=== PATIENT | male | born 1940 | race Caucasian/White ===

== ENCOUNTER 2017-06-27 07:11 | Emergency (ER) | payer OTHER ==
[2017-06-27] MEDS ORDERED: HYDROCODONE/APAP 5/325 MG TAB ONE (07:32)
--- NOTE | 2017-06-27 08:24 | RAD REPORT ---
EXAM DESCRIPTION: CT - Thorax Wo Con CLINICAL HISTORY: Fall, trauma, chest pain COMPARISON: None FINDINGS: Mild linear opacities in both posterior lung bases compatible with subsegmental atelectasi s. Small bilateral pleural effusions, slightly greater on the left. No pneumothorax. Small hiatal her sue. No axillary, mediastinal or hilar adenopathy. Fracture of the posterior left eighth, ninth and tenth ribs noted, minimally displaced. All CT scans are performed using dose optimization technique as appropriate and may include automated exposure control or mA/KV adjustment according to patient size. IMPRESSION: Left posterior rib fractures (8th - 10th) as detailed. No pneumothorax.
--- NOTE | 2017-06-27 08:29 | RAD REPORT ---
EXAM DESCRIPTION: CT - Abdomen Wo Contrast CLINICAL HISTORY: Trauma, flank pain. COMPARISON: CT chest same date. TECHNIQUE All CT scans are performed using dose optimization technique as appropriate and may includ e automated exposure control or mA/KV adjustment according to patient size. FINDINGS: Bilateral pleural effusions are noted, slightly greater on the left. Posterior left eighth , ninth and tenth rib fractures noted. Full intrathoracic findings are detailed on separately reporte d CT chest examination. Non-contrast imaging of the liver shows no focal lesion or biliary dilatation. Cholecystectomy clips are seen. Spleen is grossly intact. The adrenal glands and pancreas are within normal limits. No luna l stone or hydronephrosis. Small renal cysts are present. Perinephric fat stranding is seen bilateral ly. No free fluid, bowel obstruction or free air. No significant adenopathy in the abdomen. Spinal column appears intact. IMPRESSION: Left inferior posterior rib fractures as described without acute intra-abdominal finding suspected.
--- NOTE | 2017-06-27 08:37 | EDPHYS ---
Physician Documentation [facility] Name: Pavel Roberts Age: 77 yrs Sex: Male : 1940 Arrival Date: 06/27/2017 Time: 07:13 Bed 16 Private MD: Xavier Britton C ED Physician Woody Tellez HPI: 06/27 08:27 This 77 yrs old Male presents to ER via Ambulatory with complaints of Fall gs Injury. 08:27 Details of fall: The patient fell from an upright position, while walking. Onset: The gs symptoms/episode began/occurred suddenly, yesterday. Associated injuries: The patient sustained injury to the chest, contusion. Severity of symptoms: At their worst the symptoms were moderate, in the emergency department the symptoms are unchanged. Historical: - Allergies: 07:29 No Known Allergies; ss 07:20 No Known Allergies; rb1 - Home Meds: 07:20 Plavix 75 mg Oral tab 1 tab once daily [Active]; losartan-hydrochlorothiazide 100-25 mg rb1 oral tab 1 tab once daily [Active]; atorvastatin 10 mg oral tab 1 tab once daily [Active]; amlodipine 5 mg tab 1 tab twice a day [Active]; fenofibrate oral 48 mg oral [Active]; glimepiride 2 mg Oral tab 1 tab once daily [Active]; doxazosin 2 mg oral tab 1 tab once daily [Active]; alprazolam 0.5 mg Oral tab 1 tab [Active]; aspirin 81 mg Oral chew 1 tab once daily [Active]; Vitamin D Oral [Active]; - PMHx: 07:29 Myocardial infarction; Diabetes - NIDDM; Hypertension; High Cholesterol; ss 07:20 cardiac stent; Hypertension; rb1 - PSHx: 07:29 cardiac stents x 3; Cholecystectomy; ss 07:20 Cholecystectomy; rb1 - Immunization history:: Adult Immunizations up to date. - Social history:: Smoking status: Patient/guardian denies using tobacco. ROS: 08:29 All other systems are negative. gs Exam: 08:29 Head/Face: Normocephalic, atraumatic. Eyes: Pupils equal round and reactive to light, gs extra-ocular motions intact. Lids and lashes normal. Conjunctiva and sclera are non-icteric and not injected. Cornea within normal limits. Periorbital areas with no swelling, redness, or edema. ENT: Nares patent. No nasal discharge, no septal abnormalities noted. Tympanic membranes are normal and external auditory canals are clear. Oropharynx with no redness, swelling, or masses, exudates, or evidence of obstruction, uvula midline. Mucous membranes moist. Neck: Trachea midline, no thyromegaly or masses palpated, and no cervical lymphadenopathy. Supple, full range of motion without nuchal rigidity, or vertebral point tenderness. No Meningismus. Cardiovascular: Regular rate and rhythm with a normal S1 and S2. No gallops, murmurs, or rubs. Normal PMI, no JVD. No pulse deficits. Respiratory: Lungs have equal breath sounds bilaterally, clear to auscultation and percussion. No rales, rhonchi or wheezes noted. No increased work of breathing, no retractions or nasal flaring. Abdomen/GI: Soft, non-tender, with normal bowel sounds. No distension or tympany. No guarding or rebound. No evidence of tenderness throughout. Back: No spinal tenderness. No costovertebral tenderness. Full range of motion. Skin: Warm, dry with normal turgor. Normal color with no rashes, no lesions, and no evidence of cellulitis. MS/ Extremity: Pulses equal, no cyanosis. Neurovascular intact. Full, normal range of motion. Neuro: Awake and alert, GCS 15, oriented to person, place, time, and situation. Cranial nerves II-XII grossly intact. Motor strength 5/5 in all extremities. Sensory grossly intact. Cerebellar exam normal. Normal gait. 08:29 Constitutional: The patient appears alert, awake. 08:29 Chest/axilla: Palpation: tenderness, that is moderate, of the left lateral anterior chest, that totally reproduces the patient's complaints. Vital Signs: 07:21 BP 181 / 74; Pulse 70; Resp 18; Pulse Ox 99% on R/A; Weight 85.28 kg; Height 5 ft. 8 ss in. (172.72 cm); Pain 10/10; 08:20 BP 151 / 67; Pulse 18; Resp 73; Pulse Ox 96% on R/A; Pain 10/10; rb1 08:54 BP 151 / 67; Pulse 66; Resp 17; Pulse Ox 96% on R/A; rb1 07:21 Body Mass Index 28.59 (85.28 kg, 172.72 cm) ss MDM: 07:21 Patient medically screened. 08:29 Differential diagnosis: abrasion, contusion, fracture. Data reviewed: vital signs, nurses notes. Response to treatment: the patient's symptoms have markedly improved after treatment, and as a result, I will discharge patient. 06/27 07:22 Order name: CT Chest Wo Con; Complete Time: 08:38 06/27 07:48 Order name: Abdomen Wo Contrast; Complete Time: 08:38 EDMS Administered Medications: 07:34 Drug: Grace 5 mg-325 mg 1 tabs Route: PO; rb1 08:25 Follow up: Response: No adverse reaction; Pain is unchanged, physician notified rb1 Disposition: 06/27/17 08:36 Discharged to Home. Impression: Multiple fractures of ribs, left side. - Condition is Stable. - Discharge Instructions: Rib Fracture. - Prescriptions for Tylenol- Codeine #4 300-60 mg Oral Tablet - take 1 tablet by ORAL route every 8 hours As needed; 12 tablet. - Medication Reconciliation Form, Thank You Letter, Antibiotic Education, Prescription Opioid Use form. - Follow up: Private Physician; When: 2 - 3 days; Reason: Re-evaluation by your physician. Signatures: Dispatcher [employer] EDMS Tayler De La Torre RN RN Anh Cabello, RN RN rb1 Woody Tellez MD MD
--- NOTE | 2017-06-27 08:37 | ER ---
Nurse's Notes [facility] Name: Pavel Roberts Age: 77 yrs Sex: Male : 1940 Arrival Date: 06/27/2017 Time: 07:13 Bed 16 Private MD: Xavier Britton C Diagnosis: Multiple fractures of ribs, left side Presentation: 06/27 07:22 Presenting complaint: Patient states: tripped backwards while mowing yesterday and now ss c/o pain to L mid back and flank area. states, "I think he broke some ribs.". Transition of care: patient was not received from another setting of care. Onset of symptoms was June 26, 2017. Initial Sepsis Screen: Does the patient meet any 2 criteria? No. Patient's initial sepsis screen is negative. Does the patient have a suspected source of infection? No. Patient's initial sepsis screen is negative. Care prior to arrival: None. 07:22 Method Of Arrival: Ambulatory ss 07:22 Acuity: CHRIS 4 ss Historical: - Allergies: 07:29 No Known Allergies; ss 07:20 No Known Allergies; rb1 - Home Meds: 07:20 Plavix 75 mg Oral tab 1 tab once daily [Active]; losartan-hydrochlorothiazide 100-25 mg rb1 oral tab 1 tab once daily [Active]; atorvastatin 10 mg oral tab 1 tab once daily [Active]; amlodipine 5 mg tab 1 tab twice a day [Active]; fenofibrate oral 48 mg oral [Active]; glimepiride 2 mg Oral tab 1 tab once daily [Active]; doxazosin 2 mg oral tab 1 tab once daily [Active]; alprazolam 0.5 mg Oral tab 1 tab [Active]; aspirin 81 mg Oral chew 1 tab once daily [Active]; Vitamin D Oral [Active]; - PMHx: 07:29 Myocardial infarction; Diabetes - NIDDM; Hypertension; High Cholesterol; ss 07:20 cardiac stent; Hypertension; rb1 - PSHx: 07:29 cardiac stents x 3; Cholecystectomy; ss 07:20 Cholecystectomy; rb1 - Immunization history:: Adult Immunizations up to date. - Social history:: Smoking status: Patient/guardian denies using tobacco. Screenin:16 Abuse screen: Denies threats or abuse. Nutritional screening: No deficits noted. rb1 Tuberculosis screening: No symptoms or risk factors identified. Fall Risk Fall in past 12 months (25 points). No secondary diagnosis (0 pts). No IV (0 pts). Ambulatory Aid- None/Bed Rest/Nurse Assist (0 pts). Gait- Normal/Bed Rest/Wheelchair (0 pts) Mental Status- Oriented to own ability (0 pts). Total Cordero Fall Scale indicates Low Risk Score (25-44 pts). Fall prevention measures have been instituted. Side Rails Up X 2 Placed close to Nursing Station 1:1 attendant Assigned to Pt. Frequent Obs/Assesments occuring Family Present and informed to notify staff if they need to leave bedside As available Patient and Family Educated on Fall Prevention Program and strategies. Assessment: 07:16 General: Appears uncomfortable, Behavior is calm, cooperative, Denies fever. General: rb1 Pt. was mowing the grass and was backing up when he tripped over a power line and fell to the ground. Pt. fell in the grass, denies landing on anything or hitting his head.. Pain: Complains of pain in left side of ribs and left mid back Pain currently is 10 out of 10 on a pain scale. Pain began 1 day ago. Neuro: Level of Consciousness is awake, alert, obeys commands, Oriented to person, place, time, situation. Cardiovascular: Capillary refill < 3 seconds is brisk in bilateral fingers. Respiratory: Reports pain with cough Airway is patent Respiratory effort is even, unlabored, Respiratory pattern is regular, symmetrical. GI: No signs and/or symptoms were reported involving the gastrointestinal system. : No signs and/or symptoms were reported regarding the genitourinary system. Derm: Bruising that is on left side of ribs light purple. Musculoskeletal: Range of motion: intact in all extremities. 07:43 Reassessment: pt. went to CT. rb1 08:15 Reassessment: Patient appears in no apparent distress at this time. No changes from rb1 previously documented assessment. 08:28 Reassessment: Patient appears in no apparent distress at this time. Patient and/or rb1 family updated on plan of care and expected duration. Pain level reassessed. Patient is alert, oriented x 3, equal unlabored respirations, skin warm/dry/pink. Pain is unchanged after receiving pain medication, provider notified. No order received at this time. Vital Signs: 07:21 BP 181 / 74; Pulse 70; Resp 18; Pulse Ox 99% on R/A; Weight 85.28 kg; Height 5 ft. 8 ss in. (172.72 cm); Pain 10/10; 08:20 BP 151 / 67; Pulse 18; Resp 73; Pulse Ox 96% on R/A; Pain 10/10; rb1 08:54 BP 151 / 67; Pulse 66; Resp 17; Pulse Ox 96% on R/A; rb1 07:21 Body Mass Index 28.59 (85.28 kg, 172.72 cm) ED Course: 07:13 Patient arrived in ED. as 07:13 Xavier Britton MD is Private Physician. as 07:15 Woody Tellez MD is Attending Physician. gs 07:16 Patient has correct armband on for positive identification. Bed in low position. Call rb1 light in reach. Side rails up X 1. Pulse ox on. NIBP on. 07:17 Anh Cabello RN is Primary Nurse. rb1 07:21 Arm band placed on right wrist. ss 07:28 Triage completed. ss 07:[address] via stretcher. sj 07:55 CT Chest Wo Con In Process Unspecified. EDMS 07:55 Abdomen Wo Contrast In Process Unspecified. EDMS 08:55 No provider procedures requiring assistance completed. Patient did not have IV access rb1 during this emergency room visit. Administered Medications: 07:34 Drug: Bath 5 mg-325 mg 1 tabs Route: PO; rb1 08:25 Follow up: Response: No adverse reaction; Pain is unchanged, physician notified rb1 Outcome: 08:36 Discharge ordered by . gs 08:55 Discharged to home ambulatory, with significant other. rb1 08:55 Condition: stable 08:55 Discharge instructions given to patient, Instructed on discharge instructions, follow up and referral plans. medication usage, Demonstrated understanding of instructions, follow-up care, medications, Prescriptions given X 1. 08:56 Patient left the ED. rb1 Signatures: Dispatcher [employer] EDND Nicci Rosen Amelia as Smirch, Shelby RN RN Anh Cabello, RN RN rb1 Woody Tellez MD MD
[2017-06-27 09:01] VITALS: BP 151/67; O2SAT 96
== END 2017-06-27 08:56 | disposition home or self-care (01) ==
LOC: ER 07:11
DX: S22.42XA Multiple fractures of ribs, left side, initial encounter for closed fracture (principal); W18.39XA Other fall on same level, initial encounter; Y93.01 Activity, walking, marching and hiking; Y92.9 Unspecified place or not applicable; Z95.818 Presence of other cardiac implants and grafts; I10 Essential (primary) hypertension; E11.9 Type 2 diabetes mellitus without complications; I25.2 Old myocardial infarction; E78.00 Pure hypercholesterolemia, unspecified; Z79.01 Long term (current) use of anticoagulants
CPT/HCPCS: 71250; 74150; 99284

== ENCOUNTER 2019-02-13 10:18 | Emergency (ER) | payer OTHER ==
--- NOTE | 2019-02-13 12:26 | ER ---
Nurse's Notes [facility] Name: Pavel Roberts Age: 79 yrs Sex: Male : 1940 Arrival Date: 02/13/2019 Time: 10:22 Bed 5 Private MD: Xavier Britton C Diagnosis: Bursitis right elbow Presentation: 02/13 10:27 Presenting complaint: Patient states: Woke up about 2 weeks ago with right elbow jl7 swelling, denies trauma, denies pain. Transition of care: patient was not received from another setting of care. Onset of symptoms was February 01, 2019. Risk Assessment: Do you want to hurt yourself or someone else? Patient reports no desire to harm self or others. Initial Sepsis Screen: Does the patient meet any 2 criteria? No. Patient's initial sepsis screen is negative. Does the patient have a suspected source of infection? No. Patient's initial sepsis screen is negative. Care prior to arrival: None. 10:27 Method Of Arrival: Ambulatory jl7 10:27 Acuity: CHRIS 3 jl7 Triage Assessment: 10:31 General: Appears in no apparent distress. comfortable, Behavior is calm, cooperative, jl7 appropriate for age. Pain: Denies pain. Musculoskeletal: Swelling present in right elbow. Historical: - Allergies: 10:31 No Known Allergies; jl7 - Home Meds: 10:31 Plavix 75 mg Oral tab 1 tab once daily [Active]; losartan-hydrochlorothiazide 100-25 mg jl7 Oral tab 1 tab once daily [Active]; atorvastatin 10 mg Oral tab 1 tab once daily [Active]; amlodipine 5 mg tab 1 tab twice a day [Active]; fenofibrate 48 mg Oral [Active]; glimepiride 2 mg Oral tab 1 tab once daily [Active]; doxazosin 2 mg Oral tab 1 tab once daily [Active]; alprazolam 0.5 mg Oral tab 1 tab [Active]; aspirin 81 mg Oral chew 1 tab once daily [Active]; Vitamin D Oral [Active]; - PMHx: 10:31 cardiac stent; Diabetes - NIDDM; High Cholesterol; Myocardial infarction; Hypertension; jl7 - PSHx: 10:31 cardiac stents x 3; Cholecystectomy; jl7 - Immunization history:: Adult Immunizations up to date. - Social history:: Smoking status: Patient/guardian denies using tobacco. - Ebola Screening: : No symptoms or risks identified at this time. Vital Signs: 10:31 BP 151 / 62; Pulse 64; Resp 16 S; Temp 97.9(O); Pulse Ox 98% on R/A; Pain 0/10; jl7 ED Course: 10:22 Patient arrived in ED. as 10:22 Xavier Britton MD is Private Physician. as 10:28 Triage completed. jl7 10:31 Arm band placed on right wrist. jl7 10:41 Sathish Kaba MD is Attending Physician. pkl 12:02 Donovan Oseguera, RN is Primary Nurse. sg 12:02 Patient moved back from ultrasound. sg 12:19 Extremity Nonvascular Limited In Process Unspecified. EDMS 12:23 Xavier Britton MD is Referral Physician. pkl Administered Medications: No medications were administered Outcome: 12:25 Discharge ordered by . pkl 12:47 Patient left the ED. sg Signatures: Dispatcher [employer] EDMS Donovan Oseguera, RN RN Sathish Kaba MD MD pkl Afshan Bojorquez Jahala, RN RN jl7 Corrections: (The following items were deleted from the chart) 10:32 10:31 General: Appears in no apparent distress. uncomfortable, Behavior is calm, jl7 cooperative, appropriate for age, jl7 10:32 10:31 Pain: Denies pain. jl7 jl7
--- NOTE | 2019-02-13 12:26 | EDPHYS ---
Physician Documentation [facility] Name: Pavel Roberts Age: 79 yrs Sex: Male : 1940 Arrival Date: 02/13/2019 Time: 10:22 Bed 5 Private MD: Xavier Britton C ED Physician Sathish Kaba HPI: 02/13 10:50 This 79 yrs old Male presents to ER via Ambulatory with complaints of Elbow pkl Swelling. 10:50 The patient or guardian complains of swelling. The complaints affect the right elbow. pkl Context: Denies any injury. Onset: The symptoms/episode began/occurred 2 week(s) ago. The patient has not experienced similar symptoms in the past. Historical: - Allergies: 10:31 No Known Allergies; jl7 - Home Meds: 10:31 Plavix 75 mg Oral tab 1 tab once daily [Active]; losartan-hydrochlorothiazide 100-25 mg jl7 Oral tab 1 tab once daily [Active]; atorvastatin 10 mg Oral tab 1 tab once daily [Active]; amlodipine 5 mg tab 1 tab twice a day [Active]; fenofibrate 48 mg Oral [Active]; glimepiride 2 mg Oral tab 1 tab once daily [Active]; doxazosin 2 mg Oral tab 1 tab once daily [Active]; alprazolam 0.5 mg Oral tab 1 tab [Active]; aspirin 81 mg Oral chew 1 tab once daily [Active]; Vitamin D Oral [Active]; - PMHx: 10:31 cardiac stent; Diabetes - NIDDM; High Cholesterol; Myocardial infarction; Hypertension; jl7 - PSHx: 10:31 cardiac stents x 3; Cholecystectomy; jl7 - Immunization history:: Adult Immunizations up to date. - Social history:: Smoking status: Patient/guardian denies using tobacco. - Ebola Screening: : No symptoms or risks identified at this time. ROS: 10:50 Eyes: Negative for injury, pain, redness, and discharge, ENT: Negative for injury, pkl pain, and discharge, Neck: Negative for injury, pain, and swelling, Cardiovascular: Negative for chest pain, palpitations, and edema, Respiratory: Negative for shortness of breath, cough, wheezing, and pleuritic chest pain, Abdomen/GI: Negative for abdominal pain, nausea, vomiting, diarrhea, and constipation, Back: Negative for injury and pain, : Negative for injury, bleeding, discharge, and swelling. 10:50 MS/extremity: Positive for swelling, of the right elbow. 10:50 Skin: Negative for rash. 10:50 Neuro: Negative for altered mental status. Exam: 10:50 Head/Face: Normocephalic, atraumatic. Eyes: Pupils equal round and reactive to light, pkl extra-ocular motions intact. Lids and lashes normal. Conjunctiva and sclera are non-icteric and not injected. Cornea within normal limits. Periorbital areas with no swelling, redness, or edema. ENT: Nares patent. No nasal discharge, no septal abnormalities noted. Tympanic membranes are normal and external auditory canals are clear. Oropharynx with no redness, swelling, or masses, exudates, or evidence of obstruction, uvula midline. Mucous membranes moist. Neck: Trachea midline, no thyromegaly or masses palpated, and no cervical lymphadenopathy. Supple, full range of motion without nuchal rigidity, or vertebral point tenderness. No Meningismus. Chest/axilla: Normal chest wall appearance and motion. Nontender with no deformity. No lesions are appreciated. Cardiovascular: Regular rate and rhythm with a normal S1 and S2. No gallops, murmurs, or rubs. Normal PMI, no JVD. No pulse deficits. Respiratory: Lungs have equal breath sounds bilaterally, clear to auscultation and percussion. No rales, rhonchi or wheezes noted. No increased work of breathing, no retractions or nasal flaring. Abdomen/GI: Soft, non-tender, with normal bowel sounds. No distension or tympany. No guarding or rebound. No evidence of tenderness throughout. Back: No spinal tenderness. No costovertebral tenderness. Full range of motion. Skin: Warm, dry with normal turgor. Normal color with no rashes, no lesions, and no evidence of cellulitis. Neuro: Awake and alert, GCS 15, oriented to person, place, time, and situation. Cranial nerves II-XII grossly intact. Motor strength 5/5 in all extremities. Sensory grossly intact. Cerebellar exam normal. Normal gait. 10:50 Musculoskeletal/extremity: Extremities: grossly normal except: noted in the right elbow: swelling. Vital Signs: 10:31 BP 151 / 62; Pulse 64; Resp 16 S; Temp 97.9(O); Pulse Ox 98% on R/A; Pain 0/10; jl7 Procedures: 12:19 Aspiration of swelling left elbow done under sterile condition. 20 cc of lightly blood pkl stain fluid obtained. MDM: 10:41 Patient medically screened. pkl 12:19 Data reviewed: vital signs, nurses notes, radiologic studies, ultrasound. pkl 02/13 11:06 Order name: Extremity Nonvascular Limited; Complete Time: 16:39 EDMS 02/13 12:22 Order name: Quang Wrap; Complete Time: 12:23 pkl 02/13 12:22 Order name: Sling; Complete Time: 12:23 pkl Administered Medications: No medications were administered Disposition: 02/13/19 12:25 Discharged to Home. Impression: Bursitis right elbow. - Condition is Stable. - Medication Reconciliation Form, Thank You Letter, Antibiotic Education, Prescription Opioid Use form. - Follow up: Xavier Britton MD; When: 2 - 3 days; Reason: Re-evaluation by your physician. - Problem is new. - Symptoms have improved. Signatures: Dispatcher [employer] EDDonovan Cameron RN RN sg Sathish Kaba MD MD pkl Bobby Early RN RN jl7 Corrections: (The following items were deleted from the chart) 12:47 12:25 02/13/2019 12:25 Discharged to Home. Impression: Bursitis right elbow. Condition sg is Stable. Forms are Medication Reconciliation Form, Thank You Letter, Antibiotic Education, Prescription Opioid Use. Follow up: Xavier Britton; When: 2 - 3 days; Reason: Re-evaluation by your physician. Problem is new. Symptoms have improved. pkl
--- NOTE | 2019-02-13 12:34 | RAD REPORT ---
EXAM DESCRIPTION: US - Extremity Nonvascular Limited - 02/13/2019 12:17 pm CLINICAL HISTORY: Left elbow pain and swelling COMPARISON: None. FINDINGS: In the soft tissues abutting the posterior olecranon there is a 4 x 4 x 1 centimeter irreg ular fluid collection. Echogenic debris is present. This is most likely an olecranon bursitis. IMPRESSION: Approximately 4 x 4 x 1 centimeter posterior oval fluid collection most likely olecranon bursitis.
[2019-02-13 12:56] VITALS: BP 151/62; TEMP 97.9; O2SAT 98
== END 2019-02-13 12:47 | disposition home or self-care (01) ==
LOC: ER 10:18
DX: M70.31 Other bursitis of elbow, right elbow (principal); I10 Essential (primary) hypertension; E11.9 Type 2 diabetes mellitus without complications; E78.00 Pure hypercholesterolemia, unspecified; Z95.5 Presence of coronary angioplasty implant and graft; I25.2 Old myocardial infarction
CPT/HCPCS: 76882; 99284

== ENCOUNTER 2020-03-08 12:09 | Inpatient (IN) | payer OTHER ==
--- OUTSIDE RECORDS SUMMARY | 2020-03-08 12:18 | XMS REPORT | Continuity of Care Document ---
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, systemic N euro arterial (disorder) Hyperlipidemia Active Problem 06/20/2019 Misc her (disorder) Neuro Hypothyroidism Active Problem 06/20/2019 Misc her (disorder) Neuro Lumbar Active Problem 06/20/2019 [facility] radiculopathy Neuro (disorder) 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) N euro 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) Simple obesity Active Problem 06/20/2019 Misc her (disorder) Neuro Medications Medication Details Route Status Patient Ordering Order Source Instructions Provider Date gabapentin 300 300 mg = 1 Active 02/29/20 Misch er MG Oral cap, PO, 18 Neuro Capsule Bedtime, # 90 cap, 3 Refill(s), Pharmacy: [id number] gabapentin 300 300 mg = 1 No Longer 01/31/20 Mis skylar MG Oral cap, PO, Active 18 Neuro Capsule Bedtime, X 30 day, # 30 cap, 6 Refill(s), Pharmacy: [id number] Furosemide 40 40 mg = 1 Active 01/31/20 [facility]ischer MG Oral Tablet tab, PO, 18 Neuro Daily, # 30 tab, 0 Refill(s) Allergies, Adverse Reactions, Alerts Substance Category Reaction Severity Reaction Status Date Comments S ource type Reported No Known Assertion Drug Misch er Medication allergy Neuro Allergies Immunizations No Data Provided for This Section Results Order Name Results Value Reference Date Interpretation Comments Lanie rce Range ANEMIA STUDY Vitamin 1633 200 - 1100 12/30 Result Comment: Breana B12
Lab Neuro test performed by:
[facility]
[address] [place] [address]
[place] [address]
Estela Funes CHEM PANEL VITAMIN 238 78 - 185 12/30 Result Comment: [facility] B1 Vitamin Neuro (THIAMINE supplementation ) WHOLE within 24 hours BLOOD prior to blood draw may
affect the accuracy of results.

This test was developed and its analytical performance
characteris tics have been determined by [facility]. It has not been cleared or approved by FDA.
This assay has been validated pursuant to the CLIA regulations
and is used for clinical purposes.
FA STING:YES
<b r/>FASTING: YES

Lab test performed by:
[facility]
[address] [facility]
[place] [address]
Estela Ceron M.D., Ph.D HEMATOLOGY Sed Rate 6 < OR = 20 12/30 Result Comment: Trang carl mm/hr /2017
Lab Neuro test performed by:
[facility]
[address] [place] [address]
[place] [address]
Estela Funes IMMUNOLOGY SUSAN Ser SEE 12/30 Result Comment: Misch er Interp COMMENT /2017
Normal Neuro pattern. No monoclonal proteins detected.

Lab test performed by:
[facility]
[address] [facility]
[place] [address]
Alix Alonzo Pathology Reports No Data Provided for This Section Diagnostic Reports No Data Provided for This Section Consultation Notes No Data Provided for This Section Discharge Summaries No Data Provided for This Section History and Physicals No Data Provided for This Section Vital Signs Vital Sign Value Date Comments Source BMI Calculated 30.73 09/18/2018 [facility] Neuro Height 167.64 cm 09/18/2018 [facility] Neuro Weight 86.364 09/18/2018 [facility] Respitory Rate 16 09/18/2018 [facility] Systolic (mm Hg) 147 09/18/2018 [facility] Tabitha ro Diastolic (mm Hg) 77 09/18/2018 [facility] Ne uro Heart Rate 65 09/18/2018 [facility] Neuro BMI Calculated 31.22 01/30/2018 [facility] Height 167.64 cm 01/30/2018 [facility] Weight 87.727 [facility]30/[facility] 16 01/30/2018 [facility] Neuro Heart Rate 61 01/30/2018 [facility] Systolic (mm Hg) 148 01/30/2018 [facility] Tabitha ro Diastolic (mm Hg) 67 01/30/2018 [facility] Ne uro Weight 85.909 12/19/2017 [facility] Neuro Height 167.64 cm 12/19/2017 [facility] Neuro BMI Calculated 30.57 12/19/2017 [facility] Neuro Respitory Rate 16 12/19/2017 [facility] Neuro Heart Rate 66 12/19/2017 [facility] Neuro Systolic (mm Hg) 162 12/19/2017 [facility] Tabitha ro Diastolic (mm Hg) 64 12/19/2017 [facility] En[facility]ters Location Location Encounter Encounter Reason Attending ADM DC Stat us Source Details Type Number For Provider Date Date Visit Outpatient [id number] SONG 11/12 Active [facility] Ricardo Outpatient [id number] SONG 12/19 Active [facility] Ricardo MNA Outpatient [id number] Song 12/19 12/20 [facility] Neurology Kre Neuro Richardson Outpatient [id number] SONG 01/30 Active [facility] Ricardo MNA Outpatient [id number] Song 01/30 01/31 [facility] Neurology Kre Neuro Richardson MNA Phone [id number] 02/28 03/02 [facility] Neurology Message Neuro Richardson Outpatient [id number] Song 09/18 Active [facility] Ricardo MNA Outpatient [id number] Song 09/18 09/19 [facility] Neurology Kre Neuro Richardson Outpatient [id number] Song 06/17 Active [facility] MNA Ambulatory [id number] Salo 06/17 06/17 [facility] Neurology Pre-Reg Britton /2019 Neuro Richardson Procedures No Data Provided for This Section Assessment and Plan No Data Provided for This Section Plan of Care No Data Provided for This Section Social History Social History Date Source Social History TypeResponse 09/18/2018 [facility] Ne[facility] o Smoking Status Former smoker; Type: Cigarettes; Exposur e to Tobacco Smoke None; Cigarette Smoking Last 365 Days No; Reg Smoking Cessation Counseling No; Other Tobacco Frequency Smoked 30yrs ago; entered on: 09/18/18 Family History No Data Provided for This Section Advance Directives No Data Provided for This Section Functional Status No Data Provided for This Section
[2020-03-08 13:01] LABS: Protime INR 1.25
[2020-03-08 13:03] LABS: Absolute Lymphocytes (CBC) 0.2 K/uL (0.7-4.9); Basophils % 0.1 % (0-1.3); Hematocrit 34.5 % (39.6-49.0); Lymphocytes % 1.6 % (15.3-44.8); MPV 7.5 fL (7.6-11.3); RBC Red Blood Cell Count 3.89 M/uL (4.33-5.43)
[2020-03-08] MEDS ORDERED: NA CHLORIDE 0.9% 1,000 ML ONE (13:07)
[2020-03-08] MEDS ORDERED: FAMOTIDINE 20 MG/2 ML VIAL IV ONE ×2 (13:07→20:10)
[2020-03-08] MEDS ORDERED: CEFTRIAXONE/SWI 1gm 1 GM/10 ML SYR ONE (13:07)
[2020-03-08] MEDS ORDERED: ASPIRIN 81 MG CHEWABLE TABLET ONE (13:07)
[2020-03-08] MEDS ORDERED: dexAMETHasone 10 MG/ML VIAL ONE (13:07)
[2020-03-08] MEDS ORDERED: ALBUTEROL INHALER 60 PUFF/8 GM IH ONE (13:08)
--- NOTE | 2020-03-08 13:11 | RAD REPORT ---
EXAM DESCRIPTION: RAD - Chest Single View - 03/08/2020 12:57 pm CLINICAL HISTORY: Cough;Congestion, COVID positive, shortness of breath COMPARISON: Portable January 2016 TECHNIQUE: AP portable chest image was obtained 03/08/2020 12:57 pm . FINDINGS: Interstitial and alveolar opacities are present in the right upper lobe, left perihilar re gion and left lung base. Prominent interstitial markings in the right lower lobe. This bilateral inte rstitial and alveolar opacity pattern would be consistent with COVID-19 pneumonia given the provided history and current clinical environment. Heart and vasculature are normal. No measurable pleural effusion and no pneumothorax. No acute bone findings seen. Multiple old left-sided rib fractures are present. No acute aortic findings suspected. IMPRESSION: Bilateral pneumonia pattern consistent with a COVID-19 pneumonia.
[2020-03-08] MEDS ORDERED: AZITHROMYCIN IV 500 MG in NA CHLORIDE 0.9% 250 ML IVPB ONE (13:15)
[2020-03-08] MEDS ORDERED: ONDANSETRON 4 MG/2 ML VIAL ONE (13:19)
[2020-03-08] MEDS ORDERED: MORPHINE 2 MG/ML SYR ONE ×2 (13:19→14:15)
[2020-03-08 13:20] LABS: Albumin 2.6 g/dL (3.4-5.0); Bilirubin Direct 0.6 mg/dL (0-0.2); Bilirubin Total 1.1 mg/dL (0.2-1.0); Magnesium 2.2 mg/dL (1.8-2.4); Protein, Total 7.2 g/dL (6.4-8.2)
[2020-03-08 13:22] LABS: Troponin (Emerg Dept Use Only) 1.5 ng/mL (0.0-0.045)
[2020-03-08 13:51] LABS: SARS-COV-2 RT PCR POSITIVE (NEGATIVE)
[2020-03-08 14:04] LABS: Blood Morphology Comment NOT SEEN (NOT SEEN); Platelet Estimate ADEQ; White Blood Cell Scan OK (OK)
--- NOTE | 2020-03-08 14:18 | EDPHYS ---
Physician Documentation [facility] Name: Pavel Roberts Age: 80 yrs Sex: Male : 1940 Arrival Date: 03/08/2020 Time: 12:12 Bed 5 Private MD: Cristian Hayward HPI: 03/08 14:09 This 80 yrs old Male presents to ER via Wheelchair with complaints of melanie Weakness, Shortness Of Breath. Historical: - Allergies: 12:23 No Known Drug Allergies; tw2 - PMHx: 12: cardiac stent; Diabetes - NIDDM; High Cholesterol; Hypertension; Myocardial infarction; tw2 - PSHx: 12: cardiac stents x 3; Cholecystectomy; tw2 - Immunization history:: Adult Immunizations. - Social history:: Smoking status: . ROS: 14:09 Eyes: Negative for injury, pain, redness, and discharge, ENT: Negative for injury, melanie pain, and discharge, Neck: Negative for injury, pain, and swelling, Abdomen/GI: Negative for abdominal pain, nausea, vomiting, diarrhea, and constipation, Back: Negative for injury and pain, : Negative for injury, bleeding, discharge, and swelling, MS/Extremity: Negative for injury and deformity, Skin: Negative for injury, rash, and discoloration, Psych: Negative for depression, anxiety, suicide ideation, homicidal ideation, and hallucinations, Allergy/Immunology: Negative for hives, rash, and allergies, Endocrine: Negative for neck swelling, polydipsia, polyuria, polyphagia, and marked weight changes, Hematologic/Lymphatic: Negative for swollen nodes, abnormal bleeding, and unusual bruising. 14:09 Constitutional: Positive for body aches, chills, fever, malaise. 14:09 Cardiovascular: Positive for palpitations. 14:09 Respiratory: Positive for cough, shortness of breath, at rest. Exam: 14:09 Head/Face: Normocephalic, atraumatic. Eyes: Pupils equal round and reactive to light, melanie extra-ocular motions intact. Lids and lashes normal. Conjunctiva and sclera are non-icteric and not injected. Cornea within normal limits. Periorbital areas with no swelling, redness, or edema. ENT: Nares patent. No nasal discharge, no septal abnormalities noted. Tympanic membranes are normal and external auditory canals are clear. Oropharynx with no redness, swelling, or masses, exudates, or evidence of obstruction, uvula midline. Mucous membranes moist. Neck: Trachea midline, no thyromegaly or masses palpated, and no cervical lymphadenopathy. Supple, full range of motion without nuchal rigidity, or vertebral point tenderness. No Meningismus. Chest/axilla: Normal chest wall appearance and motion. Nontender with no deformity. No lesions are appreciated. Abdomen/GI: Soft, non-tender, with normal bowel sounds. No distension or tympany. No guarding or rebound. No evidence of tenderness throughout. Back: No spinal tenderness. No costovertebral tenderness. Full range of motion. Male : Normal genitalia with no discharge or lesions. Skin: Warm, dry with normal turgor. Normal color with no rashes, no lesions, and no evidence of cellulitis. MS/ Extremity: Pulses equal, no cyanosis. Neurovascular intact. Full, normal range of motion. Neuro: Awake and alert, GCS 15, oriented to person, place, time, and situation. Cranial nerves II-XII grossly intact. Motor strength 5/5 in all extremities. Sensory grossly intact. Cerebellar exam normal. Normal gait. Psych: Awake, alert, with orientation to person, place and time. Behavior, mood, and affect are within normal limits. 14:09 Constitutional: The patient appears febrile, in obvious distress, mildly distressed. 14:09 Respiratory: the patient does not display signs of respiratory distress, Respirations: normal, no acute changes, Breath sounds: bronchial sounds, that are mild, are scattered, decreased breath sounds, that are mild, are heard in the right upper lobe, left lower lobe, right posterior upper lobe and left posterior lower lobe, Respiratory rate: 22 Vital Signs: 12:19 BP 133 / 57; Pulse 91; Resp 22; Temp 99.3(TE); Pulse Ox 83% on R/A; Weight 86.18 kg; tw2 Pain 10/10; 13:00 BP 122 / 56; Pulse 89; Resp 21 S; Pulse Ox 95% on 3 lpm NC; jl7 14:00 BP 124 / 53; Pulse 87; Resp 23 S; Temp 100.4; Pulse Ox 95% on 3 lpm NC; jl7 15:00 Temp 97.8; jl7 16:00 BP 108 / 63; Pulse 64; Resp 22 S; Pulse Ox 92% on 3 lpm NC; jl7 18:00 BP 113 / 64; Pulse 59; Resp 26 S; Pulse Ox 91% on 3 lpm NC; jl7 20:48 BP 145 / 60; Pulse 55; Resp 20; Temp 98; Pulse Ox 98% on 2 lpm NC; ea 12:19 pt placed on 2L NC and improved to 93% tw2 MDM: 12:31 Patient medically screened. [facility] 14:12 Differential diagnosis: asthma, Bronchitis CHF exacerbation, Chronic Obstructive melanie Pulmonary Disease bronchitis, flu, URI, pneumonia, pulmonary edema, Pulmonary Embolism reactive airway disease, Sepsis. Antibiotic administration: Rocephin and Zithromax given. The patient's Wells Deep Vein Thrombosis Score was calculated as follows: Total Score: 0-2 Pts- Low Risk. Differential Diagnosis: Bronchitis Influenza Upper Respiratory Infection Asthma Exacerbation Viral Syndrome Pneumonia. The patient's pulmonary embolism risk score was calculated as follows: Total Score: 0-2 points. This patient was found to be at low risk for a pulmonary embolism by using the Well's assessment criteria. Immunization status: Pneumococcal vaccine: Influenza vaccine: Data reviewed: vital signs, nurses notes, lab test result(s), EKG, radiologic studies, plain films. Data interpreted: track grinder: rate is 91 beats/min, rhythm is regular, Pulse oximetry: on room air is 83 %. Test interpretation: by ED physician or midlevel provider: ECG, plain radiologic studies. Counseling: I had a detailed discussion with the patient and/or guardian regarding: the historical points, exam findings, and any diagnostic results supporting the discharge/admit diagnosis, the presence of at least one elevated blood pressure reading (>120/80) during this emergency department visit, lab results, the need for further work-up and treatment in the hospital. 03/08 12:36 Order name: Basic Metabolic Panel; Complete Time: 14:04 [facility] 03/08 12:36 Order name: CBC with Diff; Complete Time: 14:14 [facility] 03/08 12:36 Order name: LFT's; Complete Time: 14:04 [facility] 03/08 12:36 Order name: Magnesium; Complete Time: 14:04 [facility] 03/08 12:36 Order name: NT PRO-BNP; Complete Time: 14:04 [facility] 03/08 12:36 Order name: PT-INR; Complete Time: 14:04 [facility] 03/08 12:36 Order name: Troponin (emerg Dept Use Only); Complete Time: 14:04 [facility] 03/08 12:36 Order name: Lipase; Complete Time: 14:04 [facility] 03/08 12:36 Order name: Blood Culture Adult (2) [facility] 03/08 12:36 Order name: Urine Culture [facility] 03/08 13:52 Order name: COVID-19/FLU A+B; Complete Time: 14:04 [facility] 03/08 14:04 Order name: CBC Smear Scan; Complete Time: 14:14 [facility] 03/08 12:36 Order name: XRAY Chest (1 view); Complete Time: 14:04 [facility] 03/08 12:36 Order name: EKG; Complete Time: 12:37 [facility] 03/08 12:36 Order name: Cardiac monitoring; Complete Time: 12:38 [facility] 03/08 12:36 Order name: EKG - Nurse/Tech; Complete Time: 12:38 [facility] 03/08 12:36 Order name: IV Saline Lock; Complete Time: 12:38 [facility] 03/08 12:36 Order name: Labs collected and sent; Complete Time: 12:38 [facility] 03/08 12:36 Order name: O2 Per Protocol; Complete Time: 12:38 [facility] 03/08 12:36 Order name: O2 Sat Monitoring; Complete Time: 12:38 [facility] 03/08 14:24 Order name: CONS Physician Consult EDME 03/08 14:24 Order name: CONS Physician Consult EDME Administered Medications: 12:50 Drug: NS 0.9% 500 ml Route: IV; Rate: bolus; Site: left hand; jl7 13:15 Follow up: Response: No adverse reaction; IV Status: Completed infusion; IV Intake: jl7 500ml 12:55 Drug: Rocephin 1 grams Route: IV; Rate: per protocol; Site: left hand; jl7 12:58 Follow up: Response: No adverse reaction; IV Status: Completed infusion jl7 12:59 Drug: Decadron - Dexamethasone 10 mg Route: IVP; Site: left hand; jl7 13:30 Follow up: Response: No adverse reaction jl7 12:59 Drug: Pepcid 20 mg Route: IVP; Site: left hand; jl7 13:30 Follow up: Response: No adverse reaction jl7 13:00 Drug: Aspirin 81 mg Route: PO; jl7 13:30 Follow up: Response: No adverse reaction jl7 13:05 Drug: Albuterol HFA Inhaler 4 puffs Route: Inhalation; jl7 13:30 Follow up: Response: No adverse reaction jl7 13:10 Drug: Zofran (Ondansetron) 4 mg Route: IVP; Site: left hand; jl7 14:58 Follow up: Response: No adverse reaction jl7 13:12 Drug: morphine 2 mg Route: IVP; Site: left hand; jl7 13:15 Drug: NS 0.9% 1000 ml Route: IV; Rate: 125 ml/hr; Site: left hand; jl7 16:16 Follow up: IV Status: Infusion continued upon admission jl7 13:45 Drug: Zithromax 500 mg Route: IVPB; Infused Over: 1 hrs; Site: left hand; jl7 14:45 Follow up: Response: No adverse reaction; IV Status: Completed infusion jl7 14:05 Drug: morphine 2 mg Route: IVP; Site: left hand; jl7 14:58 Follow up: Response: No adverse reaction; Pain is decreased jl7 14:05 Drug: Tylenol 1000 mg Route: PO; jl7 15:00 Follow up: Response: No adverse reaction; Temperature is decreased jl7 17:59 Drug: Lovenox 60 mg Route: Sub-Q; Site: abdomen; jl7 18:30 Follow up: Response: No adverse reaction jl7 17:59 Drug: PlaVIX 75 mg Route: PO; jl7 18:30 Follow up: Response: No adverse reaction jl7 20:41 Drug: Pepcid 20 mg Route: IVP; Site: right antecubital; ea 20:47 Follow up: Response: No adverse reaction ea Disposition: 03/08/20 14:18 Hospitalization ordered by Salo Britton for Inpatient Admission. Preliminary diagnosis are SARS-associated coronavirus as the cause of diseases classified elsewhere - covid 19 positive, Pneumonia, unspecified organism - bilateral multifocal, Non-ST elevation (NSTEMI) myocardial infarction, Fever, unspecified, Acute kidney failure - on chronic, Hypoxemia, Weakness. - Bed requested for Telemetry/MedSurg (Inpatient). - Status is Inpatient Admission. ea - Condition is Fair. - Problem is new. - Symptoms have improved. Signatures: Dispatcher [employer] ED[facility]aven [facility] Mandy Ardon RN RN mw Anderson, Corey, MD MD cha Wise, Tara RN RN tw2 Bobby Early RN RN jl7 Maru Toscano RN RN ea Corrections: (The following items were deleted from the chart) 13:03 12:37 CORONAVIRUS+MR.LAB.BRZ ordered. EDMS EDMS 13:06 12:37 Influenza Screen (A \T\ B)+BA.LAB.BRZ ordered. EDME EDMS 17:36 14:18 Hospitalization Ordered by Salo Britton MD for Inpatient Admission. Preliminary bd diagnosis is SARS-associated coronavirus as the cause of diseases classified elsewhere - covid 19 positive; Pneumonia, unspecified organism - bilateral multifocal; Non-ST elevation (NSTEMI) myocardial infarction; Fever, unspecified; Acute kidney failure - on chronic; Hypoxemia; Weakness. Bed requested for Telemetry/MedSurg (Inpatient). Status is Inpatient Admission. Condition is Fair. Problem is new. Symptoms have improved. [facility] 18:49 17:36 03/08/2020 14:18 Hospitalization Ordered by Salo Britton MD for Inpatient mw Admission. Preliminary diagnosis is SARS-associated coronavirus as the cause of diseases classified elsewhere - covid 19 positive; Pneumonia, unspecified organism - bilateral multifocal; Non-ST elevation (NSTEMI) myocardial infarction; Fever, unspecified; Acute kidney failure - on chronic; Hypoxemia; Weakness. Bed requested for Telemetry/MedSurg (Inpatient). Status is Inpatient Admission. Condition is Fair. Problem is new. Symptoms have improved. bd 20:46 18:49 03/08/2020 14:18 Hospitalization Ordered by Salo Britton MD for Inpatient ea Admission. Preliminary diagnosis is SARS-associated coronavirus as the cause of diseases classified elsewhere - covid 19 positive; Pneumonia, unspecified organism - bilateral multifocal; Non-ST elevation (NSTEMI) myocardial infarction; Fever, unspecified; Acute kidney failure - on chronic; Hypoxemia; Weakness. Bed requested for Telemetry/MedSurg (Inpatient). Status is Inpatient Admission. Condition is Fair. Problem is new. Symptoms have improved. mw
--- NOTE | 2020-03-08 14:18 | ER ---
Nurse's Notes [facility] Name: Pavel Roberts Age: 80 yrs Sex: Male : 1940 Arrival Date: 03/08/2020 Time: 12:12 Bed 5 Private MD: Diagnosis: SARS-associated coronavirus as the cause of diseases classified elsewhere-covid 19 positive;Pneumonia, unspecified organism-bilateral multifocal;Non-ST elevation (NSTEMI) myocardial infarction;Fever, unspecified;Acute kidney failure-on chronic;Hypoxemia;Weakness Presentation: 03/08 12:19 Chief complaint: Patient states: i feel SOB, fatigued, cough congestion Patient's son tw2 or daughter states: been feeling back for a couple of days, he got worse yesterday, weakness , i tested POSITIVE 02/27/20. Coronavirus screen: fatigue, shortness of breath, Client presents with at least one sign or symptom that may indicate coronavirus-19. Standard/surgical mask placed on the client. Provider contacted for isolation considerations. Ebola Screen: Patient denies travel to an Ebola-affected area in the 21 days before illness onset. Initial Sepsis Screen: Does the patient meet any 2 criteria? RR > 20 per min. HR > 90 bpm. Does the patient have a suspected source of infection? Yes: Productive cough/pneumonia. Risk Assessment: Do you want to hurt yourself or someone else? Patient reports no desire to harm self or others. Onset of symptoms was March 08, 2020. 12:19 Method Of Arrival: Wheelchair tw2 12:19 Acuity: CHRIS 2 tw2 12:23 Initial Sepsis Screen:. tw2 Triage Assessment: 12:22 General: Appears uncomfortable, ill, Behavior is calm, cooperative, appropriate for tw2 age. Pain: Complains of pain in HIPS. Neuro: Reports fatigue. Respiratory: Reports shortness of breath at rest on exertion cough that is. Historical: - Allergies: 12:23 No Known Drug Allergies; tw2 - PMHx: 12:23 cardiac stent; Diabetes - NIDDM; High Cholesterol; Hypertension; Myocardial infarction; tw2 - PSHx: 12:23 cardiac stents x 3; Cholecystectomy; tw2 - Immunization history:: Adult Immunizations. - Social history:: Smoking status: . Screenin:00 Abuse screen: Denies threats or abuse. Denies injuries from another. Nutritional jl7 screening: No deficits noted. Tuberculosis screening: No symptoms or risk factors identified. Fall Risk IV access (20 points). Total Cordero Fall Scale indicates No Risk (0-24 pts). Assessment: 12:45 General: Appears in no apparent distress. uncomfortable, ill, Behavior is calm, jl7 cooperative, appropriate for age. Pain: Complains of pain in bilateral hips. Neuro: Level of Consciousness is awake, alert, obeys commands, Oriented to person, place, time, situation. Cardiovascular: Patient's skin is warm and dry. Respiratory: Airway is patent Respiratory effort is even, labored, with retractions, Respiratory pattern is symmetrical, tachypnea. Derm: Skin is pink, warm \T\ dry. 14:00 Reassessment: Patient appears in no apparent distress at this time. No changes from jl7 previously documented assessment. Patient and/or family updated on plan of care and expected duration. Pain level reassessed. Patient is alert, oriented x 3, equal unlabored respirations, skin warm/dry/pink. 15:00 Reassessment: Patient appears in no apparent distress at this time. Patient and/or jl7 family updated on plan of care and expected duration. Pain level reassessed. Patient is alert, oriented x 3, equal unlabored respirations, skin warm/dry/pink. Patient states feeling better. 16:00 Reassessment: Patient appears in no apparent distress at this time. No changes from jl7 previously documented assessment. Patient and/or family updated on plan of care and expected duration. Pain level reassessed. Patient is alert, oriented x 3, equal unlabored respirations, skin warm/dry/pink. 19:00 Reassessment: Pt unable to provide urine sample, ERD notified, VO for Gonzáles catheter jl7 placement. 20:39 Reassessment: Pt admitted to fourth floor, report given to receiving nurse on fourth ea floor. 20:47 Reassessment: Patient and/or family updated on plan of care and expected duration. Pain ea level reassessed. Patient is alert, oriented x 3, equal unlabored respirations, skin warm/dry/pink. Pt left ED via stretcher per tech, pt tolerating well. Vital Signs: 12:19 BP 133 / 57; Pulse 91; Resp 22; Temp 99.3(TE); Pulse Ox 83% on R/A; Weight 86.18 kg; tw2 Pain 10/10; 13:00 BP 122 / 56; Pulse 89; Resp 21 S; Pulse Ox 95% on 3 lpm NC; jl7 14:00 BP 124 / 53; Pulse 87; Resp 23 S; Temp 100.4; Pulse Ox 95% on 3 lpm NC; jl7 15:00 Temp 97.8; jl7 16:00 BP 108 / 63; Pulse 64; Resp 22 S; Pulse Ox 92% on 3 lpm NC; jl7 18:00 BP 113 / 64; Pulse 59; Resp 26 S; Pulse Ox 91% on 3 lpm NC; jl7 20:48 BP 145 / 60; Pulse 55; Resp 20; Temp 98; Pulse Ox 98% on 2 lpm NC; ea 12:19 pt placed on 2L NC and improved to 93% tw2 ED Course: 12:12 Patient arrived in ED. ag3 12:21 Triage completed. tw2 12:22 Arm band placed on. tw2 12:24 Bobby Early RN is Primary Nurse. [facility] 12:31 Cristian Uribe MD is Attending Physician. melanie 12:38 Inserted saline lock: 20 gauge in right antecubital area, using aseptic technique. dh4 Blood collected. 12:38 First set of blood cultures drawn by ED staff. jl7 12:57 XRAY Chest (1 view) In Process Unspecified. EDMS 13:00 Patient has correct armband on for positive identification. Placed in gown. Bed in low jl7 position. Call light in reach. Side rails up X 1. manager monitoring on. Pulse ox on. NIBP on. 13:00 Initial lab(s) drawn, by ED staff, sent to lab. EKG done, by ED staff, reviewed by ignacio Uribe MD COVID swab sent to lab. Second set of blood cultures drawn by me. 13:25 Notified ED physician of a critical lab result(s). troponin of 1.50. jd3 14:16 Salo Britton MD is Hospitalizing Provider. melanie 19:30 Gonzáles cath inserted, using sterile technique, 16 Fr., by ak, balloon inflated, to jl7 gravity drainage, returned no output noted at this time. Patient tolerated well. 19:33 Primary Nurse role handed off by Bobby Early RN sg 20:39 No provider procedures requiring assistance completed. Patient admitted, IV remains in ea place. 20:46 Maru Toscano, DEISY is Primary Nurse. ea Administered Medications: 12:50 Drug: NS 0.9% 500 ml Route: IV; Rate: bolus; Site: left hand; jl7 13:15 Follow up: Response: No adverse reaction; IV Status: Completed infusion; IV Intake: jl7 500ml 12:55 Drug: Rocephin 1 grams Route: IV; Rate: per protocol; Site: left hand; jl7 12:58 Follow up: Response: No adverse reaction; IV Status: Completed infusion jl7 12:59 Drug: Decadron - Dexamethasone 10 mg Route: IVP; Site: left hand; jl7 13:30 Follow up: Response: No adverse reaction jl7 12:59 Drug: Pepcid 20 mg Route: IVP; Site: left hand; jl7 13:30 Follow up: Response: No adverse reaction jl7 13:00 Drug: Aspirin 81 mg Route: PO; jl7 13:30 Follow up: Response: No adverse reaction jl7 13:05 Drug: Albuterol HFA Inhaler 4 puffs Route: Inhalation; jl7 13:30 Follow up: Response: No adverse reaction jl7 13:10 Drug: Zofran (Ondansetron) 4 mg Route: IVP; Site: left hand; jl7 14:58 Follow up: Response: No adverse reaction jl7 13:12 Drug: morphine 2 mg Route: IVP; Site: left hand; jl7 13:15 Drug: NS 0.9% 1000 ml Route: IV; Rate: 125 ml/hr; Site: left hand; jl7 16:16 Follow up: IV Status: Infusion continued upon admission jl7 13:45 Drug: Zithromax 500 mg Route: IVPB; Infused Over: 1 hrs; Site: left hand; jl7 14:45 Follow up: Response: No adverse reaction; IV Status: Completed infusion jl7 14:05 Drug: morphine 2 mg Route: IVP; Site: left hand; jl7 14:58 Follow up: Response: No adverse reaction; Pain is decreased jl7 14:05 Drug: Tylenol 1000 mg Route: PO; jl7 15:00 Follow up: Response: No adverse reaction; Temperature is decreased jl7 17:59 Drug: Lovenox 60 mg Route: Sub-Q; Site: abdomen; jl7 18:30 Follow up: Response: No adverse reaction jl7 17:59 Drug: PlaVIX 75 mg Route: PO; jl7 18:30 Follow up: Response: No adverse reaction jl7 20:41 Drug: Pepcid 20 mg Route: IVP; Site: right antecubital; ea 20:47 Follow up: Response: No adverse reaction ea Intake: 13:15 IV: 500ml; Total: 500ml. jl7 Outcome: 14:18 Decision to Hospitalize by Provider. melanie 20:39 Condition: stable ea 20:39 Instructed on the need for admit, Demonstrated understanding of instructions. 20:46 Patient left the ED. ea 20:47 Admitted to Med/surg accompanied by tech, via stretcher, with oxygen, Report called to ea Receiving nurse on fourth floor Signatures: Dispatcher [employer] EDMS Donovan Oseguera, RN Cristian Powers MD MD cha Wise, Tara RN RN tw2 Bobby Early RN RN jl7 Maru Toscano RN RN ea Davies, Jonathon RN RN jd3 Kimberli Pardo Donald 4 Corrections: (The following items were deleted from the chart) 14:58 14:30 morphine 2 mg IVP in left hand jl7 jl7 19:44 18:00 BP 113 / 64; Pulse 59bpm; Resp 59bpm; Spontaneous; Pulse Ox 91% 3 lpm Nasal jl7 Cannula; jl7 19:45 18:00 BP 113 / 64; Pulse 26bpm; Resp 59bpm; Spontaneous; Pulse Ox 91% 3 lpm Nasal jl7 Cannula; jl7
[2020-03-08] MEDS ORDERED: ACETAMINOPHEN 500 MG TAB ONE (14:20)
[2020-03-08] MEDS ORDERED: ENOXAPARIN 60 MG/0.6 ML SQ ONE (17:59)
[2020-03-08] MEDS ORDERED: CLOPIDOGREL 75 MG TABLET ONE (18:08)
[2020-03-08] MEDS ORDERED: GLUCAGON 1 MG/VIAL IM PRN (18:11)
[2020-03-08] MEDS ORDERED: D50W 25 GM/50 ML VIAL IV PRN (18:18)
[2020-03-08] MEDS ORDERED: CEFTRIAXONE 1 GM/NS 50 ML 1 GM/50 ML BAG IV SCH (21:20)
[2020-03-08] MEDS ORDERED: ONDANSETRON 4 MG/2 ML VIAL IV PRN (21:20)
[2020-03-08] MEDS ORDERED: ALBUTEROL INHALER 60 PUFF/8 GM IH PRN (21:20)
[2020-03-08] MEDS ORDERED: ACETAMINOPHEN 325 MG TABLET PO PRN (21:20)
[2020-03-08] MEDS: NA CHLORIDE 0.9% 1,000 ML IV SCH (21:29)
[2020-03-08] MEDS: INSULIN -REGULAR HUMAN 50 UNIT/0.5 ML ML SQ SCH (21:30)
[2020-03-09] MEDS: NA CHLORIDE 0.9% 1,000 ML IV SCH ×3 (01:00→12:39)
[2020-03-09] MEDS: CEFTRIAXONE/SWI 1gm 1 GM/10 ML SYR IV SCH ×2 (01:01→14:03)
[2020-03-09] MEDS: METHYLPREDNISOLONE 125 MG INJ IV SCH ×3 (01:01→17:54)
[2020-03-09 04:11] LABS: Absolute Lymphocytes (CBC) 0.2 K/uL (0.7-4.9); Basophils % 0.1 % (0-1.3); Hematocrit 31.7 % (39.6-49.0); Lymphocytes % 1.9 % (15.3-44.8); MPV 7.6 fL (7.6-11.3); RBC Red Blood Cell Count 3.51 M/uL (4.33-5.43)
[2020-03-09 04:40] LABS: Potassium 4.1 mmol/L (3.5-5.1)
[2020-03-09] MEDS: AZITHROMYCIN IV 500 MG in NA CHLORIDE 0.9% 250 ML IVPB SCH (06:00)
[2020-03-09] MEDS ORDERED: AZITHROMYCIN 500 MG INJ IVPB ONE (06:18)
[2020-03-09] MEDS ORDERED: NA CHLORIDE 0.9% 250 ML ONE (06:33)
[2020-03-09] MEDS: INSULIN -REGULAR HUMAN 50 UNIT/0.5 ML ML SQ SCH ×4 (07:30→21:00)
[2020-03-09] MEDS ORDERED: NA CHLORIDE 0.9% 250 ML IV ONE (07:33)
--- NOTE | 2020-03-09 07:38 | RAD REPORT ---
EXAM DESCRIPTION: RAD - Chest Single View - 03/09/2020 6:35 am CLINICAL HISTORY: Chest Pain COMPARISON: Portable March 08 TECHNIQUE: AP portable chest image was obtained 03/09/2020 6:35 am . FINDINGS: The right upper lobe, left perihilar and left base opacities are still present with the pe rihilar and right upper lobe findings slightly worse. No significant change to the left apex or right lung base. Heart size is prominent but stable. No abnormal vascular engorgement. No measurable pleural effusion and no pneumothorax. No acute bony abnormality seen. No acute aortic findings suspected. IMPRESSION: Slight worsening of the right upper lobe and left perihilar infiltrates.
[2020-03-09] MEDS: CLOPIDOGREL 75 MG TABLET PO SCH (09:55)
[2020-03-09] MEDS: ASPIRIN 81 MG CHEWABLE TABLET PO SCH (09:55)
[2020-03-09] MEDS: FAMOTIDINE 20 MG/2 ML VIAL IV SCH (09:55)
[2020-03-09] MEDS: ENOXAPARIN 60 MG/0.6 ML SQ SCH (09:55)
--- NOTE | 2020-03-09 13:02 | P.CNS ---
Date of Consult: 03/09/20 Reason for Consult: Pneumonia due to vogel virus Chief Complaint: Pneumonia due to vogel virus History of Present Illness: Patient is 80 years of age the diagnosed with vogel virus on February 26 became progressively more short of breath admitted here from the emergency room the still hypoxic at bilateral infiltrates his very hard of hearing no prior history of obstructive airways disease multiple comorbid problems he seems to be doing well very comfortable although on 6 L of oxygen he is around 88-90% denies any fever cough chest pain Allergies No Known Drug Allergies Allergy (Verified 02/01/16 22:57) Unknown No Known Allergies Allergy (Uncoded 06/27/17 08:59) Unknown Home Medications: Glimepiride [Amaryl] 2 mg PO DAILY 10/17/14 Amlodipine Besylate 1 tab PO DAILY 02/02/16 Atorvastatin Calcium [Lipitor*] 1 tab PO BEDTIME 02/02/16 Clopidogrel Bisulfate [Plavix] 1 tab PO DAILY 02/02/16 Doxazosin Mesylate 1 tab PO BID 02/02/16 Fenofibrate [Tricor*] 1 tab PO DAILY 02/02/16 Furosemide [Lasix*] 1 tab PO DAILY PRN 02/02/16 Amlodipine [Norvasc] 2.5 mg PO BEDTIME 03/08/20 Aspirin 1 tab PO DAILY 03/08/20 Cyanocobalamin (Vitamin B-12) [Vitamin B12] 2,500 mcg PO DAILY 03/08/20 Gabapentin [Neurontin*] 300 mg PO BEDTIME 03/08/20 Iron 18 mg PO DAILY 03/08/20 Multivitamin 1 each PO DAILY 03/08/20 - Past Medical/Surgical History Diabetic: Yes -: hypertension, hyperlipidemia, diabetes -NIDDM, [place] 1994 -: cardiac stent x3, cholecytectomy - Family History Father Medical History: Heart disease, Kidney disease Mother Medical History: Heart disease - Social History Smoking Status: Former smoker Alcohol use: No CD- Drugs: No Caffeine use: Yes Place of Residence: Home Review of Systems General: Weakness Respiratory: Shortness of Breath Physical Examination Temp Pulse Resp BP Pulse Ox 98.0 F 76 24 H 136/61 92 03/09/20 12:00 03/09/20 12:00 03/09/20 12:00 03/09/20 12:00 03/09/20 12:00 General: Alert, Oriented x3, Mild distress Neck: Supple Respiratory: Clear to auscultation bilaterally Cardiovascular: No edema, Normal S1 S2 Laboratory Data (last 24 hrs) 03/08/20 12:37: PT 14.7 H, INR 1.25 03/08/20 12:37: WBC 9.6, Hgb 11.5 L, Hct 34.5 L, Plt Count 220 03/08/20 12:37: Sodium 136, Potassium 4.0, BUN 57 H, Creatinine 2.90 H, Glucose 136 H, Magnesium 2.2, Total Bilirubin 1.1 H, AST 49 H, ALT 39, Alkaline Phosphatase 58, Lipase 96 - Problems (1) Acute respiratory failure due to severe acute respiratory syndrome coronavirus 2 (SARS-CoV-2) infection Current Visit: Yes Status: Acute Plan: Patient is 80 years of age admitted with respiratory failure from vogel virus patient has chronic renal failure creatinine has improved white count is mildly elevated blood pressure is also elevated patient's glucose is elevated/remdesmir ordered continue with steroid pressure was elevated at some Lantus patient has some fever
[2020-03-09] MEDS ORDERED: AZITHROMYCIN IV 500 MG in NA CHLORIDE 0.9% 250 ML IVPB SCH (14:00)
[2020-03-09] MEDS: ALBUTEROL 2.5 MG/3 ML NEB SOL NEB PRN (17:26)
[2020-03-09] MEDS: IPRATROPIUM BROM 0.5MG/2.5ML NEB PRN (17:26)
--- NOTE | 2020-03-09 17:34 | EKG ---
Test Date: 2020-03-08 Test Time: 12:32:08 Summer Babysitter: JOÃO MEASUREMENT RESULTS: Intervals: Rate: 91 MD: 268 QRSD: 90 QT: 342 QTc: 420 [place]: P: 39 MD: 268 QRS: -28 T: 74 INTERPRETIVE STATEMENTS: Sinus rhythm with 1st degree AV block Possible Left atrial enlargement Anterolateral infarct, age undetermined Abnormal ECG Compared to ECG 02/02/2016 06:53:11 No significant changes Electronically Signed On 03-09-20 17:31:48 QA AUTOMATION DEVELOPER by Quique Joyce
[2020-03-09] MEDS: HALOPERIDOL LACT 5 MG/ML INJ IV PRN (17:54)
[2020-03-10] MEDS: NA CHLORIDE 0.9% 1,000 ML IV SCH ×4 (00:08→13:46)
[2020-03-10] MEDS: CEFTRIAXONE/SWI 1gm 1 GM/10 ML SYR IV SCH ×2 (01:10→12:23)
[2020-03-10] MEDS: METHYLPREDNISOLONE 125 MG INJ IV SCH ×3 (01:10→16:46)
[2020-03-10 03:48] LABS: Absolute Lymphocytes (CBC) 0.2 K/uL (0.7-4.9); Basophils % 0.1 % (0-1.3); Hematocrit 32.7 % (39.6-49.0); Lymphocytes % 1.4 % (15.3-44.8); MPV 7.9 fL (7.6-11.3); RBC Red Blood Cell Count 3.68 M/uL (4.33-5.43)
[2020-03-10 04:42] LABS: Magnesium 2.9 mg/dL (1.8-2.4); Potassium 3.8 mmol/L (3.5-5.1)
--- NOTE | 2020-03-10 07:07 | PN ---
Date of Progress Note: 03/09/2020 Subjective: The patient was seen this morning via tele visit that included audio and video component . No new complaints, problems reported by the patient. He was lying in bed, not in any distress. Objective: Vital Signs: Reviewed. He was on nasal cannula oxygen. Laboratory Data: White count 9.8, hemoglobin 10.4, platelets 191. Sodium 139, potassium 4.1, chlori de 106, bicarb 27, BUN 70, creatinine 2.84, glucose 209. Impression: 1.COVID-19 infection. 2.COVID-19 pneumonia. 3.Acute respiratory failure with hypoxia. 4.Volume depletion. 5.Abnormal cardiac enzymes. Plan: We will continue to follow up with claim processing specialist and residential electrician. Continue oxygen. Continue IV steroid, Lovenox. I did talk to Dr. Galicia regarding remdesivir and he will look into it in vi ew of patient's abnormal renal function. During the course of day today, the patient had some confus ion and hallucinations and Haldol was ordered. DEISI/MODL Voice ID: [id number] Report ID: [id number]
[2020-03-10] MEDS: INSULIN -REGULAR HUMAN 50 UNIT/0.5 ML ML SQ SCH ×6 (07:30→21:55)
[2020-03-10] MEDS: FAMOTIDINE 20 MG/2 ML VIAL IV SCH (08:57)
[2020-03-10] MEDS: ASPIRIN 81 MG CHEWABLE TABLET PO SCH (08:57)
[2020-03-10] MEDS: ENOXAPARIN 60 MG/0.6 ML SQ SCH ×2 (08:57→09:00)
[2020-03-10] MEDS: CLOPIDOGREL 75 MG TABLET PO SCH (08:57)
[2020-03-10] MEDS: AZITHROMYCIN IV 500 MG in NA CHLORIDE 0.9% 250 ML IVPB SCH (08:59)
[2020-03-10] MEDS ORDERED: Remdesivir 200 MG in NA CHLORIDE 0.9% 250 ML IV ONE (09:00)
[2020-03-10] MEDS ORDERED: D50W 25 GM/50 ML SYRINGE IV PRN (13:47)
[2020-03-10] MEDS ORDERED: GLUCAGON 1 MG/VIAL IM PRN (13:47)
[2020-03-10] MEDS: ALBUTEROL 2.5 MG/3 ML NEB SOL NEB PRN (15:50)
[2020-03-10] MEDS: IPRATROPIUM BROM 0.5MG/2.5ML NEB PRN (15:50)
[2020-03-10] MEDS: INSULIN GLARGINE 100 UNITS/ML SQ SCH (21:55)
[2020-03-10] MEDS: FAMOTIDINE 20 MG TAB PO SCH (21:56)
[2020-03-11] MEDS: CEFTRIAXONE/SWI 1gm 1 GM/10 ML SYR IV SCH ×2 (01:24→14:28)
[2020-03-11] MEDS: METHYLPREDNISOLONE 125 MG INJ IV SCH ×3 (01:24→16:17)
[2020-03-11] MEDS: NA CHLORIDE 0.9% 1,000 ML IV SCH (01:34)
[2020-03-11 07:09] LABS: Albumin 2.1 g/dL (3.4-5.0); Bilirubin Direct 0.2 mg/dL (0-0.2); Bilirubin Total 0.4 mg/dL (0.2-1.0); Protein, Total 6.3 g/dL (6.4-8.2)
[2020-03-11] MEDS: INSULIN -REGULAR HUMAN 50 UNIT/0.5 ML ML SQ SCH ×3 (07:30→21:00)
[2020-03-11] MEDS: FAMOTIDINE 20 MG TAB PO SCH ×2 (08:54→21:13)
[2020-03-11] MEDS: CLOPIDOGREL 75 MG TABLET PO SCH (08:54)
[2020-03-11] MEDS: AZITHROMYCIN 250 MG TAB PO SCH (08:56)
--- NOTE | 2020-03-11 09:03 | RAD REPORT ---
EXAM DESCRIPTION: RAD - Chest Single View - 03/11/2020 6:37 am CLINICAL HISTORY: COVID pneumonia Chest pain. COMPARISON: Chest Single View dated 03/09/2020; Chest Single View dated 03/08/2020; Chest Single View da noah 02/01/2016; CHEST SINGLE VIEW dated 10/16/2014 FINDINGS: Portable technique limits examination quality. Mild worsening in bilateral pulmonary opacities noted since 03/09/2020. The heart is mildly enlarged in size. No displaced fractures.Aortic atherosclerosis. IMPRESSION: Mild worsening in bilateral lung aeration is seen since comparative study.
[2020-03-11] MEDS: Remdesivir 100 MG in NA CHLORIDE 0.9% 250 ML IV SCH (09:48)
[2020-03-11] MEDS: ENOXAPARIN 60 MG/0.6 ML SQ SCH (09:49)
[2020-03-11] MEDS: ASPIRIN 81 MG CHEWABLE TABLET PO SCH (09:49)
--- NOTE | 2020-03-11 12:19 | P.PN ---
Subjective Date of Service: 03/11/20 Chief Complaint: Pneumonia due to vogel virus No change still hypoxic Physical Examination - Vital Signs Temperature: 97.2 F Blood Pressure: 152/75 Pulse: 95 Respirations: 16 Pulse Ox (%): 95 Assessment & Plan - Problems (Diagnosis) (1) Acute respiratory failure due to severe acute respiratory syndrome coronavirus 2 (SARS-CoV-2) infection Current Visit: Yes Status: Acute Plan: Respiratory failure from vogel virus encourage prone position he labs ordered white count mildly elevated I have added some anti inflammatory therapy maintain in slight negative fluid balance patient's renal function was improved
--- NOTE | 2020-03-11 13:47 | CON ---
Date of Consultation: 03/09/2020 Reason For Consultation: History of CAD, multiple stents in the past, history of hypertension, dysli pidemia, and now shortness of breath. History Of Present Illness: The patient was admitted on 03/08/2020 with mostly shortness of breath a nd weakness. The patient has had cardiac stent 3 times in the past, has had cholecystectomy. He james lly denied any chest pain, per se, but he did have COVID pneumonia and slightly elevated troponin. T he patient is being consulted by Dr. Whalen, has been cared for Dr. Britton in that regard. Again no c hest pain was reported. Past Medical History: As stated earlier. Allergies: NONE. Review of Systems: Done by Dr. Britton. Social History: Done by Dr. Britton. Family History: Done by Dr. Britton. Physical Examination: Vital signs: Stable. He was afebrile. He was slightly tachypneic. Adequate O2 saturation on 5 L o f nasal cannula of 91%. Examination were reported as showing some crackles in the lungs, otherwise fairly unremarkable. Diagnostic Data: His creatinine was 2.72 [place] [address]. His C-reactive protein was 21 6. His glucose was 227. Impression And Plan: COVID pneumonia, hypoxia, elevated troponin secondary to demand ischemia. The patient is on azithromycin and steroid as well as Rocephin and remdesivir. Dr. Whalen is following. I think once he is improved, we will perform a 2D echocardiogram on him either as an inpatient or a s an outpatient, but he has had some in my office recently that were unremarkable. His issues with h istory of coronary artery disease, gastroesophageal reflux disease and diabetes seems to be stable at this point. I do not recommend any further cardiac workup. I will be available for questions if th e need arises. BEAN/DAKOTA Voice ID: [id number] Report ID: [id number]
[2020-03-11] MEDS: ASCORBIC ACID 500 MG TABLET PO SCH ×2 (14:29→21:12)
[2020-03-11] MEDS: THIAMINE HCL 100 MG TABLET PO SCH (14:35)
[2020-03-11] MEDS ORDERED: MELATONIN 5 MG TABLET PO SCH (21:00)
[2020-03-11] MEDS: ATORVASTATIN 20 MG TAB PO SCH (21:12)
[2020-03-11] MEDS: INSULIN GLARGINE 100 UNITS/ML SQ SCH (21:13)
--- NOTE | 2020-03-11 22:56 | PN ---
Date of Progress Note: 03/10/2020 Subjective: The patient was seen this morning for followup. He was evaluated via TeleVisit that inc luded audio and video component. No new complaints or problems reported by him or nursing staff. Objective: Vital Signs: Reviewed. Laboratory Data: Sodium 138, potassium 3.8, chloride 105, bicarb 24, BUN 80, creatinine 2.72, glucos e 228. CRP 216. White count 16.6, hemoglobin 11, platelets 251. Impression: 1.COVID-19 infection. 2.COVID-19 pneumonia. 3.Acute respiratory failure with hypoxia. 4.Altered mental status, stable. 5.Diabetes mellitus. Plan: We will go ahead and continue current medication. Continue steroid oxygen. We will also cont inue his remdesivir and continue current diabetes management. We will continue current empiric antib iotics and follow up with Dr. Galicia. DEISI/MODL Voice ID: [id number] Report ID: [id number]
--- NOTE | 2020-03-11 23:02 | PN ---
Date of Progress Note: 03/11/2020 Subjective: The patient was seen this morning for followup. No new complaints or problems reported by the patient. Lying in bed. Not in distress. He was seen in person today and he was not in any d istress. He recognized me, communicated well, and answered appropriate questions. This morning when I saw him in his room, he was not in respiratory distress. Objective: Vital Signs: Reviewed. HEENT: Unremarkable. Lungs: Clear to auscultation except some rales noted in lower lung horn. Not in respiratory distr ess. Heart: Sounds normal. Abdomen: Soft. Bowel sounds normal. No guarding, rigidity, tenderness, or distention. Extremities: No leg edema. Laboratory Data: Chest x-ray shows mild worsening of his pneumonia pattern. Fingerstick blood sugar readings reviewed. Impression: 1.COVID-19 infection. 2.COVID-19 pneumonia. 3.Acute respiratory failure with hypoxia. 4.Type 2 diabetes mellitus. Plan: We will go ahead and continue current medications. Continue steroid, oxygen per high-flow oxy gen delivery system, and continue remdesivir, and we will follow up with Dr. Galicia. We will see h im tomorrow for followup. I did talk to the patient's son and explained all the details. We will repea t chest x-ray tomorrow. DEISI/MODL Voice ID: [id number] Report ID: [id number]
[2020-03-12] MEDS: CEFTRIAXONE/SWI 1gm 1 GM/10 ML SYR IV SCH ×2 (01:44→13:21)
[2020-03-12] MEDS: METHYLPREDNISOLONE 125 MG INJ IV SCH ×3 (01:44→17:04)
[2020-03-12] MEDS: NA CHLORIDE 0.9% 1,000 ML IV SCH ×2 (05:46→05:55)
[2020-03-12] MEDS: INSULIN -REGULAR HUMAN 50 UNIT/0.5 ML ML SQ SCH ×5 (07:30→21:00)
[2020-03-12 07:31] LABS: Absolute Lymphocytes (CBC) 0.2 K/uL (0.7-4.9); Basophils % 0.3 % (0-1.3); Lymphocytes % 0.8 % (15.3-44.8); MPV 8.2 fL (7.6-11.3); RBC Red Blood Cell Count 4.27 M/uL (4.33-5.43)
[2020-03-12 07:43] LABS: Albumin 2.1 g/dL (3.4-5.0); Bilirubin Direct 0.2 mg/dL (0-0.2); Bilirubin Total 0.5 mg/dL (0.2-1.0); Potassium 3.9 mmol/L (3.5-5.1); Protein, Total 6.4 g/dL (6.4-8.2)
--- NOTE | 2020-03-12 08:42 | RAD REPORT ---
EXAM DESCRIPTION: RAD - Chest Single View - 03/12/2020 6:25 am CLINICAL HISTORY: COVID pneumonia COMPARISON: March 11 portable exam TECHNIQUE: AP portable chest image was obtained 03/12/2020 6:25 am . FINDINGS: Lungs are clear. Left greater than right lung parenchymal opacification remains. Findings are not seen as progressive. There may be slight improvement in the right upper lobe. Any change is v severino minimal. Heart size is normal. No pneumothorax or enlarging pleural effusion. No acute bony abnormality seen. No acute aortic findings suspected. IMPRESSION: Chest examination is essentially stable. There may be very minimal improvement in the ri ght upper lobe.
[2020-03-12] MEDS: THIAMINE HCL 100 MG TABLET PO SCH (09:00)
[2020-03-12] MEDS: ENOXAPARIN 60 MG/0.6 ML SQ SCH (09:00)
[2020-03-12] MEDS: FAMOTIDINE 20 MG TAB PO SCH ×2 (09:20→21:00)
[2020-03-12] MEDS: AZITHROMYCIN 250 MG TAB PO SCH (09:21)
[2020-03-12] MEDS: ASPIRIN 81 MG CHEWABLE TABLET PO SCH (09:21)
[2020-03-12] MEDS: ASCORBIC ACID 500 MG TABLET PO SCH ×3 (09:21→21:00)
[2020-03-12] MEDS: CLOPIDOGREL 75 MG TABLET PO SCH (09:21)
[2020-03-12] MEDS: APIXABAN 2.5 MG TABLET PO SCH ×2 (09:26→21:00)
[2020-03-12] MEDS: Remdesivir 100 MG in NA CHLORIDE 0.9% 250 ML IV SCH (09:27)
[2020-03-12 10:50] LABS: Blood Morphology Comment NOT SEEN (NOT SEEN); Platelet Estimate ADEQ
--- NOTE | 2020-03-12 12:27 | PN ---
Date of Progress Note: 03/12/2020 Subjective: Patient was seen this morning for followup. No new complaints or problems reported by jordin segura. He was sitting at the bedside. Denied any complaints. Not in any respiratory distress. Re ceiving oxygen per high-flow. He recognized me and asked me when can he go home from the hospital, a nd I explained it to him about what his current condition is and it may take a few to several more da ys before he is able to return back home. I encouraged him to eat as much as he can and to use nutri tional supplement. Objective: Vital Signs: Reviewed. HEENT: Unremarkable. Lungs: Bilateral good equal air entry. Presence of some rales noted in lung basal region. Heart: Not using accessory muscles of respiration. Heart: Sounds normal. Abdomen: Soft. Bowel sounds normal. No guarding, rigidity, tenderness, or distention. Extremities: No leg edema. Laboratory Data: White count 18.6, hemoglobin 12.3, platelets 399. Sodium 143, potassium 3.9, chlor blas 111, bicarb 22, BUN 78, creatinine 1.72, glucose 179. Liver function tests unremarkable. CRP 15 2. Chest x-ray from today shows lung appearance is stable or minimally improved in the right upper l obe. No worsening noted. Impression: 1.COVID-19 infection. 2.COVID-19 pneumonia. 3.Acute respiratory failure with hypoxia. 4.Volume depletion, improved. 5.Diabetes mellitus. Plan: Nurse reported that the patient had scrotal edema this morning, so we did discontinue his IV f luid. He was also noted to have some swelling of his dorsum hand. He was encouraged to eat his meal , take nutritional supplement, and drink water as advised. We will continue current antibiotics. Continue remdesivir, IV steroids, oxygen and current diabetes management, and I will see him tomorrow for followup. DEISI/MODL Voice ID: [id number] Report ID: [id number]
[2020-03-12] MEDS: HALOPERIDOL LACT 5 MG/ML INJ IV PRN (15:11)
[2020-03-12] MEDS ORDERED: HALOPERIDOL LACT 5 MG/ML INJ IV ONE (16:55)
[2020-03-12] MEDS ORDERED: LORazepam 2 MG/ML VIAL IV ONE (17:18)
[2020-03-12] MEDS ORDERED: WATER FOR INJ,STERILE 10 ML IM PRN (17:28)
[2020-03-12] MEDS: ZIPRASIDONE MESYLA 20 MG/VIAL IM PRN (17:41)
--- NOTE | 2020-03-12 19:09 | RAD REPORT ---
EXAM DESCRIPTION: RAD - Chest Single View - 03/12/2020 6:53 pm CLINICAL HISTORY: covid pneumonia COMPARISON: Portable March 12, portable March 11 TECHNIQUE: AP portable chest image was obtained 03/12/2020 6:53 pm . FINDINGS: Extensive bilateral pneumonia changes are still present, left greater than right. There is some improvement in the right upper lobe and left midlung field since the examination earlier in the day. No progressive process. Heart and vasculature are normal. No measurable pleural effusion and no pneumothorax. No acute bony abnormality seen. No acute aortic findings suspected. IMPRESSION: Bilateral COVID-19 pneumonia findings showing a slight improvement from earlier in the d ay.
[2020-03-12] MEDS: GLUCERNA SHAKE 237 ML CAN PO SCH (21:00)
[2020-03-12] MEDS: INSULIN GLARGINE 100 UNITS/ML SQ SCH (21:00)
[2020-03-12] MEDS: ATORVASTATIN 20 MG TAB PO SCH (21:00)
[2020-03-13] MEDS: HALOPERIDOL LACT 5 MG/ML INJ IV PRN ×2 (00:40→21:24)
[2020-03-13] MEDS: CEFTRIAXONE/SWI 1gm 1 GM/10 ML SYR IV SCH ×2 (01:00→15:12)
[2020-03-13] MEDS: LORazepam 2 MG/ML VIAL IV PRN ×4 (02:22→21:25)
[2020-03-13] MEDS: METHYLPREDNISOLONE 40 MG INJ IV SCH ×3 (02:22→17:26)
[2020-03-13 05:43] LABS: Absolute Lymphocytes (CBC) 0.1 K/uL (0.7-4.9); Basophils % 0.2 % (0-1.3); Hematocrit 35.5 % (39.6-49.0); Lymphocytes % 0.8 % (15.3-44.8); MPV 8.3 fL (7.6-11.3); RBC Red Blood Cell Count 3.98 M/uL (4.33-5.43)
[2020-03-13 06:03] LABS: Albumin 2.1 g/dL (3.4-5.0); Bilirubin Direct 0.2 mg/dL (0-0.2); Bilirubin Total 0.4 mg/dL (0.2-1.0); Ferritin 874.6 ng/mL (26-388); Potassium 4.2 mmol/L (3.5-5.1); Protein, Total 5.7 g/dL (6.4-8.2)
--- NOTE | 2020-03-13 07:27 | EKG ---
Test Date: 2020-03-12 Test Time: 03:51:29 Hop Grower: TAMEKA MEASUREMENT RESULTS: Intervals: Rate: 0 [place]: QRSD: 0 QT: 0 QTc: 0 [place]: P: [place]: QRS: 0 T: 0 INTERPRETIVE STATEMENTS: No QRS complexes found, no ECG analysis possible Compared to ECG 03/08/2020 12:32:08 Sinus rhythm no longer present First degree AV block no longer present Myocardial infarct finding no longer present Electronically Signed On 03-13-20 07:24:17 TOY ASSEMBLY SUPERVISOR by Quique Joyce
[2020-03-13] MEDS: INSULIN -REGULAR HUMAN 50 UNIT/0.5 ML ML SQ SCH ×3 (07:30→17:25)
[2020-03-13] MEDS: FAMOTIDINE 20 MG TAB PO SCH (08:34)
[2020-03-13] MEDS: ASPIRIN 81 MG CHEWABLE TABLET PO SCH (08:34)
[2020-03-13] MEDS: THIAMINE HCL 100 MG TABLET PO SCH (08:34)
[2020-03-13] MEDS: CLOPIDOGREL 75 MG TABLET PO SCH (08:34)
[2020-03-13] MEDS: GLUCERNA SHAKE 237 ML CAN PO SCH ×2 (08:34→20:04)
[2020-03-13] MEDS: ASCORBIC ACID 500 MG TABLET PO SCH ×3 (08:34→20:04)
[2020-03-13] MEDS: AZITHROMYCIN 250 MG TAB PO SCH (08:34)
[2020-03-13] MEDS: APIXABAN 2.5 MG TABLET PO SCH (09:00)
[2020-03-13] MEDS: Remdesivir 100 MG in NA CHLORIDE 0.9% 250 ML IV SCH (11:48)
--- NOTE | 2020-03-13 11:50 | P.PN ---
Subjective Date of Service: 03/13/20 Chief Complaint: Pneumonia due to vogel virus Respiratory failure patient was transferred to the ICU patient became increasingly agitated confused Physical Examination - Vital Signs Temperature: 97.4 F Blood Pressure: 150/96 Pulse: 86 Respirations: 25 Pulse Ox (%): 86 Assessment & Plan - Problems (Diagnosis) (1) Acute respiratory failure due to severe acute respiratory syndrome coronavirus 2 (SARS-CoV-2) infection Current Visit: Yes Status: Acute Plan: resp failure/ Pt transferred to the ICU due to confusion and agitation. Trial of BIPAP. Renal function i s worse CRP is declining/WBC declining BP elevated/ Trial of IV fluids
--- NOTE | 2020-03-13 12:00 | PN ---
Date of Progress Note: 03/13/2020 Subjective: The patient was seen this morning for followup. Yesterday evening, his condition deteri orated where he was requiring more and more oxygen, but at the same time he was having more altered m ental status. He was pulling out oxygen, and at that time, his oxygen saturation was dropping too lo w. He did require some Haldol which did not work and then Dr. Galicia ordered some Geodon and Ativa n and that did have some benefit and we also ordered some restraints for him as he was pulling out hi s oxygen. I did have a long discussion with the patient's son and the patient's yesterday on e phone and we discussed all these details including possibility of worsening and in that case what bill nath would want in terms of heroic measures like CPR, defibrillation, or ventilator support in the e vent of worsening respiratory failure problem. The patient's clearly stated and informed me osman t she wants everything done including intubation and ventilator management if that becomes necessary. Time spent with the patient's son as well as regarding discussion of this advanced care planning was 20 minutes, and considering the patient is full code, we have decided to move him to ICU. Overn ight, his condition remains stable in ICU. This morning when I saw him in ICU, he was lying in bed, not in any distress. Had oxygen per nasal cannula high-flow oxygen and also had a facemask that was placed temporarily for oxygen use because he was breathing from mouth. His oxygenation was adequate around 92%. The patient was sedated as he had received Ativan and Haldol prior to my arrival because of his restlessness and he was pulling out his oxygen. Objective: HEENT: Unremarkable. Lungs: Clear to auscultation. Heart: Sounds normal. Abdomen: Soft. Bowel sounds normal. No guarding, rigidity, tenderness, or distention. Extremities: Trace leg edema. 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 Laboratory Data: White count 15.2, hemoglobin 11.4, platelets 362. Sodium 147, potassium 4.2, chlor blas 115, bicarb 26, BUN 86, creatinine is 1.71, glucose 193, ferritin 874, CRP 96. Liver function te sts unremarkable. Impression: 1.COVID-19 infection. 2.COVID-19 pneumonia. 3.Acute respiratory failure with hypoxia. 4.Type 2 diabetes mellitus. 5.Chronic kidney disease, stage III. Plan: We will go ahead and continue current medication which is remdesivir, steroid, oxygen, and the patient is on Eliquis, but right now he is n.p.o. Last dose of Eliquis was yesterday morning as he was not able to take any Eliquis yesterday evening. So as of today, we will stop Eliquis and change it to Lovenox 80 mg subcutaneous injection daily starting today. We will continue to follow with Dr. Galicia and I will call and discuss details with family again today. DEISI/MODL Voice ID: [id number] Report ID: [id number]
[2020-03-13] MEDS: ENOXAPARIN 80 MG/0.8 ML SQ SCH (13:25)
[2020-03-13] MEDS: D5W 1,000 ML IV SCH (13:26)
[2020-03-13] MEDS ORDERED: IPRATROPIUM BROM 0.5MG/2.5ML NEB PRN (15:00)
[2020-03-13] MEDS ORDERED: ALBUTEROL 2.5 MG/3 ML NEB SOL NEB PRN (15:00)
[2020-03-13] MEDS: ZIPRASIDONE MESYLA 20 MG/VIAL IM PRN (18:18)
[2020-03-13] MEDS: ATORVASTATIN 20 MG TAB PO SCH (20:04)
[2020-03-13] MEDS: INSULIN GLARGINE 100 UNITS/ML SQ SCH (21:00)
[2020-03-13] MEDS: FAMOTIDINE 20 MG/2 ML VIAL IV SCH (21:24)
[2020-03-14] MEDS: METHYLPREDNISOLONE 40 MG INJ IV SCH ×3 (00:26→16:58)
[2020-03-14] MEDS: CEFTRIAXONE/SWI 1gm 1 GM/10 ML SYR IV SCH ×2 (00:26→12:10)
[2020-03-14] MEDS: D5W 1,000 ML IV SCH ×3 (02:04→18:54)
[2020-03-14] MEDS: LORazepam 2 MG/ML VIAL IV PRN ×2 (03:49→08:12)
[2020-03-14] MEDS: HALOPERIDOL LACT 5 MG/ML INJ IV PRN ×2 (04:09→10:45)
[2020-03-14 06:11] LABS: Absolute Lymphocytes (CBC) 0.1 K/uL (0.7-4.9); Basophils % 0.2 % (0-1.3); Hematocrit 37.8 % (39.6-49.0); Lymphocytes % 0.7 % (15.3-44.8); MPV 8.3 fL (7.6-11.3); RBC Red Blood Cell Count 4.22 M/uL (4.33-5.43)
[2020-03-14 06:26] LABS: Albumin 2.3 g/dL (3.4-5.0); Bilirubin Direct 0.2 mg/dL (0-0.2); Bilirubin Total 0.5 mg/dL (0.2-1.0); C-Reactive Protein 68.7 mg/L (<3.00); Ferritin 778.8 ng/mL (26-388); Potassium 4.4 mmol/L (3.5-5.1); Protein, Total 6.2 g/dL (6.4-8.2)
[2020-03-14] MEDS: INSULIN -REGULAR HUMAN 50 UNIT/0.5 ML ML SQ SCH ×4 (06:32→17:34)
[2020-03-14] MEDS: ASPIRIN 81 MG CHEWABLE TABLET PO SCH (08:09)
[2020-03-14] MEDS: GLUCERNA SHAKE 237 ML CAN PO SCH ×2 (08:10→20:55)
[2020-03-14] MEDS: CLOPIDOGREL 75 MG TABLET PO SCH (08:10)
[2020-03-14] MEDS: ENOXAPARIN 80 MG/0.8 ML SQ SCH (08:12)
[2020-03-14] MEDS: FAMOTIDINE 20 MG/2 ML VIAL IV SCH ×2 (08:12→20:54)
[2020-03-14] MEDS: THIAMINE HCL 100 MG TABLET PO SCH (08:15)
[2020-03-14] MEDS: ASCORBIC ACID 500 MG TABLET PO SCH ×3 (08:16→20:54)
--- NOTE | 2020-03-14 08:22 | RAD REPORT ---
EXAM DESCRIPTION: Ludwig Single View03/14/2020 7:53 am CLINICAL HISTORY: Shortness of breath COMPARISON: March 12 FINDINGS: No significant change in the moderate to marked bilateral pulmonary opacities Heart is mildly enlarged IMPRESSION: No change in the bilateral pulmonary opacities
[2020-03-14] MEDS ORDERED: AZITHROMYCIN IV 500 MG in NA CHLORIDE 0.9% 250 ML IVPB SCH (09:00)
[2020-03-14 09:43] LABS: Arterial Blood Carboxyhemoglob 0.7 % (0-1.5); Blood Gas Oxyhemoglobin 86.4 % (94-97); Blood O2 Saturation 88.2 % (92-98.5)
[2020-03-14 11:08] LABS: Blood Morphology Comment NOT SEEN (NOT SEEN); Platelet Estimate INCR
--- NOTE | 2020-03-14 11:30 | EKG ---
Test Date: 2020-03-12 Test Time: 03:53:48 Shank Sorter: TAMEKA MEASUREMENT RESULTS: Intervals: Rate: 89 NC: QRSD: 80 QT: 382 QTc: 464 Alliance: P: NC: QRS: 39 T: 64 INTERPRETIVE STATEMENTS: Atrial fibrillation with premature ventricular or aberrantly conducted complexes Possible Lateral infarct, age undetermined Abnormal ECG Compared to ECG 03/12/2020 03:51:29 Ventricular premature complex(es) now present Myocardial infarct finding now present Electronically Signed On 03-14-20 11:27:24 CERTIFIED EXECUTIVE CHEF by Quique Joyce
--- NOTE | 2020-03-14 12:39 | P.PN ---
Subjective Date of Service: 03/14/20 Chief Complaint: Pneumonia due to vogel virus Patient is confused as deteriorated hypoxic will probably need to be intubated Review of Systems is unable to be obtained Physical Examination - Vital Signs Temperature: 96.8 F Blood Pressure: 178/78 Pulse: 104 Respirations: 36 Pulse Ox (%): 89 - Physical Exam General: Delirious, Unresponsive Respiratory: Diminished Cardiovascular: No edema, Normal S1 S2 - Studies Microbiology Data (last 24 hrs): 03/08/20 12:48 Blood - Blood Aerobic Blood Culture - Final No growth in 5 days. 03/08/20 12:48 Blood - Blood Anaerobic Blood Culture - Final No growth in 5 days. 03/08/20 12:37 Blood - Blood Aerobic Blood Culture - Final No growth in 5 days. 03/08/20 12:37 Blood - Blood Anaerobic Blood Culture - Final No growth in 5 days. Assessment & Plan - Problems (Diagnosis) (1) Acute respiratory failure due to severe acute respiratory syndrome coronavirus 2 (SARS-CoV-2) infection Current Visit: Yes Status: Acute Plan: Respiratory failure patient needs to be intubated the also becoming hypernatremic recommend white count is mildly elevated no significant change in his bilateral infiltrates, patient is on IV fluids to D5 water 75 cc an hr Jon increase
[2020-03-14] MEDS ORDERED: RSI MEDICATION KIT IV ONE (12:49)
[2020-03-14] MEDS ORDERED: propofoL 1,000 MG/100 ML VIAL IV ONE (12:50)
--- NOTE | 2020-03-14 13:33 | RAD REPORT ---
EXAM DESCRIPTION: RAD - Chest Single View - 03/14/2020 1:26 pm CLINICAL HISTORY: ET TUBE PLACEMENT, OG TUBE PLACEMENT Chest pain. COMPARISON: Chest Single View dated 03/14/2020; Chest Single View dated 03/12/2020; Chest Single View d ated 03/12/2020; Chest Single View dated 03/11/2020 FINDINGS: Portable technique limits examination quality. Endotracheal tube tip is above the rickie. Tip of the enteric tube is in the proximal stomach. Bilate ral poorly defined lung opacities are again noted, unchanged since comparative study. Heart size is n ormal.
[2020-03-14] MEDS: Remdesivir 100 MG in NA CHLORIDE 0.9% 250 ML IV SCH (14:05)
[2020-03-14] MEDS: Levofloxacin500mg IV 500 MG/100 ML BAG IV SCH (14:54)
[2020-03-14] MEDS: INSULIN GLARGINE 100 UNITS/ML SQ SCH (20:54)
[2020-03-14] MEDS: ATORVASTATIN 20 MG TAB PO SCH (20:54)
[2020-03-14] MEDS: propofoL 1,000 MG/100 ML VIAL IV PRN (21:00)
[2020-03-14] MEDS: FENTANYL CITR 100 MCG/2 ML IV PRN (21:22)
[2020-03-15] MEDS: METHYLPREDNISOLONE 40 MG INJ IV SCH ×3 (00:02→18:00)
[2020-03-15] MEDS: LORazepam 2 MG/ML VIAL IV PRN ×2 (00:02→23:45)
[2020-03-15] MEDS: INSULIN -REGULAR HUMAN 50 UNIT/0.5 ML ML SQ SCH ×4 (00:03→18:12)
[2020-03-15] MEDS: propofoL 1,000 MG/100 ML VIAL IV PRN ×4 (05:07→22:42)
[2020-03-15] MEDS: D5W 1,000 ML IV SCH ×3 (05:08→22:43)
[2020-03-15 05:11] LABS: Arterial Blood Carboxyhemoglob 0.9 % (0-1.5); Blood Gas Oxyhemoglobin 87.1 % (94-97); Blood O2 Saturation 89.3 % (92-98.5)
[2020-03-15 05:29] LABS: Absolute Lymphocytes (CBC) 0.1 K/uL (0.7-4.9); Basophils % 0.6 % (0-1.3); Hematocrit 32.2 % (39.6-49.0); Lymphocytes % 0.9 % (15.3-44.8); MPV 8.5 fL (7.6-11.3); RBC Red Blood Cell Count 3.61 M/uL (4.33-5.43)
[2020-03-15 05:40] LABS: C-Reactive Protein 47.4 mg/L (<3.00); Ferritin 727.5 ng/mL (26-388); Potassium 4.5 mmol/L (3.5-5.1)
--- NOTE | 2020-03-15 06:18 | PN ---
Date of Progress Note: 03/14/2020 Subjective: The patient was seen this morning for followup. No new complaints or problems reported by patient except nurse in the morning when I evaluated him via televisit that included audio and vid eo component. The patient was on BiPAP. During the course of day, the patient's condition deteriora noah. He had more labored breathing, worsening tachypnea with breathing anywhere between 30 to 40 amy es per minute, associated with labored breathing and problem with oxygenation. So, nurse contacted sara hanson, I advised her that the patient will need intubation and ventilator support and for her to contact Dr. Galicia, who was contacted and he agreed with intubation and ventilator support for the patient which was accomplished during day. After the patient was placed on ventilator, his condition stabili zed. He was on 100% FiO2 prior to vent intubation. Since intubation, he has required less oxygen. By the evening time, he was on about 65% FiO2 on ventilator. Laboratory Data: White count 15.5, hemoglobin 12.2, platelets 425. Sodium 149, potassium 4.4, chlor blas 113, bicarb 29, BUN 74, creatinine is 1.47, glucose 277, SGOT and SGPT normal. CRP 68.70. Impression: 1.COVID-19 infection. 2.COVID-19 pneumonia. 3.Acute respiratory failure with hypoxia. 4.Volume depletion. Plan: We will go ahead and continue ventilator management per Dr. Galicia. The patient is on Loven ox 80 mg subcutaneous injection daily. We will continue IV steroid, IV antibiotics, continue to foll ow with Dr. Galicia. His CRP and ferritin and other labs will be followed. I did call patient's so n and discussed all the details with him in the evening time. Nurses were not able to place a Dobhof f tube, but the patient has an oral gastric tube and we will utilize that for feeding purposes. We will also give free water through the tube. DEISI/MODL Voice ID: [id number] Report ID: [id number]
--- NOTE | 2020-03-15 07:41 | RAD REPORT ---
EXAM DESCRIPTION: RAD - Chest Single View - 03/15/2020 6:16 am CLINICAL HISTORY: ETT/PNA/Feeding tube COMPARISON: Portable March 14 TECHNIQUE: AP portable chest image was obtained 03/15/2020 6:16 am . FINDINGS: Bilateral airspace opacification is present slightly worse than the prior day study. This is in part due to a lower lung volume. ET tube is unchanged in position. Enteric tube extends below the diaphragm. Tubing is curled in the u pper thoracic esophagus. Heart size and vasculature are stable. No measurable pleural effusion and no pneumothorax. No acute bony abnormality seen. No acute aortic findings suspected. IMPRESSION: Extensive bilateral airspace opacification slightly worse than prior imaging. Endotracheal tube is in good position. Enteric tube, curled in the upper thoracic esophagus, does ext end below the diaphragm.
[2020-03-15 07:43] LABS: Blood Morphology Comment NOT SEEN (NOT SEEN); Platelet Estimate ADEQ
[2020-03-15] MEDS: GLUCERNA SHAKE 237 ML CAN PO SCH ×2 (09:00→20:25)
[2020-03-15] MEDS: ASPIRIN 81 MG CHEWABLE TABLET PO SCH (09:04)
[2020-03-15] MEDS: ENOXAPARIN 80 MG/0.8 ML SQ SCH (09:04)
[2020-03-15] MEDS: THIAMINE HCL 100 MG TABLET PO SCH (09:04)
[2020-03-15] MEDS: CLOPIDOGREL 75 MG TABLET PO SCH (09:05)
[2020-03-15] MEDS: FAMOTIDINE 20 MG/2 ML VIAL IV SCH ×2 (09:05→20:24)
[2020-03-15] MEDS: ASCORBIC ACID 500 MG TABLET PO SCH ×3 (09:05→20:24)
[2020-03-15] MEDS: MORPHINE 2 MG/ML SYR IV PRN (10:46)
--- NOTE | 2020-03-15 11:35 | P.PN ---
Subjective Date of Service: 03/15/20 Chief Complaint: Respiratory failure Patient was intubated yesterday hypoxemia 50% FiO2 chest x-ray shows bilateral changes Review of Systems is unable to be obtained Physical Examination - Vital Signs Temperature: 97.8 F Blood Pressure: 127/55 Pulse: 62 Respirations: 23 Pulse Ox (%): 90 Assessment & Plan - Problems (Diagnosis) (1) Acute respiratory failure due to severe acute respiratory syndrome coronavirus 2 (SARS-CoV-2) infection Current Visit: Yes Status: Acute Plan: Respiratory failure chest x-ray shows still shows significant bilateral opacitie s sees oxygen requirement is only 50% renal function and hypernatremia improving patient is also hyperglycemic no change in present treatment continue to titrate O2 down patient's ferritin levels are also declining increase peep to 12
[2020-03-15] MEDS ORDERED: SUCCINYLCHOLINE 20 MG/ML (10 ML) IV ONE (14:58)
[2020-03-15] MEDS: Levofloxacin500mg IV 500 MG/100 ML BAG IV SCH (15:04)
[2020-03-15] MEDS: ATORVASTATIN 20 MG TAB PO SCH (20:24)
[2020-03-15] MEDS: INSULIN GLARGINE 100 UNITS/ML SQ SCH (20:24)
[2020-03-15] MEDS: MIDAZOLAM HCL 2 MG/2 ML INJ IV PRN (20:29)
[2020-03-16] MEDS: FENTANYL CITR 100 MCG/2 ML IV PRN (00:04)
[2020-03-16] MEDS: METHYLPREDNISOLONE 40 MG INJ IV SCH ×3 (00:05→21:35)
[2020-03-16] MEDS: INSULIN -REGULAR HUMAN 50 UNIT/0.5 ML ML SQ SCH ×5 (00:06→23:32)
[2020-03-16 05:50] LABS: Blood O2 Saturation 93.3 % (92-98.5)
[2020-03-16 05:51] LABS: Blood Gas Oxyhemoglobin 92.8 % (94-97)
[2020-03-16 06:02] LABS: Absolute Lymphocytes (CBC) 0.1 K/uL (0.7-4.9); Basophils % 0.3 % (0-1.3); Hematocrit 30.2 % (39.6-49.0); Lymphocytes % 0.8 % (15.3-44.8); MPV 8.6 fL (7.6-11.3); RBC Red Blood Cell Count 3.34 M/uL (4.33-5.43)
[2020-03-16] MEDS: propofoL 1,000 MG/100 ML VIAL IV PRN ×4 (06:24→19:45)
[2020-03-16 06:37] LABS: Albumin 1.7 g/dL (3.4-5.0); Bilirubin Total 0.4 mg/dL (0.2-1.0); C-Reactive Protein 28.1 mg/L (<3.00); Ferritin 685.6 ng/mL (26-388); Potassium 5.3 mmol/L (3.5-5.1); Protein, Total 4.5 g/dL (6.4-8.2)
--- NOTE | 2020-03-16 07:21 | PN ---
Date of Progress Note: 03/15/2020 Subjective: The patient was seen this morning for followup. He was evaluated. He was in ICU. Johnathan ed any complaints. Nursing staff rather denied any new complaints. The patient was on ventilator an d hemodynamically stable. Objective: Vital Signs: Reviewed. HEENT: Unremarkable. Lungs: Clear to auscultation. Heart: Sounds normal. Abdomen: Soft. Bowel sounds normal. No guarding, rigidity, tenderness, or distention. Extremities: No leg edema. Laboratory Data: White count 17.3, hemoglobin 10.6, platelets 331. Blood gas; pH 7.45, pCO2 39.6, p O2 54.8, saturation 89% on 50% FiO2. Sodium 147, potassium 4.5, chloride 112, bicarb 30, BUN 71, cre atinine 1.50, glucose 297. Impression: 1.COVID-19 infection. 2.COVID-19 pneumonia. 3.Acute respiratory failure with hypoxia. 4.Volume depletion. 5.Diabetes mellitus. Plan: We will continue current medication. Continue steroid, ventilator support per Dr. Galicia. Continue current antibiotics and Lovenox. The patient is tolerating his tube feeding very well and w e will continue that. Continue IV fluid, but reduce rate now to 50 cc/hour and we will continue to provide free water through the orogastric tube. We will repeat blood work tomorrow. DEISI/MODL Voice ID: [id number] Report ID: [id number]
[2020-03-16] MEDS ORDERED: SOD POLYSTYREN SUL 15 GM/60 ML UCUP FT ONE (07:46)
[2020-03-16] MEDS: GLUCERNA SHAKE 237 ML CAN PO SCH (09:00)
[2020-03-16] MEDS: ASPIRIN 81 MG CHEWABLE TABLET PO SCH (09:42)
[2020-03-16] MEDS: THIAMINE HCL 100 MG TABLET PO SCH (09:42)
[2020-03-16] MEDS: ASCORBIC ACID 500 MG TABLET PO SCH ×3 (09:42→21:35)
[2020-03-16] MEDS: ENOXAPARIN 80 MG/0.8 ML SQ SCH (09:42)
[2020-03-16] MEDS: CLOPIDOGREL 75 MG TABLET PO SCH (09:43)
[2020-03-16] MEDS: FAMOTIDINE 20 MG/2 ML VIAL IV SCH ×2 (09:43→21:36)
[2020-03-16] MEDS ORDERED: GLUCAGON 1 MG/VIAL IM PRN (10:24)
[2020-03-16] MEDS ORDERED: D50W 25 GM/50 ML SYRINGE IV PRN (10:24)
--- NOTE | 2020-03-16 11:30 | RAD REPORT ---
EXAM DESCRIPTION: XR Chest, 1 View CLINICAL HISTORY: The patient is 80 years old and is Male; ETT/PNA/Feeding tube. PICC placement TECHNIQUE: Single view of the chest. COMPARISON: No relevant prior studies available. FINDINGS: Lungs: Patchy bilateral pulmonary opacities, left greater than right. Pleural space: Unremarkable. No pneumothorax. Heart: The cardiac silhouette is enlarged versus artifact of AP technique. Mediastinum: Mediastinal contours are altered due to leftward patient rotation. Bones/joints: No acute fracture visualized. Tubes, lines and devices: ET tube is 4 cm above the rickie. NG tube is at least in the stomach b ut the tip is beyond the edge of the film. Right PICC line is in the SVC. IMPRESSION: 1. Lines and tubes as above. 2. Patchy bilateral pulmonary opacities, left greater than right. Correlate clinically for pneumoni a. Electronically signed by: Fartun Knight MD 03/16/2020 5:52 AM CUSTOMER RESOLUTION SPECIALIST Due to temporary technical issues with the PACS/Fluency reporting system, reports are being signed by the in house radiologist without review as a courtesy to ensure prompt reporting. The interpreting r adiologist is fully responsible for the content of the report.
--- NOTE | 2020-03-16 11:48 | P.PN ---
Subjective Date of Service: 03/16/20 Chief Complaint: Respiratory failure Patient's oxygenation is improving Review of Systems is unable to be obtained Physical Examination - Vital Signs Temperature: 97.2 F Blood Pressure: 113/54 Pulse: 61 Respirations: 27 Pulse Ox (%): 94 - Physical Exam General: Unresponsive Respiratory: Clear to auscultation bilaterally, Diminished, Crackles/rales Cardiovascular: No edema, Regular rate/rhythm Assessment & Plan - Problems (Diagnosis) (1) Acute respiratory failure due to severe acute respiratory syndrome coronavirus 2 (SARS-CoV-2) infection Current Visit: Yes Status: Acute Plan: Respiratory failure oxygenation satisfactory patient is only on 40% FiO2 plan to start weaning him from the ventilator chest x-ray very rotated white count is still mildly elevated start water flushes probably prerenal BUN is elevated patient has now become edematous and use dose of Solu-Medrol IV fluids discontinued
[2020-03-16] MEDS: Levofloxacin500mg IV 500 MG/100 ML BAG IV SCH (11:51)
--- NOTE | 2020-03-16 18:18 | RAD REPORT ---
EXAM DESCRIPTION: US - Extrem Venous W Compress Manjit - 03/16/2020 6:13 pm CLINICAL HISTORY: R/O DVT, leg pain and swelling COMPARISON: None. TECHNIQUE: Real-time sonographic evaluation of the bilateral lower extremity common femoral, superfi cial femoral, popliteal and posterior tibial veins was performed. FINDINGS: Normal compressibility, flow augmentation, phasic flow and spontaneous flow are identified in the left and right lower extremity common femoral, superficial femoral, popliteal and posterior t ibial veins. No intraluminal filling defects seen. IMPRESSION: No DVT in either lower extremity.
[2020-03-16] MEDS: ATORVASTATIN 20 MG TAB PO SCH (21:35)
[2020-03-16] MEDS: INSULIN GLARGINE 100 UNITS/ML SQ SCH (21:36)
[2020-03-17] MEDS: propofoL 1,000 MG/100 ML VIAL IV PRN ×4 (01:16→20:57)
[2020-03-17] MEDS ORDERED: GLUCERNA 1.2 CAL 1,000 ML BOT RTH SCH (02:00)
[2020-03-17] MEDS: INSULIN -REGULAR HUMAN 50 UNIT/0.5 ML ML SQ SCH ×3 (06:18→17:55)
[2020-03-17 06:33] LABS: Absolute Lymphocytes (CBC) 0.2 K/uL (0.7-4.9); Basophils % 0.3 % (0-1.3); Hematocrit 33.9 % (39.6-49.0); Lymphocytes % 0.7 % (15.3-44.8); MPV 8.7 fL (7.6-11.3); RBC Red Blood Cell Count 3.81 M/uL (4.33-5.43)
[2020-03-17 06:36] LABS: Arterial Blood Carboxyhemoglob 0.1 % (0-1.5); Blood Gas Oxyhemoglobin 88.5 % (94-97); Blood O2 Saturation 89.3 % (92-98.5)
[2020-03-17 07:07] LABS: Albumin 1.8 g/dL (3.4-5.0); Bilirubin Total 0.4 mg/dL (0.2-1.0); C-Reactive Protein 56.4 mg/L (<3.00); Protein, Total 5.1 g/dL (6.4-8.2)
[2020-03-17 07:13] LABS: Potassium 5.8 mmol/L (3.5-5.1)
[2020-03-17] MEDS ORDERED: SOD POLYSTYREN SUL 15 GM/60 ML UCUP FT ONE (07:21)
[2020-03-17] MEDS ORDERED: INSULIN -REGULAR HUMAN 50 UNIT/0.5 ML ML IV ONE (07:39)
[2020-03-17] MEDS ORDERED: VANCOMYCIN/NS 1 gm 1 GM/250 ML BAG IVPB SCH (07:45)
--- NOTE | 2020-03-17 07:56 | PN ---
Date of Progress Note: 03/16/2020 Subjective: Patient was seen this morning for followup in ICU. He remains on ventilator, on propofo l. Objective: Vital Signs: Reviewed. Intake and output records reviewed. HEENT: Unremarkable. Lungs: Clear to auscultation. Heart: Sounds normal. Abdomen: Soft. Bowel sounds normal. No guarding, rigidity, tenderness, or distention. Extremities: Presence of edema present of all the 4 extremities. Laboratory Data: White count 17.3, hemoglobin 9.6, platelets 334. Blood gas; pH 7.39, pCO2 of 43.4, pO2 of 77.4, saturation 93.3% on 50% of FiO2. Sodium 140, potassium 5.3, chloride 107, bicarb 30, B UN 80, creatinine 1.51, glucose 326, ferritin 685, CRP 28. Impression: 1.COVID-19 infection. 2.COVID-19 pneumonia. 3.Acute respiratory failure with hypoxia. 4.Volume depletion with acute kidney injury, improved. 5.Hyperkalemia. 6.Diabetes mellitus. Plan: We will continue current insulin for diabetes management. Patient is on IV steroid and IV Lev aquin. We will continue that. Continue to follow with Dr. Galicia. Kayexalate was ordered for hyperkalemia and we will go ahead and discontinue IV fluid. Continue PEG rather tube feedings. He i s tolerating well. DEISI/MODL Voice ID: [id number] Report ID: [id number]
[2020-03-17] MEDS ORDERED: Meropenem 500 MG VIAL IV SCH (08:00)
[2020-03-17] MEDS: Meropenem 500 MG/100 ML BAG IV SCH ×2 (08:00→20:00)
[2020-03-17] MEDS ORDERED: VANCOMYCIN 2 GM in NA CHLORIDE 0.9% 500 ML IVPB ONE (08:00)
[2020-03-17 08:36] LABS: Blood Morphology Comment NOT SEEN (NOT SEEN); Platelet Estimate INCR
[2020-03-17] MEDS: ASCORBIC ACID 500 MG TABLET PO SCH ×3 (08:40→20:57)
[2020-03-17] MEDS: CLOPIDOGREL 75 MG TABLET PO SCH (08:40)
[2020-03-17] MEDS: METHYLPREDNISOLONE 40 MG INJ IV SCH ×2 (08:40→20:57)
[2020-03-17] MEDS: ENOXAPARIN 80 MG/0.8 ML SQ SCH (08:40)
[2020-03-17] MEDS: FAMOTIDINE 20 MG/2 ML VIAL IV SCH ×2 (08:40→20:57)
[2020-03-17] MEDS: ASPIRIN 81 MG CHEWABLE TABLET PO SCH (08:40)
[2020-03-17] MEDS: THIAMINE HCL 100 MG TABLET PO SCH (08:40)
--- NOTE | 2020-03-17 08:47 | RAD REPORT ---
EXAM DESCRIPTION: RAD - Chest Single View - 03/17/2020 6:11 am CLINICAL HISTORY: ETT/PNA/Feeding tube Chest pain. COMPARISON: Chest Single View dated 03/16/2020; Chest Single View dated 03/15/2020; Chest Single View dated 03/14/2020; Chest Single View dated 03/14/2020 FINDINGS: Portable technique limits examination quality. Tip of the endotracheal tube is above the rickie. Enteric tube has its tip probably in the stomach. T here appears to be a prominent loop in upper aspect of the enteric tube which may be within a diverti culum of the esophagus. Right-sided PICC line is stable.Bilateral pulmonary opacities are again noted , unchanged. Heart size is upper limit normal. IMPRESSION: Stable chest since 03/16/2020.
[2020-03-17 09:12] LABS: Urine Appearance CLOUDY; Urine Bilirubin NEGATIVE (NEG); Urine Blood 3+ (NEG); Urine Color YELLOW; Urine Glucose TRACE (NEG); Urine Protein TRACE (NEG); Urine Specific Gravity 1.025 (1.005-1.030)
[2020-03-17 09:36] LABS: Urine RBC >50 /HPF (NONE SEEN)
[2020-03-17 09:37] LABS: Urine Bacteria >50 /HPF (NONE SEEN)
--- NOTE | 2020-03-17 12:32 | P.PN ---
Subjective Date of Service: 03/17/20 Chief Complaint: Respiratory failure patient is on minimal oxygen Review of Systems is unable to be obtained Physical Examination - Vital Signs Temperature: 97.3 F Blood Pressure: 123/57 Pulse: 81 Respirations: 35 Pulse Ox (%): 95 Assessment & Plan - Problems (Diagnosis) (1) Acute respiratory failure due to severe acute respiratory syndrome coronavirus 2 (SARS-CoV-2) infection Current Visit: Yes Status: Acute Plan: respiratory failure from coronal virus renal function is worse trial of IV fluids see if his renal function improve white count is elevated patient is non vancomycin meropenem blood cultures pending patient is also hypokalemic start on an insulin drip nephrology consult cultures ordered
[2020-03-17] MEDS: NACHLORIDE 0.45% 1,000 ML IV SCH (13:47)
[2020-03-17] MEDS: IVERMECTIN 3 MG TABLETS PO ONE ×2 (14:30→15:46)
[2020-03-17 18:41] LABS: Protime INR 1.21
[2020-03-17 18:48] LABS: Potassium 4.3 mmol/L (3.5-5.1)
[2020-03-17 18:56] LABS: Absolute Lymphocytes (CBC) 0.1 K/uL (0.7-4.9); Basophils % 0.3 % (0-1.3); Hematocrit 29.4 % (39.6-49.0); Lymphocytes % 0.6 % (15.3-44.8); MPV 8.7 fL (7.6-11.3)
[2020-03-17] MEDS: MELATONIN 5 MG TABLET PO SCH (20:57)
[2020-03-17] MEDS: INSULIN GLARGINE 100 UNITS/ML SQ SCH (20:58)
[2020-03-17] MEDS: THIAMINE 200 MG/2 ML INJ IVP SCH (20:58)
[2020-03-17] MEDS: ATORVASTATIN 20 MG TAB PO SCH (20:59)
[2020-03-18] MEDS: INSULIN -REGULAR HUMAN 50 UNIT/0.5 ML ML SQ SCH ×4 (01:07→19:11)
[2020-03-18] MEDS: NACHLORIDE 0.45% 1,000 ML IV SCH (02:57)
[2020-03-18] MEDS: propofoL 1,000 MG/100 ML VIAL IV PRN ×2 (06:01→19:38)
[2020-03-18 06:12] LABS: Arterial Blood Carboxyhemoglob 1.2 % (0-1.5); Blood Gas Oxyhemoglobin 87.2 % (94-97); Blood O2 Saturation 89.5 % (92-98.5)
[2020-03-18 06:41] LABS: Absolute Lymphocytes (CBC) 0.3 K/uL (0.7-4.9); Basophils % 0.2 % (0-1.3); Hematocrit 31.5 % (39.6-49.0); Lymphocytes % 1.3 % (15.3-44.8); MPV 8.9 fL (7.6-11.3); RBC Red Blood Cell Count 3.53 M/uL (4.33-5.43)
[2020-03-18 06:59] LABS: Albumin 1.6 g/dL (3.4-5.0); Bilirubin Total 0.4 mg/dL (0.2-1.0); C-Reactive Protein 81.4 mg/L (<3.00); Ferritin 711.6 ng/mL (26-388); Potassium 4.5 mmol/L (3.5-5.1); Protein, Total 4.8 g/dL (6.4-8.2)
--- NOTE | 2020-03-18 07:45 | RAD REPORT ---
EXAM DESCRIPTION: Ludwig Single View03/18/2020 5:51 am CLINICAL HISTORY: Respiratory distress COMPARISON: March 17 FINDINGS: Moderate bilateral pulmonary opacities unchanged. Heart is normal size. Endotracheal tube has tip well above the rickie. Portion of the feeding tube is coiled within the pro ximal esophagus. The tip is not included in the field of view presumably within the stomach. PICC ekaterina e in place IMPRESSION: No change in the moderate bilateral pulmonary opacities
[2020-03-18] MEDS: Meropenem 500 MG/100 ML BAG IV SCH ×2 (08:00→20:00)
[2020-03-18] MEDS: INSULIN GLARGINE 100 UNITS/ML SQ SCH ×2 (08:00→21:00)
[2020-03-18] MEDS ORDERED: VITAMIN D 1000 UNIT TAB PO SCH (09:00)
[2020-03-18] MEDS: ENOXAPARIN 80 MG/0.8 ML SQ SCH (10:06)
[2020-03-18] MEDS: CLOPIDOGREL 75 MG TABLET PO SCH (10:07)
[2020-03-18] MEDS: ZINC SULFATE 220 MG CAP PO SCH (10:07)
[2020-03-18] MEDS: ASCORBIC ACID 500 MG TABLET PO SCH ×3 (10:07→21:12)
[2020-03-18] MEDS: FAMOTIDINE 20 MG/2 ML VIAL IV SCH ×2 (10:08→21:12)
[2020-03-18] MEDS: ASPIRIN 81 MG CHEWABLE TABLET PO SCH (10:08)
[2020-03-18] MEDS: THIAMINE 200 MG/2 ML INJ IVP SCH ×2 (10:08→21:12)
[2020-03-18] MEDS: METHYLPREDNISOLONE 40 MG INJ IV SCH (10:08)
--- NOTE | 2020-03-18 10:36 | RAD REPORT ---
EXAM DESCRIPTION: RAD - Abdomen 1 View (KUB) - 03/18/2020 10:31 am CLINICAL HISTORY: Device placement Dobhoff tube placement FINDINGS: A Dobhoff tube is coiled within the gastric fundus.
[2020-03-18] MEDS ORDERED: FUROSEMIDE 40 MG/4 ML VIAL IV ONE (11:29)
[2020-03-18] MEDS ORDERED: GLUCERNA 1.5 CAL 1,000 ML BOT RTH SCH (12:00)
--- NOTE | 2020-03-18 12:44 | RAD REPORT ---
EXAM DESCRIPTION: RAD - Abdomen 1 View (KUB) - 03/18/2020 12:39 pm CLINICAL HISTORY: Reposition Dobbhoff, verify placement Pain COMPARISON: Abdomen 1 View (KUB) dated 03/18/2020 FINDINGS: The tip of the Dobhoff tube is coiled in the stomach.
[2020-03-18] MEDS: LORazepam 2 MG/ML VIAL IV PRN (13:20)
--- NOTE | 2020-03-18 13:44 | P.PN ---
Subjective Date of Service: 03/18/20 Chief Complaint: Respiratory failure and acute renal failure Patient is stable he is on animal oxygen however his renal function did not improve with IV fluids Review of Systems is unable to be obtained Physical Examination - Vital Signs Temperature: 96.9 F Blood Pressure: 147/62 Pulse: 87 Respirations: 20 Pulse Ox (%): 95 Assessment & Plan - Problems (Diagnosis) (1) Acute respiratory failure due to severe acute respiratory syndrome c oronavirus 2 (SARS-CoV-2) infection Current Visit: Yes Status: Acute Plan: Patient x-ray shows no changes still has respiratory failure the is only requiring 30% oxygen will plan to start weaning him off the ventilator has acute renal failure agree with Lasix no response to IV fluids no change level is declining CRP still elevated she did receive ivermectin 1 dose increase dose of Solu-Medrol pro calcitonin level of ordered use of antibiotics pro calcitonin level is normal
[2020-03-18] MEDS: VANCOMYCIN 1.5 GM in NA CHLORIDE 0.9% 500 ML IVPB SCH (14:49)
--- NOTE | 2020-03-18 18:07 | PN ---
Date of Progress Note: 03/17/2020 Subjective: The patient was seen for followup in the morning. No new complaints or problems reporte d by nursing staff. The patient remains on ventilator. Objective: Vital Signs: Reviewed. HEENT: Unremarkable. Lungs: Clear to auscultation. No rhonchi or rales. Heart: Sounds normal. Abdomen: Soft. Bowel sounds normal. No guarding, rigidity, tenderness, distention. Extremities: Edema of all the 4 extremities present. Laboratory Data: White count 23, hemoglobin 9.8, platelets 360. Sodium 137, potassium 4.3, chloride 103, bicarb 27, BUN 101, creatinine 1.63, glucose 225. Impression: 1.COVID-19 infection. 2.COVID-19 pneumonia. 3.Acute respiratory failure with hypoxia. 4.Acute kidney injury. 5.Anasarca. 6.Anemia, unspecified. Plan: We will go ahead and continue ventilator support and management per Dr. Galicia. The patient is on IV steroid and IV antibiotics. Levaquin was discontinued this morning when his white count wa s 25.7 and then repeat white count later on this evening was 23. His potassium was elevated at 5.8 t his morning and it was corrected with Kayexalate. In the evening time, potassium came down to normal . This morning when I saw him because of elevated white count, Levaquin was discontinued and he was started on meropenem and vancomycin. We will continue Lovenox and I will see him tomorrow for follow up. This morning, the patient's son was contacted and details were discussed with him. DEISI/MODL Voice ID: [id number] Report ID: [id number]
--- NOTE | 2020-03-18 18:13 | PN ---
Date of Progress Note: 03/18/2020 Subjective: The patient was seen this morning for followup. No new complaints or problems reported by nursing staff. The patient remains on ventilator, needing less oxygen now than before. Today, he is down to 30% FiO2. Yesterday, it was 35% FiO2. Weaning trial yesterday was not successful as the patient did not tolerate after 1 or 2 hours and he was placed back on assist-control. Dr. Galicia is managing his ventilator. He remains on propofol, but Dr. Galicia is slowly reducing the dose. Elisa hanson has significant anasarca. Intake and output records reviewed. Objective: Vital Signs: Reviewed. HEENT: Unremarkable. Lungs: Clear to auscultation. Heart: Sounds normal. Abdomen: Soft. Bowel sounds normal. No guarding, rigidity, tenderness, distention. Extremities: Anasarca with insignificant edema of all the 4 extremities present. Laboratory Data: White count 23.3, hemoglobin 10.3, platelets 387. Sodium 142, potassium 4.5, chlor blas 106, bicarb 30, BUN 107, creatinine 1.63, glucose 270. Ferritin 711. CRP 81.4. Chest x-ray lucian ws no change in moderate bilateral pulmonary opacities. Impression: 1.COVID-19 infection. 2.COVID-19 pneumonia. 3.Acute respiratory failure with hypoxia. 4.Anemia. 5.Anasarca. 6.Acute kidney injury. 7.Hyperkalemia. 8.Diabetes mellitus. Plan: We will continue insulin per order. The patient is getting Lantus and sliding scale insulin, we will continue that. The patient's edema of all the 4 extremities is worse today and yesterday com pared to before, so we will go ahead and give him 40 mg Lasix IV x1 dose. In last few days, he is in positive fluid balance. IV fluid was discontinued as it did not help to improve any renal function. We will consult machinist tool and die. Continue to follow with Dr. Galicia. Continue steroids and current IV antibiotics. Cultures were done yesterday, so far results negative and I will see him tomorrow f or followup. Continue Lovenox. DEISI/MODL Voice ID: [id number] Report ID: [id number]
[2020-03-18] MEDS: ATORVASTATIN 20 MG TAB PO SCH (21:10)
[2020-03-18] MEDS: MELATONIN 5 MG TABLET PO SCH (21:11)
[2020-03-18] MEDS: METHYLPREDNISOLONE 125 MG INJ IV SCH (21:12)
[2020-03-19] MEDS: INSULIN -REGULAR HUMAN 50 UNIT/0.5 ML ML SQ SCH ×4 (00:30→18:47)
[2020-03-19 05:28] LABS: Arterial Blood Carboxyhemoglob 1.1 % (0-1.5); Blood Gas Oxyhemoglobin 91.1 % (94-97); Blood O2 Saturation 93.4 % (92-98.5)
[2020-03-19 05:40] LABS: Absolute Lymphocytes (CBC) 0.2 K/uL (0.7-4.9); Basophils % 0.1 % (0-1.3); Hematocrit 28.5 % (39.6-49.0); Lymphocytes % 0.9 % (15.3-44.8); MPV 9.3 fL (7.6-11.3); RBC Red Blood Cell Count 3.19 M/uL (4.33-5.43)
[2020-03-19 06:03] LABS: Albumin 1.5 g/dL (3.4-5.0); Bilirubin Total 0.4 mg/dL (0.2-1.0); C-Reactive Protein 52.7 mg/L (<3.00); Protein, Total 4.7 g/dL (6.4-8.2)
[2020-03-19] MEDS: LORazepam 2 MG/ML VIAL IV PRN ×4 (07:25→22:53)
[2020-03-19] MEDS: Meropenem 500 MG/100 ML BAG IV SCH ×2 (08:00→19:53)
[2020-03-19] MEDS: ENOXAPARIN 80 MG/0.8 ML SQ SCH (08:29)
[2020-03-19] MEDS: INSULIN GLARGINE 100 UNITS/ML SQ SCH ×2 (08:30→21:29)
[2020-03-19] MEDS: METHYLPREDNISOLONE 125 MG INJ IV SCH ×2 (08:30→21:31)
[2020-03-19] MEDS: CLOPIDOGREL 75 MG TABLET PO SCH (08:31)
[2020-03-19] MEDS: FAMOTIDINE 20 MG/2 ML VIAL IV SCH ×2 (08:31→21:31)
[2020-03-19] MEDS: THIAMINE 200 MG/2 ML INJ IVP SCH ×2 (08:31→21:31)
[2020-03-19] MEDS: ASPIRIN 81 MG CHEWABLE TABLET PO SCH (08:31)
[2020-03-19] MEDS: ASCORBIC ACID 500 MG TABLET PO SCH ×3 (08:31→21:30)
[2020-03-19] MEDS: ZINC SULFATE 220 MG CAP PO SCH (08:32)
[2020-03-19] MEDS: VITAMIN D 1000 UNIT TAB PO SCH (08:32)
[2020-03-19] MEDS ORDERED: FUROSEMIDE 40 MG/4 ML VIAL IV ONE ×2 (10:40→21:37)
--- NOTE | 2020-03-19 11:44 | RAD REPORT ---
EXAM DESCRIPTION: RAD - Chest Single View - 03/19/2020 6:20 am CLINICAL HISTORY: ETT/PNA/Feeding tube Chest pain. COMPARISON: Abdomen 1 View (KUB) dated 03/18/2020; Abdomen 1 View (KUB) dated 03/18/2020; Chest Single View dated 03/18/2020; Chest Single View dated 03/17/2020 FINDINGS: Portable technique limits examination quality. Tip of the endotracheal tube is above the rickie. Enteric tube coils in the stomach. Right-sided PICC line has tip in the SVC. Bilateral interstitial lung opacities are present, stable since prior study . Heart size is normal. IMPRESSION: No change in the degree of bilateral interstitial lung opacities since comparative study .
--- NOTE | 2020-03-19 11:53 | CON ---
Date of Consultation: 03/19/2020 Consulting Physician: Salo Britton M.D. Reason For Consultation: Anasarca, elevation of BUN and creatinine. History Of Present Illness: This is an 80-year-old gentleman. All the information has been obtained from the record and from the nursing as patient being intubated and sedated. The patient had significant past medical history of coronary artery disease status post PTCA, chronic kidney disease, baseline creatinine 2 with GFR of 31 as of April 2018, hyperlipidemia. The patient came to the hospital early this month with respiratory failure secondary to COVID pneumonia. The patient had decline in his respiratory status, for that reason, the patient was intubated. The patient gradually start developing anasarca and kidney function continue to decline, for that reason, we have been consulted. Reviewing the record for the patient as I mentioned, the patient back in April 2018, is too with GFR of 31. The patient up on this admission, when he was admitted creatinine was 2.9 which elevated, trend down all the way to 1.5 on the , now is climbing up. The patient received Lasix yesterday, had good urine output. The patient has insulting medication, as I mentioned the Lasix. No IV contrast. No low blood pressure. The patient was on Solu-Medrol, received vancomycin on the . All incident of low blood pressure was on the . Past Medical History: 1. Coronary artery disease, status post PTCA. 2. Hypertension. 3. Hyperlipidemia. 4. 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 Family History: None obtainable. Past Surgical History: The patient intubated, PTCA. Social History: Ex-smoker. Denied alcohol. Denied drug abuse. Review of Systems: None obtainable. Medications: Home medications include glimepiride, amlodipine, atorvastatin, Plavix, doxazosin, fenofibrate, Lasix, aspirin, gabapentin, multivitamin. Current medications, the patient on currently meropenem, vancomycin, albuterol, Lovenox, Ambien, midazolam, Tylenol, zinc sulfate, Pepcid, insulin, fentanyl, thiamine, vitamin D. Physical Examination: Vital Signs: When I saw the patient; patient on vent 30%, blood pressure 119/72, pulse of 82, afebrile. The patient had good urine output of 1400, positive of 2400. Chest: Crackles bilateral. Heart: S1 and S2 regular. Abdomen: Soft, nontender. Extremities: +3 edema. Neuro: The patient is sedated. Laboratory Data: Sodium 142, potassium 5, bicarb 29, BUN 119, creatinine 1.7, calcium 8.3, albumin 1.5, corrected calcium is 10.6. Vitamin D 27. Assessment/plan: 1. Acute kidney injury on chronic kidney disease. Falsely, his creatinine was dilutional because of anasarca that the patient had. Nevertheless the patient had hematuria after the Gonzáles been inserted few days. a. I going to go ahead and send for protein creatinine to rule out nephritis. We will go and get renal ultrasound. The patient has disproportion in the BUN and creatinine secondary to catabolic state. We will give the patient albumin to mobilize third space fluid and we will give Lasix after and we will follow up. b. I am going to send for full serology to rule out any pulmonary renal for the patient. Even I doubt it could be the hematuria in all and the presence of COVID nephropathy. 2. Hypertension, currently controlled, optimal. Keep holding all MARIA TERESA inhibitor or ARB. 3. Anasarca. As above secondary to malnourished. We going to try to mobilize third space fluid with albumin and diuresis. 4. Marginal hyperkalemia. I am going to be controlled with the diuresis. 5. Marginal hypercalcemia secondary to vitamin D. Unfortunately, the patient has COVID. We will accept the marginal elevation in the calcium as it is not getting worse. 6. Hyperglycemia, not controlled. I am going to adjust his insulin. 7. Respiratory failure secondary to COVID pneumonia. Follow up with Pulmonary and Primary. Continue current antibiotic dose appropriate. time spend discussing with the patient face to face , placing order , discusse with the patient and other contact center team lead inculding hospitalist 75 min. EVERTON/DAKOTA Voice ID: [id number] Report ID: [id number] JOY
[2020-03-19] MEDS: ALBUMIN HUMAN 25% 100 ML IV SCH ×2 (12:27→21:31)
[2020-03-19 12:44] LABS: Urine Appearance CLOUDY; Urine Bilirubin NEGATIVE (NEG); Urine Blood 3+ (NEG); Urine Color YELLOW; Urine Glucose NEGATIVE (NEG); Urine Protein NEGATIVE (NEG); Urine Urobilinogen 0.2 mg/dL (0.2-1.0)
[2020-03-19 12:46] LABS: Urine Microscopic Reflex ORDER UMIC
[2020-03-19 12:56] LABS: Urine Bacteria 20-50 /HPF (NONE SEEN); Urine RBC >50 /HPF (NONE SEEN); Urine Yeast PRESENT (NONE SEEN)
--- NOTE | 2020-03-19 13:59 | PN ---
Date of Progress Note: 03/19/2020 Subjective: The patient was seen this morning for followup. He was lying in bed in ICU on ventilato r with FiO2 30%, maintaining adequate oxygenation. He is getting minimal amount of propofol drip whi ch is being weaned off by Dr. Galicia. Yesterday, nursing staff reported that patient did respond t o verbal command and was quizzing his hand with normal commands. This morning, patient had received some Ativan before I arrived, so he was sedated when I saw him. Objective: Vital Signs: Reviewed. HEENT: Unremarkable. Lungs: Clear to auscultation. Heart: Sounds normal. Abdomen: Soft. Bowel sounds normal. No guarding, rigidity, tenderness, or distention. Extremities: Edema of all the 4 extremities present. No significant change from yesterday. Laboratory Data: White count 25, hemoglobin 9.2, platelets 320. Blood gas; pH 7.47, pCO2 36.1, PO2 67, saturation 93.4% on 30% FiO2. Impression: 1.COVID-19 infection. 2.COVID-19 pneumonia. 3.Acute respiratory failure with hypoxia. 4.Diabetes mellitus. 5.Acute kidney injury. 6.Anasarca. Plan: We will continue current antibiotic. Continue to follow with glassie and modeling agent. I did discuss details with Dr. Galicia. His propofol will be hopefully weaned off today and then h e will decide about weaning off the ventilator depending on patient's response. We will continue to follow with glassie for acute kidney injury problem. He did diurese well with Lasix, but still has significant anasarca. He is tolerating tube feeding very well with Dobbhoff. He will continue steroid and other current antibiotics and anticoagulant medications. DEISI/MODL Voice ID: [id number] Report ID: [id number]
[2020-03-19] MEDS ORDERED: LORazepam 2 MG/ML VIAL IV PRN (17:50)
[2020-03-19] MEDS: MIDAZOLAM HCL 2 MG/2 ML INJ IV PRN (19:53)
--- NOTE | 2020-03-19 20:29 | RAD REPORT ---
EXAM DESCRIPTION: US - Renal Ultrasound-Complete - 03/19/2020 8:11 pm CLINICAL HISTORY: CKD Flank pain COMPARISON: RP EXAM COMPLETE dated 12/25/2011 FINDINGS: Both kidneys are mildly echogenic. The right kidney measures 10.0 x 5.2 x 4.8 cm. No hydronephrosis, focal mass or perinephric fluid. 14 mm benign renal cyst. The left kidney measures 10.5 x 4.6 x 4.5 cm. No hydronephrosis, focal mass or perinephric fluid. 18 mm benign renal cyst. The urinary bladder is incompletely distended without gross abnormality seen. IMPRESSION: Echogenic kidneys are present bilaterally compatible with underlying medical renal disea se. Small benign bilateral renal cysts.
[2020-03-19] MEDS: MELATONIN 5 MG TABLET PO SCH (21:30)
[2020-03-19] MEDS: ATORVASTATIN 20 MG TAB PO SCH (21:30)
[2020-03-19] MEDS: FENTANYL CITR 100 MCG/2 ML IV PRN (22:52)
[2020-03-20] MEDS: INSULIN -REGULAR HUMAN 50 UNIT/0.5 ML ML SQ SCH ×4 (00:38→18:27)
[2020-03-20] MEDS: VANCOMYCIN 1.5 GM in NA CHLORIDE 0.9% 500 ML IVPB SCH (03:51)
[2020-03-20 06:54] LABS: RBC Red Blood Cell Count 2.43 M/uL (4.33-5.43)
[2020-03-20 07:34] LABS: Bilirubin Total 0.4 mg/dL (0.2-1.0); C-Reactive Protein 21.3 mg/L (<3.00); Ferritin 1160.1 ng/mL (26-388); Folic Acid, (Folate) 17.1 ng/mL (3.1-17.5); Magnesium 3.2 mg/dL (1.8-2.4); Phosphorus 5.9 mg/dL (2.5-4.9); Protein, Total 4.6 g/dL (6.4-8.2); Thyroid Stimulating Hormone 2.02 uIU/mL (0.360-3.740)
[2020-03-20 07:38] LABS: Potassium 5.7 mmol/L (3.5-5.1)
--- NOTE | 2020-03-20 07:59 | RAD REPORT ---
EXAM DESCRIPTION: RAD - Chest Single View - 03/20/2020 6:22 am CLINICAL HISTORY: covid pneumonia COMPARISON: Portable March 19, portable March 18 TECHNIQUE: AP portable chest image was obtained 03/20/2020 6:22 am . FINDINGS: Lung parenchymal opacification is not substantially different. There may be very slight im provement when comparing back to March 18. No progression has occurred. Endotracheal tube has not changed. Feeding tube extends below the diaphragm. Right-sided PICC line in good position. Tip is visualized partially and positioned in the fundus of the stomach. Heart and vasculature are normal. No measurable pleural effusion and no pneumothorax. No acute bony a bnormality seen. No acute aortic findings suspected. IMPRESSION: No progressive lung parenchymal process seen. There does appear to be a very slight impr ovement when comparing current examination with March 18.
[2020-03-20] MEDS ORDERED: INSULIN GLARGINE 100 UNITS/ML SQ SCH (08:00)
[2020-03-20] MEDS: Meropenem 500 MG/100 ML BAG IV SCH ×2 (08:00→21:21)
[2020-03-20] MEDS ORDERED: SOD POLYSTYREN SUL 15 GM/60 ML UCUP FT ONE ×2 (08:06→17:53)
[2020-03-20] MEDS: VITAMIN D 1000 UNIT TAB PO SCH (08:13)
[2020-03-20] MEDS: METHYLPREDNISOLONE 125 MG INJ IV SCH (08:13)
[2020-03-20] MEDS: FAMOTIDINE 20 MG/2 ML VIAL IV SCH ×2 (08:13→21:19)
[2020-03-20] MEDS: ASCORBIC ACID 500 MG TABLET PO SCH ×3 (08:13→21:17)
[2020-03-20] MEDS: ZINC SULFATE 220 MG CAP PO SCH (08:14)
[2020-03-20] MEDS: ASPIRIN 81 MG CHEWABLE TABLET PO SCH (08:14)
[2020-03-20] MEDS: CLOPIDOGREL 75 MG TABLET PO SCH (08:14)
[2020-03-20 08:29] LABS: Absolute Lymphocytes (CBC) 0.4 K/uL (0.7-4.9); Basophils % 0.4 % (0-1.3); Hematocrit 22.8 % (39.6-49.0); Lymphocytes % 1.2 % (15.3-44.8); MPV 9.1 fL (7.6-11.3); RBC Red Blood Cell Count 2.55 M/uL (4.33-5.43)
[2020-03-20] MEDS: THIAMINE 200 MG/2 ML INJ IVP SCH ×2 (09:00→21:00)
[2020-03-20] MEDS: ENOXAPARIN 80 MG/0.8 ML SQ SCH (09:00)
[2020-03-20 09:47] LABS: Platelet Estimate ADEQ
[2020-03-20 09:48] LABS: Anisocytosis 1+; Blood Morphology Comment NOTED (NOT SEEN); Polychromasia SLIGHT
--- NOTE | 2020-03-20 10:24 | PN ---
Date of Progress Note: 03/20/2020 Subjective: Patient was seen this morning for followup. No new complaints or problems reported by [facility] staff. The patient remains on ventilator on 30% FiO2, maintaining adequate oxygenation. He s till has significant anasarca problem. Yesterday, chief of production did give him Lasix and albumin. In f act his anasarca is worse today compared to how it was yesterday on examination. He is not on propof ol drip anymore. He does not respond to any commands. Objective: Vital Signs: Reviewed. HEENT: Unremarkable. Lungs: Clear to auscultation. Abdomen: Soft. Bowel sounds normoactive. Heart: Sounds normal. Extremities: Significant edema of all the 4 extremities present. Increase today compared to yesterd ay. Laboratory Data: Sodium 141, potassium 5.7, chloride 107, bicarb 29, BUN 142, creatinine 2.38, gluco se 303, magnesium 3.2, ferritin 1160. C-reactive protein 21.30. AST 68, ALT 66, alkaline phosphatas e 58. Vancomycin trough level was 16.3. Chest x-ray, no progressive lung parenchymal process. Ther e does appear to be very slight improvement when comparing current exam with March 18 according to radiologist report. Impression: 1.Acute respiratory failure with hypoxia. 2.Acute renal failure. 3.Hyperkalemia. 4.Anemia. 5.COVID-19 infection. 6.COVID-19 pneumonia. 7.Acute renal failure. 8.Anasarca. Plan: We will go ahead and continue to follow up with chief of production. Kayexalate 45 g x1 dose was ord ered to be given through the Dobhoff tube. The patient is tolerating Dobhoff tube feeding very well. We will continue that. Continue current diabetes management with insulin. We will continue steroi d and his CBC was ordered and the results came back WBC count has gone up today and hemoglobin has dr opped. The patient is on meropenem and vancomycin and it is concerning that now we have worsening re nal function and increasing WBC count. I will communicate with Dr. Galicia and we will decide furth er treatment plan in terms of change of antibiotics. Continue to follow with chief of production for worsen ing renal function. Yesterday evening, I did call and talk to the patient's son, and I will communic ate with him again today. DEISI/MODL Voice ID: [id number] Report ID: [id number]
--- NOTE | 2020-03-20 10:45 | P.PN ---
Subjective Date of Service: 03/20/20 Chief Complaint: Respiratory failure and acute renal failure Patient's oxygenation is satisfactory chest x-ray minimal changes he is unresponsive renal function is worse hyperkalemia Review of Systems is unable to be obtained Physical Examination - Vital Signs Temperature: 97.5 F Blood Pressure: 106/57 Pulse: 92 Respirations: 34 Pulse Ox (%): 100 Assessment & Plan - Problems (Diagnosis) (1) Acute respiratory failure due to severe acute respiratory syndrome coronavirus 2 (SARS-CoV-2) infection Current Visit: Yes Status: Acute Plan: Respiratory failure with renal failure and Peter dose of ivermectin white count is worse cultures negative pro calcitonin in the morning reduce dose of Solu- Medrol to 40 mg IV Q 12 will see if will tolerate weaning in the morning provided his renal function improves consider stopping vancomycin cultures are so far negative forStaph patient had a decline in his hemoglobin is no evidence of GI bleed no abdominal distension abdomen is soft continue to monitor discuss with Nephrology
[2020-03-20] MEDS ORDERED: GLUCERNA 1.5 CAL 1,000 ML BOT RTH SCH (11:11)
[2020-03-20] MEDS ORDERED: ALBUTEROL 2.5 MG/3 ML NEB SOL NEB ONE (11:15)
[2020-03-20] MEDS ORDERED: D50W 25 GM/50 ML SYRINGE IV PRN (11:16)
[2020-03-20] MEDS ORDERED: GLUCAGON 1 MG/VIAL IM PRN (11:16)
[2020-03-20] MEDS ORDERED: INSULIN -REGULAR HUMAN 50 UNIT/0.5 ML ML IV ONE ×2 (11:16→18:17)
[2020-03-20] MEDS ORDERED: D50W 25 GM/50 ML SYRINGE IV ONE ×2 (11:16→18:18)
[2020-03-20] MEDS: ALBUMIN HUMAN 25% 100 ML IV SCH ×2 (11:32→21:55)
[2020-03-20] MEDS: LORazepam 2 MG/ML VIAL IV PRN ×4 (11:32→19:54)
--- NOTE | 2020-03-20 12:06 | PN ---
Date of Progress Note: 03/20/2020 Subjective: The patient was admitted with COVID pneumonia, acute kidney injury. The patient yesterday received 2 doses of Lasix with albumin. The patient had good urine output. Still positive balance. The patient still has anasarca. Physical Examination: Vital Signs: Blood pressure 106/57, pulse of 92, afebrile. The patient had a total urine output of 1600. Positive of 1200. Chest: Faint rales bilateral. Heart: S1, S2. Systolic murmur. Abdomen: Soft, nontender. Extremities: +2 edema. Upper extremities +3. Laboratory Data: WBC 30.7, H and H 7.2/22.8, platelets 331. . Sodium 141, potassium 5.7, bicarb 29, BUN 140, creatinine 2.3, calcium 8, phosphorus 5.9, magnesium 3.2. Iron saturation of 17. Protein electrophoresis is still pending. B12 of 1499, TSH of 2, PTH 63. Current Medications: The patient on include aspirin, meropenem, vancomycin, Plavix, Lovenox, atorvastatin. The patient received 2 doses of Lasix. The patient was placed on Kayexalate, Zofran, melatonin. The patient on a free water at 300 q.4. Assessment And Plan: 1. Acute kidney injury secondary to prerenal/toxic acute tubular necrosis/COVID nephropathy. Continues to have hematuria still. Protein creatinine still pending. Complicated with hyperkalemia. 2. Had peripheral edema but better oxygenation requirement on FiO2 on the vent, still 30-35. I am going to hold the Lasix for today. We will monitor the patient. 3. With severe disproportion in the BUN, creatinine, and the hyperkalemia, GI bleed needs to be ruled out. I am going to send for fecal occult and send for CT abdomen and we will follow up. 4. Hyperkalemia. Please avoid Kayexalate. We will give D50 with insulin and we will give albuterol. We will follow up. We will avoid Kayexalate till we have the CT abdomen. 5. Anemia with the presence of severe BUN elevation. GI loss needs to be ruled out. We will send for fecal occult. We will monitor closely. We will place the patient on H and H q.8. 6. Respiratory failure secondary to COVID pneumonia, currently normal volume. Keep holding Lasix. 7. Peripheral edema, anasarca. TSH of 2. Still pending protein creatinine. We will follow up. Hold Lasix today. We will use albumin to mobilize the fluid from third space. 8. Hypernatremia. Decrease the free water to every 6 hours. We will follow up. time spend discussing with the patient face to face , placing order , discusse with the patient and other service desk team lead including hospitalist 45 min. MAUDE Voice ID: [id number] Report ID: [id number] MTDD
[2020-03-20] MEDS ORDERED: SPECIAL ORDER MED 1 EA UNK PO ONE (16:00)
[2020-03-20 16:23] LABS: Absolute Lymphocytes (CBC) 0.3 K/uL (0.7-4.9); Basophils % 0.2 % (0-1.3); Hematocrit 19.2 % (39.6-49.0); Lymphocytes % 1.3 % (15.3-44.8); MPV 8.6 fL (7.6-11.3); RBC Red Blood Cell Count 2.17 M/uL (4.33-5.43)
[2020-03-20 16:58] LABS: Potassium 5.7 mmol/L (3.5-5.1)
[2020-03-20] MEDS ORDERED: NA CHLORIDE 0.9% 250 ML ONE (17:38)
[2020-03-20] MEDS: FENTANYL CITR 100 MCG/2 ML IV PRN (19:47)
[2020-03-20] MEDS: INSULIN GLARGINE 100 UNITS/ML SQ SCH (21:18)
[2020-03-20] MEDS: ATORVASTATIN 20 MG TAB PO SCH (21:18)
[2020-03-20] MEDS: MELATONIN 5 MG TABLET PO SCH (21:18)
[2020-03-20] MEDS: METHYLPREDNISOLONE 40 MG INJ IV SCH (21:19)
[2020-03-21] MEDS: INSULIN -REGULAR HUMAN 50 UNIT/0.5 ML ML SQ SCH ×4 (00:53→18:17)
[2020-03-21] MEDS: MIDAZOLAM HCL 2 MG/2 ML INJ IV PRN (00:55)
[2020-03-21] MEDS ORDERED: NA CHLORIDE 0.9% 100 ML ONE (02:15)
[2020-03-21 03:40] LABS: Rheumatoid Factor NEG (NEG)
[2020-03-21 06:42] LABS: Absolute Lymphocytes (CBC) 0.3 K/uL (0.7-4.9); Basophils % 0.1 % (0-1.3); Hematocrit 25.4 % (39.6-49.0); Lymphocytes % 1.1 % (15.3-44.8); MPV 9.2 fL (7.6-11.3); RBC Red Blood Cell Count 2.92 M/uL (4.33-5.43)
[2020-03-21 07:13] LABS: Albumin 2.1 g/dL (3.4-5.0); Bilirubin Total 0.4 mg/dL (0.2-1.0); Ferritin 546.6 ng/mL (26-388); Magnesium 3.4 mg/dL (1.8-2.4); Potassium 5.2 mmol/L (3.5-5.1); Protein, Total 4.5 g/dL (6.4-8.2)
[2020-03-21] MEDS ORDERED: SOD POLYSTYREN SUL 15 GM/60 ML UCUP FT ONE (07:36)
[2020-03-21] MEDS: Meropenem 500 MG/100 ML BAG IV SCH ×4 (08:00→20:33)
[2020-03-21] MEDS: ASPIRIN 81 MG CHEWABLE TABLET PO SCH (08:12)
[2020-03-21] MEDS: METHYLPREDNISOLONE 40 MG INJ IV SCH ×2 (08:12→20:06)
[2020-03-21] MEDS: CLOPIDOGREL 75 MG TABLET PO SCH (08:12)
[2020-03-21] MEDS: VITAMIN D 1000 UNIT TAB PO SCH (08:12)
[2020-03-21] MEDS: FAMOTIDINE 20 MG/2 ML VIAL IV SCH ×2 (08:12→20:05)
[2020-03-21] MEDS: HEPARIN 5000 UNIT/ML 1 ML VIAL SQ SCH ×2 (08:12→18:17)
[2020-03-21] MEDS: ZINC SULFATE 220 MG CAP PO SCH (08:12)
[2020-03-21] MEDS: INSULIN GLARGINE 100 UNITS/ML SQ SCH ×2 (08:18→20:55)
[2020-03-21] MEDS: THIAMINE 200 MG/2 ML INJ IVP SCH ×2 (08:24→20:05)
[2020-03-21] MEDS: ASCORBIC ACID 500 MG TABLET PO SCH ×3 (08:36→20:33)
[2020-03-21] MEDS ORDERED: ENOXAPARIN 40 MG/0.4 ML SQ SCH (09:00)
--- NOTE | 2020-03-21 12:12 | P.PN ---
Subjective Date of Service: 03/21/20 Chief Complaint: Respiratory failure and acute renal failure Possible GI bleed guaiac-positive stools patient was transfused 2 units of packed red blood cells animal oxygen requirement acute renal failure improving Review of Systems is unable to be obtained Physical Examination - Vital Signs Temperature: 98.3 F Blood Pressure: 118/43 Pulse: 85 Respirations: 27 Pulse Ox (%): 100 Assessment & Plan - Problems (Diagnosis) (1) Acute respiratory failure due to severe acute respiratory syndrome coronavirus 2 (SARS-CoV-2) infection Current Visit: Yes Status: Acute Plan: Respiratory failure recent possible GI bleed patient was transfused 2 units still unresponsive requiring minimal sedation renal function is improving white count still mildly elevated pro calcitonin level elevated elevated BUN may be from his GI bleeding Lovenox has been stopped patient is on Plavix and aspirin requiring minimal oxygen
[2020-03-21] MEDS: MELATONIN 5 MG TABLET PO SCH (20:04)
[2020-03-21] MEDS: ATORVASTATIN 20 MG TAB PO SCH (20:05)
--- NOTE | 2020-03-21 21:48 | PN ---
Date of Progress Note: 03/21/2020 Chief Complaint: Acute kidney injury, nonoliguric, associated with fluid overload. Subjective: The patient was treated with Lasix and albumin. Urine output has improved, although hyp erazotemia has not improved significantly. Creatinine level is ranging from 2.3 to 2.5, although BUN is over 100. The patient was found to have hyperkalemia, potassium 5.7. Today, potassium improved to 5.1. The patient has anasarca and was treated with Lasix and albumin. Objective: Vital Signs: Blood pressure 106, heart rate 92. Extremities: Edema present 2 to 3+. Abdomen: Soft, benign. Heart: S1, S2. Laboratory Work: Sodium 144, potassium 5.2, chloride 109, CO2 29, BUN 152, creatinine 2.34, glucose 351, phosphorus 5.0, magnesium 3.4, calcium 7.7. Impression And Plan: 1.Acute kidney injury secondary to nonoliguric acute tubular necrosis associated with fluid overload . Continue Lasix with albumin for adequate volume control. The patient although may need to start d ialysis. 2.Severe disproportion of BUN, creatinine, and hyperkalemia. This may be due to hypercatabolic stat e of GI bleeding. GI bleeding needs to be rule out. 3.Hyperkalemia, improving potassium level with Kayexalate treatment. Monitor and adjust treatment a ccordingly. 4.Peripheral edema. The patient is undergoing workup to rule out nephrotic syndrome. The patient h as acute kidney injury due to acute tubular necrosis, COVID nephropathy. He may need to start dialysis if renal function does not improve over the next 48 hours. EB/MODL Voice ID: [id number] Report ID: [id number]
[2020-03-22] MEDS: INSULIN -REGULAR HUMAN 50 UNIT/0.5 ML ML SQ SCH ×4 (00:23→17:12)
[2020-03-22] MEDS: HEPARIN 5000 UNIT/ML 1 ML VIAL SQ SCH ×3 (00:27→17:13)
[2020-03-22 05:03] LABS: Absolute Lymphocytes (CBC) 0.3 K/uL (0.7-4.9); Hematocrit 24.6 % (39.6-49.0); Lymphocytes % 1.1 % (15.3-44.8); MPV 9.3 fL (7.6-11.3); RBC Red Blood Cell Count 2.82 M/uL (4.33-5.43)
[2020-03-22 05:11] LABS: C-Reactive Protein 11.1 mg/L (<3.00); Magnesium 3.1 mg/dL (1.8-2.4); Phosphorus 5.2 mg/dL (2.5-4.9); Potassium 4.6 mmol/L (3.5-5.1)
[2020-03-22 05:19] LABS: Urine Protein/Creatinine Ratio 0.36 ratio (<0.15)
--- NOTE | 2020-03-22 06:38 | PN ---
Date of Progress Note: 03/21/2020 Subjective: Patient was seen this morning for followup. No new complaints or problems reported by [facility] staff. He remains on ventilator, not on propofol, but gets agitated and restless from time to time, requiring some IV medication for that. He remains on 30% FiO2 on ventilator. Intake and outp ut records reviewed. Objective: Vital Signs: Reviewed. HEENT: Unremarkable. Lungs: Clear to auscultation. Heart: Sounds normal. ABDOMEN: Soft. Bowel sounds normal. No guarding, rigidity, tenderness, or distention. Extremities: Significant edema of all the 4 extremities present. Laboratory Data: White count 23.3, hemoglobin 8.1, platelets 213. Yesterday, hemoglobin was 6.3, an d he was given 2 units of PRBC blood transfusion. His stool guaiac is positive. Sodium 144, potassi um 5.2, chloride 109, bicarb 29, BUN 152, creatinine 2.34, glucose 351, ferritin 546, CRP 40. Impression: 1.COVID-19 infection. 2.COVID-19 pneumonia. 3.Acute respiratory failure with hypoxia. 4.Acute kidney injury. 5.Anemia due to acute blood loss. 6.Gastrointestinal bleeding. 7.Diabetes mellitus. 8.Hyperkalemia. Plan: We will go ahead and give Kayexalate per order. Continue meropenem and Solu-Medrol. We will continue to follow up with manufacturing lead for renal failure and electronic semiconductor processor for respiratory failure a nd COVID-19 pneumonia problem. Patient was getting Lovenox 80 mg subcutaneous injection daily but wi th a drop in hemoglobin and now guaiac-positive stool and worsening renal failure, we will not be abl e to give him full dose anticoagulation therapy with Lovenox, that we were doing so far. The patient is at high risk from having DVT and pulmonary embolism. We will give him heparin 5000 units subcuta neous injection every 8 hours and continue to monitor his blood count. Details were discussed with Alix Galicia and he agrees with change in anticoagulation medication. We will monitor hemoglobin. If necessary, give blood transfusion. Overall, prognosis is poor. DEISI/MODL Voice ID: [id number] Report ID: [id number]
[2020-03-22] MEDS: Meropenem 500 MG/100 ML BAG IV SCH ×3 (08:00→21:00)
--- NOTE | 2020-03-22 08:03 | RAD REPORT ---
EXAM DESCRIPTION: Ludwig Single View03/22/2020 5:54 am CLINICAL HISTORY: Shortness of breath COMPARISON: March 20 FINDINGS: Endotracheal tube has tip well above the rickie. A feeding tube is coiled within the gastric fundus No significant change in the bilateral pulmonary opacities. Heart is normal size IMPRESSION: No significant change in the bilateral pneumonia
[2020-03-22] MEDS: VITAMIN D 1000 UNIT TAB PO SCH (08:45)
[2020-03-22] MEDS: ASPIRIN 81 MG CHEWABLE TABLET PO SCH (08:45)
[2020-03-22] MEDS: FAMOTIDINE 20 MG/2 ML VIAL IV SCH ×2 (08:46→20:02)
[2020-03-22] MEDS: CLOPIDOGREL 75 MG TABLET PO SCH (08:46)
[2020-03-22] MEDS: ZINC SULFATE 220 MG CAP PO SCH (08:46)
[2020-03-22] MEDS: METHYLPREDNISOLONE 40 MG INJ IV SCH ×2 (08:46→20:02)
[2020-03-22] MEDS: THIAMINE 200 MG/2 ML INJ IVP SCH ×2 (09:00→20:02)
[2020-03-22] MEDS: ASCORBIC ACID 500 MG TABLET PO SCH ×3 (09:00→20:03)
[2020-03-22] MEDS: INSULIN GLARGINE 100 UNITS/ML SQ SCH ×2 (09:19→19:58)
--- NOTE | 2020-03-22 11:27 | P.PN ---
Subjective Date of Service: 03/22/20 Chief Complaint: Respiratory failure and acute renal failure An 80 y/o man , admitted with SOB , tested Positive for COVID , required intubation pt had ALEXANDR , with disproportionate bun/Cr Today Bun and Cr slightly improved k wnl , will increase free water via NG ROS unable to provide Physical exam general: intubated, open eyes, not alert Neck; Supple, No elevated JVD hear: RRR, normal S1,2 no murmur or rub Chest: CTAB, no rlaes or wheezes Abdomen: Soft , Nt Extremities edema A/P ALEXANDR likely multifactroial , including OVID19 with disproportionate bun/Cr, could be due to ALEXANDR , Steroids and underlying GI bleeding will consider HD if Bun increase, today bun slightly improved renal dose meds hyperkalemia due to ALEXANDR +/- GI bleeding Kayexlate prn hypernatremia will increase free water via NG COVID 19 pneumonia intibated now Cont vent supprot acute on chronic Anemia not candidate for IV iron transfuse prn to keep hb >7.0 F/U SPEP/UPEP Acute respiratory failure intubated edema minimal proteinuria will hold on lasix for now prognosis guarded total time spent 40 min Physical Examination - Vital Signs Temperature: 98.2 F Blood Pressure: 144/96 Pulse: 94 Respirations: 32 Pulse Ox (%): 99
--- NOTE | 2020-03-22 11:47 | P.PN ---
Subjective Date of Service: 03/22/20 Chief Complaint: Respiratory failure and acute renal failure Patient is unresponsive renal function maybe slightly better although his BUN is elevated Review of Systems is unable to be obtained Physical Examination - Vital Signs Temperature: 98.2 F Blood Pressure: 144/96 Pulse: 94 Respirations: 32 Pulse Ox (%): 99 Assessment & Plan - Problems (Diagnosis) (1) Acute respiratory failure due to severe acute respiratory syndrome coronavirus 2 (SARS-CoV-2) infection Current Visit: Yes Status: Acute Plan: Respiratory failure is requiring minimal oxygen however he is completely unresponsive the hypernatremia sugar mildly elevated count is still elevated of progression on the chest x-ray was start weaning once is more alert as a consider CT scan of the head consider IV fluids
[2020-03-22] MEDS ORDERED: D50W 25 GM/50 ML VIAL IV PRN (14:39)
[2020-03-22] MEDS: ATORVASTATIN 20 MG TAB PO SCH (19:59)
[2020-03-22] MEDS: MELATONIN 5 MG TABLET PO SCH (20:00)
--- NOTE | 2020-03-22 21:04 | PN ---
Date of Progress Note: 03/22/2020 Subjective: The patient was seen this morning for followup. He was in ICU, remains on ventilator on 30% FiO2. The patient is not on any propofol. Did not receive any sedatives last night, but still not waking up. Details were discussed with Dr. Galicia today. Objective: Vital Signs: Reviewed. HEENT: Unremarkable. Lungs: Clear to auscultation. Heart: Sounds normal. Abdomen: Soft. Bowel sounds normal. No guarding, rigidity, tenderness, or distention. Extremities : All 4 extremity has edema, which has remained unchanged from yesterday. Intake and output records reviewed. Laboratory Data: White count 24.1, hemoglobin 8.1, platelets 212. Sodium 148, potassium 4.6, chlori de 110, bicarb 33, BUN 144, creatinine 2.03, glucose 266, ferritin 427, CRP 11.1. Chest x-ray, no si gnificant change in bilateral pneumonia. Impression: 1.COVID-19 infection. 2.COVID-19 pneumonia. 3.Anemia due to GI bleed. 4.Acute respiratory failure with hypoxia. 5.Acute kidney injury. 6.Volume depletion. 7.We will go ahead and continue current medication. 8.We will plan to do a CAT scan of the head tomorrow morning to rule out any underlying stroke since the patient is really not waking up at this point. Continue current medical management including hi s insulin for diabetes management, ventilator support per Dr. Galicia, meropenem and IV steroid whic h is Solu-Medrol 40 mg every 12 hours. The patient is on heparin 5000 unit subcutaneous injection ev severino 8 hours, which we will continue that. We will continue to follow with paint process engineer. I will see him tomorrow morning for followup. Overall, progno sis is guarded. DEISI/MODL Voice ID: [id number] Report ID: [id number]
[2020-03-23] MEDS: INSULIN -REGULAR HUMAN 50 UNIT/0.5 ML ML SQ SCH ×4 (01:29→17:40)
[2020-03-23] MEDS: HEPARIN 5000 UNIT/ML 1 ML VIAL SQ SCH ×3 (01:32→17:47)
[2020-03-23 05:12] LABS: Absolute Lymphocytes (CBC) 0.2 K/uL (0.7-4.9); Hematocrit 23.6 % (39.6-49.0); MPV 9.1 fL (7.6-11.3); RBC Red Blood Cell Count 2.67 M/uL (4.33-5.43)
[2020-03-23 05:29] LABS: Albumin 1.9 g/dL (3.4-5.0); Bilirubin Total 0.5 mg/dL (0.2-1.0); C-Reactive Protein 13.8 mg/L (<3.00); Ferritin 378.1 ng/mL (26-388); Magnesium 3.3 mg/dL (1.8-2.4); Phosphorus 5.6 mg/dL (2.5-4.9); Potassium 4.3 mmol/L (3.5-5.1); Protein, Total 4.7 g/dL (6.4-8.2)
[2020-03-23 06:45] LABS: Hepatitis C Virus RNA (PCR)log <1.18 log IU/mL
[2020-03-23] MEDS: METHYLPREDNISOLONE 40 MG INJ IV SCH ×2 (07:57→21:31)
[2020-03-23] MEDS: FAMOTIDINE 20 MG/2 ML VIAL IV SCH ×2 (07:57→21:31)
[2020-03-23] MEDS: INSULIN GLARGINE 100 UNITS/ML SQ SCH ×2 (07:57→21:33)
[2020-03-23] MEDS: CLOPIDOGREL 75 MG TABLET PO SCH (07:58)
[2020-03-23] MEDS: ASPIRIN 81 MG CHEWABLE TABLET PO SCH (07:58)
[2020-03-23] MEDS: ASCORBIC ACID 500 MG TABLET PO SCH ×3 (07:58→21:32)
[2020-03-23] MEDS: ZINC SULFATE 220 MG CAP PO SCH (07:58)
[2020-03-23] MEDS: VITAMIN D 1000 UNIT TAB PO SCH (07:58)
[2020-03-23] MEDS: THIAMINE 200 MG/2 ML INJ IVP SCH ×2 (07:58→21:00)
[2020-03-23] MEDS: Meropenem 500 MG/100 ML BAG IV SCH ×2 (08:00→21:27)
[2020-03-23] MEDS ORDERED: VITAL AF 1,000 ML BOT RTH SCH (10:00)
--- NOTE | 2020-03-23 10:08 | RAD REPORT ---
EXAM DESCRIPTION: CT - Head Brain Wo Cont - 03/22/2020 9:29 pm CLINICAL HISTORY: Headache COMPARISON: None. TECHNIQUE: Computed axial tomography of the head was obtained. IV contrast was not requested. All CT scans are performed using dose optimization technique as appropriate and may include automated exposure control or mA/KV adjustment according to patient size. FINDINGS: An intracranial bleed is not seen . The ventricles are normal in caliber. No extra-axial fluid collection is noted. Mild to moderate low-density areas within periventricular, deep and subcortical white matter likely i schemic changes secondary to small vessel disease IMPRESSION: No acute intracranial abnormality is seen. If patient's symptoms persist MRI of the bra in would be recommended.
[2020-03-23] MEDS ORDERED: NA CHLORIDE 0.9% 100 ML ONE (13:14)
[2020-03-23] MEDS: D5W 500 ML IV SCH ×2 (15:00→21:28)
--- NOTE | 2020-03-23 16:09 | PN ---
Date of Progress Note: 03/23/2020 Subjective: The patient was admitted with COVID pneumonia. Has respiratory failure. Has acute kidney injury. The patient's kidney function gradually started improving, but his BUN continued to rise in the last 48 hours. BUN is started trending down. Physical Examination: Vital Signs: Blood pressure 135/68, pulse of 87. The patient had good urine output of 2400, negative of 500. Chest: Faint crackles bilateral base. Heart: S1, S2. Regular. Abdomen: Soft, nontender. Extremities: Plus edema. Neuro: The patient is opening eyes continuously. The patient is on vent. Laboratory Data: WBC 24.2, H and H 7.5/23.6, platelet 203. Sodium 150, potassium 4.3, bicarb 33, BUN 137, creatinine 1.9, calcium 7.9, phosphorus 5.6, magnesium 3.3. Current Medications: The patient on include; 1. Aspirin. 2. Meropenem. 3. Plavix. 4. Atorvastatin. 5. Zinc sulfate. 6. Pepcid. 7. Solu-Medrol. 8. Melatonin. 9. Vitamin D. Assessment And Plan: 1. Acute kidney injury, multifactorial, secondary to poor perfusion, acute tubular necrosis, toxic acute tubular necrosis, COVID nephropathy, plateau currently looked to me slightly normal volume to the dry side. I am going to give the patient gentle hydration with D5. The patient's free water has been increased. We will follow up. 2. Hypertension, controlled, optimal. Continue current medication. 3. Hypernatremia. We will start the patient on free water. 4. Peripheral edema. We will accept current edema. We will keep holding on the Lasix till we correct the sodium. 5. Hyperkalemia, resolved. 6. Anemia secondary to gastrointestinal loss. P.r.n. transfusion. We will monitor. 7. Respiratory failure secondary to COVID pneumonia. Continue current vent setting and we will follow up. time spend discussing with the patient face to face , placing order , discusse with the patient and other steam shovel operating engineer including hospitalist 45 min. MAUDE Voice ID: [id number] Report ID: [id number] [facility]
[2020-03-23] MEDS ORDERED: NA CHLORIDE 0.9% 50 ML ONE (16:41)
--- NOTE | 2020-03-23 16:44 | P.PN ---
Subjective Date of Service: 03/23/20 Chief Complaint: Respiratory failure and acute renal failure Improving more alert today. tolerated weaning trial Review of Systems is unable to be obtained Physical Examination - Vital Signs Temperature: 98.2 F Blood Pressure: 116/68 Pulse: 85 Respirations: 15 Pulse Ox (%): 90 Assessment & Plan - Problems (Diagnosis) (1) Acute respiratory failure due to severe acute respiratory syndrome coronavirus 2 (SARS-CoV-2) infection Current Visit: Yes Status: Acute Plan: Much better More alert and responsive. Tolerated SBT. Pt is being transfused . Hypernatremia. Needs D5 water to correct. Plan to wean abd extubate in am WBC is still elevated. On D5 water. No overt bleeding
[2020-03-23] MEDS: MELATONIN 5 MG TABLET PO SCH (21:32)
[2020-03-23] MEDS: ATORVASTATIN 20 MG TAB PO SCH (21:32)
[2020-03-23 22:28] LABS: Hematocrit 30.5 % (39.6-49.0)
[2020-03-23 22:53] LABS: Albumin, (SPE) 2.2 g/dL (3.8-4.8); Alpha-1-Globulins 0.3 g/dL (0.2-0.3); Alpha-2-Globulins 0.7 g/dL (0.5-0.9); Gamma Globulins 0.5 g/dL (0.8-1.7); INTERPRETATION REPORT
[2020-03-24] MEDS: INSULIN -REGULAR HUMAN 50 UNIT/0.5 ML ML SQ SCH ×4 (00:20→18:00)
[2020-03-24] MEDS: HEPARIN 5000 UNIT/ML 1 ML VIAL SQ SCH ×3 (00:21→17:32)
[2020-03-24] MEDS: MIDAZOLAM HCL 2 MG/2 ML INJ IV PRN (00:44)
[2020-03-24 06:15] LABS: Hematocrit 30.1 % (39.6-49.0); MPV 9.5 fL (7.6-11.3); RBC Red Blood Cell Count 3.33 M/uL (4.33-5.43)
[2020-03-24 06:35] LABS: Albumin 1.7 g/dL (3.4-5.0); C-Reactive Protein 16.8 mg/L (<3.00); Ferritin 339.5 ng/mL (26-388); Magnesium 2.9 mg/dL (1.8-2.4); Phosphorus 4.9 mg/dL (2.5-4.9); Potassium 3.4 mmol/L (3.5-5.1)
--- NOTE | 2020-03-24 07:10 | PN ---
Date of Progress Note: 03/23/2020 Subjective: Patient was seen for followup. No new complaints or problems reported by nursing staff. He is not getting any sedation and started to wake up this morning. He was opening his eyes upon v erbal commands. He is on 30% FiO2. Objective: Vital Signs: Reviewed. HEENT: Unremarkable. Lungs: Clear to auscultation. Abdomen: Soft. Bowel sounds normal. No guarding, rigidity, tenderness, distention. Extremities: Edema present of all the extremities somewhat better than before. Laboratory Data: Reviewed. Impression: 1.COVID-19 infection. 2.COVID-19 pneumonia. 3.Acute respiratory failure with hypoxia. 4.Anasarca. 5.Acute renal failure. 6.Anemia. Plan: We will go ahead and continue current medications. Continue to follow with Dr. Galicia and n ephrologist. We will continue current management. The patient's condition has started to show some improvement now with mental status improvement, waking up and trying to follow simple commands. I wi ll see him tomorrow for followup. DEISI/MODL Voice ID: [id number] Report ID: [id number]
[2020-03-24] MEDS: ASCORBIC ACID 500 MG TABLET PO SCH ×3 (07:57→21:00)
[2020-03-24] MEDS: ASPIRIN 81 MG CHEWABLE TABLET PO SCH (07:57)
[2020-03-24] MEDS: CLOPIDOGREL 75 MG TABLET PO SCH (07:57)
[2020-03-24] MEDS: VITAMIN D 1000 UNIT TAB PO SCH (07:57)
[2020-03-24] MEDS: METHYLPREDNISOLONE 40 MG INJ IV SCH ×2 (07:58→22:02)
[2020-03-24] MEDS: INSULIN GLARGINE 100 UNITS/ML SQ SCH ×2 (07:58→09:41)
[2020-03-24] MEDS: FAMOTIDINE 20 MG/2 ML VIAL IV SCH ×2 (07:58→22:00)
[2020-03-24] MEDS: ZINC SULFATE 220 MG CAP PO SCH (07:58)
[2020-03-24] MEDS ORDERED: IVERMECTIN 3 MG TABLET PO ONE (08:00)
[2020-03-24] MEDS: THIAMINE 200 MG/2 ML INJ IVP SCH ×2 (09:00→22:01)
--- NOTE | 2020-03-24 09:33 | RAD REPORT ---
EXAM DESCRIPTION: RAD - Abdomen 1 View (KUB) - 03/24/2020 8:59 am CLINICAL HISTORY: ABD PAIN COMPARISON: Abdomen 1 View (KUB) dated 03/18/2020; Abdomen 1 View (KUB) dated 03/18/2020 FINDINGS: A few distended to minimally dilated small bowel loops are present in the left mid abdomen . Most of the small bowel loops are decompressed. Ileus is favored over obstruction. No dilation of t he colon. Stomach is decompressed. A feeding tube is curled and looped in a decompressed stomach. One or more bends or kinks in the tubing cannot be excluded. No free air or pneumatosis. Cholecystectomy clips are present. IMPRESSION: Distended and minimally dilated small bowel loops in the left mid abdomen. Ileus is favo red over obstruction. No free air, pneumatosis or emergent finding. Feeding tube is curled in the decompressed stomach. There may be bends or kinks in the tubing that co uld restrict flow.
[2020-03-24] MEDS: Meropenem 500 MG/100 ML BAG IV SCH ×2 (09:41→22:02)
[2020-03-24] MEDS ORDERED: PANTOPRAZOLE 40 MG INJ IVP ONE (10:23)
[2020-03-24] MEDS ORDERED: SODIUM CHLORIDE 0.9% 10ML INJ IV PRN (10:23)
[2020-03-24] MEDS: FENTANYL CITR 100 MCG/2 ML IV PRN ×3 (10:25→22:00)
[2020-03-24] MEDS ORDERED: FUROSEMIDE 20 MG/ 2ML VIAL IV ONE (11:47)
[2020-03-24] MEDS ORDERED: DEXTROSE 10%-WATER 500 ML IV SCH (12:00)
--- NOTE | 2020-03-24 12:22 | PN ---
Date of Progress Note: 03/24/2020 Subjective: The patient was admitted with COVID pneumonia, respiratory failure, intubated. The patient developed GI bleed with ileus. The patient was scheduled for extubation today, has been postponed because of the ileus. Physical Examination: Vital signs: Blood pressure 153/81, pulse of 89, afebrile. Chest: Crackles bilateral. Heart: S1, S2. Systolic murmur. Abdomen: Soft, nontender. Extremities: Plus edema. Neuro: The patient awake, follow command, on vent. The patient had urine output of 2000, positive of 300. Today had urine output of 2700. Lab: WBC 19.2, H and H 9.7/30.1, and platelet 167. Sodium 152, potassium 3.4, bicarb 34, BUN 111, creatinine 1.5, GFR of 33. Blood sugar is still elevated. Calcium 8.2, phos 4.9, magnesium 2.9. Current Medications: The patient on include: 1. Aspirin. 2. Ivermectin. 3. Meropenem. 4. Plavix. 5. Atorvastatin. 6. D5. 7. Insulin 25 Lantus b.i.d. 8. Fentanyl. Assessment And Plan: 1. Acute kidney injury secondary to COVID nephropathy on chronic kidney disease, start backing to his baseline. Still has significant peripheral edema, but the patient had severe hypernatremia. 2. I am going to continue on the D5, then we will switch the patient to TPN nonelectrolyte as the patient is going to be n.p.o. for the next couple of days for the ileus. 3. We will try to give Lasix tomorrow to mobilize more sodium diuresis upon switching to the TPN. We will place the patient on 70 mL per hour and we will follow up. Given the presence of hyperglycemia to contradict the poly diuresis/glucose diuresis, I am going to increase the Lantus to be 30 b.i.d. and we will monitor the patient closely. 4. Hypertension, controlled, optimal. Continue current medication. 5. COVID pneumonia: Continue follow up with Pulmonary. 6. Hypokalemia. We will supplement. 7. Gastrointestinal bleed. H and H have been stable. We will monitor. 8. Ileus. The patient is going to be n.p.o. We will start the patient on TPN nonelectrolyte. 9. Hypernatremia secondary to COVID nephropathy with severe disproportion of BUN and creatinine. The patient is going to be started on TPN nonelectrolyte. We will give single dose of Lasix to establish better sodium diuresis and we will follow up. time spend discussing with the patient face to face , placing order , discusse with the patient and other cdl team truck driver including hospitalist 45 min. MAUDE Voice ID: [id number] Report ID: [id number] [facility]TD[facility]
--- NOTE | 2020-03-24 14:48 | P.PN ---
Subjective Date of Service: 03/24/20 Chief Complaint: GI bleed respiratory failure Patient is not tachypneic on the ventilator complaining of abdominal pain he did have some black tarry stools KUB showed an ileus patient's renal function is improving he is still hypernatremic Review of Systems is unable to be obtained Physical Examination - Vital Signs Temperature: 97.2 F Blood Pressure: 153/81 Pulse: 89 Respirations: 25 Pulse Ox (%): 95 Assessment & Plan - Problems (Diagnosis) (1) Acute respiratory failure due to severe acute respiratory syndrome coronavirus 2 (SARS-CoV-2) infection Current Visit: Yes Status: Acute Plan: Patient is clinically improving although he failed weaning trial today became very tachypneic due to abdominal discomfort KUB showed an ileus his ferritin levels have declined significantly patient is on minimal oxygen will repeat another x-ray tomorrow patient's blood sugar is significantly elevated in addition is still hypernatremic change to D5 water acute GI bleed continue with IV Protonix been a slight decline in his home hemoglobin continue to monitor sitter is stopping Plavix
[2020-03-24] MEDS: D5W 1,000 ML IV SCH (15:00)
--- NOTE | 2020-03-24 15:35 | RAD REPORT ---
EXAM DESCRIPTION: RAD - Abdomen 1 View (KUB) - 03/24/2020 3:29 pm CLINICAL HISTORY: Abd Pain Pain COMPARISON: Abdomen 1 View (KUB) dated 03/24/2020; Abdomen 1 View (KUB) dated 03/18/2020; Abdomen 1 Vi ew (KUB) dated 03/18/2020 FINDINGS: Enteric tube is coiled in the stomach. Gaseous distention of several centrally located bow el loops noted, mildly improved since study. No pneumoperitoneum.
[2020-03-24] MEDS ORDERED: WATER IV SCH ×5 (17:00)
[2020-03-24] MEDS ORDERED: [UNRECOGNIZED DRUG - OTHER] IV SCH ×5 (17:00)
[2020-03-24] MEDS ORDERED: AMINO ACIDS 10% IV SCH ×5 (17:00)
[2020-03-24] MEDS ORDERED: DEXTROSE 50% IV SCH ×5 (17:00)
[2020-03-24] MEDS ORDERED: WATER FOR INJ STERILE IV SCH ×5 (17:00)
--- NOTE | 2020-03-24 18:22 | PN ---
Date of Progress Note: 03/24/2020 Subjective: The patient was seen this morning for followup. No new complaints or problems reported by nursing staff. He was awake and alert with his eyes open, following commands, and not in any distress. Remains on ventilator, but overall doing better than before. Objective: Vital Signs: Reviewed. HEENT: Unremarkable. Lungs: Clear to auscultation. Heart: Sounds normal. Abdomen: Soft. Bowel sounds normal. No guarding, rigidity, tenderness, or distention. Extremities: Edema of all the 4 extremities present, but overall better than before. Laboratory Data: Reviewed. Abdominal x-ray results reviewed. Impression: 1. Ileus versus small bowel obstruction. 2. Anemia. 3. COVID-19 infection. 4. COVID-19 pneumonia. 5. Acute respiratory failure with hypoxia. 6. Acute renal failure. Plan: We will go ahead and continue to follow with metal worker and crimp setter. The patient had dark colored stool and stool guaiac was ordered. We will discontinue Plavix, continue heparin 5000 units subcutaneous injection per order. We will go ahead and continue current antibiotics. Dr. Galicia is trying to wean off and extubate him possibly in the near future and started to complain of abdominal pain and couple of times NG tube was place to low intermittent suction. We will continue to have repeat abdominal x-ray that has shown some improvement. So, we will continue to keep NG tube to low intermittent suction. DEISI/MODL Voice ID: [id number] Report ID: [id number] JOY
[2020-03-24] MEDS: POTASSIUM CL 40 MEQ in NA CHLORIDE 0.9% 500 ML IV SCH ×2 (19:11→23:17)
[2020-03-24] MEDS: ATORVASTATIN 20 MG TAB PO SCH (21:00)
[2020-03-24] MEDS: MELATONIN 5 MG TABLET PO SCH (21:00)
[2020-03-24] MEDS ORDERED: INSULIN GLARGINE 100 UNITS/ML SQ SCH (21:00)
[2020-03-24] MEDS ORDERED: BISACODYL 10 MG RECTAL SUPP PR ONE (21:13)
[2020-03-25] MEDS: HEPARIN 5000 UNIT/ML 1 ML VIAL SQ SCH ×3 (00:18→17:34)
[2020-03-25] MEDS: INSULIN -REGULAR HUMAN 50 UNIT/0.5 ML ML SQ SCH ×5 (00:18→23:56)
[2020-03-25] MEDS: D5W 1,000 ML IV SCH (01:00)
[2020-03-25 05:07] LABS: Hematocrit 30.7 % (39.6-49.0); RBC Red Blood Cell Count 3.35 M/uL (4.33-5.43)
[2020-03-25 05:08] LABS: MPV 9.2 fL (7.6-11.3)
[2020-03-25 05:25] LABS: C-Reactive Protein 15.6 mg/L (<3.00); Ferritin 386.7 ng/mL (26-388)
[2020-03-25 06:25] LABS: Potassium 3.4 mmol/L (3.5-5.1)
[2020-03-25] MEDS ORDERED: D50W 25 GM/50 ML SYRINGE IV PRN ×3 (06:31→08:18)
[2020-03-25] MEDS ORDERED: INSULIN -REGULAR HUMAN 50 UNIT/0.5 ML ML IV ONE ×2 (06:32→07:38)
[2020-03-25] MEDS ORDERED: INSULIN -REGULAR HUMAN 50 UNIT/0.5 ML ML SQ SCH (06:33)
[2020-03-25] MEDS ORDERED: GLUCAGON 1 MG/VIAL IM PRN ×2 (07:38→08:18)
[2020-03-25] MEDS ORDERED: INSULIN GLARGINE 100 UNITS/ML SQ SCH ×2 (08:00→21:00)
[2020-03-25] MEDS: Meropenem 500 MG/100 ML BAG IV SCH (08:21)
[2020-03-25] MEDS: FAMOTIDINE 20 MG/2 ML VIAL IV SCH ×2 (08:21→20:57)
[2020-03-25] MEDS: THIAMINE 200 MG/2 ML INJ IVP SCH ×2 (08:21→20:56)
[2020-03-25] MEDS: ZINC SULFATE 220 MG CAP PO SCH (08:22)
[2020-03-25] MEDS: ASCORBIC ACID 500 MG TABLET PO SCH ×3 (08:22→20:57)
[2020-03-25] MEDS: VITAMIN D 1000 UNIT TAB PO SCH (08:22)
[2020-03-25] MEDS ORDERED: INSULIN -REGULAR HUMAN 100 UNIT in NA CHLORIDE 0.9% 100 ML IV SCH (08:30)
[2020-03-25] MEDS: METHYLPREDNISOLONE 40 MG INJ IV SCH ×2 (09:06→20:57)
--- NOTE | 2020-03-25 09:34 | RAD REPORT ---
EXAM DESCRIPTION: RAD - Abdomen 1 View (KUB) - 03/25/2020 7:07 am CLINICAL HISTORY: abd pain Pain COMPARISON: Abdomen 1 View (KUB) dated 03/24/2020; Abdomen 1 View (KUB) dated 03/24/2020; Abdomen 1 Vi ew (KUB) dated 03/18/2020; Abdomen 1 View (KUB) dated 03/18/2020 FINDINGS: The bowel gas pattern is non-obstructive. No evidence of free air or pneumatosis. Abdomina l aorta is atherosclerotic. Several phleboliths are present in the pelvis. Mild degenerate changes are present in both hips. IMPRESSION: No acute finding evident.
--- NOTE | 2020-03-25 09:36 | RAD REPORT ---
EXAM DESCRIPTION: RAD - Chest Single View - 03/25/2020 7:07 am CLINICAL HISTORY: Respiratory failure Chest pain. COMPARISON: Abdomen 1 View (KUB) dated 03/25/2020; Abdomen 1 View (KUB) dated 03/24/2020; Abdomen 1 Vi ew (KUB) dated 03/24/2020; Chest Single View dated 03/22/2020 FINDINGS: Portable technique limits examination quality. Since the prior study, the patient has been extubated. Enteric tube has also been removed. Bilateral pulmonary opacities are present, similar to comparative study. Heart size is upper limit normal.Right -sided PICC line appears unchanged.
[2020-03-25] MEDS ORDERED: FUROSEMIDE 40 MG/4 ML VIAL IV ONE (09:51)
[2020-03-25] MEDS ORDERED: KCL 20 MEQ/100 mL IVPB 20 MEQ/100 ML BAG IV SCH (10:00)
[2020-03-25] MEDS ORDERED: D5W 1,000 ML IV SCH (10:00)
[2020-03-25] MEDS: FENTANYL CITR 100 MCG/2 ML IV PRN ×2 (10:04→22:56)
--- NOTE | 2020-03-25 10:34 | P.PN ---
Subjective Date of Service: 03/25/20 Chief Complaint: GI bleed respiratory failure An 80 y/o man , admitted with SOB , tested Positive for COVID , required intubation pt had ALEXANDR , with disproportionate bun/Cr Today na still elevated , will increase TPN free water content and start D5W Strict BS control Will add KCL to TPN lasix X1 ROS unable to provide Physical exam general: intubated, open eyes, not alert Neck; Supple, No elevated JVD hear: RRR, normal S1,2 no murmur or rub Chest: CTAB, no rlaes or wheezes Abdomen: Soft , Nt Extremities +1 edema A/P ALEXANDR likely multifactroial , including OVID19 with disproportionate bun/Cr, could be due to ALEXANDR , Steroids and underlying GI bleeding improving renal dose meds hypokalemia earlier this admission has hyperkalmeia will add KCL to TPN hypernatremia will increase TPN free water will start D5W COVID 19 pneumonia Cont vent supprot Acute respiratory failure intubated edema minimal proteinuria lasix today Hyperglycemia strict BS control prognosis guarded total time spent 40 min Physical Examination - Vital Signs Temperature: 97.8 F Blood Pressure: 159/67 Pulse: 96 Respirations: 24 Pulse Ox (%): 96
[2020-03-25 10:52] LABS: Arterial Blood Carboxyhemoglob 1.7 % (0-1.5); Blood Gas Oxyhemoglobin 90.6 % (94-97); Blood O2 Saturation 93.4 % (92-98.5)
--- NOTE | 2020-03-25 11:54 | P.PN ---
Subjective Date of Service: 03/25/20 Chief Complaint: GI bleed respiratory failure Patient is tachypneic is back on the BiPAP GI a bleeding seems to have subsided patient is on TPN hyperglycemia Review of Systems is unable to be obtained Physical Examination - Vital Signs Temperature: 97.8 F Blood Pressure: 159/67 Pulse: 96 Respirations: 24 Pulse Ox (%): 96 - Physical Exam General: Unresponsive Respiratory: Clear to auscultation bilaterally, Diminished Cardiovascular: No edema, Regular rate/rhythm Gastrointestinal: Soft and benign, Non-distended Assessment & Plan - Problems (Diagnosis) (1) Acute respiratory failure due to severe acute respiratory syndrome coronavirus 2 (SARS-CoV-2) infection Current Visit: Yes Status: Acute Plan: Patient is back on the BiPAP hemoglobin is stable will try adopt cough again to CV can use NG tube feeds instead of TPN patient is also hyperglycemic insulin dose has been adjusted narrow the IV antibiotic spectrum down from meropenem to Rocephin patient's patient's hemoglobin is stable abdomen is very soft not distended probably not stable to have a CT scan done right now patient's ferritin is back down to normal renal function is improving
--- NOTE | 2020-03-25 12:36 | RAD REPORT ---
EXAM DESCRIPTION: RAD - Abdomen 1 View (KUB) - 03/25/2020 12:29 pm CLINICAL HISTORY: s/p dubhoff Pain COMPARISON: Abdomen 1 View (KUB) dated 03/25/2020; Abdomen 1 View (KUB) dated 03/24/2020; Abdomen 1 Vi ew (KUB) dated 03/24/2020; Abdomen 1 View (KUB) dated 03/18/2020 FINDINGS: Tip of the enteric tube is in the stomach.
[2020-03-25] MEDS: CEFTRIAXONE/SWI 1gm 1 GM/10 ML SYR IVP SCH ×2 (14:41→20:56)
--- NOTE | 2020-03-25 15:01 | RAD REPORT ---
EXAM DESCRIPTION: CT - Abdomen Pelvis Wo Contrast - 03/25/2020 2:26 pm CLINICAL HISTORY: abdominal pain, ?GI bleed COMPARISON: Abdomen 1 View (KUB) dated 03/25/2020 TECHNIQUE: Axial [address] imaging of the abdomen and pelvis was performed without IV contrast. No IV contrast was given because of allergy, abnormal renal function, patient refusal or physician re quest. No oral contrast. All CT scans are performed using dose optimization technique as appropriate and may include automated exposure control or mA/KV adjustment according to patient size. FINDINGS: Fibrotic stranding changes are present in each lung base. No dense consolidations seen. A 6 millimeter noncalcified nodule is present in the lateral gutter on the right. A 12 millimeter nonca lcified nodule is present in the posterior gutter on the left. There are minimal bilateral pleural ef fusions present. No pericardial thickening or effusion. Feeding tube is in place. Tip of the feeding tube is in the body of the stomach. Stomach is decompres sed. The liver, spleen and pancreas show no suspicious findings on noncontrast examination. Cholecystectom y clips are present. No biliary tree dilatation. No hydronephrosis of either kidney. No obstructing or nonobstructing calculi. An 18 millimeter exophy tic low-density mass is present posterolateral mid left kidney. A 19 millimeter exophytic isodense ma ss is present lateral mid right kidney. No significant adrenal finding. Isodense renal masses and py elonephritis cannot be excluded in the absence of IV contrast. Urinary bladder is fully contracted ar ound a Gonzáles catheter. Prostate gland is not abnormally enlarged. No small bowel dilatation. No acute small bowel finding. Appendicitis is not suspected. Patient has d iverticulosis without diverticulitis. Mild wall thickening of the rectum is present. No discrete mass seen. No associated stranding in the adjacent fat. Patient has moderate stool volume elsewhere in th e colon along with contrast are hyperdense material. This could be from a prior diagnostic study or p ossibly ingested medication. No free air, free fluid or acute stranding in the peritoneal cavity. Patient has a moderately large right psoas hematoma. Right psoas volume is enlarged 2-3 times the siz e of the left psoas muscle. There is stranding in the retroperitoneal fat that extends along the cour se of the right iliopsoas musculature into the upper thigh. Greatest diameter of the right psoas musc le is 7-8 cm compared to 4 cm on the left. Prominent amount of stranding is present in the subcutaneous fatty tissues of the lower abdomen and p pato. This is probably unrelated to the psoas hematoma. No soft tissue mass or bulky lymphadenopathy. Bilateral fat filled inguinal hernias are present. Disc and bony degenerative changes are present. Dense arterial tree calcifications are present. Infra renal abdominal aortic aneurysm is present measuring 3.4 cm AP x 3.3 cm TR in maximum dimension. No d isplaced calcifications. Celiac and superior mesenteric artery calcifications are present. CT finding s are not suspicious for mesenteric ischemia. IMPRESSION: Moderately large right psoas hematoma as detailed. Wall thickening of the distal rectum is present more pronounced near the anus. There is no associated stranding in the adjacent fat. This could be artifact of incomplete distention. Proctitis is possibl e if there are corresponding clinical findings. Digital exam may be sufficient to clear the perianal portion of the rectum for a mass. No acute colon finding otherwise noted. No small bowel abnormality. Mesenteric ischemia is not suspec noah. Small bilateral pleural effusions with fibrotic lung base stranding and at least 2 noncalcified pulmo nary nodules, largest 12 mm. As clinical findings warrant, a full CT chest study could be performed t o evaluate full extent of pulmonary nodularity. Infrarenal abdominal aortic aneurysm 3.4 cm in maximum dimension. Isodense partially exophytic right renal mass. Complex cyst is statistically most likely. Isodense so lid mass cannot be excluded on a noncontrast study. Full assessment is limited is the absence of IV contrast.
[2020-03-25] MEDS ORDERED: [UNRECOGNIZED DRUG - OTHER] IV SCH ×6 (17:00)
[2020-03-25] MEDS ORDERED: WATER FOR INJ STERILE IV SCH ×11 (17:00)
[2020-03-25] MEDS ORDERED: [UNRECOGNIZED DRUG - OTHER] IV SCH ×5 (17:00)
[2020-03-25] MEDS ORDERED: DEXTROSE 50% IV SCH ×11 (17:00)
[2020-03-25] MEDS ORDERED: WATER IV SCH ×11 (17:00)
[2020-03-25] MEDS ORDERED: AMINO ACIDS 10% IV SCH ×11 (17:00)
[2020-03-25 18:48] LABS: HBsAG Nonreactive (Nonreactive)
[2020-03-25] MEDS: MELATONIN 5 MG TABLET PO SCH (20:57)
[2020-03-25] MEDS: ATORVASTATIN 20 MG TAB PO SCH (20:57)
--- NOTE | 2020-03-25 22:23 | PN ---
Date of Progress Note: 03/25/2020 Subjective: The patient was seen this morning for followup. No new complaints or problems reported by nursing staff. We were planning to extubate him today, but last night he self-extubated himself. After extubation, he was hemodynamically stable. No complaints of any shortness of breath or any ot her problems reported overnight. This morning when I saw him, he was lying in bed, on nasal cannula oxygen, maintaining adequate oxygenation, but he was noted to be extremely tachypneic with respirator y rate between 30-40 times per minute. Nurse reported that prior to my arrival, he had some coughing episode and after that he became tachypneic like this. Objective: Vital Signs: Reviewed. HEENT: Unremarkable. Lungs: Clear to auscultation. Heart: Sounds normal. Abdomen: Soft. No guarding, rigidity, tenderness, distention. Extremities: Edema of all the 4 extremities present, but better than before. Laboratory Data: White count 21.5, hemoglobin 9.7, platelets 175. Sodium 154, potassium 3.4, chlori de 118, bicarb 27, BUN 96, creatinine 1.46, glucose 429. CRP 15.60. X-ray KUB, no evidence of any b owel obstruction. Chest x-ray shows bilateral lung opacities similar to prior x-ray. CAT scan of th e abdomen done shows hematoma of the right psoas muscle. Impression: 1.COVID-19 infection. 2.COVID-19 pneumonia. 3.Acute respiratory failure with hypoxia. 4.Acute renal failure. 5.Diabetes mellitus, type 2, uncontrolled. 6.Acute blood loss anemia. 7.Hypertension. 8.Paroxysmal atrial fibrillation. Plan: We will go ahead and continue current steroid therapy. The patient is on broad-spectrum antib iotic, meropenem, and so far all his cultures are negative. He was also on vancomycin, which was dis continued few days ago. Today, Dr. Galicia called and discussed with me and recommended that we lucian uld consider to discontinue meropenem and change it to ceftriaxone and I agree with that recommendati on and we have made appropriate changes in antibiotic. We will go ahead and continue other current m edication management. The patient remains on heparin 5000 units subcutaneous injection every 8 hours . He was on full anticoagulation therapy, but it was discontinued few days ago because of GI bleedin g problem. The patient had coffee-ground material from NG tube, which has cleared now, but now with that recent history of cough, upper GI bleed, and now hematoma of the psoas muscle, there is definite ly concern about full anticoagulation, but on the other hand, the patient is at high risk from having DVT and pulmonary embolism. So at this point, at least we will continue heparin 5000 unit every 8 h ours. Unless we have any evidence of significant drop in hemoglobin, then we have no choice, but to discontinue even this heparin dose that he is currently receiving. After I evaluated him this mornin g, details were discussed with Dr. Galicia and he was placed on BiPAP and he tolerated that very wel l and he is stable at this point on BiPAP. I did call the patient's son and details were discussed w ith him also. He was given IV insulin this morning because of significantly elevated blood sugar pro blem. I will see him tomorrow for followup. DEISI/MODL Voice ID: [id number] Report ID: [id number]
--- NOTE | 2020-03-25 23:29 | HP ---
Date of Admission: 03/08/2020 Chief Complaint: Cough, shortness of breath. History Of Present Illness: Mr. Roberts is an 80-year-old pleasant male patient, who got tested posit erich for COVID-19 infection on February 27, 2020 along with multiple other family members having same infection problem. He was brought into emergency room with worsening cough, congestion, and shortnes s of breath problem and after he was evaluated, I was contacted requesting admission to the hospital. When I saw him, he was still in the emergency room. His son was present with him at bedside. Allergies: NO KNOWN ALLERGIES. Review of Systems: Respiratory: As mentioned above. All other systems reviewed and negative. Medications: As per outpatient office record, the patient is on alprazolam 1 mg at bedtime, amlodipi ne 5 mg in the morning and 2.5 mg in the evening, aspirin 81 mg daily, atorvastatin 10 mg daily, clop idogrel 75 mg daily, doxazosin 4 mg 2 times a day, fenofibrate 48 mg daily, ferrous sulfate 325 mg [place], furosemide 40 mg 2 times a week, glimepiride 2 mg daily in morning with breakfast, hydralazine 1 0 mg 2 times a day, losartan 50 mg daily, vitamin B12 2 mg p.o. daily. Past Medical History: Significant for type 2 diabetes mellitus with diabetic neuropathy, hypertensio n, hyperlipidemia, coronary artery disease, mitral regurgitation, abdominal aortic aneurysm, constipa tion, chronic kidney disease, benign prostatic hypertrophy, anemia due to chronic kidney disease, and insomnia. Past Surgical History: Cataract surgery, coronary artery angioplasty, and cholecystectomy. Family History: Father had ME and heart disease. Mother also had ME and heart disease. Brother had liver cancer. Social History: Prior history of smoking. Use of alcohol negative. Physical Examination: Vital Signs: When he came into emergency room, his blood pressure was 133/57, pulse 91, respiratory rate 22, temperature 99.3, pulse ox 83%. Weight 86.18 kg. Height 5 feet 8 inches. General: Awake, alert, oriented, not in distress. HEENT: Head atraumatic, normocephalic. Conjunctivae nonerythematous. Sclerae white. Mouth, no thr ush or edema noted. Ears/Nose, no mass, lesion, discharge noted. Neck: Supple. No JVD, lymph nodes, bruit, thyromegaly noted. Lungs: Bilateral good equal air entry. Clear to auscultation. No rhonchi. No rales. Heart: Normal heart sounds. No murmur or gallop. Abdomen: Soft. Bowel sounds normal. No guarding, rigidity, tenderness, mass, hepatosplenomegaly, d istention, or bruit noted. Extremities: No leg edema. No calf tenderness. Skin: No rash, ulcer, cellulitis. Lymphatics: No lymph node enlargement in neck, supraclavicular, infraclavicular region. Neuro: No focal neurological deficit. Chest: Unremarkable. External Genitalia: Deferred. Rectal: Deferred. Laboratory Data: White count 9.6, hemoglobin 11.5, platelets 220. INR 1.25. Sodium 136, potassium 4, chloride 102, bicarb 25, BUN 57, creatinine 2.90, estimated GFR 21, glucose 136, AST 49, ALT 39, t otal bilirubin 1.1. Troponin 1.50. ProBNP 6876. Lipase 96. Chest x-ray showed bilateral pneumonia pattern consistent with COVID-19 pneumonia. Impression: 1.COVID-19 infection. 2.COVID-19 pneumonia. 3.Acute respiratory failure with hypoxia. 4.Volume depletion. 5.Abnormal cardiac enzymes. 6.Anemia due to chronic kidney disease. 7.Diabetes mellitus, type 2, with diabetic neuropathy. 8.Hypertension. 9.Hyperlipidemia. 10.Coronary artery disease. 11.Abdominal aortic aneurysm. 12.Chronic kidney disease. 13.Benign prostatic hypertrophy. 14.Insomnia. Plan: We will admit the patient to hospital for further evaluation and management of this problem. The patient is appropriate for inpatient and is expected to spend 2 midnights in hospital. For diabe jennifer, we will manage him with sliding scale insulin. Home medications will be continued per order. W e will go ahead and consult Dr. Galicia from Pulmonary and the patient will be started on IV steroid s and we will give him anticoagulation therapy with Lovenox per order. We will also consult cardiolo gist for abnormal cardiac enzymes. We will discuss with Dr. Galicia regarding remdesivir treatment. Details and plan of treatment discussed with the patient and the patient's son, who was at the [facility]. DEISI/MODL Voice ID: [id number]
[2020-03-26] MEDS: HEPARIN 5000 UNIT/ML 1 ML VIAL SQ SCH ×3 (00:08→17:21)
[2020-03-26] MEDS: D50W 25 GM/50 ML VIAL IV PRN ×2 (02:22→04:10)
[2020-03-26] MEDS: FENTANYL CITR 100 MCG/2 ML IV PRN ×2 (04:59→17:20)
[2020-03-26 05:25] LABS: Absolute Lymphocytes (CBC) 0.1 K/uL (0.7-4.9); Basophils % 0.2 % (0-1.3); Hematocrit 30.1 % (39.6-49.0); Lymphocytes % 0.5 % (15.3-44.8); MPV 9.6 fL (7.6-11.3); RBC Red Blood Cell Count 3.32 M/uL (4.33-5.43)
[2020-03-26 05:55] LABS: C-Reactive Protein 15.4 mg/L (<3.00); Magnesium 2.5 mg/dL (1.8-2.4); Potassium 3.1 mmol/L (3.5-5.1)
[2020-03-26] MEDS: INSULIN -REGULAR HUMAN 50 UNIT/0.5 ML ML SQ SCH ×4 (05:58→23:43)
[2020-03-26] MEDS ORDERED: GLUCAGON 1 MG/VIAL IM PRN ×2 (07:08→07:09)
[2020-03-26] MEDS ORDERED: D50W 25 GM/50 ML SYRINGE IV PRN (07:09)
[2020-03-26 07:35] LABS: Blood Morphology Comment NOT SEEN (NOT SEEN); Platelet Estimate ADEQ; Polychromasia SLIGHT
[2020-03-26] MEDS ORDERED: INSULIN GLARGINE 100 UNITS/ML SQ SCH ×2 (08:00→21:00)
[2020-03-26] MEDS: POTASSIUM CL 40 MEQ in NA CHLORIDE 0.9% 500 ML IV SCH ×2 (08:00→08:22)
[2020-03-26] MEDS: CEFTRIAXONE/SWI 1gm 1 GM/10 ML SYR IVP SCH ×2 (08:23→22:07)
[2020-03-26] MEDS: ZINC SULFATE 220 MG CAP PO SCH (08:23)
[2020-03-26] MEDS: THIAMINE 200 MG/2 ML INJ IVP SCH ×2 (08:23→22:08)
[2020-03-26] MEDS: FAMOTIDINE 20 MG/2 ML VIAL IV SCH ×2 (08:23→22:07)
[2020-03-26] MEDS: METHYLPREDNISOLONE 40 MG INJ IV SCH ×2 (08:23→22:08)
[2020-03-26] MEDS ORDERED: POTASSIUM 25 MEQ EFFERV TAB FT ONE (08:32)
[2020-03-26] MEDS ORDERED: IVERMECTIN 3 MG TABLET PO ONE (09:00)
[2020-03-26] MEDS: VITAMIN D 1000 UNIT TAB PO SCH (09:30)
[2020-03-26] MEDS: ASCORBIC ACID 500 MG TABLET PO SCH ×3 (09:30→22:08)
--- NOTE | 2020-03-26 09:36 | PN ---
Date of Progress Note: 03/26/2020 Subjective: The patient was seen this morning for followup. He was lying in bed, not in any distres s, on BiPAP with 30% FiO2. No new problems or complaints reported overnight. He is tolerating tube feeding very well. Objective: Vital Signs: Reviewed. HEENT: Unremarkable. Lungs: Clear to auscultation. Heart: Sounds normal. Abdomen: Soft. Bowel sounds normal. No guarding, rigidity, tenderness, or distention. Extremities : Edema of all the 4 extremities present, but better than before. Laboratory Data: White count 22.2, hemoglobin 9.5, platelets 174. Sodium 156, potassium 3.1, chlori de 120, bicarb 32, BUN 85, creatinine 1.22, glucose 101. CRP 15.40. Impression: 1.COVID-19 infection. 2.COVID-19 pneumonia. 3.Acute respiratory failure with hypoxia. 4.Volume depletion. 5.Anemia due to acute blood loss. 6.Diabetes mellitus. 7.Hypokalemia. Plan: Yesterday, the patient's blood sugar was more than 400 and it started to come down throughout the day. This overnight his blood sugar was low at 56. This was crm marketing specialist and then it was corre cted with IV D50 this morning, last blood sugar was 115 on the fingerstick. The patient received 50 units of Lantus last night. Obviously, we have discontinued Lantus 50 units. We will not give any L antus this morning, starting this evening. We will give 10 units Lantus 2 times a day. He is tolera ting tube feeding very well. Replace electrolytes per protocol. The patient is getting free water a nd half strength formula through the Dobbhoff tube. We will continue that. Continue to follow with turbo electric operator and research instructor. Dr. Galicia will cover this patient in my absence st arting now till Saturday morning. DEISI/MODL Voice ID: [id number] Report ID: [id number]
[2020-03-26] MEDS ORDERED: POTASSIUM 25 MEQ EFFERV TAB ONE (09:51)
--- NOTE | 2020-03-26 10:21 | CON ---
Date of Consultation: 03/25/2020 Reason For Consultation: Abdominal pain. History Of Present Illness: The patient is an 80-year-old gentleman who was admitted earlier this [facility] with COVID pneumonia, shortness of breath, cough. He was intubated, has been extubated. He is on BiPAP now and has a tube feed in place and yesterday he has began having abdominal pain. No nausea or vomiting. He was tolerating his tube feeds but abdominal pain was new on the right side. No bloo d in his stool. No dysuria or hematuria. No sore throat, runny nose, cough, headaches, or dizziness . No new chest pain. Review of Systems: Otherwise unremarkable. Medical History: Significant for diabetes type 2, neuropathy, hypertension, hyperlipidemia, coronary artery disease, mitral regurgitation, history of triple A, chronic kidney disease. Past Surgical History: Cholecystectomy, cataract surgery, coronary artery angioplasty. Allergies: NONE. Social History: The patient used to smoke in the past. Does not drink alcohol. Family History: Reviewed, initially is heart disease and liver cancer in the brother. His current vitals are stable. He is afebrile. He is awake, alert, on BiPAP. This morning he was n ot complaining of pain. He had a CAT scan done yesterday and it showed iliopsoas hematoma. No sore throat, runny nose, cough, headaches, or dizziness. No chest pain at this time. Review of Systems: Otherwise unremarkable. Physical Examination: Vital Signs: He is awake, alert, and oriented x3. Head and Neck: No masses. Chest: Clear. Heart: S1, S2. Abdomen: Soft, nondistended, nontender. Positive bowel sounds. Extremities: Neurovascularly intact. Neuro: Nonfocal. Laboratory Data: Reviewed. His white count is 22.2 with a left shift. It has been up to 24.2 coupl e of days ago. His INR is 1.21, blood gas reviewed. He is on 30% O2. Chemistry reviewed. He has h ad hypernatremia, hypokalemia, being treated by the nephrology service. CT of the abdomen and pelvis reviewed with Dr. Yates yesterday. Did not show any evidence of obstruction or ileus. The patien t had a moderately large right psoas hematoma. Remainder of the findings as detailed in report. Assessment: Abdominal pain likely secondary to the iliopsoas hematoma. Patient was on blood thinner s that has been stopped. He is on prophylactic heparin right now. We can monitor his H and H. glo nue him on antibiotics and medical management. No need for any acute surgical intervention. Can sta rt the tube feeds again. We consult surgery p.r.nVijay ARMSTRONG/DAKOTA Voice ID: [id number] Report ID: [id number]
[2020-03-26] MEDS: D50W 25 GM/50 ML SYRINGE IV PRN ×2 (11:43→23:17)
[2020-03-26] MEDS ORDERED: DEXTROSE 10%-WATER 500 ML IV SCH (12:00)
[2020-03-26] MEDS ORDERED: D5W 1,000 ML IV SCH (13:00)
[2020-03-26] MEDS: D5W 1,000 ML IV SCH ×2 (16:00→23:12)
[2020-03-26] MEDS ORDERED: FUROSEMIDE 40 MG/4 ML VIAL IV ONE (16:18)
--- NOTE | 2020-03-26 16:19 | P.PN ---
Subjective Date of Service: 03/26/20 Chief Complaint: GI bleed respiratory failure An 80 y/o man , admitted with SOB , tested Positive for COVID , required intubation pt had ALEXANDR , with disproportionate bun/Cr Today NA elevated , pt also had hypoglycemic episodes ,started on d5W cont free water will start on lasix daily ROS unable to provide Physical exam general: intubated, open eyes, not alert Neck; Supple, No elevated JVD hear: RRR, normal S1,2 no murmur or rub Chest: CTAB, no rlaes or wheezes Abdomen: Soft , Nt Extremities +1 edema A/P ALEXANDR likely multifactroial , including OVID19 with disproportionate bun/Cr, could be due to ALEXANDR , Steroids and underlying GI bleeding improving renal dose meds hypernatremia Cont free wtaer started on D5W COVID 19 pneumonia Cont vent supprot Acute respiratory failure intubated edema minimal proteinuria lasix today Hyperglycemia strict BS control prognosis guarded total time spent 40 min Physical Examination - Vital Signs Temperature: 98.4 F Blood Pressure: 138/66 Pulse: 89 Respirations: 20 Pulse Ox (%): 97
[2020-03-26] MEDS ORDERED: WATER IV SCH ×21 (17:00)
[2020-03-26] MEDS ORDERED: [UNRECOGNIZED DRUG - OTHER] IV SCH ×5 (17:00)
[2020-03-26] MEDS ORDERED: [UNRECOGNIZED DRUG - OTHER] IV SCH ×6 (17:00)
[2020-03-26] MEDS ORDERED: [UNRECOGNIZED DRUG - OTHER] IV SCH ×5 (17:00)
[2020-03-26] MEDS ORDERED: WATER FOR INJ STERILE IV SCH ×21 (17:00)
[2020-03-26] MEDS ORDERED: DEXTROSE 50% IV SCH ×21 (17:00)
[2020-03-26] MEDS ORDERED: [UNRECOGNIZED DRUG - OTHER] IV SCH ×5 (17:00)
[2020-03-26] MEDS ORDERED: AMINO ACIDS 10% IV SCH ×21 (17:00)
[2020-03-26] MEDS: ATORVASTATIN 20 MG TAB PO SCH (22:08)
[2020-03-26] MEDS: MELATONIN 5 MG TABLET PO SCH (22:08)
[2020-03-26] MEDS: MORPHINE 2 MG/ML SYR IV PRN (22:39)
[2020-03-27] MEDS: HEPARIN 5000 UNIT/ML 1 ML VIAL SQ SCH ×3 (00:18→17:36)
[2020-03-27] MEDS: D5W 1,000 ML IV SCH ×4 (02:00→22:13)
[2020-03-27 04:25] LABS: Absolute Lymphocytes (CBC) 0.2 K/uL (0.7-4.9); Basophils % 0.1 % (0-1.3); Hematocrit 29.5 % (39.6-49.0); Lymphocytes % 0.9 % (15.3-44.8); MPV 9.3 fL (7.6-11.3); RBC Red Blood Cell Count 3.24 M/uL (4.33-5.43)
[2020-03-27 04:45] LABS: Magnesium 2.4 mg/dL (1.8-2.4); Potassium 3.8 mmol/L (3.5-5.1)
[2020-03-27] MEDS: INSULIN -REGULAR HUMAN 50 UNIT/0.5 ML ML SQ SCH ×3 (05:31→17:23)
[2020-03-27] MEDS ORDERED: POTASSIUM 25 MEQ EFFERV TAB FT ONE (06:00)
[2020-03-27] MEDS ORDERED: INSULIN GLARGINE 100 UNITS/ML SQ SCH (08:00)
[2020-03-27] MEDS: METHYLPREDNISOLONE 40 MG INJ IV SCH ×2 (09:00→22:05)
[2020-03-27] MEDS: THIAMINE 200 MG/2 ML INJ IVP SCH (09:00)
[2020-03-27] MEDS ORDERED: FUROSEMIDE 40 MG TABLET PO SCH (09:00)
--- NOTE | 2020-03-27 09:07 | P.PN ---
Subjective Date of Service: 03/27/20 Chief Complaint: Shortness of breath Patient is a little tachypneic over is alert responsive cooperative Review of Systems is unable to be obtained Physical Examination - Vital Signs Temperature: 98.4 F Blood Pressure: 138/66 Pulse: 89 Respirations: 24 Pulse Ox (%): 96 - Physical Exam General: Alert, Moderate distress Respiratory: Clear to auscultation bilaterally, Diminished, Friction rub Cardiovascular: Normal S1 S2 Assessment & Plan - Problems (Diagnosis) (1) Acute respiratory failure due to severe acute respiratory syndrome coronavirus 2 (SARS-CoV-2) infection Current Visit: Yes Status: Acute Plan: Patient is alert cooperative nonverbal Respiratory distress sees appears to be little tachypneic resume BiPAP/high flow Dc Lasix renal function is improving the urine creatinine poor declining continue with D5 water white count is also declining status post retroperitoneal hematoma continue with steroids saturation satisfactory patient has Dobhoff patient
[2020-03-27] MEDS: MORPHINE 2 MG/ML SYR IV PRN ×2 (09:26→22:09)
[2020-03-27] MEDS: CEFTRIAXONE/SWI 1gm 1 GM/10 ML SYR IVP SCH ×2 (09:27→22:06)
[2020-03-27] MEDS: FAMOTIDINE 20 MG/2 ML VIAL IV SCH ×2 (09:27→22:05)
[2020-03-27] MEDS: VITAMIN D 1000 UNIT TAB PO SCH (09:28)
--- NOTE | 2020-03-27 09:57 | RAD REPORT ---
EXAM DESCRIPTION: RAD - Chest Single View - 03/27/2020 9:29 am CLINICAL HISTORY: Pneumonia COMPARISON: March 25 TECHNIQUE: AP portable chest image was obtained 03/27/2020 9:29 am . FINDINGS: Patchy right lung field infiltrative changes are similar to the comparison. The more promi nent mid and lower left lung field opacities have show no improvement. There may be slight worsening in the lateral mid left lung field. Left costophrenic angle blunting is present. Trachea is midline. Feeding tube remains in place. Heart and vasculature are normal. No measurable pleural effusion and n o pneumothorax. No acute bony abnormality seen. No acute aortic findings suspected. IMPRESSION: Left greater than right pneumonia findings are present. Findings are not substantially different though there is some suggestion of worsening of the left soy g pneumonia.
[2020-03-27] MEDS: ZINC SULFATE 220 MG CAP PO SCH (10:22)
[2020-03-27] MEDS: ASCORBIC ACID 500 MG TABLET PO SCH ×3 (10:23→22:09)
--- NOTE | 2020-03-27 10:48 | P.PN ---
Subjective Date of Service: 03/27/20 Chief Complaint: Shortness of breath An 80 y/o man , admitted with SOB , tested Positive for COVID , required intubation pt had ALEXANDR , with disproportionate bun/Cr Today odium improving , cont D5W , will reduce rate and cont free water via G Lasix stopped by pulmonary ROS unable to provide Physical exam general: intubated, open eyes, not alert Neck; Supple, No elevated JVD hear: RRR, normal S1,2 no murmur or rub Chest: CTAB, no rlaes or wheezes Abdomen: Soft , Nt Extremities +1 edema A/P ALEXANDR likely multifactroial , including OVID19 with disproportionate bun/Cr, could be due to ALEXANDR , Steroids and underlying GI bleeding improving renal dose meds hypernatremia Cont free wtaer will reduce D5W COVID 19 pneumonia Cont vent supprot Acute respiratory failure intubated edema minimal proteinuria lasix today Hyperglycemia strict BS control prognosis guarded total time spent 40 min Physical Examination - Vital Signs Temperature: 98.4 F Blood Pressure: 138/66 Pulse: 89 Respirations: 24 Pulse Ox (%): 96
[2020-03-27] MEDS: MELATONIN 5 MG TABLET PO SCH (22:06)
[2020-03-27] MEDS: ATORVASTATIN 20 MG TAB PO SCH (22:07)
[2020-03-27] MEDS ORDERED: LORazepam 2 MG/ML VIAL ONE (23:42)
[2020-03-28] MEDS: HEPARIN 5000 UNIT/ML 1 ML VIAL SQ SCH ×3 (01:54→16:42)
[2020-03-28 05:43] LABS: Potassium 4.3 mmol/L (3.5-5.1)
[2020-03-28] MEDS: INSULIN -REGULAR HUMAN 50 UNIT/0.5 ML ML SQ SCH ×4 (06:00→17:29)
[2020-03-28] MEDS: VITAMIN D 1000 UNIT TAB PO SCH (08:24)
[2020-03-28] MEDS: ASCORBIC ACID 500 MG TABLET PO SCH ×3 (08:24→20:02)
[2020-03-28] MEDS: ZINC SULFATE 220 MG CAP PO SCH (08:24)
[2020-03-28] MEDS: CEFTRIAXONE/SWI 1gm 1 GM/10 ML SYR IVP SCH ×2 (08:24→20:02)
[2020-03-28] MEDS: METHYLPREDNISOLONE 40 MG INJ IV SCH (08:24)
[2020-03-28] MEDS: FAMOTIDINE 20 MG/2 ML VIAL IV SCH ×2 (08:24→20:03)
--- NOTE | 2020-03-28 08:43 | RAD REPORT ---
EXAM DESCRIPTION: RAD - Chest Single View - 03/28/2020 5:37 am CLINICAL HISTORY: Pneumonia Chest pain. COMPARISON: Chest Single View dated 03/27/2020; Abdomen 1 View (KUB) dated 03/25/2020; Chest Single Vi ew dated 03/25/2020; Abdomen 1 View (KUB) dated 03/25/2020 FINDINGS: Portable technique limits examination quality. Bilateral pulmonary opacities, greater on the left, appear stable essentially unchanged. Enteric tube descends into the stomach. Right-sided PICC line is unchanged in position. Heart size is mildly enla rged.
[2020-03-28] MEDS: D5W 1,000 ML IV SCH (10:42)
[2020-03-28 12:37] LABS: Arterial Blood Carboxyhemoglob 2.4 % (0-1.5); Blood Gas Oxyhemoglobin 93.6 % (94-97); Blood O2 Saturation 96.9 % (92-98.5)
[2020-03-28] MEDS: LORazepam 2 MG/ML VIAL IV PRN ×2 (13:05→17:07)
[2020-03-28] MEDS: MORPHINE 2 MG/ML SYR IV PRN (13:56)
[2020-03-28] MEDS ORDERED: D50W 25 GM/50 ML VIAL IV PRN (14:48)
--- NOTE | 2020-03-28 17:09 | P.PN ---
Subjective Date of Service: 03/28/20 Chief Complaint: Respiratory failure Patient has become more tachypneic struggling on the BiPAP respiratory distress to plan to transfer him to the ICU made in the end up being intubated Review of Systems is unable to be obtained Physical Examination - Vital Signs Temperature: 97.1 F Blood Pressure: 109/53 Pulse: 94 Respirations: 43 Pulse Ox (%): 96 - Physical Exam General: Alert, Severe distress Respiratory: Diminished, Expiratory wheezes Cardiovascular: No edema, Normal S1 S2 Gastrointestinal: Normal bowel sounds Assessment & Plan - Problems (Diagnosis) (1) Acute respiratory failure due to severe acute respiratory syndrome coronavirus 2 (SARS-CoV-2) infection Current Visit: Yes Status: Acute Plan: Patient developed respiratory distress unresponsive to BiPAP will transfer him to the ICU he will need to be Re intubated creatinine is slightly worse again blood gases satisfactory but he continues to her remain in respiratory distress white count is 18.3 today's chest x-ray shows inflammatory changes left greater than the right hemoglobin stable recent history of retroperitoneal hematoma
[2020-03-28] MEDS: FUROSEMIDE 40 MG/4 ML VIAL IV ONE ×2 (17:30→17:55)
[2020-03-28] MEDS: ATORVASTATIN 20 MG TAB PO SCH (20:03)
[2020-03-28] MEDS: MELATONIN 5 MG TABLET PO SCH (20:03)
[2020-03-28] MEDS: METHYLPREDNISOLONE 125 MG INJ IV SCH (20:04)
--- NOTE | 2020-03-28 21:20 | PN ---
Date of Progress Note: 03/28/2020 Chief Complaint: Acute kidney injury in the setting of severe shortness of breath with COVID infecti on. History Of Present Illness: The patient requiring intubation for respiratory failure. He was found to have acute kidney injury, nonoliguric with high BUN-creatinine ratio. The patient was found to vogel ve hypernatremia and was started on D5W. Sodium level has improved. The patient was taking Lasix fo r volume control. Review of Systems: Unobtainable. Physical Examination: Lungs: Normal respiratory effort. Heart: S1, S2. Abdomen: Soft. Extremities: 1+ edema. Impression And Plan: 1.Acute kidney injury, multifactorial secondary to acute tubular necrosis. The patient had COVID in fection and respiratory failure. The patient is on steroids and has underlying GI bleeding. There i s high BUN-creatinine ratio, likely secondary to diuretic. 2.Acute respiratory failure. The patient was intubated. 3.Edema in the lower extremity, improving with Lasix. 4.Prognosis is guarded. EB/MODL Voice ID: [id number] Report ID: [id number]
[2020-03-29] MEDS: GLUCERNA 1.2 CAL 1,000 ML BOT FT SCH ×2 (00:28→20:50)
[2020-03-29] MEDS: HEPARIN 5000 UNIT/ML 1 ML VIAL SQ SCH ×3 (00:28→16:32)
[2020-03-29 05:10] LABS: Absolute Lymphocytes (CBC) 0.1 K/uL (0.7-4.9); Basophils % 0.1 % (0-1.3); Hematocrit 26.3 % (39.6-49.0); Lymphocytes % 0.9 % (15.3-44.8); MPV 8.7 fL (7.6-11.3); RBC Red Blood Cell Count 2.92 M/uL (4.33-5.43)
[2020-03-29 05:23] LABS: C-Reactive Protein 11.5 mg/L (<3.00); Magnesium 2.6 mg/dL (1.8-2.4)
[2020-03-29] MEDS: INSULIN -REGULAR HUMAN 50 UNIT/0.5 ML ML SQ SCH ×4 (06:03→16:28)
--- NOTE | 2020-03-29 06:45 | RAD REPORT ---
EXAM DESCRIPTION: RAD - Chest Single View - 03/29/2020 5:38 am CLINICAL HISTORY: Respiratory failure COMPARISON: March 28 TECHNIQUE: AP portable chest image was obtained 03/29/2020 5:38 am . FINDINGS: Bilateral infiltrates are present not substantially different when adjusting for positioni ng and film technique differences. Patient may have slight improvement in the left lung field. Heart and vasculature are normal. No measurable pleural effusion and no pneumothorax. No acute bony abnorma lity seen. No acute aortic findings suspected. IMPRESSION: Patient shows slight improvement in the left lung field. Otherwise bilateral infiltrates are stable.
[2020-03-29] MEDS ORDERED: FUROSEMIDE 40 MG/4 ML VIAL IV ONE (08:30)
[2020-03-29] MEDS: ASCORBIC ACID 500 MG TABLET PO SCH (09:00)
[2020-03-29] MEDS: FAMOTIDINE 20 MG/2 ML VIAL IV SCH ×2 (09:05→20:51)
[2020-03-29] MEDS: METHYLPREDNISOLONE 125 MG INJ IV SCH ×2 (09:06→20:51)
--- NOTE | 2020-03-29 09:06 | PN ---
Date of Progress Note: 03/28/2020 Subjective: The patient was seen for followup in the morning and also saw him in the evening time. When I saw him in the morning, he was lying in bed, not in distress, on BiPAP. He woke up when I called in by his name, but did not answer any other questions. During the course of day, his oxygen saturation had dropped down and he became more tachypneic. His FiO2 was increased with BiPAP and Dr. Galicia evaluated him. After Dr. Galicia gave him morphine and Ativan, the patient started to relax and his oxygenation improved and breathing improved. In the evening time, when I went back to check on him, he was lying comfortably in bed on BiPAP. I did call the patient's son this evening and details were discussed with him. Objective: Vital Signs: Reviewed. HEENT: Unremarkable. Lungs: Bilateral equal air entry. Heart: Sounds normal. Abdomen: Soft. Bowel sounds normal. No guarding, rigidity, tenderness, or distention. Extremities: Edema of all the 4 extremities present. Laboratory Data: Sodium 137, potassium 4.3, chloride 100, bicarb 32, BUN 82, creatinine 1.45. Impression: 1. COVID-19 infection. 2. COVID-19 pneumonia. 3. Acute respiratory failure with hypoxia. 4. Acute kidney injury. 5. Diabetes mellitus. Plan: We will continue current medications. Continue to follow with Dr. Galicia. Continue BiPAP, oxygen, and steroid. Dr. Galicia did give 1 dose of Lasix and the patient has retroperitoneal hematoma and since responded well to Ativan and morphine. We will consider using those medications to see if some of the respiratory distress could have been due to underlying pain and discomfort. Considering his condition has deteriorated today with oxygenation problem, we will go ahead and move him to ICU for closer observation and details were discussed with the patient's family member and the patient is full code as per my discussion with the patient's son this evening. DEISI/MODL Voice ID: [id number] Report ID: [id number] JOY
[2020-03-29] MEDS: VITAMIN D 1000 UNIT TAB PO SCH (09:07)
[2020-03-29] MEDS: CEFTRIAXONE/SWI 1gm 1 GM/10 ML SYR IVP SCH ×2 (09:07→20:50)
[2020-03-29] MEDS: ZINC SULFATE 220 MG CAP PO SCH (09:07)
[2020-03-29] MEDS: MORPHINE 2 MG/ML SYR IV PRN ×4 (09:08→23:08)
[2020-03-29 09:23] LABS: Arterial Blood Carboxyhemoglob 1.9 % (0-1.5); Blood Gas Oxyhemoglobin 93.4 % (94-97); Blood O2 Saturation 96.4 % (92-98.5)
--- NOTE | 2020-03-29 11:56 | P.PN ---
Subjective Date of Service: 03/29/20 Chief Complaint: Respiratory failure Patient was transferred from the 4th floor yesterday due to dyspnea and tachypnea is currently stable although he still becomes tachypneic not very responsive Review of Systems is unable to be obtained Physical Examination - Vital Signs Temperature: 97.6 F Blood Pressure: 167/80 Pulse: 104 Respirations: 40 Pulse Ox (%): 93 - Physical Exam General: Unresponsive Respiratory: Clear to auscultation bilaterally, Diminished Assessment & Plan - Problems (Diagnosis) (1) Acute respiratory failure due to severe acute respiratory syndrome cor onavirus 2 (SARS-CoV-2) infection Current Visit: Yes Status: Acute Plan: Patient is stable although he does become tachypneic he may be experiencing some abdominal discomfort due to his recent retroperitoneal hematoma and responds well to IV narcotics. Chest x-ray really no changes is been no progression patient's blood gases are satisfactory mildly hypercapnic he is currently on BiPAP renal function is stable continue with IV Lasix patient's white count is declining continue with Rocephin Dc melatonin may make him agitated slight decline in his hemoglobin
--- NOTE | 2020-03-29 15:24 | PN ---
Date of Progress Note: 03/29/2020 Subjective: The patient was admitted with COVID pneumonia. The patient had acute kidney injury secondary to COVID nephropathy with hematuria. The patient had anasarca, had developed hypernatremia. For that reason, diuresis has been adjusted. Physical Examination: Vital Signs: When I saw the patient; blood pressure 128/54, pulse of 83. The patient had good urine output of 2 L, positive of 1400. Chest: Faint crackles. Heart: S1, S2. Regular. Abdomen: Soft, nontender. Extremities: +2 edema. Neuro: The patient is sleepy. Laboratory Data: WBC 12.9, H and H 8.6/26.3, platelet of 126. Sodium 139, potassium 5, bicarb 32, BUN 87, creatinine 1.4, calcium 7.7, phosphorus 2.6, ferritin down to 456. C-reactive protein 11.5. Chest x-ray without any cardiomegaly, interstitial infiltration. Current Medications: The patient is on heparin, ceftriaxone, lorazepam. The patient received Lasix today of 40 mg, zinc sulfate, Zofran. Assessment And Plan: 1. 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 I am going to place the patient on hydrochlorothiazide and to avoid further hypernatremia and we will follow up the patient. 2. Anasarca secondary to malnourish secondary to longstanding respiratory distress. Continue current p.r.n. diuresis. Add hydrochlorothiazide. The patient received Lasix today. 3. Hypernatremia/hyponatremia, currently sodium normalized. Continue current dose of free water. We will monitor the patient. 4. Respiratory failure secondary to COVID pneumonia/over volume. Continue p.r.n. Lasix. time spend discussing with the patient face to face , placing order , discusse with the patient and other [employer] team member including hospitalist 45 min. MAUDE Voice ID: [id number] Report ID: [id number] JOY
[2020-03-29] MEDS: ATORVASTATIN 20 MG TAB PO SCH (20:51)
[2020-03-29] MEDS: ZIPRASIDONE MESYLA 20 MG/VIAL IM PRN (21:04)
[2020-03-30] MEDS: HEPARIN 5000 UNIT/ML 1 ML VIAL SQ SCH ×3 (00:15→17:00)
[2020-03-30] MEDS: INSULIN -REGULAR HUMAN 50 UNIT/0.5 ML ML SQ SCH ×4 (00:15→17:29)
[2020-03-30 05:05] LABS: Hematocrit 26.6 % (39.6-49.0); MPV 8.8 fL (7.6-11.3); RBC Red Blood Cell Count 2.95 M/uL (4.33-5.43)
[2020-03-30 05:26] LABS: C-Reactive Protein 8.65 mg/L (<3.00); Potassium 5.4 mmol/L (3.5-5.1)
[2020-03-30] MEDS: MORPHINE 2 MG/ML SYR IV PRN ×2 (05:39→09:15)
--- NOTE | 2020-03-30 06:40 | RAD REPORT ---
EXAM DESCRIPTION: RAD - Chest Single View - 03/30/2020 6:07 am CLINICAL HISTORY: Respiratory failure COMPARISON: Portable March 29 TECHNIQUE: AP portable chest image was obtained 03/30/2020 6:07 am . FINDINGS: Bilateral lung parenchymal opacification is not substantially different from comparison. F eeding tube remains in place in the proximal stomach. Heart and vasculature are normal. No measurable pleural effusion and no pneumothorax. No acute bony abnormality seen. No acute aortic findings suspe cted. IMPRESSION: Stable chest
--- NOTE | 2020-03-30 07:05 | PN ---
Date of Progress Note: 03/29/2020 Subjective: The patient was seen this morning for followup. He was lying in bed, in ICU on BiPAP. Open his eyes upon verbal commands, but does not follow any other commands. Objective: Vital Signs: Reviewed. HEENT: Unremarkable. Lungs: Clear to auscultation. Heart: Sounds normal. Abdomen: Soft. Bowel sounds normal. No guarding, rigidity, tenderness, or distention. Extremities: Edema of all the 4 extremities present. Laboratory Data: White count 12.9, hemoglobin 8.6, platelets 126. Sodium 139, potassium 5, chloride 103, bicarb 32, BUN 87, creatinine 1.41, glucose 248, ferritin 456, CRP 11.1. Impression: 1.COVID-19 infection. 2.COVID-19 pneumonia. 3.Acute respiratory failure with hypoxia. 4.Anemia. 5.Diabetes mellitus. Plan: We will go ahead and continue current medications. Continue to follow with Dr. Galicia. We will continue steroid therapy, BiPAP, oxygen. His oxygen saturation was adequate in the morning when I evaluated him overnight. He remained stable on 60% FiO2, so his FiO2 was reduced to 55% in the mo rning when I saw him in ICU. DEISI/MODL Voice ID: [id number] Report ID: [id number]
[2020-03-30] MEDS: hydroCHLOROthiazide 25 MG TAB PO SCH (08:00)
[2020-03-30] MEDS: METHYLPREDNISOLONE 125 MG INJ IV SCH ×2 (08:01→20:17)
[2020-03-30] MEDS: ZINC SULFATE 220 MG CAP PO SCH (08:01)
[2020-03-30] MEDS: FAMOTIDINE 20 MG/2 ML VIAL IV SCH ×2 (08:02→20:15)
[2020-03-30] MEDS: CEFTRIAXONE/SWI 1gm 1 GM/10 ML SYR IVP SCH ×2 (08:02→20:16)
[2020-03-30] MEDS: VITAMIN D 1000 UNIT TAB PO SCH (08:03)
[2020-03-30] MEDS ORDERED: FUROSEMIDE 40 MG/4 ML VIAL IV ONE (10:50)
[2020-03-30] MEDS ORDERED: ALBUMIN HUMAN 25% 100 ML IV ONE (11:00)
--- NOTE | 2020-03-30 12:16 | P.PN ---
Subjective Date of Service: 03/30/20 Chief Complaint: Respiratory failure Patient continues to be tachypneic minimally responsive acquiring BiPAP saturation satisfactory complaining of some abdominal discomfort Review of Systems is unable to be obtained Physical Examination - Vital Signs Temperature: 97.5 F Blood Pressure: 137/68 Pulse: 98 Respirations: 28 Pulse Ox (%): 97 - Physical Exam General: Unresponsive Respiratory: Clear to auscultation bilaterally, Diminished Cardiovascular: No edema, Normal S1 S2 Assessment & Plan - Problems (Diagnosis) (1) Acute respiratory failure due to severe acute respiratory syndrome coronavirus 2 (SARS-CoV-2) infection Current Visit: Yes Status: Acute Plan: Respiratory failure patient is nonverbal renal function is worse I suspect is secondary to diuretics white count is declining hemoglobin is stable oxygenation satisfactory try a nasal cannula oxygen chest x-ray some interstitial changes consider LTAC patient is also hyperkalemia CRP is lower probably has chronic renal failure with a prerenal component
--- NOTE | 2020-03-30 14:32 | PN ---
Date of Progress Note: 03/30/2020 Subjective: The patient was admitted with COVID pneumonia. Had acute kidney injury secondary to COVID nephropathy with hematuria. The patient had history of proteinuria. The patient recovered. Kidney function has been improved, but the patient had hypernatremia/hyponatremia, anasarca and still on BiPAP. Physical Examination: Vital Signs: Blood pressure 137/68, pulse of 98, afebrile. The patient had urine output of 2 L, but positive of 1400 yet. Chest: Crackles bilateral. Heart: S1, S2. Regular. Abdomen: Soft, nontender. Extremities: +3 edema. Neuro: The patient is sleepy. Moving 4 extremities. No focality. Laboratory Data: WBC 13.6, H and H 8.7/26.6, platelet 147. Sodium 137, potassium 5.4, bicarb 32, BUN 100, creatinine 1.5, calcium 8.1, magnesium 2.6. Ferritin down to 436. C-reactive protein down to 8.6. TSH 2.2. Urinalysis, PC ratio 0.3. Assessment And Plan: 1. Acute kidney injury with hematuria secondary to COVID nephropathy, stable, still over volume. I am going to adjust his diuresis to establish better volume control. 2. Severe disproportion BUN and creatinine, possible secondary to gastrointestinal bleed/catabolic state/steroid use. The patient does not have any uremic symptoms. We will monitor. 3. Anasarca secondary to malnourish. Yesterday, we started the patient on hydrochlorothiazide. Today, we will add albumin to try to mobilize the fluid from third space with using convoluted tubule diuretic combined with loop diuretic to establish more sodium diuresis to avoid having hypernatremia induced by diuresis and we will monitor the patient. 4. Hypertension, controlled, optimal. We will adjust the diuretic as above. 5. Hypernatremia/hyponatremia. We will use convoluted tubule diuretic with loop diuretic and mobilizing third space with the albumin and I am going to decrease the free water to 300 mL q.6 hours and we will monitor. 6. Hyperkalemia. We will diurese the patient. 7. Possible gastrointestinal bleed, retroperitoneal hematoma. Stable. We will continue to follow up with primary. 8. COVID pneumonia,, respiratory failure. Follow up with Pulmonary. time spend discussing with the patient face to face , placing order , discusse with the patient and other water team leader including hospitalist 45 min. MAUDE Voice ID: [id number] Report ID: [id number] JOY
[2020-03-30] MEDS ORDERED: RSI MEDICATION KIT IV ONE (14:41)
[2020-03-30] MEDS ORDERED: propofoL 1,000 MG/100 ML VIAL IV ONE (14:42)
[2020-03-30] MEDS ORDERED: SUCCINYLCHOLINE 20 MG/ML (10 ML) IV ONE (14:57)
[2020-03-30] MEDS ORDERED: NA CHLORIDE 0.9% 1,000 ML ONE (15:05)
--- NOTE | 2020-03-30 16:08 | RAD REPORT ---
EXAM DESCRIPTION: Ludwig Single View03/30/2020 3:45 pm CLINICAL HISTORY: Device placement endotracheal tube placement IMPRESSION: An endotracheal tube has been inserted with its tip well above the rickie.
[2020-03-30] MEDS ORDERED: propofoL 1,000 MG/100 ML VIAL IV PRN (16:49)
[2020-03-30 17:15] LABS: Blood O2 Saturation 92.9 % (92-98.5)
[2020-03-30 17:17] LABS: Arterial Blood Carboxyhemoglob 2.1 % (0-1.5); Blood O2 Saturation 98.3 % (92-98.5)
[2020-03-30] MEDS: LORazepam 2 MG/ML VIAL IV PRN (17:33)
[2020-03-30 18:35] LABS: Absolute Lymphocytes (CBC) 0.6 K/uL (0.7-4.9); Hematocrit 24.7 % (39.6-49.0); Lymphocytes % 4.2 % (15.3-44.8); MPV 9.2 fL (7.6-11.3); RBC Red Blood Cell Count 2.67 M/uL (4.33-5.43)
[2020-03-30 18:49] LABS: Potassium 5.8 mmol/L (3.5-5.1)
[2020-03-30] MEDS ORDERED: NA CHLORIDE 0.9% 250 ML ONE (20:02)
[2020-03-30] MEDS: ATORVASTATIN 20 MG TAB PO SCH (20:17)
[2020-03-30] MEDS: NA CHLORIDE 0.9% 250 ML IV SCH (20:30)
[2020-03-30] MEDS ORDERED: SOD POLYSTYREN SUL 15 GM/60 ML UCUP PO ONE (21:00)
[2020-03-30] MEDS ORDERED: NA CHLORIDE 0.9% 1,000 ML IV SCH (21:00)
[2020-03-30 21:07] LABS: Blood Morphology Comment NOTED (NOT SEEN); Platelet Estimate ADEQ; Polychromasia 2+
[2020-03-30] MEDS: FENTANYL CITR 100 MCG/2 ML IV PRN (21:34)
[2020-03-31] MEDS: INSULIN -REGULAR HUMAN 50 UNIT/0.5 ML ML SQ SCH ×4 (00:35→17:34)
[2020-03-31] MEDS: HEPARIN 5000 UNIT/ML 1 ML VIAL SQ SCH (00:36)
[2020-03-31] MEDS: GLUCERNA 1.2 CAL 1,000 ML BOT FT SCH ×2 (00:45→00:51)
[2020-03-31] MEDS: LORazepam 2 MG/ML VIAL IV PRN (05:29)
[2020-03-31 05:40] LABS: Hematocrit 32.5 % (39.6-49.0); MPV 8.9 fL (7.6-11.3); RBC Red Blood Cell Count 3.66 M/uL (4.33-5.43)
[2020-03-31 06:01] LABS: C-Reactive Protein 5.77 mg/L (<3.00)
--- NOTE | 2020-03-31 07:20 | RAD REPORT ---
EXAM DESCRIPTION: Ludwig Single View03/31/2020 6:35 am CLINICAL HISTORY: Shortness of breath COMPARISON: March 30 FINDINGS: Endotracheal tube with its tip well above the rickie. PICC line with its tip in the superi or vena cava. Feeding tube within the distal stomach There has been significant progression in an 8 centimeter left upper lobe opacity Mild improvement in a right basilar opacity. No other significant change. Heart is normal size with left volume loss IMPRESSION: Development of left upper lobe opacity probably pneumonia
--- NOTE | 2020-03-31 07:32 | PN ---
Date of Progress Note: 03/30/2020 Subjective: The patient was seen this morning for followup. No new complaints or problems reported by nursing staff. The patient, when I saw him in the morning, he was in ICU on BiPAP, wakes up when I called him by his name with his eyes open, but does not follow any other commands. Objective: Vital Signs: Reviewed. HEENT: Unremarkable. Lungs: Clear to auscultation. Heart: Sounds normal. Abdomen: Soft. Bowel sounds normal. No guarding, rigidity, tenderness, distention. Extremities: Edema of all the 4 extremities present. Laboratory Data: Reviewed. Impression: 1.COVID-19 infection. 2.COVID-19 pneumonia. 3.Acute respiratory failure with hypoxia and hypercapnia. 4.Anasarca. 5.Anemia due to acute blood loss. 6.Retroperitoneal hematoma. 7.Diabetes mellitus. Plan: After I saw patient, his condition deteriorated during the course of day today. His respirato ry failure problem got worse and details were discussed with Dr. Galicia and the patient required re -intubation and was placed on ventilator support. The patient is full code as per my discussion with the patient's son, when we transferred him to ICU couple of days ago. Blood gas results reviewed. We will continue other current supportive care including steroids, ventilator management per Dr. Can willis. Continue tube feeding. His hemoglobin had dropped down today and we will go ahead and hold he fransisco now that he takes 5000 units subcutaneous injection every 8 hours. I will hold it for next 48 hours and then restart it. Meanwhile, we will give him 2 units of PRBC blood transfusion. Earlier w e entertain possibility of sending him down for CAT scan, but his condition was not stable and we diego l have to look into it at a later time to see if the retroperitoneal hematoma has progressed any or n ot. DEISI/MODL Voice ID: [id number] Report ID: [id number]
[2020-03-31] MEDS: VITAMIN D 1000 UNIT TAB PO SCH (08:42)
[2020-03-31] MEDS: METHYLPREDNISOLONE 125 MG INJ IV SCH ×2 (08:43→21:24)
[2020-03-31] MEDS: FAMOTIDINE 20 MG/2 ML VIAL IV SCH ×2 (08:43→21:23)
[2020-03-31] MEDS: ZINC SULFATE 220 MG CAP PO SCH (08:44)
[2020-03-31] MEDS: hydroCHLOROthiazide 25 MG TAB PO SCH (08:44)
[2020-03-31] MEDS: CEFTRIAXONE/SWI 1gm 1 GM/10 ML SYR IVP SCH (08:47)
[2020-03-31] MEDS ORDERED: ALBUMIN HUMAN 25% 100 ML IV ONE ×2 (11:33→13:00)
[2020-03-31] MEDS ORDERED: FUROSEMIDE 40 MG/4 ML VIAL IV ONE (11:33)
[2020-03-31] MEDS ORDERED: D50W 25 GM/50 ML SYRINGE IV PRN (11:35)
[2020-03-31] MEDS ORDERED: Pharmacy Consult 1 EA XX PRN (13:29)
--- NOTE | 2020-03-31 13:31 | P.PN ---
Subjective Date of Service: 03/31/20 Chief Complaint: Respiratory failure Patient was intubated yesterday due to worsening respiratory status he is currently unresponsive vital signs are stable chest x-ray looks worse has a significant left upper lobe infiltrate Review of Systems is unable to be obtained Physical Examination - Vital Signs Temperature: 97.8 F Blood Pressure: 125/51 Pulse: 68 Respirations: 30 Pulse Ox (%): 96 - Physical Exam General: Unresponsive Respiratory: Clear to auscultation bilaterally, Diminished Cardiovascular: No edema, Normal S1 S2 Assessment & Plan - Problems (Diagnosis) (1) Acute respiratory failure due to severe acute respiratory syndrome coronavirus 2 (SARS-CoV-2) infection Current Visit: Yes Status: Acute Plan: Respiratory failure patient had to BT intubated chest x-ray looks worse she does have a left upper lobe infiltrate which is new renal function is improving seen by Nephrology renal function is slightly better patient's ferritin levels of declining was in a slight decline in his hemoglobin patient has a history of retroperitoneal hematoma consider stopping heparin expand broad-spectrum antibiotic coverage vancomycin and meropenem sputum cultures oxygenation satisfactory prognosis poor patient is scheduled to have another CT scan of the abdomen extended to the chest
[2020-03-31] MEDS ORDERED: VANCOMYCIN 2.25 GM in NA CHLORIDE 0.9% 500 ML IVPB SCH (14:30)
[2020-03-31] MEDS ORDERED: Meropenem 500 MG VIAL IV SCH (17:00)
[2020-03-31] MEDS: Meropenem 500 MG/100 ML BAG IV SCH (17:35)
[2020-03-31] MEDS: MORPHINE 2 MG/ML SYR IV PRN (17:48)
[2020-03-31 19:37] LABS: Arterial Blood Carboxyhemoglob 1.9 % (0-1.5); Blood Gas Oxyhemoglobin 89.1 % (94-97); Blood O2 Saturation 91.9 % (92-98.5)
[2020-03-31] MEDS: MIDAZOLAM HCL 2 MG/2 ML INJ IV PRN (19:59)
--- NOTE | 2020-03-31 20:51 | RAD REPORT ---
EXAM DESCRIPTION: CT - Abdomen Pelvis Wo Contrast - 03/31/2020 8:28 pm CLINICAL HISTORY: Abdominal pain. eval hematoma COMPARISON: Abdomen Pelvis Wo Contrast dated 03/25/2020 TECHNIQUE: CT imaging of the abdomen and pelvis was performed without contrast. Solid organ, bowel a nd vascular assessment is limited due to lack of IV and oral contrast. All CT scans are performed using dose optimization technique as appropriate and may include automated exposure control or mA/KV adjustment according to patient size. FINDINGS: Mild interstitial lung opacities are present in both lower lobes with small bilateral pleu ral effusions. This finding appears slightly progressive relative to comparative study. The liver demonstrates no mass or biliary dilatation. Cholecystectomy clips. The spleen, pancreas and adrenal glands are normal. Small benign bilateral renal cysts are present. No hydronephrosis. No lillie al stone. Right soleus muscle remains enlarged measuring up to 7 cm in anterior-posterior dimension, unchanged. No bowel obstruction, free air, free fluid or abscess. Moderate stool is seen in the rectosigmoid col on. Prominent sigmoid diverticulosis coli without diverticulitis. The appendix is normal. Significant soft tissue edema is present compatible with mild anasarca.Mild scrotal hydrocele is pres ent. Small bilateral fat containing inguinal hernias, larger on left. IMPRESSION: Enlarged right psoas muscle is unchanged since comparative study. Mild worsening in lung base aeration is seen since comparative study. A limited non-contrast examination was performed as detailed.
[2020-03-31] MEDS: ATORVASTATIN 20 MG TAB PO SCH (21:25)
[2020-03-31] MEDS: INSULIN GLARGINE 100 UNITS/ML SQ SCH (21:27)
[2020-03-31] MEDS: FENTANYL CITR 100 MCG/2 ML IV PRN (23:01)
--- NOTE | 2020-03-31 23:20 | PN ---
Date of Progress Note: 03/31/2020 Subjective: The patient was admitted with COVID pneumonia. The patient had respiratory failure, intubated, extubated. The patient had retroperitoneal hemorrhage with GI bleed. The patient required transfusion. Over the night, the patient had worsening respiratory failure, had to be reintubated, drop in his hemoglobin, transfused another 2 units of blood. Objective: Vital Signs: Blood pressure 146/69, pulse of 74. The patient had urine output of 1600, still positive of 2 L. yesterday the patient received albumin with Lasix and hydrochlorothiazide. Chest: Decreased air entry at bilateral base more open on the left side. Heart: S1, S2 regular. Abdomen: Soft and nontender. Extremities: +3 edema. Laboratory Data: WBC 9, H and H 10.6/32.5. Sodium 138, potassium 5, bicarb 31, BUN 104, creatinine 1.3, calcium 7.7, ferritin 428. Current Medications: The patient on include, 1. Meropenem. 2. Vancomycin. 3. Atorvastatin. 4. Received Lasix 40 mg yesterday. 5. Pepcid. 6. Zofran. 7. Insulin. 8. Feeding tube Glucerna with free water of 300 every 6. Assessment And Plan: 1. Acute kidney injury secondary to COVID nephropathy, recovered, resolved. Currently falsely creatinine below his baseline secondary to dilutional. I going to go ahead and give another dose of albumin with the diuresis with the Lasix. We will continue synergetic use of hydrochlorothiazide to avoid any hypernatremia. 2. Anasarca. We will diurese the patient with the Lasix combination with hydrochlorothiazide and we will monitor the patient. 3. Hypernatremia secondary to intravascular depletional. As above, we will use Lasix with hydrochlorothiazide with albumin to mobilize third space. 4. Retroperitoneal hemorrhage, gastrointestinal bleed. Plan for CT. 5. Respiratory failure, multifactorial, secondary to COVID pneumonia/over bacterial infection. Antibiotic is going to be changed by Critical Care. Continue supportive care with the Pulmonary. 6. Retroperitoneal hemorrhage, GI bleed, status post transfusion. We will follow up. time spend discussing with the patient face to face , placing order , discusse with the patient and other retail team member including hospitalist 45 min. MAUDE Voice ID: [id number] Report ID: [id number] MTDD
[2020-04-01] MEDS: Meropenem 500 MG/100 ML BAG IV SCH ×3 (00:27→16:38)
[2020-04-01] MEDS: INSULIN -REGULAR HUMAN 50 UNIT/0.5 ML ML SQ SCH ×4 (00:46→18:00)
[2020-04-01] MEDS: MORPHINE 2 MG/ML SYR IV PRN ×2 (01:16→11:45)
[2020-04-01] MEDS: MIDAZOLAM HCL 2 MG/2 ML INJ IV PRN (01:45)
[2020-04-01] MEDS: LORazepam 2 MG/ML VIAL IV PRN ×3 (04:17→20:20)
[2020-04-01 05:42] LABS: Blood Gas Oxyhemoglobin 90.8 % (94-97); Blood O2 Saturation 93.7 % (92-98.5)
[2020-04-01 06:09] LABS: Absolute Lymphocytes (CBC) 0.1 K/uL (0.7-4.9); Basophils % 0.2 % (0-1.3); Hematocrit 28.9 % (39.6-49.0); Lymphocytes % 1.1 % (15.3-44.8); MPV 8.7 fL (7.6-11.3); RBC Red Blood Cell Count 3.24 M/uL (4.33-5.43)
[2020-04-01 06:51] LABS: Blood Morphology Comment NOT SEEN (NOT SEEN); Platelet Estimate DECR; White Blood Cell Scan OK (OK)
[2020-04-01 07:06] LABS: C-Reactive Protein 4.2 mg/L (<3.00); Ferritin 338.4 ng/mL (26-388); Potassium 3.8 mmol/L (3.5-5.1)
--- NOTE | 2020-04-01 07:19 | RAD REPORT ---
EXAM DESCRIPTION: Ludwig Single View04/01/2020 6:40 am CLINICAL HISTORY: Shortness of breath COMPARISON: March 31 FINDINGS: Partial resolution in the left upper lobe opacity. No significant change in the additional bilateral pulmonary opacities Endotracheal tube with its tip well above the rickie. Feeding tube within the proximal gastric body PICC line in place
[2020-04-01] MEDS: ZINC SULFATE 220 MG CAP PO SCH (09:00)
[2020-04-01] MEDS: hydroCHLOROthiazide 25 MG TAB PO SCH (09:00)
[2020-04-01] MEDS: INSULIN GLARGINE 100 UNITS/ML SQ SCH ×2 (09:00→19:43)
[2020-04-01] MEDS: VITAMIN D 1000 UNIT TAB PO SCH (09:00)
[2020-04-01] MEDS: METHYLPREDNISOLONE 125 MG INJ IV SCH ×2 (09:00→19:41)
[2020-04-01] MEDS: FAMOTIDINE 20 MG/2 ML VIAL IV SCH ×2 (09:00→19:40)
[2020-04-01] MEDS: HEPARIN 5000 UNIT/ML 1 ML VIAL SQ SCH ×2 (09:30→19:38)
[2020-04-01] MEDS ORDERED: FUROSEMIDE 40 MG/4 ML VIAL IV ONE (10:24)
--- NOTE | 2020-04-01 10:26 | P.PN ---
Subjective Date of Service: 04/01/20 Chief Complaint: Respiratory failure An 80 y/o man , admitted with SOB , tested Positive for COVID , required intubation pt had ALEXANDR , with disproportionate bun/Cr , pt was extubated then re intubatd , he also developed Lt Psoas hematoma Today no change in clinical status Will give lasix X1 Hb stable cont current management ROS unable to provide Physical exam general: intubated Neck; Supple, No elevated JVD hear: RRR, normal S1,2 no murmur or rub Chest: CTAB, no rlaes or wheezes Abdomen: Soft , Nt Extremities +2 hand edema A/P ALEXANDR likely multifactroial , including OVID19 with disproportionate bun/Cr, could be due to ALEXANDR , Steroids and underlying GI bleeding improving renal dose meds acute on chronic anemia due to Psoas hematoma H/H stable now transfuse to keep Hb >7.0 hypernatremia edema Cont free wtaer edema cont HCTZ and lasix COVID 19 pneumonia Cont vent supprot Acute respiratory failure intubated prognosis guarded total time spent 40 min Physical Examination - Vital Signs Temperature: 97.6 F Blood Pressure: 148/59 Pulse: 59 Respirations: 30 Pulse Ox (%): 96
--- NOTE | 2020-04-01 13:37 | PN ---
Date of Progress Note: 03/31/2020 Subjective: The patient was seen for followup this morning. He was evaluated via tele-visit, which included audio and video component. The patient remains on ventilator. No new complaints or problem s reported by nursing staff. Vital signs reviewed, intake/output records reviewed. Laboratory Data: White count 9, hemoglobin 10.6, platelets 113. Impression: 1.Acute respiratory failure with hypoxia. 2.COVID-19 infection. 3.COVID-19 pneumonia. 4.Acute kidney injury. 5.Anemia. 6.Diabetes mellitus. 7.Thrombocytopenia. Plan: We will go ahead and continue to follow with sand cutting machine operator and stewarding supervisor. Continue steroid . Continue ventilator management per Dr. Galicia. The patient will have CAT scan of abdomen and pe lvis done today for followup on retroperitoneal hematoma and also considering his hemoglobin had drop ped down to 7.8 yesterday, we did discontinue his heparin that he was getting 5000 unit every 8 hours for DVT prophylaxis. We discontinued that because of drop in the hemoglobin and blood transfusion w as given. After the CAT scan results, we will decide if we can restart his heparin or not. Meanwhil e, we will continue other current medical management. I did talk to the patient's insurance company during the course of day today for [id number] appeal process for LTAC as insurance company had cody ed it and after I communicated with the insurance. They still have denial in place at this point. C onsidering patient back on ventilator, now insurance company wants the patient to have at least 3 weeks of management establishing and showing a failure to wean off then they will consider LTAC place ment. DEISI/MODL Voice ID: [id number] Report ID: [id number]
--- NOTE | 2020-04-01 13:43 | PN ---
Date of Progress Note: 04/01/2020 Subjective: The patient was seen this morning for followup. He was seen in person today in ICU, lying in bed, not in distress, on ventilator, does not respond to any verbal commands. Objective: Vital Signs: Reviewed. HEENT: Unremarkable. Lungs: Clear to auscultation. Heart: Sounds normal. Abdomen: Soft. Bowel sounds normal. No guarding, rigidity, tenderness, distention. Extremities: Edema present of all the 4 extremities. Genitourinary: Has a Gonzáles catheter in place draining yellow color urine. Laboratory Data: White count 5.5, hemoglobin 9.4, sodium 142, potassium 3.8, chloride 105, bicarb 34, BUN 91, creatinine 1.22, glucose 170, ferritin 338 Impression: 1. Acute respiratory failure with hypoxia. 2. Thrombocytopenia. 3. Anemia due to acute blood loss. 4. Diabetes mellitus. 5. COVID-19 infection. 6. COVID-19 pneumonia. Plan: We will continue current medication. We will restart his heparin. Monitor blood work on a daily basis for any drop in hemoglobin as well as platelet count. Continue steroid, ventilator management per Dr. Galicia. We will continue to follow with shredded filler machine wrapper layer. The patient is tolerating tube feeding very well. DEISI/MODL Voice ID: [id number] Report ID: [id number] JOY
--- NOTE | 2020-04-01 13:46 | P.PN ---
Subjective Date of Service: 04/01/20 Chief Complaint: Respiratory failure Patient continues to remain unresponsive in respiratory failure chest x-ray does show an improvement Review of Systems is unable to be obtained Physical Examination - Vital Signs Temperature: 97.6 F Blood Pressure: 145/55 Pulse: 70 Respirations: 20 Pulse Ox (%): 95 - Physical Exam General: Unresponsive Respiratory: Clear to auscultation bilaterally, Normal air movement Cardiovascular: Regular rate/rhythm, Normal S1 S2 Assessment & Plan - Problems (Diagnosis) (1) Acute respiratory failure due to severe acute respiratory syndrome coronavirus 2 (SARS-CoV-2) infection Current Visit: Yes Status: Acute Plan: Respiratory failure chest x-ray shows an improvement sputum cultures ordered hemoglobin stable white count is normal repeats the CT scan shows a large source muscles secondary to hemorrhage from the Lovenox he is currently on 45% FiO2 the plan to continue to wean him down vital signs stable will check a procalcitonin level patient's renal function is also improved
[2020-04-01] MEDS: VANCOMYCIN 1.75 GM in NA CHLORIDE 0.9% 500 ML IVPB SCH (14:34)
[2020-04-01] MEDS: ATORVASTATIN 20 MG TAB PO SCH (19:42)
--- NOTE | 2020-04-01 20:12 | RAD REPORT ---
EXAM DESCRIPTION: US - Extrem Venous W Compress Manjit - 04/01/2020 7:44 pm CLINICAL HISTORY: lower extremity cold Bilateral leg edema and swelling. COMPARISON: Extrem Venous W Compress Manjit dated 03/16/2020 TECHNIQUE: Real-time sonographic interrogation of the left and right lower extremity deep venous sys tems was performed. FINDINGS: Normal compressibility, flow augmentation, phasic flow and spontaneous flow is identified in both the left and right lower extremity deep venous systems. IMPRESSION: No sonographic evidence of left or right lower extremity deep venous thrombosis.
--- NOTE | 2020-04-01 20:15 | RAD REPORT ---
EXAM DESCRIPTION: US - Lower Extremity Arterial Bilat - 04/01/2020 7:44 pm CLINICAL HISTORY: R/O DVT Leg pain COMPARISON: Extrem Venous W Compress Manjit dated 04/01/2020 TECHNIQUE: Bilateral lower extremity arterial Doppler examination was performed with siva palma FINDINGS: Right common femoral artery, superficial femoral artery and popliteal artery are biphasic. Right post erior tibial artery and dorsalis pedis artery are monophasic. Left lower extremity arterial system is biphasic to triphasic without significant flow abnormality de tected. No evidence of occlusion or near occlusion. IMPRESSION: Moderate distal peripheral vascular disease involving the infrapopliteal vessels on the right.
[2020-04-02] MEDS: HEPARIN 5000 UNIT/ML 1 ML VIAL SQ SCH ×3 (00:39→17:00)
[2020-04-02] MEDS: INSULIN -REGULAR HUMAN 50 UNIT/0.5 ML ML SQ SCH ×4 (00:39→18:00)
[2020-04-02] MEDS: Meropenem 500 MG/100 ML BAG IV SCH ×2 (00:40→09:00)
[2020-04-02] MEDS: GLUCERNA 1.2 CAL 1,000 ML BOT FT SCH (00:40)
[2020-04-02] MEDS: MORPHINE 2 MG/ML SYR IV PRN ×3 (00:45→20:29)
[2020-04-02 05:33] LABS: Arterial Blood Carboxyhemoglob 2.1 % (0-1.5)
[2020-04-02 06:03] LABS: C-Reactive Protein 19.8 mg/L (<3.00); Ferritin 433.5 ng/mL (26-388)
[2020-04-02] MEDS: INSULIN GLARGINE 100 UNITS/ML SQ SCH ×2 (09:00→20:12)
[2020-04-02] MEDS: METHYLPREDNISOLONE 125 MG INJ IV SCH ×2 (09:00→20:28)
[2020-04-02] MEDS: VITAMIN D 1000 UNIT TAB PO SCH (09:24)
[2020-04-02] MEDS: ZINC SULFATE 220 MG CAP PO SCH (09:26)
[2020-04-02] MEDS: hydroCHLOROthiazide 25 MG TAB PO SCH (09:28)
--- NOTE | 2020-04-02 09:49 | RAD REPORT ---
EXAM DESCRIPTION: RAD - Chest Single View - 04/02/2020 6:56 am CLINICAL HISTORY: intubation, respiratory distress COMPARISON: Portable April 01 TECHNIQUE: AP portable chest image was obtained 04/02/2020 6:56 am . FINDINGS: Endotracheal tube has not changed. Feeding tube remains in the proximal stomach. Partial clearing of left lung field infiltrate. Right lung field is not substantially different when adjusting for technique. There is significant infiltrate remaining in the left lung field. Heart and vasculature are normal. No measurable pleural effusion and no pneumothorax. No acute bony abnormality seen. No acute aortic findings suspected. IMPRESSION: Partial clearing of left lung field infiltrate with substantial infiltrate remaining.
[2020-04-02] MEDS ORDERED: D50W 25 GM/50 ML VIAL IV PRN (10:00)
[2020-04-02] MEDS: FLUCONAZOLE 100 MG TAB PO SCH (11:00)
--- NOTE | 2020-04-02 11:38 | PN ---
Date of Progress Note: 04/02/2020 Subjective: The patient was seen this morning for followup. He was lying in bed in ICU on ventilato r on 35% FiO2. The patient was sleeping, not following commands but yesterday evening when nurse was talking to him, he was following simple commands lightly in response. Objective: Vital Signs: Reviewed. HEENT: Unremarkable. Lungs: Clear to auscultation. Heart: Sounds normal. Abdomen: Soft. Bowel sounds normal. No guarding, rigidity, tenderness, or distention. Extremities: Leg edema looks better than before. Arm and hand edema remains unchanged. Bilateral f eet appear normal skin color, normal skin temperature. Laboratory Data: Sodium 142, potassium 4, chloride 104, bicarb 35, BUN 80, creatinine 1.13, glucose 211, ferritin 433, CRP 19.8. Venous Doppler of both legs from yesterday shows no evidence of DVT and the arterial Doppler of legs shows moderate distal peripheral vascular disease involving infrapoplit eal vessel of the right. Impression: 1.COVID-19 infection. 2.COVID-19 pneumonia. 3.Acute respiratory failure with hypoxia. 4.Diabetes mellitus. 5.Peripheral vascular disease. Plan: We will go ahead and continue current medications. Continue ventilator support, IV steroid, h eparin subcutaneous injection per order and we will continue to follow with night time nanny and Dr. Galicia. He is tolerating tube feeding very well. We will continue that. DEISI/MODL Voice ID: [id number] Report ID: [id number]
[2020-04-02] MEDS: VANCOMYCIN 1.75 GM in NA CHLORIDE 0.9% 500 ML IVPB SCH (15:00)
[2020-04-02] MEDS: LORazepam 2 MG/ML VIAL IV PRN (17:18)
--- NOTE | 2020-04-02 20:11 | PN ---
Date of Progress Note: 04/02/2020 Chief Complaint: Acute kidney injury with high BUN and creatinine ratio, prerenal azotemia. History Of Present Illness: The patient although is on steroids, has underlying GI bleeding and GI b leeding is improving. Medication adjusted to renal dose. The patient has nonoliguric urine output. He has permissive COVID test. He required intubation, developed hematoma. He received IV Lasix for volume control. Hemoglobin level is stable. Review of Systems: Unobtainable. Physical Examination: Extremities: 2+ edema in the extremities. Heart: S1, S2. Impression And Plan: Acute kidney injury, likely multifactorial including COVID-19 infection related nephropathy. The patient has high BUN and creatinine ratio, which may be due to hypercatabolic stat e, steroids, and underlying GI bleeding. The patient developed acute on chronic anemia and received transfusion. Monitor blood count, hemoglobin, and plan transfusion accordingly. EB/MODL Voice ID: [id number] Report ID: [id number]
[2020-04-02] MEDS: ATORVASTATIN 20 MG TAB PO SCH (20:13)
[2020-04-02] MEDS: FAMOTIDINE 20 MG/2 ML VIAL IV SCH (20:28)
[2020-04-03] MEDS: INSULIN -REGULAR HUMAN 50 UNIT/0.5 ML ML SQ SCH ×4 (00:40→17:06)
[2020-04-03] MEDS: HEPARIN 5000 UNIT/ML 1 ML VIAL SQ SCH ×3 (00:40→17:06)
[2020-04-03] MEDS: Meropenem 500 MG/100 ML BAG IV SCH ×3 (01:00→17:06)
[2020-04-03 05:29] LABS: Blood Gas Oxyhemoglobin 90.4 % (94-97); Blood O2 Saturation 94.2 % (92-98.5)
[2020-04-03 05:30] LABS: Arterial Blood Carboxyhemoglob 2.5 % (0-1.5)
[2020-04-03 06:12] LABS: Potassium 4.1 mmol/L (3.5-5.1)
--- NOTE | 2020-04-03 08:33 | RAD REPORT ---
EXAM DESCRIPTION: Ludwig Single View04/03/2020 6:53 am CLINICAL HISTORY: Respiratory distress COMPARISON: April 02 FINDINGS: No significant change the bilateral pulmonary opacities, left lung volume loss. Tubes rem ain place. Heart is normal size IMPRESSION: No significant change
[2020-04-03 08:43] LABS: Absolute Lymphocytes (CBC) 0.1 K/uL (0.7-4.9); Basophils % 0.2 % (0-1.3); Hematocrit 31.6 % (39.6-49.0); Lymphocytes % 1.5 % (15.3-44.8); MPV 8.9 fL (7.6-11.3); RBC Red Blood Cell Count 3.53 M/uL (4.33-5.43)
--- NOTE | 2020-04-03 10:24 | P.PN ---
Subjective Date of Service: 04/03/20 Chief Complaint: Respiratory failure Patient is improving requiring minimal oxygen still has edema slightly more responsive Review of Systems is unable to be obtained Physical Examination - Vital Signs Temperature: 97.4 F Blood Pressure: 141/62 Pulse: 76 Respirations: 26 Pulse Ox (%): 96 - Physical Exam General: Alert Respiratory: Clear to auscultation bilaterally, Diminished Cardiovascular: Edema Gastrointestinal: Normal bowel sounds, Soft and benign Assessment & Plan - Problems (Diagnosis) (1) Acute respiratory failure due to severe acute respiratory syndrome coronavirus 2 (SARS-CoV-2) infection Current Visit: Yes Status: Acute Plan: Respiratory failure for vogel virus he is improving in renal function is improving hemoglobin stable slightly more alert currently patient is on SIMV and pressure support vital signs stable blood cultures are negative chest x-rays improving plan to wean him off from the ventilator tomorrow
[2020-04-03] MEDS: ZINC SULFATE 220 MG CAP PO SCH (10:26)
[2020-04-03] MEDS: FLUCONAZOLE 100 MG TAB PO SCH (10:27)
[2020-04-03] MEDS: INSULIN GLARGINE 100 UNITS/ML SQ SCH ×2 (10:28→21:01)
[2020-04-03] MEDS: VITAMIN D 1000 UNIT TAB PO SCH (10:28)
[2020-04-03] MEDS: hydroCHLOROthiazide 25 MG TAB PO SCH (10:30)
[2020-04-03] MEDS: LORazepam 2 MG/ML VIAL IV PRN (10:31)
[2020-04-03] MEDS: FAMOTIDINE 20 MG/2 ML VIAL IV SCH ×2 (10:32→21:04)
[2020-04-03] MEDS: METHYLPREDNISOLONE 125 MG INJ IV SCH ×2 (10:32→21:04)
--- NOTE | 2020-04-03 12:29 | PN ---
Date of Progress Note: 04/03/2020 Subjective: The patient was seen this morning for followup. He was seen in ICU in person, lying in bed, on ventilator. No new complaints, problems reported by nursing staff. He was noted to be moving his upper extremity spontaneously. He does not follow any commands. He does get agitated from time to time. He is on ventilator at 35% FiO2. Intake, output records reviewed. Objective: Vital Signs: Reviewed. HEENT: Unremarkable. Lungs: Clear to auscultation. Heart: Sounds normal. Abdomen: Soft. Bowel sounds normal. No guarding, rigidity, tenderness, or distention. Extremities: Edema remains unchanged. Diagnostic Studies: Sodium 144, potassium 4.1, chloride 106, bicarb 35, BUN 75, creatinine 0.93, and glucose 251. Impression: 1. Acute respiratory failure with hypoxia. 2. COVID-19 infection. 3. COVID-19 pneumonia. 4. Acute kidney failure. 5. Anemia due to acute blood loss. 6. Diabetes mellitus. 7. Retroperitoneal hematoma. Plan: The patient's blood count has remained stable. We will follow up with another blood work tomorrow. Renal function has improved compared to before. Ventilator management to be provided by Dr. Galicia and we will see if possibly the patient can be extubated next week or not. He is tolerating his tube feeding well. We will continue that. Continue current antibiotic, which is meropenem and vancomycin for pneumonia and continue current steroid and heparin. DEISI/MODL Voice ID: [id number] Report ID: [id number] JOY
[2020-04-03] MEDS: VANCOMYCIN 1.75 GM in NA CHLORIDE 0.9% 500 ML IVPB SCH (14:54)
[2020-04-03] MEDS: ATORVASTATIN 20 MG TAB PO SCH (21:01)
--- NOTE | 2020-04-03 23:06 | PN ---
Date of Progress Note: 04/03/2020 Chief Complaint: Acute kidney injury with high BUN and creatinine ratio, prerenal azotemia. History Of Present Illness: The patient although is on steroids and has underlying GI bleeding. Alt reinaldo GI bleeding improved, medication dose adjusted to renal dose. The patient has nonoliguric urin e output. He has history of COVID negative test. The patient required intubation, developed hematoma. He received Lasix for volume control. Review of Systems: Unobtainable. Physical Examination: Extremities: 2+ edema in both extremities. Heart: S1, S2. Impression And Plan: Acute on chronic kidney injury, multifactorial. Acute kidney injury secondary to prerenal azotemia due to COVID-19 infection. There is high BUN and creatinine ratio, which was ma y be due to hypercatabolic state, steroids, and underlying GI bleeding. The patient developed acute on chronic kidney injury and during this admission, he was treated with blood transfusion for acute a nemia. Monitor hemoglobin level. Adjust IV fluids as needed. Currently, the patient is on IV Lasix for volume overload. EB/MODL Voice ID: [id number] Report ID: [id number]
[2020-04-04] MEDS: INSULIN -REGULAR HUMAN 50 UNIT/0.5 ML ML SQ SCH ×4 (00:48→18:03)
[2020-04-04] MEDS: HEPARIN 5000 UNIT/ML 1 ML VIAL SQ SCH ×3 (00:49→18:03)
[2020-04-04] MEDS: Meropenem 500 MG/100 ML BAG IV SCH ×3 (00:49→18:03)
[2020-04-04] MEDS: MORPHINE 2 MG/ML SYR IV PRN ×2 (01:00→11:43)
[2020-04-04 05:22] LABS: Arterial Blood Carboxyhemoglob 2.7 % (0-1.5); Blood Gas Oxyhemoglobin 87.4 % (94-97); Blood O2 Saturation 91.1 % (92-98.5)
--- NOTE | 2020-04-04 06:53 | RAD REPORT ---
EXAM DESCRIPTION: Ludwig Single View04/04/2020 6:35 am CLINICAL HISTORY: Intubation COMPARISON: April 03, 2020 FINDINGS: Lines and tubes remain in place There has been mild improvement in the right and no significant change in left pulmonary opacities. L eft volume loss persists
[2020-04-04] MEDS: METHYLPREDNISOLONE 125 MG INJ IV SCH ×2 (08:40→21:00)
[2020-04-04] MEDS: FLUCONAZOLE 100 MG TAB PO SCH (08:40)
[2020-04-04] MEDS: VITAMIN D 1000 UNIT TAB PO SCH (08:40)
[2020-04-04] MEDS: ZINC SULFATE 220 MG CAP PO SCH (08:41)
[2020-04-04] MEDS: FAMOTIDINE 20 MG/2 ML VIAL IV SCH ×2 (08:41→20:59)
[2020-04-04] MEDS: INSULIN GLARGINE 100 UNITS/ML SQ SCH ×2 (08:42→20:56)
[2020-04-04] MEDS: hydroCHLOROthiazide 25 MG TAB PO SCH (08:47)
--- NOTE | 2020-04-04 12:31 | P.PN ---
Subjective Date of Service: 04/04/20 Chief Complaint: Respiratory failure Patient did not tolerate his spontaneous breathing trial became more tachypneic tachycardic elevated blood pressure has copious thick secretions Review of Systems is unable to be obtained Physical Examination - Vital Signs Temperature: 97.6 F Blood Pressure: 131/71 Pulse: 88 Respirations: 25 Pulse Ox (%): 96 - Physical Exam General: Alert, Cooperative Respiratory: Expiratory wheezes Cardiovascular: Regular rate/rhythm, Edema Assessment & Plan - Problems (Diagnosis) (1) Acute respiratory failure due to severe acute respiratory syndrome coronavirus 2 (SARS-CoV-2) infection Current Visit: Yes Status: Acute Plan: Patient id not tolerate spontaneous breathing trial he has copious thick secretions cultures are pending blood cultures negative no change in present medication. WBC is normal HGB stable. consider changing to oral Eliquis slight improvement on his chest x-ray on the right side
[2020-04-04] MEDS ORDERED: VANCOMYCIN 1.5 GM in NA CHLORIDE 0.9% 500 ML IVPB SCH (15:00)
[2020-04-04] MEDS: ATORVASTATIN 20 MG TAB PO SCH (20:57)
--- NOTE | 2020-04-04 22:05 | PN ---
Date of Progress Note: 04/04/2020 History Of Present Illness: The patient remains in ICU. He has respiratory failure due to COVID pne umonia. He did not tolerate continued breathing trials and became tachypneic, developed tachycardia and elevated blood pressure. The patient had chest x-ray done, which showed some improvement of the infiltrate. The patient has acute kidney injury with nonoliguric urine output, high BUN and creatini ne ratio, prerenal azotemia, although the patient is on steroids and had GI bleeding, which may contr ibute to elevated BUN. The patient also developed hematoma. The patient received Lasix for volume c ontrol. Review of Systems: Unobtainable. Physical Examination: Extremities: Edema present in both upper extremities. Heart: S1, S2. Impression And Plan: Acute on chronic kidney injury, multifactorial. Acute kidney injury secondary to prerenal azotemia due to COVID-19 infection. He has nonoliguric urine output. The patient may vogel ve high BUN and creatinine ratio secondary to hypercatabolic state, steroids, and underlying GI bleed ing. The patient developed acute on chronic kidney injury. During this admission, he had anemia and received blood transfusion. Monitor hemoglobin level. Adjust IV fluids as needed. The patient elidia najera recently was treated with IV Lasix. Continue to adjust IV Lasix. Monitor fluid balance. EB/MODL Voice ID: [id number] Report ID: [id number]
[2020-04-05] MEDS: Meropenem 500 MG/100 ML BAG IV SCH ×2 (00:11→07:50)
[2020-04-05] MEDS: INSULIN -REGULAR HUMAN 50 UNIT/0.5 ML ML SQ SCH ×4 (00:12→16:52)
[2020-04-05] MEDS: HEPARIN 5000 UNIT/ML 1 ML VIAL SQ SCH ×3 (00:13→16:53)
[2020-04-05 05:08] LABS: Absolute Lymphocytes (CBC) 0.2 K/uL (0.7-4.9); Basophils % 0.1 % (0-1.3); Hematocrit 26.2 % (39.6-49.0); Lymphocytes % 1.2 % (15.3-44.8); MPV 9.1 fL (7.6-11.3); RBC Red Blood Cell Count 2.95 M/uL (4.33-5.43)
[2020-04-05 05:39] LABS: C-Reactive Protein 6.11 mg/L (<3.00); Ferritin 561.2 ng/mL (26-388); Magnesium 2.4 mg/dL (1.8-2.4); Potassium 4.5 mmol/L (3.5-5.1)
[2020-04-05] MEDS: MORPHINE 2 MG/ML SYR IV PRN (06:30)
[2020-04-05] MEDS: MIDAZOLAM HCL 2 MG/2 ML INJ IV PRN (06:35)
[2020-04-05 06:42] LABS: Blood Morphology Comment NOT SEEN (NOT SEEN); Platelet Estimate ADEQ
--- NOTE | 2020-04-05 07:09 | PN ---
Date of Progress Note: 04/04/2020 Subjective: The patient was seen for followup in the morning. He was lying in bed in ICU on ventila tor with 35% FiO2. Tolerating tube feeding very well. No new complaints or problems reported by [facility] staff. Objective: Vital Signs: Reviewed. Intake and output records: Reviewed. HEENT: Unremarkable. Lungs: Clear to auscultation. Heart: Sounds normal. Abdomen: Soft. Bowel sounds normal. No guarding, rigidity, tenderness, or distention. Extremities: Edema of all the 4 extremities present. Impression: 1.COVID-19 infection. 2.COVID-19 pneumonia. 3.Acute respiratory failure with hypoxia. 4.Diabetes mellitus. 5.Acute kidney injury. 6.Anemia. 7.Retroperitoneal hematoma. Plan: We will continue current medications. Continue follow up with carpenter and telegraph repeater installer. We will continue current heparin and monitor patient's blood work including renal function and bloo d count. Continue current steroid, diabetes management. Dr. Galicia is working on possibility of e xtubation. Details were discussed later on with the patient's . DEISI/MODL Voice ID: [id number] Report ID: [id number]
[2020-04-05] MEDS: VITAMIN D 1000 UNIT TAB PO SCH (07:50)
[2020-04-05] MEDS: METHYLPREDNISOLONE 125 MG INJ IV SCH ×2 (07:50→20:53)
[2020-04-05] MEDS: FLUCONAZOLE 100 MG TAB PO SCH (07:50)
[2020-04-05] MEDS: hydroCHLOROthiazide 25 MG TAB PO SCH (07:51)
[2020-04-05] MEDS: ZINC SULFATE 220 MG CAP PO SCH (07:51)
[2020-04-05] MEDS: INSULIN GLARGINE 100 UNITS/ML SQ SCH ×2 (07:51→20:54)
[2020-04-05] MEDS: FAMOTIDINE 20 MG/2 ML VIAL IV SCH ×2 (07:52→20:54)
--- NOTE | 2020-04-05 08:16 | P.PN ---
Subjective Date of Service: 04/05/20 Chief Complaint: Respiratory failure Minimally responsive did not tolerate spontaneous breathing trial this morning will try again this often the patient feels will consider tracheostomy Review of Systems is unable to be obtained Physical Examination - Vital Signs Temperature: 97 F Blood Pressure: 149/81 Pulse: 90 Respirations: 30 Pulse Ox (%): 98 - Physical Exam General: Unresponsive Cardiovascular: No edema, Regular rate/rhythm Assessment & Plan - Problems (Diagnosis) (1) Acute respiratory failure due to severe acute respiratory syndrome coronavirus 2 (SARS-CoV-2) infection Current Visit: Yes Status: Acute Plan: Respiratory failure failed spontaneous breathing trial will try gain otherwise would proceed to tracheostomy will discuss with relatives creatinine is normal BUN elevated there has been again a slight decline in his hemoglobin Dc vancomycin sputum cultures are pending blood cultures negative patient is only on FiO2 of 35%
[2020-04-05] MEDS ORDERED: ALBUMIN HUMAN 25% 100 ML IV ONE (11:18)
[2020-04-05] MEDS ORDERED: BUMETANIDE 1 MG/4 ML VIAL IV ONE (11:18)
--- NOTE | 2020-04-05 11:51 | RAD REPORT ---
EXAM DESCRIPTION: RAD - Chest Single View - 04/05/2020 11:20 am CLINICAL HISTORY: Monitor PNA Chest pain. COMPARISON: Chest Single View dated 04/04/2020; Chest Single View dated 04/03/2020; Chest Single View d ated 04/02/2020; Chest Single View dated 04/01/2020 FINDINGS: Portable technique limits examination quality. Tip of the endotracheal tube is above the rickie. Enteric tube descends in the stomach. Right-sided P ICC line has tip the SVC. Emphysematous changes are present throughout both lungs. Bilateral pulmonar y opacities have mildly improved, particularly on the left. The heart is upper limit normal in size. IMPRESSION: Mild improvement is seen in left lung aeration since comparative study.
--- NOTE | 2020-04-05 12:12 | PN ---
Date of Progress Note: 04/05/2020 Subjective: The patient was admitted with COVID pneumonia, respiratory failure. Has acute kidney injury secondary COVID pneumonia. Kidney function has been improved. The patient is nonoliguric. The patient develop hyper/hyponatremia. Been adjusting IV fluid for hydration for the patient. The patient failed extubation yesterday. Physical Examination: Vital Signs: Blood pressure 128/75, pulse of 99, afebrile. The patient on 35% FiO2, PEEP of 5. Chest: Faint rales in the left base. Heart: S1, S2 regular. Abdomen: Soft, nontender. Extremities: +3 edema. Neuro: the patient sedated, on vent. Laboratory Data: WBC 14. H and H 8.7/26.2, has been drop from yesterday 10.4/31.6. Platelet 158. Sodium 141, potassium 4.5, bicarb 29, BUN 90, creatinine 1, GFR of 70, calcium 7.9, magnesium 2.4. Ferritin 561. Current Medications: The patient is on; the patient is on tube feeding 50:50, free water of 250 q.6, fluconazole, meropenem 500 q.8, atorvastatin, midazolam, zinc sulfate, Pepcid. Assessment And Plan: 1. Acute kidney injury secondary to COVID pneumonia; proteinuric, nonnephrotic. The patient's recovery still over volume with significant peripheral edema. I going to go ahead and decrease the free water to q.8 and we will monitor his sodium. If we managed to keep his sodium on that range, we will consider changing the concentration of food. Trying to control his fluid in a better way as the patient continues to be positive balance. 2. Hypertension. Currently controlled, optimal. Continue current treatment. 3. Hypernatremia, resolved. As above, I am going to adjust his free water. We will give the patient albumin and Lasix to mobilize third space and we will follow up the patient. 4. COVID pneumonia, status post treatment. The patient on steroid. Follow up with the primary and Pulmonary. Possible bacterial pneumonia. The patient was started on meropenem. Given the current kidney function, I am going to adjust the dose to 1 g and we will follow up with Pulmonary. time spend discussing with the patient face to face , placing order , discusse with the patient and other staff nurse icu resource team including hospitalist 45 min. MAUDE Voice ID: [id number] Report ID: [id number] JOY
[2020-04-05] MEDS: Meropenem 1,000 MG in NA CHLORIDE 0.9% 100 ML IV SCH (16:54)
[2020-04-05] MEDS ORDERED: Meropenem 1000 MG/VIAL IV SCH (17:00)
[2020-04-05] MEDS: ATORVASTATIN 20 MG TAB PO SCH (20:55)
[2020-04-06] MEDS: Meropenem 1,000 MG in NA CHLORIDE 0.9% 100 ML IV SCH ×3 (00:21→17:17)
[2020-04-06] MEDS: HEPARIN 5000 UNIT/ML 1 ML VIAL SQ SCH ×2 (00:21→21:19)
[2020-04-06] MEDS: INSULIN -REGULAR HUMAN 50 UNIT/0.5 ML ML SQ SCH ×4 (00:24→17:16)
[2020-04-06 05:14] LABS: Absolute Lymphocytes (CBC) 0.1 K/uL (0.7-4.9); Basophils % 0.1 % (0-1.3); Hematocrit 20.9 % (39.6-49.0); Lymphocytes % 1.2 % (15.3-44.8); MPV 9.2 fL (7.6-11.3); RBC Red Blood Cell Count 2.29 M/uL (4.33-5.43)
[2020-04-06] MEDS: GLUCERNA 1.2 CAL 1,000 ML BOT FT SCH (05:30)
[2020-04-06 05:37] LABS: C-Reactive Protein 3.78 mg/L (<3.00); Ferritin 545.1 ng/mL (26-388); Magnesium 2.4 mg/dL (1.8-2.4); Potassium 4.3 mmol/L (3.5-5.1)
[2020-04-06] MEDS: INSULIN GLARGINE 100 UNITS/ML SQ SCH ×2 (08:35→21:16)
[2020-04-06] MEDS: VITAMIN D 1000 UNIT TAB PO SCH (08:36)
[2020-04-06] MEDS: FLUCONAZOLE 100 MG TAB PO SCH (08:36)
--- NOTE | 2020-04-06 08:36 | PN ---
Date of Progress Note: 04/05/2020 Subjective: The patient was seen for followup in the morning. He was in ICU, lying in bed, on venti lator. No new complaints or problems reported by nursing staff. Objective: Vital Signs: Reviewed. Intake output records: Reviewed. HEENT: Unremarkable. Lungs: Clear to auscultation. Heart: Sounds normal. Abdomen: Soft. Bowel sounds normal. No guarding, rigidity, tenderness, or distention. Extremities: Edema of all the 4 extremities present. Impression: 1.Acute respiratory failure with hypoxia. 2.COVID-19 infection. 3.COVID-19 pneumonia. 4.Diabetes mellitus. 5.Anemia. 6.Retroperitoneal hematoma. Plan: We will continue current medication. Continue to follow with Dr. Galicia from Pulmonary and director of mechanical engineering. Continue current antibiotics and IV steroid. The patient is tolerating tube feeding v severino well and we will continue current heparin per order. DEISI/MODL Voice ID: [id number] Report ID: [id number]
[2020-04-06] MEDS: METHYLPREDNISOLONE 125 MG INJ IV SCH (08:37)
[2020-04-06] MEDS: FAMOTIDINE 20 MG/2 ML VIAL IV SCH ×2 (08:37→21:15)
[2020-04-06] MEDS: ZINC SULFATE 220 MG CAP PO SCH (08:37)
--- NOTE | 2020-04-06 08:45 | P.PN ---
Subjective Date of Service: 04/06/20 Chief Complaint: Respiratory failure Patient is doing well he was extubated yesterday over this been a significant decline in his hemoglobin denies any abdominal complain no history of GI bleeding no melenic stools or hematemesis no abdominal bruising Review of Systems is unable to be obtained Physical Examination - Vital Signs Temperature: 97.1 F Blood Pressure: 108/73 Pulse: 83 Respirations: 23 Pulse Ox (%): 100 - Physical Exam General: Alert, In no apparent distress Cardiovascular: Regular rate/rhythm, Edema Gastrointestinal: Normal bowel sounds, Soft and benign Assessment & Plan - Problems (Diagnosis) (1) Acute respiratory failure due to severe acute respiratory syndrome coronavirus 2 (SARS-CoV-2) infection Current Visit: Yes Status: Acute Plan: Patient as far as respiratory status is concerned is doing well he was extubated yesterday sat is 100% patient has developed significant decrease in his hemoglobin the heparin to be discontinued continue with tube feeds discontinue IV steroids now BUN and creatinine have been mildly elevated patient is sche duled for a blood transfusion
[2020-04-06] MEDS: FENTANYL CITR 100 MCG/2 ML IV PRN (08:47)
[2020-04-06] MEDS ORDERED: HEPARIN 5000 UNIT/ML 1 ML VIAL SQ SCH (09:00)
[2020-04-06] MEDS ORDERED: NALOXONE 0.4 MG/ML VIAL ONE (09:12)
[2020-04-06] MEDS: HYDROCODONE/APAP 5/325 MG TAB PO PRN ×2 (09:34→21:16)
[2020-04-06] MEDS ORDERED: NA CHLORIDE 0.9% 0 ML ONE (09:59)
[2020-04-06] MEDS: NA CHLORIDE 0.9% 250 ML IV SCH ×2 (10:04→14:32)
[2020-04-06] MEDS: FUROSEMIDE 20 MG/ 2ML VIAL IV SCH ×2 (13:56→17:55)
--- NOTE | 2020-04-06 14:42 | PN ---
Date of Progress Note: 04/06/2020 Subjective: The patient was admitted with COVID pneumonia, intubated and extubated yesterday. The patient had retroperitoneal hemorrhage, GI bleed. The patient had complicated hypernatremia with anasarca. Physical Examination: Vital Signs: Blood pressure 124/55, pulse of 73. The patient had good urine output of 1800, but is still positive with 1800. Chest: Faint rales. Heart: S1, S2. Systolic murmur. Abdomen: Soft, nontender. Extremities: +3 edema. Neuro: Alert, follows command. No focality. Laboratory Data: WBC 11.4, H and H 6.6/20.9, platelet 143. Sodium 142, potassium 4.2, bicarb 30, BUN 103, creatinine 1.2, GFR 54, calcium 7.6, phosphorus 2.4. Current Medications: 1. The patient is going to receive 2 units of blood transfusion today. 2. Pepcid. 3. Zofran. 4. Free water. 5. Ergocalciferol. Assessment And Plan: 1. Acute kidney injury secondary to COVID nephropathy, toxic ATN, recovered. 2. Peripheral edema. We will diurese p.r.n. 3. Hypertension, controlled, optimal. We will continue current medication. 4. Anemia secondary to blood loss. The patient is going to receive 2 units of blood transfusion. We will give Lasix after each unit of 40 mg and we will monitor the patient. 5. Anasarca secondary to malnourish. We just adjusted free water yesterday. We will give diuresis after the blood transfusion today and we will follow up. 6. COVID pneumonia, status post extubation. We will follow up with Pulmonary. 7. Respiratory failure, status post extubation as above. time spend discussing with the patient face to face , placing order , discusse with the patient and other warehouse team member including hospitalist 45 min. MAUDE Voice ID: [id number] Report ID: [id number] JOY
[2020-04-06 20:07] LABS: Hematocrit 30.9 % (39.6-49.0)
[2020-04-06] MEDS: ATORVASTATIN 20 MG TAB PO SCH (21:16)
[2020-04-07] MEDS: INSULIN -REGULAR HUMAN 50 UNIT/0.5 ML ML SQ SCH ×4 (00:37→18:00)
[2020-04-07] MEDS: Meropenem 1,000 MG in NA CHLORIDE 0.9% 100 ML IV SCH ×3 (00:37→16:27)
[2020-04-07 05:24] LABS: Absolute Lymphocytes (CBC) 0.2 K/uL (0.7-4.9); Basophils % 0.3 % (0-1.3); Hematocrit 30.2 % (39.6-49.0); Lymphocytes % 1.4 % (15.3-44.8); MPV 8.9 fL (7.6-11.3); RBC Red Blood Cell Count 3.39 M/uL (4.33-5.43)
[2020-04-07 05:55] LABS: C-Reactive Protein 2.97 mg/L (<3.00); Ferritin 537.5 ng/mL (26-388); Magnesium 2.4 mg/dL (1.8-2.4); Potassium 4.2 mmol/L (3.5-5.1)
[2020-04-07] MEDS: GLUCERNA 1.2 CAL 1,000 ML BOT FT SCH (06:37)
[2020-04-07 07:04] LABS: Blood Morphology Comment NOT SEEN (NOT SEEN); Platelet Estimate DECR; Platelets, Giant FEW
--- NOTE | 2020-04-07 07:35 | PN ---
Date of Progress Note: 04/06/2020 Subjective: The patient was seen this evening for followup visit. He was evaluated via TeleVisit th at included audio and video component. He was extubated yesterday and today he was on nasal cannula oxygen. When I evaluated him, he was awake with his eyes open, not in any distress, on nasal cannula oxygen at 2 L/min. Intake and output records reviewed. Objective: Vital Signs: Reviewed. General: He has Dobhoff tube and tolerating his tube feeding very well. Laboratory Data: Reviewed. CBC and chemistry from this morning were significant for hemoglobin of 6 .6. Impression: 1.Anemia. 2.Retroperitoneal hematoma. 3.Acute respiratory failure with hypoxia, improved. 4.COVID-19 infection. 5.COVID-19 pneumonia. 6.Generalized weakness. 7.Debility. 8.Anasarca. 9.Diabetes mellitus. Plan: The patient's condition has improved. He was extubated yesterday. He is medically stable rig ht now on nasal cannula oxygen. We will continue current medical management and 2 units of packed re d cell blood transfusion was ordered. He is getting heparin 5000 units subcutaneous injection every 8 hours, instead of that we will lower the dose down to every 12 hours. Monitor patient's blood work carefully. I will see him tomorrow for followup. We will continue to follow up with diplomatic interpreter an d surface boss. DEISI/MODL Voice ID: [id number] Report ID: [id number]
[2020-04-07] MEDS: FLUCONAZOLE 100 MG TAB PO SCH (08:48)
[2020-04-07] MEDS: ZINC SULFATE 220 MG CAP PO SCH (08:49)
[2020-04-07] MEDS: FAMOTIDINE 20 MG/2 ML VIAL IV SCH ×2 (08:49→20:18)
[2020-04-07] MEDS: INSULIN GLARGINE 100 UNITS/ML SQ SCH ×2 (08:50→20:17)
[2020-04-07] MEDS: HEPARIN 5000 UNIT/ML 1 ML VIAL SQ SCH ×2 (09:00→20:19)
[2020-04-07] MEDS: VITAMIN D 1000 UNIT TAB PO SCH ×2 (09:00→11:57)
[2020-04-07] MEDS ORDERED: METOLAZONE 5 MG TABLET PO SCH (11:00)
--- NOTE | 2020-04-07 11:17 | PN ---
Date of Progress Note: 04/07/2020 Subjective: The patient was admitted with COVID pneumonia; respiratory failure; intubated, extubated yesterday. The patient on nasal cannula. Currently, awake. The patient is status post 2 units of blood transfusion yesterday. We give Lasix after the transfusion. Physical Examination: Vital Signs: Blood pressure 117/53, pulse of 75, afebrile. The patient had good urine output. Yesterday has 1700, but is still positive of 1300 today. The patient already has 2600. Chest: Decreased entry in the base. Heart: S1, S2. Systolic murmur. Abdomen: Soft, nontender. Extremities: +3 edema. Anasarca all over. Neuro: Alert. Moving 4 extremities. No focality. Laboratory Data: Chest x-ray, interstitial infiltration. No cardiomegaly. WBC 14.9, H and H 10.3/30.2, platelet 131. Sodium 138, potassium 4.2, bicarb 30, BUN 106, creatinine 1, GFR of 67, calcium 7.6, magnesium 2.4. Ferritin down to 537. Current Medications: The patient on include: 1. Fluconazole. 2. Meropenem. 3. Atorvastatin. 4. Pepcid. 5. Zofran. 6. Insulin. 7. Glucerna. 8. Half and half with free water and has flushes of 250 every 8 hours. 9. Cholecalciferol. 10. Insulin 10 units b.i.d. Assessment And Plan: 1. Acute kidney injury secondary to COVID nephropathy, recovered, resolved. The patient still has significant anasarca secondary to malnourished state as no significant proteinuria. TSH within normal limit, but his albumin on the lower side. I am going to go ahead and start the patient to adjust his tube feeding again to increase his calorie and decreasing his free water to trying to achieve some negative balance for the patient and we will follow up. 2. Anasarca with the present of history of hypernatremia. I am going to go ahead and increase the tube feeding to concentration 60 of Glucerna and 40 of free water and decrease the rate to 45 per hour to provide more calorie and we will monitor the patient. We will decrease the free water flushes also to 200 q.8 and I going to give the patient a single dose of metolazone as collecting tube diuretic to avoid worsening of his hypernatremia, and we will increase his Lantus to 12 b.i.d. to have better control on his glucose. 3. Hypernatremia. As above. 4. COVID pneumonia, respiratory failure. We will follow up with Pulmonary. 5. Deconditioning. The patient was started on PT, OT. time spent exam the patient face to face , place order , discussed with the nursing staff, discussing the case with other master steam yacht and systems development consultant including hospitalist 45 min. MAUDE Voice ID: [id number] Report ID: [id number] JOY
[2020-04-07] MEDS ORDERED: METOLAZONE 5 MG TABLET ONE (12:04)
--- NOTE | 2020-04-07 13:20 | P.PN ---
Subjective Date of Service: 04/07/20 Chief Complaint: Respiratory failure Patient is improving condition stable all rating tube phase off the ventilator, respiration satisfactory no evidence of sepsis Review of Systems is unable to be obtained Physical Examination - Vital Signs Temperature: 97.0 F Blood Pressure: 126/72 Pulse: 78 Respirations: 15 Pulse Ox (%): 93 - Physical Exam General: Alert, Other (Not cooperative) Neck: Supple Respiratory: Clear to auscultation bilaterally Cardiovascular: Edema Assessment & Plan - Problems (Diagnosis) (1) Acute respiratory failure due to severe acute respiratory syndrome coronavirus 2 (SARS-CoV-2) infection Current Visit: Yes Status: Acute Plan: Respiratory failure he is doing much better continue with the nasal cannula oxygen chest x-rays improved significantly all cultures are negative white count is mildly elevated tolerating tube feeds hemoglobin stable saturation satisfactory on 2 L continue with meropenem for now as due to clinical improvement continue with IV Pepcid although I doubt he has had a bleeding ulcer is probably from retroperitoneal hematoma anticoagulation contraindicated due to severe anemia and blood transfusion that were required
[2020-04-07] MEDS: ATORVASTATIN 20 MG TAB PO SCH (20:17)
[2020-04-08] MEDS: Meropenem 1,000 MG in NA CHLORIDE 0.9% 100 ML IV SCH ×3 (01:45→16:40)
--- NOTE | 2020-04-08 08:12 | PN ---
Date of Progress Note: 04/07/2020 Subjective: The patient was seen this morning for followup. No new complaints or problems reported by nursing staff. The patient lying in bed, not in distress. He answer simple question by moving hi s head. Objective: Vital Signs: Reviewed. HEENT: Unremarkable. Lungs: Clear to auscultation. Heart: Sounds normal. Abdomen: Soft. Bowel sounds normal. No guarding, rigidity, tenderness, or distention. Extremities: Edema of all the 4 extremities present. Laboratory Data: White count 14.9, hemoglobin 10.3, platelets 131. Sodium 138, potassium 4.2, chlor blas 107, bicarb 30, BUN 106, creatinine 1.06, glucose 169, ferritin 537, CRP 2.9. Impression: 1.COVID-19 infection. 2.COVID-19 pneumonia. 3.Acute respiratory failure with hypoxia. 4.Anasarca. 5.Diabetes mellitus. Plan: We will go ahead and continue current medications. Continue current management for diabetes. Fingerstick blood sugar readings reviewed. Diabetes is under better control compared to before cont ent. We will continue current tube feeding, and continue to follow with career specialist and desk monitor. We will request physical therapy, occupational therapy, and speech therapy consult. DEISI/MODL Voice ID: [id number] Report ID: [id number]
[2020-04-08] MEDS: HEPARIN 5000 UNIT/ML 1 ML VIAL SQ SCH ×2 (08:36→20:24)
[2020-04-08] MEDS: VITAMIN D 1000 UNIT TAB PO SCH (08:36)
[2020-04-08] MEDS: FLUCONAZOLE 100 MG TAB PO SCH (08:36)
[2020-04-08] MEDS: ZINC SULFATE 220 MG CAP PO SCH (08:37)
[2020-04-08] MEDS: INSULIN GLARGINE 100 UNITS/ML SQ SCH (08:37)
[2020-04-08] MEDS: FAMOTIDINE 20 MG/2 ML VIAL IV SCH ×2 (08:37→20:24)
--- NOTE | 2020-04-08 08:51 | RAD REPORT ---
EXAM DESCRIPTION: RAD - Chest Single View - 04/08/2020 8:30 am CLINICAL HISTORY: covid pneumonia COMPARISON: Portable April 05 TECHNIQUE: AP portable chest image was obtained 04/08/2020 8:30 am . FINDINGS: Bilateral pneumonia pattern is not substantially different when adjusting for slight diffe rences in inspiration and under penetrated technique. No progression is seen. Endotracheal tube has b een removed. Feeding tube remains in place. Heart and vasculature are normal. No pneumothorax. Left costophrenic angle blunting remains. IMPRESSION: Stable bilateral pneumonia pattern. Endotracheal tube has been removed. No change in positioning of the feeding tube.
[2020-04-08] MEDS ORDERED: FUROSEMIDE 40 MG/4 ML VIAL IV ONE (11:11)
--- NOTE | 2020-04-08 11:11 | P.PN ---
Subjective Date of Service: 04/08/20 Chief Complaint: Respiratory failure An 80 y/o man , admitted with SOB , tested Positive for COVID , required intubation pt had ALEXANDR , with disproportionate bun/Cr , pt was extubated then re intubatd , he also developed Lt Psoas hematoma now saturation >95% on RA, he is on NG tube feeding Today no change in clinical status Will give lasix X1 cont current management rejected by LTAC ROS unable to provide Physical exam general: intubated Neck; Supple, No elevated JVD hear: RRR, normal S1,2 no murmur or rub Chest: CTAB, no rales or wheezes Abdomen: Soft , Nt Extremities +2 edema A/P ALEXANDR likely multifactroial , including OVID19 with disproportionate bun/Cr, could be due to ALEXANDR , Steroids and underlying GI bleeding cr stable renal dose meds acute on chronic anemia due to Psoas hematoma transfuse to keep Hb >7.0 Edema lasix as needed High Protein Tube feeding COVID 19 pneumonia on room air now hyperglycemia Cont insulin prognosis guarded total time spent 40 min Physical Examination - Vital Signs Temperature: 97.1 F Blood Pressure: 119/63 Pulse: 93 Respirations: 27 Pulse Ox (%): 100
[2020-04-08] MEDS: INSULIN -REGULAR HUMAN 50 UNIT/0.5 ML ML SQ SCH ×3 (11:31→18:00)
[2020-04-08] MEDS: PANTOPRAZOLE INJ 80 MG in NA CHLORIDE 0.9% 250 ML IV SCH ×2 (12:36→20:54)
[2020-04-08 12:48] LABS: Absolute Lymphocytes (CBC) 0.2 K/uL (0.7-4.9); Basophils % 0.6 % (0-1.3); Hematocrit 34.6 % (39.6-49.0); Lymphocytes % 1.4 % (15.3-44.8); MPV 9.4 fL (7.6-11.3)
[2020-04-08] MEDS: ATORVASTATIN 20 MG TAB PO SCH (20:23)
[2020-04-09] MEDS: Meropenem 1,000 MG in NA CHLORIDE 0.9% 100 ML IV SCH ×2 (00:22→08:37)
[2020-04-09] MEDS: INSULIN -REGULAR HUMAN 50 UNIT/0.5 ML ML SQ SCH ×5 (05:35→23:43)
[2020-04-09 06:15] LABS: Absolute Lymphocytes (CBC) 0.1 K/uL (0.7-4.9); Basophils % 0.4 % (0-1.3); Hematocrit 26.1 % (39.6-49.0); Lymphocytes % 1.2 % (15.3-44.8); MPV 9.5 fL (7.6-11.3); RBC Red Blood Cell Count 2.88 M/uL (4.33-5.43)
[2020-04-09 06:31] LABS: C-Reactive Protein 46.3 mg/L (<3.00); Ferritin 721.1 ng/mL (26-388); Potassium 3.7 mmol/L (3.5-5.1)
[2020-04-09] MEDS: ZINC SULFATE 220 MG CAP PO SCH (08:35)
[2020-04-09] MEDS: PANTOPRAZOLE INJ 80 MG in NA CHLORIDE 0.9% 250 ML IV SCH ×2 (08:35→19:08)
[2020-04-09] MEDS: FLUCONAZOLE 100 MG TAB PO SCH (08:36)
[2020-04-09] MEDS: VITAMIN D 1000 UNIT TAB PO SCH (08:36)
[2020-04-09] MEDS: FAMOTIDINE 20 MG/2 ML VIAL IV SCH (08:36)
[2020-04-09] MEDS: HEPARIN 5000 UNIT/ML 1 ML VIAL SQ SCH (09:00)
--- NOTE | 2020-04-09 10:41 | P.PN ---
Subjective Date of Service: 04/09/20 Chief Complaint: Respiratory failure Patient is improving is somewhat more responsive will respond to his name the denies declining renal function improving Review of Systems is unable to be obtained Physical Examination - Vital Signs Temperature: 98.9 F Blood Pressure: 100/48 Pulse: 73 Respirations: 22 Pulse Ox (%): 100 - Physical Exam General: Alert, Cooperative Respiratory: Clear to auscultation bilaterally, Diminished Cardiovascular: Edema Assessment & Plan - Problems (Diagnosis) (1) Acute respiratory failure due to severe acute respiratory syndrome coronavirus 2 (SARS-CoV-2) infection Current Visit: Yes Status: Acute Plan: Patient is improving currently on nasal cannula oxygen mucus plug was suctioned out yesterday he is only on 2 L the Dc meropenem stable to go to the floor LTAC was denied chest x-ray stable he has got some interstitial changes are probably chronic from is vogel virus
[2020-04-09 10:47] LABS: Blood Morphology Comment NOT SEEN (NOT SEEN); Platelet Estimate DECR
--- NOTE | 2020-04-09 12:04 | PN ---
Date of Progress Note: 04/08/2020 Subjective: The patient was seen for followup in the morning, lying in bed, in ICU, not in any distr ess, on room air, maintaining adequate oxygenation. He follows simple commands. Objective: Vital Signs: Reviewed. HEENT: Unremarkable. Lungs: Clear to auscultation. Heart: Sounds normal. Abdomen: Soft. Bowel sounds normal. No guarding, rigidity, tenderness, or distention. Extremities: Edema of all the 4 extremities present, unchanged. Laboratory Data: White count 15.4, hemoglobin 11.4, platelets 118. Impression: 1.COVID-19 infection. 2.COVID-19 pneumonia. 3.Acute respiratory failure with hypoxia. 4.Diabetes mellitus. 5.Anasarca. 6.Anemia. 7.Thrombocytopenia. Plan: We will continue current medications. Continue heparin 5000 unit subcutaneous every 12 hours for DVT prophylaxis. Monitor patient's hemoglobin with blood work on a regular basis. We will glo nue meropenem. Continue to follow up with training and development project leader and promos executive producer. We will have Physical the rapy, Occupational therapy, and Speech therapy work with the patient. DEISI/MODL Voice ID: [id number] Report ID: [id number]
--- NOTE | 2020-04-09 12:39 | PN ---
Date of Progress Note: 04/09/2020 Subjective: The patient was seen this morning for followup. He was lying in bed, in ICU. Yesterday evening, nurse reported that the patient had large black colored stool and subsequently with another bowel movement. Stool specimen was collected, which came back guaiac positive. During nighttime, he had problem due to mucus plug, he had some tachypnea, hypoxia and he did require to start with known rebreather mask and has suction was done to remove the mucus plug. His breathing got better and now he is down to nasal cannula oxygen. When I saw him, he was lying in bed, not in any distress, sleeping arousable. Denies any complaints. Objective: HEENT: Unremarkable except some area of abrasion on the nose, which has remained unchanged. Lungs: Clear to auscultation. Heart: Sounds normal. Abdomen: Soft. Bowel sounds normal. No guarding, rigidity, tenderness, distention. Extremities: Edema of all the 4 extremities remains unchanged. Laboratory Data: Yesterday evening hemoglobin was 10.4 and this morning hemoglobin is 9, platelet count has dropped down to 87 today. Sodium 141, potassium 3.7, chloride 105, bicarb 30, BUN 80, creatinine 1.13, glucose 183. CRP 46.3, ferritin 721. Impression: 1. Anemia due to acute blood loss. 2. Gastrointestinal bleeding. 3. Thrombocytopenia. 4. Acute respiratory failure with hypoxia. 5. COVID-19 infection. 6. COVID-19 pneumonia. 7. Diabetes mellitus. 8. Hypoglycemia. Plan: Yesterday evening patient had hypoglycemia with glucose of 66. He was getting Lantus insulin on a scheduled basis, which was discontinued and we will just go ahead and maintained sliding scale insulin for him for diabetes control. He is getting feeding formula through Dobhoff tube. We will continue to follow with field artillery cannoneer. Continue to follow up with middle school humanities teacher. He was getting IV steroid which was discontinued by Dr. Galicia and I will go ahead and start him on oral prednisone and will wean off over period of next few to several days. The patient has received steroid over last 1 month or so and I will be concerned about adrenal insufficiency with abrupt discontinuation, so we will go ahead and wean off over period of time. We will start him on prednisone 20 mg daily. As of yesterday evening we started him on Protonix drip because of his GI bleeding problem. We will continue that right now. Continue meropenem and oxygen support. We will keep him in ICU today, I will re-evaluate him tomorrow. At some point, once we establish stability, we will plan to transfer him to floor. Because of his thrombocytopenia and drop in the hemoglobin today, we will keep his heparin on hold today and we will consider to restart heparin tomorrow. We will repeat blood work tomorrow. DEISI/MODL Voice ID: [id number] Report ID: [id number] MTDD
[2020-04-09] MEDS: predniSONE 20 MG TAB PO SCH (12:56)
[2020-04-09 13:48] LABS: Hematocrit 26.6 % (39.6-49.0)
--- NOTE | 2020-04-09 14:13 | PN ---
Date of Progress Note: 04/09/2020 Subjective: The patient was admitted with COVID pneumonia, respiratory failure, intubated, extubated, has GI bleed, retroperitoneal hematoma, hypernatremia. The patient currently on nasal cannula. Objective: Vital Signs: Blood pressure 105/48, pulse of 73, afebrile. Chest: Decreased entry bilateral base. Heart: S1 and S2, systolic murmur. Abdomen: Soft, nontender. Extremities: +3 edema. Laboratory Data: WBC 10.4, H and H 9/26.1, platelet 87. Sodium 141, potassium 3.7, bicarb 30, BUN 80, creatinine 1.1, calcium 7.2. Current Medications: The patient on include: 1. Fluconazole. 2. Atorvastatin. 3. The patient received Lasix yesterday. 4. Pantoprazole drip. 5. Prednisone 20 daily. 6. Cholecalciferol. 7. Glucerna. Assessment/plan: 1. Acute kidney injury secondary to COVID, nephropathy. Recovered and resolved. 2. Hypertension, currently hypotension. Keep holding all blood pressure medications. 3. Anasarca secondary to malnourished. Unfortunately with incidence of recurrent hypernatremia and currently patient on stable. I am going to keep current monitor. I will give Lasix in case of transfuse the patient and we will follow up. We will give another dose of metolazone to establish more sodium diuresis. 4. Gastrointestinal bleed. Follow up H and H. If hemoglobin dropped below 9, we will transfuse a unit and we will give Lasix. 5. COVID pneumonia. The patient switched to oral prednisone. We will follow up with Pulmonary and Primary. time spent exam the patient face to face , place order , discussed with the nursing staff, discussing the case with other submarine advisory team watch officer and systems development consultant including hospitalist 45 min. MAUDE Voice ID: [id number] Report ID: [id number] JOY
[2020-04-09] MEDS: METOLAZONE 5 MG TABLET PO SCH (15:15)
[2020-04-09] MEDS: GLUCERNA 1.2 CAL 1,000 ML BOT FT SCH (19:30)
[2020-04-09] MEDS: ATORVASTATIN 20 MG TAB PO SCH (20:16)
[2020-04-09] MEDS ORDERED: POTASSIUM 25 MEQ EFFERV TAB PO ONE (21:00)
[2020-04-09] MEDS ORDERED: POTASSIUM 25 MEQ EFFERV TAB FT ONE (21:00)
[2020-04-10] MEDS: INSULIN -REGULAR HUMAN 50 UNIT/0.5 ML ML SQ SCH ×4 (05:17→23:05)
[2020-04-10] MEDS: PANTOPRAZOLE INJ 80 MG in NA CHLORIDE 0.9% 250 ML IV SCH ×2 (05:17→14:44)
[2020-04-10 06:01] LABS: Absolute Lymphocytes (CBC) 0.1 K/uL (0.7-4.9); Basophils % 0.3 % (0-1.3); Hematocrit 27.7 % (39.6-49.0); MPV 9.6 fL (7.6-11.3); RBC Red Blood Cell Count 3.02 M/uL (4.33-5.43)
[2020-04-10 06:33] LABS: Magnesium 2.2 mg/dL (1.8-2.4); Potassium 4.1 mmol/L (3.5-5.1)
[2020-04-10 07:12] LABS: C-Reactive Protein 43.1 mg/L (<3.00); Ferritin 830.3 ng/mL (26-388)
[2020-04-10] MEDS: FLUCONAZOLE 100 MG TAB PO SCH (08:12)
[2020-04-10] MEDS: VITAMIN D 1000 UNIT TAB PO SCH (08:12)
[2020-04-10] MEDS: ZINC SULFATE 220 MG CAP PO SCH (08:12)
[2020-04-10] MEDS: predniSONE 20 MG TAB PO SCH (08:12)
[2020-04-10] MEDS ORDERED: D50W 25 GM/50 ML SYRINGE IV PRN (08:44)
[2020-04-10] MEDS ORDERED: GLUCAGON 1 MG/VIAL IM PRN (08:44)
[2020-04-10] MEDS: INSULIN GLARGINE 100 UNITS/ML SQ SCH (09:12)
--- NOTE | 2020-04-10 11:47 | PN ---
Date of Progress Note: 04/10/2020 Subjective: The patient was seen this morning for followup. No new complaints or problems reported by nursing staff or the patient. He was sleeping, easily arousable, not in any distress. Objective: VITAL SIGNS: Reviewed. Intake, output records reviewed. HEENT: Unremarkable. LUNGS: Clear to auscultation, not in respiratory distress, on nasal cannula 1 L oxygen per minute, m aintaining adequate oxygenation. HEART: Heart sounds normal. ABDOMEN: Soft. Bowel sounds normal. No guarding, rigidity, tenderness, or distention. EXTREMITIES: Edema of all the 4 extremities unchanged. Laboratory Data: White count 10.3, hemoglobin 9.3, platelets 98. Sodium 141, potassium 4.1, chlorid e 106, bicarb 29, BUN 80, creatinine 1.09, glucose 206, ferritin 830, and CRP 43. Impression: 1.Acute respiratory failure with hypoxia. 2.COVID-19 infection. 3.COVID-19 pneumonia. 4.Anemia, due to acute blood loss. 5.Upper gastrointestinal bleeding. 6.Thrombocytopenia. 7.Anasarca. 8.Severe malnutrition. Plan: We will continue current nutritional support with Dobhoff feeding. He is tolerating that very well. Continue to follow with insurance actuary and drama teacher. We will repeat chest x-ray tomorrow morning. Start him on insulin 5 units of Lantus, subcutaneous injection daily, and continue sliding scale insulin. We will continue IV Protonix drip. The patient remains on Diflucan and prednisone 20 mg daily. We will see him tomor row for followup. DEISI/MODL Voice ID: [id number] Report ID: [id number]
[2020-04-10] MEDS: METOLAZONE 5 MG TABLET PO SCH (14:00)
[2020-04-10] MEDS ORDERED: FUROSEMIDE 40 MG/4 ML VIAL IV ONE (14:25)
--- NOTE | 2020-04-10 18:41 | PN ---
Date of Progress Note: 04/10/2020 Subjective: The patient was admitted with COVID pneumonia. The patient recovered. The patient had GI bleed, retroperitoneal hematoma. The patient being watched closely. The patient had anasarca, hypernatremia, p.r.n. diuresis. Physical Examination: Vital Signs: Blood pressure 118/51, pulse of 74, afebrile. The patient had urine output of 2400, negative of 300. Chest: Decreased air entry bilateral base. Heart: S1, S2. Systolic murmur. Abdomen: Soft, nontender. Extremities: +3 edema. Neurologic: Alert. Follows commands. No focality. Laboratory Data: WBC 10.3, H and H 9.3/27.7. Sodium 141, potassium 4.1, bicarb 29, BUN 80, started trending down, creatinine 1, GFR 65, calcium 7.4, magnesium of 2, ferritin 830. Current Medications: The patient on include; 1. Tube feeding. 2. Lorazepam. 3. Fluconazole. 4. Received single dose of metolazone yesterday. 5. Pantoprazole. 6. Hydrocodone. 7. Cholecalciferol. Assessment And Plan: 1. Acute kidney injury secondary to COVID nephropathy, recovered, resolved with still anasarca. We will p.r.n. Lasix diurese. The patient yesterday received metolazone. Today, we will give Lasix, then hopefully tomorrow we will give again metolazone. We are using the metolazone to establish more sodium diuresis as effect on the collecting tube. We will keep monitoring the patient closely. 2. Anemia secondary to gastrointestinal loss. Continue H and H. 3. Hypo/hypernatremia as above, p.r.n. diuresis. We will keep current free water intake. We will try to concentrate the medication. 4. Questionable of adrenal insufficiency, being managed by primary with tapering the prednisone. 5. COVID pneumonia, status post treatment. We will follow up with Pulmonary. 6. Hypoglycemia, recovered, resolved. time spent exam the patient face to face , place order , discussed with the nursing staff, discussing the case with other tractor driver teamster and accounting consultant including hospitalist 45 min. MAUDE Voice ID: [id number] Report ID: [id number] [facility]
[2020-04-10 18:45] LABS: Urine Appearance CLEAR; Urine Bilirubin NEGATIVE (NEG); Urine Blood 3+ (NEG); Urine Color YELLOW; Urine Glucose NEGATIVE (NEG); Urine Protein NEGATIVE (NEG)
[2020-04-10 18:59] LABS: Urine Microscopic Reflex ORDER UMIC
[2020-04-10 19:22] LABS: Urine Bacteria <20 /HPF (NONE SEEN); Urine RBC <5 /HPF (NONE SEEN); Urine Yeast PRESENT (NONE SEEN); Urine Yeast with Hyphae PRESENT
[2020-04-10] MEDS: HEPARIN 5000 UNIT/ML 1 ML VIAL SQ SCH (20:28)
[2020-04-10] MEDS: ATORVASTATIN 20 MG TAB PO SCH (20:28)
[2020-04-11] MEDS: PANTOPRAZOLE INJ 80 MG in NA CHLORIDE 0.9% 250 ML IV SCH ×3 (02:06→22:25)
[2020-04-11] MEDS: INSULIN -REGULAR HUMAN 50 UNIT/0.5 ML ML SQ SCH ×4 (05:20→18:14)
[2020-04-11 05:26] LABS: Absolute Lymphocytes (CBC) 0.1 K/uL (0.7-4.9); Basophils % 0.3 % (0-1.3); Lymphocytes % 0.9 % (15.3-44.8); MPV 9.3 fL (7.6-11.3); RBC Red Blood Cell Count 3.14 M/uL (4.33-5.43)
[2020-04-11 05:42] LABS: Ferritin 791.5 ng/mL (26-388); Magnesium 2.2 mg/dL (1.8-2.4)
[2020-04-11 05:43] LABS: C-Reactive Protein 28.4 mg/L (<3.00)
--- NOTE | 2020-04-11 08:40 | RAD REPORT ---
EXAM DESCRIPTION: RAD - Chest Single View - 04/11/2020 5:55 am CLINICAL HISTORY: covid pneumonia Chest pain. COMPARISON: Chest Single View dated 04/08/2020; Chest Single View dated 04/05/2020; Chest Single View da noah 04/04/2020; Chest Single View dated 04/03/2020 FINDINGS: Portable technique limits examination quality. Bilateral pulmonary interstitial lung infiltrates are present, stable since comparative study. The he art is mildly prominent size with aortic atherosclerosis. Right-sided PICC line has tip in the SVC. E nteric tube descends in the stomach. IMPRESSION: Stable chest noted since 04/08/2020 study.
[2020-04-11] MEDS: HEPARIN 5000 UNIT/ML 1 ML VIAL SQ SCH ×2 (09:00→21:31)
[2020-04-11] MEDS: ZINC SULFATE 220 MG CAP PO SCH (09:00)
[2020-04-11] MEDS: FLUCONAZOLE 100 MG TAB PO SCH (09:00)
[2020-04-11] MEDS: VITAMIN D 1000 UNIT TAB PO SCH (09:00)
[2020-04-11] MEDS: predniSONE 20 MG TAB PO SCH (09:00)
[2020-04-11] MEDS: HYDROCODONE/APAP 5/325 MG TAB PO PRN (09:24)
[2020-04-11] MEDS: INSULIN GLARGINE 100 UNITS/ML SQ SCH (09:40)
--- NOTE | 2020-04-11 11:37 | P.PN ---
Subjective Date of Service: 04/11/20 Chief Complaint: Respiratory failure Doing much better he is more alert responsive cooperative answering appropriately the denies declined on 1 L nasal cannula oxygen Review of Systems General: Weakness Respiratory: Shortness of Breath Physical Examination - Vital Signs Temperature: 97.4 F Blood Pressure: 117/60 Pulse: 82 Respirations: 16 Pulse Ox (%): 96 - Physical Exam General: Alert, Oriented x3 Respiratory: Clear to auscultation bilaterally, Diminished Cardiovascular: Normal S1 S2 Assessment & Plan - Problems (Diagnosis) (1) Acute respiratory failure due to severe acute respiratory syndrome coronavirus 2 (SARS-CoV-2) infection Current Visit: Yes Status: Acute Plan: Patient is doing much better more alert responsive cooperative hemoglobin now stable renal function has improved significantly vital signs stable patient is on low-dose prednisone continue with Diflucan
[2020-04-11] MEDS ORDERED: METOLAZONE 5 MG TABLET PO SCH (13:15)
[2020-04-11] MEDS ORDERED: D50W 25 GM/50 ML SYRINGE IV PRN (19:00)
[2020-04-11] MEDS ORDERED: D50W 25 GM/50 ML VIAL IV PRN (19:00)
--- NOTE | 2020-04-11 22:03 | PN ---
Date of Progress Note: 04/11/2020 Chief Complaint: Acute kidney injury. History Of Present Illness: The patient is admitted for COVID pneumonia. Renal function recovered. The patient was found to have GI bleed, retroperitoneal hematoma. The patient was treated for anasa rca and he is on p.r.n. diuretics. Review of Systems: Unobtainable. Physical Examination: Chest: Decreased air entry bilaterally at bases. Few crackles. Heart: S1, S2. Systolic murmur of 2/6 at left lower sternal border. Abdomen: Soft, benign. Extremities: 3+ edema. Laboratory Data: Sodium 141, potassium 4.9, bicarbonate 29, BUN 80, creatinine 1.0, calcium 7.4. Impression And Plan: 1.Acute kidney injury secondary to COVID nephropathy. Renal function recovered. The patient has fl uid overload, anasarca. Continue p.r.n. Lasix. The patient received metolazone, tolerated treatment . Plan is to monitor electrolytes. Adjust diuretics accordingly. 2.Hypo and hypernatremia. The patient will have diuretics and free water intake as needed. 3.COVID pneumonia, status post treatment. The patient will follow up with Pulmonology. 4.Anemia secondary to gastrointestinal loss. Continue to monitor H and H and blood transfusion. EB/MODL Voice ID: [id number] Report ID: [id number]
[2020-04-11] MEDS: GLUCERNA 1.2 CAL 1,000 ML BOT FT SCH (23:52)
[2020-04-12] MEDS: HYDROCODONE/APAP 5/325 MG TAB PO PRN ×3 (00:16→20:26)
[2020-04-12] MEDS: INSULIN -REGULAR HUMAN 50 UNIT/0.5 ML ML SQ SCH ×4 (00:17→16:46)
[2020-04-12 05:21] LABS: Absolute Lymphocytes (CBC) 0.1 K/uL (0.7-4.9); Basophils % 0.2 % (0-1.3); Hematocrit 28.2 % (39.6-49.0); Lymphocytes % 0.9 % (15.3-44.8); MPV 9.1 fL (7.6-11.3); RBC Red Blood Cell Count 3.06 M/uL (4.33-5.43)
[2020-04-12 05:43] LABS: C-Reactive Protein 43.2 mg/L (<3.00); Ferritin 741.1 ng/mL (26-388); Potassium 4.2 mmol/L (3.5-5.1)
--- NOTE | 2020-04-12 07:39 | PN ---
Date of Progress Note: 04/11/2020 Subjective: The patient was seen for followup in the morning in ICU, lying in bed, not in any distre ss, on nasal cannula oxygen at 1 L. Denies any complaints. Communicating lot better today than what he has done for this entire hospital stay. He is now speaking a few words to short sentence and no specific complaints reported by him. Objective: Vital Signs: Reviewed. HEENT: Unremarkable. Lungs: Clear to auscultation. Heart: Sounds normal. Abdomen: Soft. Bowel sounds normal. No guarding, rigidity, tenderness, or distention. Extremities: Edema of all the 4 extremities noted especially increased edema of the dorsum hands. Laboratory Data: White count 10.7, hemoglobin 9.5, platelets 101. Sodium 142, potassium 4, chloride 106, bicarb 31, BUN 76, creatinine 1.0, glucose 158, ferritin 791, CRP 28.40. Impression: 1.Upper gastrointestinal bleeding. 2.Acute blood loss anemia. 3.Anasarca. 4.COVID-19 infection. 5.COVID-19 pneumonia. 6.Acute respiratory failure with hypoxia. 7.Generalized weakness. 8.Debility. Plan: At this point, we will go ahead and continue current medication. Continue current tube feedin g. The patient is tolerating that very well. Continue to follow with dental receptionist and changer fixer . We will continue Protonix and I will see him tomorrow for followup. Physical therapy, occupational therapy, and speech therapy to continue to work with th e patient. DEISI/MODL Voice ID: [id number] Report ID: [id number]
[2020-04-12] MEDS: predniSONE 20 MG TAB PO SCH (08:25)
[2020-04-12] MEDS: VITAMIN D 1000 UNIT TAB PO SCH (08:25)
[2020-04-12] MEDS: INSULIN GLARGINE 100 UNITS/ML SQ SCH (08:25)
[2020-04-12] MEDS: FLUCONAZOLE 100 MG TAB PO SCH (08:25)
[2020-04-12] MEDS: HEPARIN 5000 UNIT/ML 1 ML VIAL SQ SCH ×2 (08:27→20:26)
[2020-04-12] MEDS: ZINC SULFATE 220 MG CAP PO SCH (08:27)
[2020-04-12] MEDS: PANTOPRAZOLE INJ 80 MG in NA CHLORIDE 0.9% 250 ML IV SCH ×2 (08:50→19:51)
--- NOTE | 2020-04-12 10:30 | PN ---
Date of Progress Note: 04/12/2020 Subjective: The patient was admitted with COVID pneumonia, respiratory failure, intubated, extubated. The patient had acute kidney injury, recovered, resolved. The patient had hypernatremia. GI bleed. Physical Examination: Vital Signs: Blood pressure 126/65, pulse of 84, afebrile. The patient had good urine output of 2300. The patient negative of 500. Chest: Decreased entry bilateral base. Heart: S1, S2. Systolic murmur. Abdomen: Soft, nontender. Extremities: +3 edema. Neuro: Alert. No focality. Laboratory Data: WBC 12.4, H and H 9.4/28.2. Sodium 142, potassium 4.2. Bicarb 30. BUN 72, trending down. Creatinine 1. Calcium 7.2. Current Medications: The patient is on; the patient received metolazone yesterday, fluconazole, zinc sulfate, pantoprazole, prednisone down to 20 mg, cholecalciferol and pantoprazole drip. Assessment And Plan: 1. Acute kidney injury secondary to COVID nephropathy, recovered, resolved. 2. Hypernatremia, currently stable. I am going to go ahead and give another dose of metolazone today. 3. Anasarca, secondary to malnourish. I am going to adjust his free water. We will continue 200 q.8 and we will increase his concentration to 70:30, and we will monitor the patient. Decrease the rate to 40 mL. 4. Gastrointestinal bleed. Continue current treatment. We will consider switching the pantoprazole to b.i.d. instead of a drip to decrease the fluid load. Follow up with GI and Primary. 5. COVID pneumonia, recovering, on tapering of prednisone. We will follow up with Pulmonary. Time spent discussing with the patient examined the patient's face to face, discuss the case with other oracle consultant and of what staff member placing order 45 min. MAUDE Voice ID: [id number] Report ID: [id number] MTDAlix
[2020-04-12] MEDS ORDERED: METOLAZONE 5 MG TABLET PO SCH (11:00)
[2020-04-12] MEDS: IPRATROPIUM BROM 0.5MG/2.5ML NEB SCH ×2 (14:35→20:30)
[2020-04-12] MEDS: ACETYLCYST 20% 4 ML VIAL IH SCH ×2 (14:35→20:30)
[2020-04-12] MEDS ORDERED: ALBUTEROL 2.5 MG/3 ML NEB SOL ONE (14:40)
[2020-04-12] MEDS ORDERED: ACETYLCYST 20% 800 MG/4 ML VIAL ONE (20:47)
[2020-04-13] MEDS: IPRATROPIUM BROM 0.5MG/2.5ML NEB SCH ×4 (02:00→20:00)
[2020-04-13 05:12] LABS: Absolute Lymphocytes (CBC) 0.1 K/uL (0.7-4.9); Basophils % 0.2 % (0-1.3); Hematocrit 27.9 % (39.6-49.0); Lymphocytes % 1.1 % (15.3-44.8); MPV 8.9 fL (7.6-11.3); RBC Red Blood Cell Count 3.02 M/uL (4.33-5.43)
[2020-04-13 05:43] LABS: C-Reactive Protein 84.1 mg/L (<3.00); Ferritin 697.3 ng/mL (26-388); Potassium 4.2 mmol/L (3.5-5.1)
[2020-04-13] MEDS: INSULIN -REGULAR HUMAN 50 UNIT/0.5 ML ML SQ SCH ×4 (06:07→17:15)
[2020-04-13] MEDS: PANTOPRAZOLE INJ 80 MG in NA CHLORIDE 0.9% 250 ML IV SCH ×3 (06:07→17:15)
[2020-04-13] MEDS: ACETYLCYST 20% 4 ML VIAL IH SCH ×3 (08:00→20:00)
[2020-04-13 08:38] LABS: Blood Morphology Comment NOT SEEN (NOT SEEN); Platelet Estimate DECR
[2020-04-13] MEDS: INSULIN GLARGINE 100 UNITS/ML SQ SCH (09:00)
--- NOTE | 2020-04-13 09:03 | PN ---
Date of Progress Note: 04/12/2020 Subjective: The patient was seen for followup in the morning. No new complaints or problems reporte d by nursing staff. He is lying in bed, not in any distress, on nasal cannula oxygen 1 L/minute. Hi s Gonzáles catheter was removed and he is able to void without any difficulty. Objective: Vital Signs: Reviewed. HEENT: Unremarkable. Lungs: Clear to auscultation. Heart: Sounds normal. Abdomen: Soft. Bowel sounds normal. No guarding, rigidity, tenderness, or distention. Extremities: Edema of all the 4 extremities present and bilateral dorsal hand edema is slightly bett er today than yesterday. Laboratory Data: White count 12.4, hemoglobin 9.4, platelets 95. Sodium 142, potassium 4.2, chlorid e 107, bicarb 30, BUN 72, creatinine 1.05, glucose 187, ferritin 741, CRP 43.2. Impression: 1.Acute blood loss anemia. 2.Upper gastrointestinal bleeding. 3.Diabetes mellitus. 4.COVID-19 infection. 5.COVID-19 pneumonia. 6.Acute respiratory failure with hypoxia. 7.Anasarca. 8.Generalized weakness. 9.Debility. Plan: The patient is stable at this point. We will continue current medications including oxygen [place] pplementation and current prednisone. We will start to reduce dose of prednisone probably starting t omorrow. Hemoglobin is stable at this point. Physical Therapy to continue to work with the patient. The patient's some swelling from dorsum hand to slightly better today with hand elevation and this was encouraged. I also advised the patient to move his hands and feet and exercise them as he can th ink about it off and on throughout the day as I have taught him. I will see him tomorrow for followu p. He is tolerating tube feeding very well and we will continue that along with sliding scale insuli n for diabetes management. DEISI/MODL Voice ID: [id number] Report ID: [id number]
[2020-04-13] MEDS: HEPARIN 5000 UNIT/ML 1 ML VIAL SQ SCH ×2 (09:06→22:02)
[2020-04-13] MEDS: FLUCONAZOLE 100 MG TAB PO SCH (09:06)
[2020-04-13] MEDS: predniSONE 10 MG TAB PO SCH (09:06)
[2020-04-13] MEDS: VITAMIN D 1000 UNIT TAB PO SCH (09:06)
[2020-04-13] MEDS: ZINC SULFATE 220 MG CAP PO SCH (09:06)
[2020-04-13] MEDS ORDERED: METOLAZONE 5 MG TABLET PO ONE (11:00)
--- NOTE | 2020-04-13 15:00 | PN ---
Date of Progress Note: 04/13/2020 Subjective: The patient was admitted with COVID pneumonia, respiratory failure, intubated, and extubated. The patient is maintaining on nasal cannula. We have been handling his fluid status. Kidney function has been improved. Physical Examination: Vital Signs: Blood pressure 109/57, pulse of 87. The patient had good urine output. Chest: Decreased air entry bilateral base. Heart: S1, S2. Systolic murmur. Abdomen: Soft, nontender. Extremities: +2 edema. Neurologic: Alert, oriented x3. No focal. Laboratory Data: WBC 10.8, H and H 9.1/27.9. Sodium 140, potassium 4.2, bicarb 27, BUN 65, creatinine 0.9, GFR of 77, calcium 7.3. Current Medications: The patient on are free water, fluconazole, Glucerna diluted, pantoprazole, hydrocodone, cholecalciferol. Assessment And Plan: 1. Acute kidney injury secondary to COVID nephropathy, recovered, resolved. 2. Over volume with hypernatremia. I am going to give another dose of metolazone today. We will decrease free water to 150 q.8 to minimize fluid and we will monitor the patient. 3. Hypertension, controlled, optimal. 4. COVID pneumonia as by Pulmonary and Primary. 5. Deconditioning. Continue PT/OT. 6. Diabetes as by primary. 7. Hypernatremia as above. We will adjust the free water. Time spent discussing with the patient examined the patient's face to face, discuss the case with other datastage consultant and of what staff member placing order 45 min [place] Voice ID: [id number] Report ID: [id number] MTDD
[2020-04-13] MEDS: HYDROCODONE/APAP 5/325 MG TAB PO PRN ×2 (16:54→22:09)
[2020-04-14] MEDS: IPRATROPIUM BROM 0.5MG/2.5ML NEB SCH ×4 (01:02→19:15)
[2020-04-14] MEDS: HYDROCODONE/APAP 5/325 MG TAB PO PRN ×2 (04:23→20:03)
[2020-04-14] MEDS: PANTOPRAZOLE INJ 80 MG in NA CHLORIDE 0.9% 250 ML IV SCH (04:31)
[2020-04-14 05:34] LABS: Absolute Lymphocytes (CBC) 0.1 K/uL (0.7-4.9); Basophils % 0.2 % (0-1.3); Hematocrit 27.4 % (39.6-49.0); Lymphocytes % 1.6 % (15.3-44.8); MPV 8.8 fL (7.6-11.3); RBC Red Blood Cell Count 2.98 M/uL (4.33-5.43)
[2020-04-14] MEDS: INSULIN -REGULAR HUMAN 50 UNIT/0.5 ML ML SQ SCH ×4 (06:00→16:49)
[2020-04-14 06:12] LABS: C-Reactive Protein 85.3 mg/L (<3.00); Potassium 3.8 mmol/L (3.5-5.1)
[2020-04-14] MEDS ORDERED: SODIUM CHLORIDE 0.9% 10ML INJ IV PRN (06:15)
--- NOTE | 2020-04-14 07:55 | PN ---
Date of Progress Note: 04/13/2020 Subjective: The patient was seen for followup. He was in ICU, lying in bed, on room air oxygen, juli ntaining adequate oxygen saturation. Has a Dobhoff tube and tolerating feeding well. Surgeon: Vital Signs: Reviewed. HEENT: Unremarkable. Lungs: Clear to auscultation. Heart: Sounds normal. Abdomen: Soft. Bowel sounds normal. No guarding, rigidity, tenderness, or distention. Extremities: Edema of all the 4 extremities present, but edema from bilateral dorsum hand is little better compared to 2 days ago. Laboratory Data: White count 10.8, hemoglobin 9.1, platelets 92. Sodium 140, potassium 4.2, chlorid e 108, bicarb 27, BUN 65, creatinine 0.94, glucose 209, ferritin 697. CRP 84.1. Impression: 1.Acute respiratory failure with hypoxia. 2.COVID-19 infection. 3.COVID-19 pneumonia. 4.Thrombocytopenia. 5.Anasarca. 6.Anemia. 7.Diabetes mellitus. Plan: We will continue current medications. The patient remains on prednisone 20 mg daily in [facility], today we will reduce dose to 10 mg daily. We will continue fluconazole. Continue his Protonix d rip. We will monitor blood work tomorrow and then decide about discontinuation of Protonix drip. Co segundo to follow up with continuous process machine operator. During the course of day today, speech therapist worked with the patient and started the patient on diet which he has tolerated well. The patient subsequently wa s transferred from ICU with current orders. I will see him tomorrow for followup. I did call the troy alex's son and details were discussed with him. We did start talking about discharge planning. The patient has significant generalized weakness and debility and he will require fpc facili ty placement. The patient's son was made aware of the fact that insurance company had denied request for long-term acute care facility placement, so he is agreeable to go to fpc facility pl acement. Our plan is possibly to discharge him on Saturday, which is 04/18/2020 and we will request [facility] Service consultation to assist with this placement. DEISI/MODL Voice ID: [id number] Report ID: [id number]
[2020-04-14] MEDS: ACETYLCYST 20% 4 ML VIAL IH SCH ×3 (08:45→19:15)
[2020-04-14] MEDS ORDERED: POTASSIUM CL SA 10 MEQ TAB PO ONE (09:00)
--- NOTE | 2020-04-14 09:06 | RAD REPORT ---
EXAM DESCRIPTION: RAD - Chest Single View - 04/14/2020 6:36 am CLINICAL HISTORY: covid pneumonia Chest pain. COMPARISON: Chest Single View dated 04/11/2020; Chest Single View dated 04/08/2020; Chest Single View da noah 04/05/2020; Chest Single View dated 04/04/2020 FINDINGS: Portable technique limits examination quality. Bilateral pulmonary opacities are again seen, mildly worsened on the left since comparative study. Th e heart is normal in size. Enteric tube descends in the stomach. IMPRESSION: Mild worsening in lung aeration is seen since comparative study, particularly involving the left lung.
[2020-04-14] MEDS: VITAMIN D 1000 UNIT TAB PO SCH (09:08)
[2020-04-14] MEDS: FLUCONAZOLE 100 MG TAB PO SCH (09:08)
[2020-04-14] MEDS: predniSONE 10 MG TAB PO SCH (09:09)
[2020-04-14] MEDS: ZINC SULFATE 220 MG CAP PO SCH (09:09)
[2020-04-14] MEDS: PANTOPRAZOLE 40 MG INJ IVP SCH (09:09)
[2020-04-14] MEDS: INSULIN GLARGINE 100 UNITS/ML SQ SCH (09:10)
[2020-04-14] MEDS: HEPARIN 5000 UNIT/ML 1 ML VIAL SQ SCH ×2 (09:14→20:03)
--- NOTE | 2020-04-14 10:55 | PN ---
Date of Progress Note: 04/14/2020 Subjective: The patient was admitted with COVID pneumonia, intubated, extubated. The patient had hypernatremia with anasarca with cautious diuresis. The patient's sodium has been stabilized. Swelling has been subsided. Objective: Vital Signs: Blood pressure 108/55, pulse of 84, afebrile. The patient had good urine output. Chest: Decreased entry bilateral base. Heart: S1, S2. Systolic murmur. Abdomen: Soft, nontender. Extremities: +1 edema, much better than before as the patient weight. Neurologic: Alert. follow commands. No focality. Weight for the patient; the patient down to 179. In the last 10 days, the patient lost almost 23 to 26 pounds. Current Medications: The patient on include: 1. Zinc sulfate. 2. Pantoprazole. 3. Prednisone down to 10 mg. 4. Vitamin D. 5. Heparin. Assessment And Plan: 1. Acute kidney injury secondary to COVID nephropathy, recovered, resolved. 2. Hypernatremia secondary to tubular injury secondary to go COVID, stable. 3. Anasarca secondary to malnourished. We will use p.r.n. metolazone. We will give another dose of metolazone today to establish negative balance. The patient lost good 27 pounds in the last 2 weeks. We will follow up. 4. Hypernatremia. We will keep adjusting his tube feeding and free water. Yesterday, we decreased the free water. We will continue to monitor. 5. Retroperitoneal hematoma, gastrointestinal bleed. Hemoglobin stable. We will follow up with the primary. Continue heparin. 6. COVID pneumonia, as by Pulmonary, recovering well. 7. Deconditioning. Continue PT, OT. Time spent discussing with the patient, examining the patient, exam [id number], placing order, discussing with staff and other consulting include including Cardiology and Primary 45 minutes. MAUDE Voice ID: [id number] Report ID: [id number] JOY
[2020-04-14] MEDS ORDERED: METOLAZONE 5 MG TABLET PO ONE (11:00)
[2020-04-14] MEDS: GLUCERNA 1.2 CAL 1,000 ML BOT RTH SCH (17:37)
[2020-04-15] MEDS: IPRATROPIUM BROM 0.5MG/2.5ML NEB SCH ×4 (01:40→20:05)
[2020-04-15 04:29] LABS: Potassium 4.2 mmol/L (3.5-5.1)
[2020-04-15] MEDS: INSULIN -REGULAR HUMAN 50 UNIT/0.5 ML ML SQ SCH ×3 (06:15→11:36)
--- NOTE | 2020-04-15 06:37 | PN ---
Date of Progress Note: 04/14/2020 Subjective: The patient was seen this morning for followup, lying in bed, not in distress. No new c omplaints or problems reported by him. Objective: Vital Signs: Reviewed. HEENT: Unremarkable. Lungs: Clear to auscultation. Heart: Sounds normal. Abdomen: Soft. Bowel sounds normal. No guarding, rigidity, tenderness, or distention. Extremities: Edema of all the 4 extremities present, unchanged from yesterday. Laboratory Data: White count 8.8, hemoglobin 9, platelets 96, sodium 141, potassium 3.8, chloride 10 7, bicarb 29, BUN 56, creatinine 1, glucose 194, ferritin 746. CRP 85. Chest x-ray results reviewed . Impression: 1.COVID-19 infection. 2.COVID-19 pneumonia. 3.Acute respiratory failure with hypoxia. 4.Anemia. 5.Thrombocytopenia. 6.Upper gastrointestinal bleed. 7.Acute blood loss anemia. 8.Diabetes mellitus. 9.Generalized weakness. 10.Anasarca. Plan: We will go ahead and continue current fluconazole, heparin for DVT prophylaxis at 5000 unit [place]adows bcutaneous injection every 12 hours. The patient is on prednisone now 10 mg daily. We will continue that and he is on continuous IV Protonix drip. We will change that to once a day IV Protonix instea d of continuous drip. Monitor blood work. Physical therapy, speech therapy, occupational therapy to continue to work with the patient. The patient has significant generalized weakness and he is able to raise his both hands about 20-30 degrees against gravity. Besides that, he is not able to do anyt aldo else on verbal commands. His severe debility and generalized weakness will require prolonged th erapy which will be provided at a skilled facility. He is not going to be able to qualify for rehab placement because of inability to participate for 3 hours of day-to-day rehab therapy considering his significant weakness and debility. Social Service is assisting us with placement. We will see him tomorrow for followup. DEISI/MODL Voice ID: [id number] Report ID: [id number]
[2020-04-15] MEDS: ACETYLCYST 20% 4 ML VIAL IH SCH ×3 (07:39→20:05)
[2020-04-15] MEDS: VITAMIN D 1000 UNIT TAB PO SCH (09:22)
[2020-04-15] MEDS: FLUCONAZOLE 100 MG TAB PO SCH (09:22)
[2020-04-15] MEDS: PANTOPRAZOLE 40 MG INJ IVP SCH (09:23)
[2020-04-15] MEDS: predniSONE 10 MG TAB PO SCH (09:23)
[2020-04-15] MEDS: HEPARIN 5000 UNIT/ML 1 ML VIAL SQ SCH ×2 (09:24→21:23)
[2020-04-15] MEDS: ZINC SULFATE 220 MG CAP PO SCH (09:24)
[2020-04-15] MEDS: INSULIN GLARGINE 100 UNITS/ML SQ SCH (09:25)
--- NOTE | 2020-04-15 12:47 | P.PN ---
Subjective Date of Service: 04/15/20 Chief Complaint: Respiratory failure An 80 y/o man , admitted with SOB , tested Positive for COVID , required intubation pt had ALEXANDR , with disproportionate bun/Cr , pt was extubated then re intubatd , he also developed Lt Psoas hematoma now saturation >95% on RA, he is on NG tube feeding Today no change in clinical status will start daily HCTZ LE edema improving, still have significant upper extremity edema ROS unable to provide Physical exam general: awake, alert Neck; Supple, No elevated JVD hear: RRR, normal S1,2 no murmur or rub Chest: CTAB, no rales or wheezes Abdomen: Soft , Nt Extremities +2 upper extremity edema A/P ALEXANDR likely multifactroial , including OVID19 resolved renal dose meds acute on chronic anemia due to Psoas hematoma H/H stable now transfuse to keep Hb >7.0 Edema lasix as needed High Protein Tube feeding COVID 19 pneumonia on room air now edema will add HCTZ prognosis guarded total time spent 25 min Physical Examination - Vital Signs Temperature: 98.6 F Blood Pressure: 107/58 Pulse: 96 Respirations: 24 Pulse Ox (%): 95
--- NOTE | 2020-04-15 13:13 | PN ---
Date of Progress Note: 04/15/2020 Subjective: The patient was seen this morning for followup. No new complaints or problems reported by the patient. Lying in bed, not in distress. Has Dobhoff tube for feeding purpose and he has very poor intake of food. Objective: Vital Signs: Reviewed. HEENT: Unremarkable. Lungs: Bilateral good equal entry. No wheezing, but presence of some rhonchi noted. Heart: Sounds normal. Abdomen: Soft. Bowel sounds normal. No guarding, rigidity, tenderness, or distention. Extremities: Edema of all the 4 extremities present and mostly unchanged. Laboratory Data: Sodium 141, potassium 4.2, chloride 106, bicarb 29, BUN 55, creatinine 0.94, glucos e 206. Impression: 1.COVID-19 infection. 2.COVID-19 pneumonia. 3.Acute respiratory failure with hypoxia. 4.Generalized weakness. 5.Debility. 6.Diabetes mellitus. 7.Anemia. Plan: We will go ahead and continue current Dobhoff tube feeding. He is tolerating that very well. Continue current insulin for diabetes management. The patient is on prednisone 10 mg daily. We diego l continue that and continue IV Protonix daily. The patient's oral intake of food is very minimum an d at this point, we will need to continue his nutritional support with Dobbhoff feeding. We would li ke to remove that Dobbhoff tube as soon as possible, but that will happen when he starts to get adequate amount of nutrition. DEISI/MODL Voice ID: [id number] Report ID: [id number]
[2020-04-15 14:04] LABS: Absolute Lymphocytes (CBC) 0.2 K/uL (0.7-4.9); Basophils % 0.1 % (0-1.3); Hematocrit 29.2 % (39.6-49.0); MPV 8.4 fL (7.6-11.3); RBC Red Blood Cell Count 3.16 M/uL (4.33-5.43)
[2020-04-15 14:14] LABS: Albumin 1.3 g/dL (3.4-5.0); Bilirubin Total 0.6 mg/dL (0.2-1.0)
[2020-04-15 14:47] LABS: Blood Morphology Comment NOT SEEN (NOT SEEN); Platelet Estimate DECR; White Blood Cell Scan OK (OK)
[2020-04-15] MEDS: GLUCERNA 1.2 CAL 1,000 ML BOT RTH SCH (16:38)
[2020-04-15] MEDS ORDERED: ACETYLCYST 6,000 MG/30 ML VIAL ONE (20:15)
[2020-04-16] MEDS: IPRATROPIUM BROM 0.5MG/2.5ML NEB SCH ×4 (01:50→19:15)
[2020-04-16] MEDS: ACETYLCYST 20% 4 ML VIAL IH SCH ×3 (07:21→19:15)
[2020-04-16] MEDS: INSULIN -REGULAR HUMAN 50 UNIT/0.5 ML ML SQ SCH ×3 (08:00→17:22)
[2020-04-16] MEDS: INSULIN GLARGINE 100 UNITS/ML SQ SCH (09:03)
[2020-04-16] MEDS: predniSONE 10 MG TAB PO SCH (09:05)
[2020-04-16] MEDS: ZINC SULFATE 220 MG CAP PO SCH (09:05)
[2020-04-16] MEDS: hydroCHLOROthiazide 12.5 MG CAP PO SCH (09:05)
[2020-04-16] MEDS: PANTOPRAZOLE 40 MG INJ IVP SCH (09:05)
[2020-04-16] MEDS: VITAMIN D 1000 UNIT TAB PO SCH (09:06)
[2020-04-16] MEDS: HEPARIN 5000 UNIT/ML 1 ML VIAL SQ SCH ×2 (09:06→21:48)
[2020-04-16] MEDS: FLUCONAZOLE 100 MG TAB PO SCH (09:08)
--- NOTE | 2020-04-16 14:08 | P.PN ---
Subjective Date of Service: 04/16/20 Chief Complaint: Respiratory failure An 80 y/o man , admitted with SOB , tested Positive for COVID , required intubation pt had ALEXANDR , with disproportionate bun/Cr , pt was extubated then re intubatd , he also developed Lt Psoas hematoma now saturation >95% on RA, he is on NG tube feeding Today no change in clinical status cont HCTZ cont tube feeding ROS unable to provide Physical exam general: awake, alert Neck; Supple, No elevated JVD hear: RRR, normal S1,2 no murmur or rub Chest: CTAB, no rales or wheezes Abdomen: Soft , Nt Extremities +2 upper extremity edema A/P ALEXANDR likely multifactroial , including OVID19 resolved renal dose meds acute on chronic anemia due to Psoas hematoma H/H stable now transfuse to keep Hb >7.0 Edema lasix as needed High Protein Tube feeding COVID 19 pneumonia on room air now edema will add HCTZ prognosis guarded total time spent 25 min Physical Examination - Vital Signs Temperature: 98.8 F Blood Pressure: 132/64 Pulse: 81 Respirations: 24 Pulse Ox (%): 92
--- NOTE | 2020-04-16 16:11 | RAD REPORT ---
EXAM DESCRIPTION: RAD - Abdomen 1 View (KUB) - 04/16/2020 4:01 pm CLINICAL HISTORY: dobhoff Pain COMPARISON: Abdomen 1 View (KUB) dated 03/25/2020; Abdomen 1 View (KUB) dated 03/25/2020; Abdomen 1 Vi ew (KUB) dated 03/24/2020; Abdomen 1 View (KUB) dated 03/24/2020 FINDINGS: Tip of the enteric tube is to the left of the thoracic spine. This is probably within the distal esophagus. A less likely possibility would be that it is within the tracheobronchial tree medi ally if there is significant resistance present upon attempts to advance.
--- NOTE | 2020-04-16 17:54 | RAD REPORT ---
EXAM DESCRIPTION: RAD - Abdomen 1 View (KUB) - 04/16/2020 5:35 pm CLINICAL HISTORY: dobhoff Pain COMPARISON: Abdomen 1 View (KUB) dated 04/16/2020; Abdomen 1 View (KUB) dated 03/25/2020; Abdomen 1 Vi ew (KUB) dated 03/25/2020; Abdomen 1 View (KUB) dated 03/24/2020 FINDINGS: Tip of the enteric tube is in the stomach.
--- NOTE | 2020-04-16 19:30 | PN ---
Date of Progress Note: 04/16/2020 Subjective: The patient was seen today for followup. He was lying in bed, not in distress. Prior t o my arrival, he had removed his Dobhoff tube. Nurse was advised to replace the Dobbhoff tube. Objective: Vital Signs: Reviewed. HEENT: Unremarkable. Lungs: Bilateral equal air entry. No wheezing. No rales. Heart: Sounds normal. Abdomen: Soft. Bowel sounds normal. No guarding, rigidity, tenderness, distention. Extremities: Edema of all the 4 extremities present, but hand edema is somewhat better compared to b efore. Impression: 1.COVID-19 infection. 2.COVID-19 pneumonia. 3.Acute respiratory failure with hypoxia. 4.Generalized weakness. 5.Debility. 6.Anasarca. 7.Diabetes mellitus. Plan: We will go ahead and replace Dobhoff tube, get x-ray done once position is verified, then we w ill restart his Dobbhoff tube feeding. The patient has very poor intake of oral nutrition. He just takes few sips or few bites. After that, he does not eat or drink anything. So, we will contact the patient's son and discuss with him regarding PEG tube placement and we will plan that for next week if family is in agreement. Meanwhile, the patient remains on fluconazole, heparin 5000 units every 1 2 hours subcutaneous injection, and prednisone 10 mg daily. All these medications will be continued. We will continue IV Protonix 40 mg IV daily. Today, the patient did go into atrial fibrillation and nurse was advised to notify fashion styling intern for further recommendation on this. I will see him tomorrow for followup. DEISI/MODL Voice ID: [id number] Report ID: [id number]
[2020-04-17] MEDS: IPRATROPIUM BROM 0.5MG/2.5ML NEB SCH ×4 (01:40→19:40)
[2020-04-17] MEDS: INSULIN -REGULAR HUMAN 50 UNIT/0.5 ML ML SQ SCH ×5 (06:00→18:00)
[2020-04-17] MEDS: ACETYLCYST 20% 4 ML VIAL IH SCH ×3 (07:30→19:40)
[2020-04-17] MEDS: predniSONE 10 MG TAB PO SCH (09:00)
[2020-04-17] MEDS: ZINC SULFATE 220 MG CAP PO SCH (09:16)
[2020-04-17] MEDS: PANTOPRAZOLE 40 MG INJ IVP SCH (09:17)
[2020-04-17] MEDS: FLUCONAZOLE 100 MG TAB PO SCH (09:17)
[2020-04-17] MEDS: HEPARIN 5000 UNIT/ML 1 ML VIAL SQ SCH ×2 (09:17→22:04)
[2020-04-17] MEDS: INSULIN GLARGINE 100 UNITS/ML SQ SCH (09:17)
[2020-04-17] MEDS: hydroCHLOROthiazide 12.5 MG CAP PO SCH (09:17)
[2020-04-17] MEDS: VITAMIN D 1000 UNIT TAB PO SCH (09:18)
--- NOTE | 2020-04-17 09:55 | P.PN ---
Subjective Date of Service: 04/17/20 Chief Complaint: Respiratory failure An 80 y/o man , admitted with SOB , tested Positive for COVID , required intubation pt had ALEXANDR , with disproportionate bun/Cr , pt was extubated then re intubatd , he also developed Lt Psoas hematoma now saturation >95% on RA, he is on NG tube feeding Today no change in clinical status cont HCTZ pulled NG tube Po feeding trial today , if feels then might benefit from PEG tube Physical exam general: awake, alert Neck; Supple, No elevated JVD hear: RRR, normal S1,2 no murmur or rub Chest: CTAB, no rales or wheezes Abdomen: Soft , Nt Extremities +2 upper extremity edema A/P ALEXANDR likely multifactroial , including OVID19 resolved renal dose meds acute on chronic anemia due to Psoas hematoma H/H stable now transfuse to keep Hb >7.0 Edema lasix as needed High Protein Tube feeding COVID 19 pneumonia on room air now edema will add HCTZ prognosis guarded total time spent 25 min Physical Examination - Vital Signs Temperature: 97.9 F Blood Pressure: 123/59 Pulse: 85 Respirations: 17 Pulse Ox (%): 93
[2020-04-17 10:02] LABS: Absolute Lymphocytes (CBC) 0.2 K/uL (0.7-4.9); Basophils % 0.4 % (0-1.3); Hematocrit 26.4 % (39.6-49.0); Lymphocytes % 3.4 % (15.3-44.8); MPV 8.2 fL (7.6-11.3); RBC Red Blood Cell Count 2.88 M/uL (4.33-5.43)
[2020-04-17 10:36] LABS: BUN Blood Urea Nitrogen 54 mg/dL (7-18); Bicarbonate 26 mmol/L (21-32); Ferritin 682.3 ng/mL (26-388); Glucose Level 159 mg/dL (74-106); Magnesium 1.9 mg/dL (1.8-2.4); Potassium 3.8 mmol/L (3.5-5.1); Sodium Level 141 mmol/L (136-145)
--- NOTE | 2020-04-17 10:41 | RAD REPORT ---
EXAM DESCRIPTION: Ludwig Single View04/17/2020 9:33 am CLINICAL HISTORY: Chest pain COMPARISON: April 14 FINDINGS: Mild to moderate improvement in the left and no significant change in the right pulmonary opacities likely pneumonia Left volume loss unchanged. Heart is normal size. PICC line in place
[2020-04-17] MEDS: D5 0.45 NS 1,000 ML IV SCH (10:55)
--- NOTE | 2020-04-17 12:22 | PN ---
Date of Progress Note: 04/17/2020 Subjective: The patient was seen this morning for followup. He removed his Dobhoff tube once again this morning. He had removed his Dobhoff tube yesterday, which was reinserted and this morning he re moved it and refused nursing staff to reinsert another tube. His appetite is very poor. He only eat s 2-3 bites of food. After that, he does not eat anymore. When I saw him this morning, he was on ro om air, maintaining adequate oxygenation, not in any distress at all. I talked to him about lino ce of nutritional support and we discussed about PEG tube placement and he is agreeable. Dr. Diamond ramon from [facility] is contaminated land consultant and I will communicate with him regarding this request for PEG tube plac ement. I will also communicate with the patient's son regarding this. Objective: Vital Signs: Reviewed. HEENT: Unremarkable. Lungs: Clear to auscultation. Heart: Sounds normal. Abdomen: Soft. Bowel sounds normal. No guarding, rigidity, tenderness, or distention. Extremities: Edema of all the 4 extremities present, but better than before. Impression: 1.Acute respiratory failure. 2.COVID-19 infection. 3.COVID-19 pneumonia. 4.Generalized weakness. 5.Debility. 6.Anemia. 7.Failure to thrive. Plan: The patient needs nutritional support. He has very poor intake of oral food and liquids. He needs some form of assistance and Dobhoff tube. He keeps taking it out, and on the floor where he is , I was informed by nursing staff that the hospital will not allow any restraints to be in place. Lo ng-term solution for his nutritional support will be PEG tube placement, which I have recommended to the patient. He is agreeable and we will request a quantitative researcher, Dr. Chavez for this. I hav e communicated with Dr. Galicia, pharmacy tech customer service and he has given me his okay for the patient to proce ed with the PEG tube placement. Meanwhile, we will go ahead and give him IV fluid D5 half normal jaylen ine NS at 50 cc/hour. Continue the patient's prednisone, but we will reduce dose from 10 mg to 5 mg daily and continue current heparin 5000 units every 12 hours and other current medications. We will see him tomorrow. DEISI/MODL Voice ID: [id number] Report ID: [id number]
[2020-04-17] MEDS: FLUCONAZOLE 200mg IVPB 200 MG/100 ML BAG IV SCH (15:36)
[2020-04-17] MEDS ORDERED: KCL 20 MEQ/100 mL IVPB 20 MEQ/100 ML BAG IV ONE (19:00)
[2020-04-18] MEDS: IPRATROPIUM BROM 0.5MG/2.5ML NEB SCH ×4 (02:10→19:30)
[2020-04-18] MEDS: INSULIN -REGULAR HUMAN 50 UNIT/0.5 ML ML SQ SCH ×5 (06:00→21:37)
[2020-04-18 06:18] LABS: Potassium 3.8 mmol/L (3.5-5.1)
[2020-04-18] MEDS: ACETYLCYST 20% 4 ML VIAL IH SCH ×3 (07:38→19:30)
[2020-04-18] MEDS: D5 0.45 NS 1,000 ML IV SCH (08:17)
[2020-04-18] MEDS: VITAMIN D 1000 UNIT TAB PO SCH (08:17)
[2020-04-18] MEDS: PANTOPRAZOLE 40 MG INJ IVP SCH (08:17)
[2020-04-18] MEDS: hydroCHLOROthiazide 12.5 MG CAP PO SCH (08:18)
[2020-04-18] MEDS: HEPARIN 5000 UNIT/ML 1 ML VIAL SQ SCH ×2 (08:18→21:36)
[2020-04-18] MEDS: INSULIN GLARGINE 100 UNITS/ML SQ SCH (08:18)
[2020-04-18] MEDS: predniSONE 5 MG TAB PO SCH (08:18)
[2020-04-18] MEDS: ZINC SULFATE 220 MG CAP PO SCH (08:18)
[2020-04-18] MEDS ORDERED: KCL 20 MEQ/100 mL IVPB 20 MEQ/100 ML BAG IV SCH (12:00)
[2020-04-18] MEDS ORDERED: POTASSIUM CL SA 10 MEQ TAB PO ONE (12:00)
[2020-04-18] MEDS: FLUCONAZOLE 200mg IVPB 200 MG/100 ML BAG IV SCH (14:51)
[2020-04-18] MEDS: ENSURE HIGH PROTEIN 237 ML CAN PO SCH (21:34)
[2020-04-19] MEDS: IPRATROPIUM BROM 0.5MG/2.5ML NEB SCH ×4 (01:43→19:55)
[2020-04-19] MEDS: D5 0.45 NS 1,000 ML IV SCH ×2 (03:00→10:59)
[2020-04-19 07:01] LABS: Absolute Lymphocytes (CBC) 0.3 K/uL (0.7-4.9); Basophils % 0.6 % (0-1.3); Hematocrit 26.7 % (39.6-49.0); Lymphocytes % 4.4 % (15.3-44.8); MPV 8.7 fL (7.6-11.3); RBC Red Blood Cell Count 2.91 M/uL (4.33-5.43)
[2020-04-19 07:10] LABS: BUN Blood Urea Nitrogen 40 mg/dL (7-18); Bicarbonate 25 mmol/L (21-32); Glucose Level 243 mg/dL (74-106); Magnesium 1.9 mg/dL (1.8-2.4); Potassium 3.4 mmol/L (3.5-5.1); Sodium Level 142 mmol/L (136-145)
[2020-04-19] MEDS: INSULIN -REGULAR HUMAN 50 UNIT/0.5 ML ML SQ SCH ×5 (07:30→21:00)
[2020-04-19] MEDS: ACETYLCYST 20% 4 ML VIAL IH SCH ×3 (07:38→19:55)
[2020-04-19 07:58] LABS: Blood Morphology Comment NOT SEEN (NOT SEEN); Platelet Estimate DECR; White Blood Cell Scan OK (OK)
[2020-04-19] MEDS: PANTOPRAZOLE 40 MG INJ IVP SCH (08:51)
[2020-04-19] MEDS: hydroCHLOROthiazide 12.5 MG CAP PO SCH (08:51)
[2020-04-19] MEDS: ZINC SULFATE 220 MG CAP PO SCH (08:52)
[2020-04-19] MEDS: INSULIN GLARGINE 100 UNITS/ML SQ SCH (08:53)
[2020-04-19] MEDS: predniSONE 5 MG TAB PO SCH (08:53)
[2020-04-19] MEDS: HEPARIN 5000 UNIT/ML 1 ML VIAL SQ SCH ×2 (08:54→21:00)
[2020-04-19] MEDS: ENSURE HIGH PROTEIN 237 ML CAN PO SCH ×4 (08:54→21:00)
[2020-04-19] MEDS: KCL 20 MEQ/100 mL IVPB 20 MEQ/100 ML BAG IV SCH ×2 (10:44→12:54)
[2020-04-19] MEDS: FLUCONAZOLE 200mg IVPB 200 MG/100 ML BAG IV SCH (15:31)
--- NOTE | 2020-04-19 22:43 | PN ---
Date of Progress Note: 04/18/2020 Subjective: The patient was seen for followup via tele visit. He denied any new complaints. This t ham visit included audio component only. Because of technical difficulty, we were not able to get au abhinav and video component. No new complaints or problems reported by the patient. Objective: Vital signs reviewed. Impression: 1.Acute respiratory failure with hypoxia. 2.COVID-19 infection. 3.COVID-19 pneumonia. 4.Failure to thrive. 5.Anemia. Plan: We will continue current medication, continue current IV fluid. The patient's oral intake of food is very minimum and he was encouraged to drink the nutritional supplement, and we are waiting fo r PEG tube placement to be done this week. Continue current steroid. The patient is maintaining simona quate oxygenation on room air. I will see him tomorrow for followup. We will repeat blood work eun rrow. DEISI/MODL Voice ID: [id number] Report ID: [id number]
[2020-04-20] MEDS: IPRATROPIUM BROM 0.5MG/2.5ML NEB SCH ×4 (01:58→19:30)
[2020-04-20] MEDS ORDERED: KCL 20 MEQ/100 mL IVPB 20 MEQ/100 ML BAG IV SCH ×2 (03:00→12:00)
[2020-04-20] MEDS: D5 0.45 NS 1,000 ML IV SCH (03:40)
[2020-04-20] MEDS: INSULIN -REGULAR HUMAN 50 UNIT/0.5 ML ML SQ SCH ×3 (07:30→16:49)
[2020-04-20] MEDS: ACETYLCYST 20% 4 ML VIAL IH SCH ×3 (07:34→20:00)
[2020-04-20 07:38] LABS: BUN Blood Urea Nitrogen 37 mg/dL (7-18); Bicarbonate 25 mmol/L (21-32); Glucose Level 176 mg/dL (74-106); Potassium 3.8 mmol/L (3.5-5.1); Sodium Level 144 mmol/L (136-145)
[2020-04-20] MEDS: ENSURE HIGH PROTEIN 237 ML CAN PO SCH ×3 (09:00→20:23)
[2020-04-20] MEDS: HEPARIN 5000 UNIT/ML 1 ML VIAL SQ SCH (09:00)
[2020-04-20] MEDS: INSULIN GLARGINE 100 UNITS/ML SQ SCH (09:00)
[2020-04-20] MEDS: PANTOPRAZOLE 40 MG INJ IVP SCH (09:08)
[2020-04-20] MEDS: hydroCHLOROthiazide 12.5 MG CAP PO SCH (09:08)
[2020-04-20] MEDS: ZINC SULFATE 220 MG CAP PO SCH (09:08)
[2020-04-20] MEDS: predniSONE 5 MG TAB PO SCH (09:08)
--- NOTE | 2020-04-20 11:28 | PN ---
Date of Progress Note: 04/19/2020 Subjective: The patient was seen this morning for followup. No new complaints or problems reported by the patient. Lying in bed, not in distress. Objective: Vital Signs: Reviewed. HEENT: Unremarkable. Lungs: Clear to auscultation. Heart: Sounds normal. Abdomen: Soft. Bowel sounds normal. No guarding, rigidity, tenderness, or distention. Extremities: Edema of all the 4 extremities present. Laboratory Data: White count 6.7, hemoglobin 8.8, platelets 96. Sodium 142, potassium 3.4, chloride 108, bicarb 25, BUN 40, creatinine 0.80, glucose 243, magnesium 1.9. Impression: 1.COVID-19 infection. 2.COVID-19 pneumonia. 3.Acute respiratory failure with hypoxia. 4.Sepsis, organism yeast. Plan: We will continue current IV Diflucan that the patient is on. The patient's oral intake of claudia d is extremely poor and we are waiting on PEG tube placement. Meanwhile, we will continue current me dications, continue prednisone which is 5 mg daily, and we will see him tomorrow for followup. DEISI/MODL Voice ID: [id number] Report ID: [id number]
[2020-04-20] MEDS: NA CHLORIDE 0.9% 1,000 ML ONE ×2 (12:20→12:22)
[2020-04-20] MEDS: CEFAZOLIN/SWI 1gm 1 GM/10 ML SYR ONE ×2 (12:40→12:42)
[2020-04-20] MEDS ORDERED: propofoL 200 MG/20 ML VIAL IV ONE (12:49)
[2020-04-20] MEDS ORDERED: LIDOCAINE 1% MPF 5 ML VIAL ONE (12:49)
--- NOTE | 2020-04-20 13:14 | ENDO RPT ---
[address], [address] EGD WITH PEG PROCEDURE REPORT EXAM DATE: 04/20/2020 PATIENT NAME: Pavel Roberts MR #: [id number] BIRTHDATE: 1940 ATTENDING: Torsten Ornelas Dr STATUS: inpatient ANALYTICS DEVELOPER: Abby Guevara RN and Alyson Toussaint RN INDICATIONS: The patient is a 80 yr old Male here for an EGD with PEG due to protein-calorie malnutrition, albumin 1.3, failure to thrive PROCEDURE PERFORMED: EGD-PEG EGD with biopsy MEDICATIONS: Per Anesthesia. TOPICAL ANESTHETIC: none CONSENT: The patient understands the risks and benefits of the procedure and understands that these risks include, but are not limited to: sedation, allergic reaction, infection, perforation and/or bleeding. Alternative means of evaluation and treatment include, among others: physical exam, x-rays, and/or surgical intervention. The patient elects to proceed with this endoscopic procedure. DESCRIPTION OF PROCEDURE: During intra-op preparation period all mechanical medical equipment was checked for proper function. Hand hygiene and appropriate measures for infection prevention was taken. After the risks, benefits and alternatives of the procedure were thoroughly explained, Informed consent was verified, confirmed and timeout was successfully executed by the treatment team. The patient was anesthetized with topical anesthesia and the EG-[id number] ([id number]) endoscope was introduced through the mouth and advanced to the second portion of the duodenum. The instrument was slowly withdrawn as the mucosa was fully examined. A small hiatal hernia was found. Moderate atrophic gastritis was found in the total stomach, s/p biopsies. Streaks of fresh heme were found at the angulus. The stomach was then inflated with air, and by a combination of transillumination and manual palpation, the site for the gastrostomy tube placement was selected and marked on the anterior abdominal wall. The skin of the anterior abdomen was surgically prepped and draped with sterile towels. Utilizing strict sterile technique, the selected site was then anesthetized with 1% xylocaine by injection into the skin and subcutaneous tissue. A 1 cm incision was made through the skin and subcutaneous tissue, and the needle/cannula assembly was then passed through the abdominal wall and through the anterior wall of the stomach, maintaining visualization with the endoscope. A snare device previously placed through the instrument channel was then opened and placed around the cannula, the needle was removed, and the insertion wire was passed through the cannula and into the stomach lumen. The snare was then loosened from the cannula, and repositioned to snare the insertion wire. The snare was then pulled up to the endoscope distal tip, and the scope was then withdrawn bringing with it the snare and insertion wire. The insertion wire was then released from the snare, and the PEG PUSH gastrostomy tube placed over the guidewire. Using the push technique, the tube was then pushed into place over the insertion wire at the abdominal wall end. The tube insertion site was then cleansed once again, and the external bolster was placed over the tube to secure it to the abdominal wall. A sterile dressing was then applied, and the procedure terminated. Retroflexed views revealed a small hiatal hernia. The gastroscope was then slowly withdrawn and removed. ADVERSE EVENT: There were no complications. IMPRESSIONS: 1. Status post 20 Fr percutaneous endoscopic gastrostomy 2. Small hiatal hernia 3. Moderate atrophic gastritis in the total stomach, s/p biopsies 4. Streaks of fresh heme at the angulus - hemorrhagic gastritis RECOMMENDATIONS: 1. await biopsy results 2. acid suppression therapy 3. begin PEG use in 3 hours REPEAT EXAM: Torsten Ornelas Dr eSigned: Torsten Ornelas Dr 04/20/2020 1:14 PM cc: Salo Britton CPT CODES: ICD9 CODES: PATIENT NAME: Pavel Roberts MR#: [id number]
--- NOTE | 2020-04-20 13:58 | PN ---
Date of Progress Note: 04/20/2020 Subjective: The patient was seen this morning for followup. He was lying in bed, not in distress. Objective: Vital Signs: Reviewed. HEENT: Unremarkable. Lungs: Clear to auscultation. Heart: Sounds normal. Abdomen: Soft. Bowel sounds normal. No guarding, rigidity, tenderness, distention. Extremities: Edema remains unchanged. Laboratory Data: Sodium 144, potassium 3.8, chloride 110, bicarb 25, BUN 27, creatinine 0.76, glucose 176. Impression: 1. COVID-19 infection. 2. COVID-19 pneumonia. 3. Acute respiratory failure with hypoxia, resolved. 4. Generalized weakness. 5. Anasarca. 6. Failure to thrive. Plan: We will continue current medications. The patient will have PEG tube placement procedure today and Dr. Ornelas is available today for this procedure. Details were discussed with him. Details were also discussed with the patient. We will continue him on current medications. DEISI/MODL Voice ID: [id number] Report ID: [id number] JOY
[2020-04-20] MEDS: FLUCONAZOLE 200mg IVPB 200 MG/100 ML BAG IV SCH (14:52)
[2020-04-20] MEDS ORDERED: D5NS KCL 20MEQ 20 MEQ/1,000 ML BAG IV SCH (16:00)
[2020-04-20] MEDS ORDERED: INSULIN -REGULAR HUMAN 50 UNIT/0.5 ML ML SQ SCH (16:00)
--- NOTE | 2020-04-20 16:28 | PN ---
Date of Progress Note: 04/20/2020 Subjective: The patient was admitted with acute kidney injury, COVID pneumonia. The patient started having acute kidney injury, recovering, resolved. Physical Examination: Vital Signs: Blood pressure 109/49, pulse of 80, afebrile. The patient had urine output of 850. Chest: Decreased air entry bilateral. Heart: S1, S2. Systolic murmur. Abdomen: Soft, nontender. Extremities: +2 edema. Neuro: Alert. No focality. Laboratory Data: WBC 6.7, H and H 8.8/26.7. Sodium 144, potassium 3.8, bicarb 25, BUN 37, creatinine 0.7, calcium of 7. Current Medications: The patient on include Ensure, Glucerna, breathing treatment, prednisone, D5 half at 50 per hour. Assessment And Plan: 1. Acute kidney injury secondary to COVID pneumonia, recovered, resolved. 2. Hypernatremia. Change IV fluid to D5. We will start the patient on some metolazone to establish better fluid status. 3. Anasarca secondary to malnourish, as above. 4. Hypokalemia. We will supplement. 5. Deconditioning. Continue PT, OT. 6. COVID pneumonia as by Dr. Britton. Time spent discussing with the patient, examining the patient, exam [id number], placing order, discussing with staff and other consulting include including Cardiology and Primary 45 minutes. MAUDE Voice ID: [id number] Report ID: [id number] JOY
[2020-04-21] MEDS: IPRATROPIUM BROM 0.5MG/2.5ML NEB SCH ×4 (01:40→20:00)
[2020-04-21] MEDS: INSULIN -REGULAR HUMAN 50 UNIT/0.5 ML ML SQ SCH ×4 (05:38→16:21)
[2020-04-21] MEDS: ACETYLCYST 20% 4 ML VIAL IH SCH ×3 (08:00→20:00)
[2020-04-21] MEDS: GLUCERNA 1.2 CAL 1,000 ML BOT FT SCH (09:00)
[2020-04-21] MEDS: ENSURE HIGH PROTEIN 237 ML CAN PO SCH ×3 (09:00→20:52)
[2020-04-21] MEDS: predniSONE 5 MG TAB PO SCH (09:31)
[2020-04-21] MEDS: PANTOPRAZOLE 40 MG INJ IVP SCH (09:32)
[2020-04-21] MEDS: INSULIN GLARGINE 100 UNITS/ML SQ SCH (09:32)
[2020-04-21] MEDS: hydroCHLOROthiazide 12.5 MG CAP PO SCH (09:32)
[2020-04-21] MEDS: ZINC SULFATE 220 MG CAP PO SCH (09:32)
[2020-04-21 10:31] LABS: Absolute Lymphocytes (CBC) 0.6 K/uL (0.7-4.9); Basophils % 0.5 % (0-1.3); Hematocrit 25.9 % (39.6-49.0); Lymphocytes % 7.2 % (15.3-44.8); MPV 7.8 fL (7.6-11.3); RBC Red Blood Cell Count 2.82 M/uL (4.33-5.43)
[2020-04-21 10:42] LABS: BUN Blood Urea Nitrogen 37 mg/dL (7-18); Bicarbonate 23 mmol/L (21-32); Glucose Level 223 mg/dL (74-106); Magnesium 1.7 mg/dL (1.8-2.4); Potassium 3.8 mmol/L (3.5-5.1); Sodium Level 145 mmol/L (136-145)
[2020-04-21] MEDS ORDERED: POTASSIUM 25 MEQ EFFERV TAB FT ONE (12:00)
--- NOTE | 2020-04-21 13:16 | PN ---
Date of Progress Note: 04/21/2020 Subjective: The patient was seen for followup this morning. Lying in bed, not in distress. He is t olerating his tube feeding very well and when I saw him this morning, he was getting tube feeding at 50 cc/hour. Objective: Vital Signs: Reviewed. Intake and output records reviewed. HEENT: Unremarkable. Lungs: Clear to auscultation. Heart: Sounds normal. Abdomen: Soft. Bowel sounds normal. No guarding, rigidity, tenderness, or distention. Extremities: Bilateral leg and arm edema, but overall better than before. Impression: 1.Failure to thrive, status post PEG tube placement. 2.Hemorrhagic gastritis. 3.Hiatal hernia. 4.Acute respiratory failure with hypoxia, resolved. 5.COVID-19 infection. 6.COVID-19 pneumonia. 7.Generalized weakness. 8.Debility. Plan: The patient had a PEG tube placement yesterday and endoscopy findings reviewed. We will glo nue him on Protonix. Currently, he is on prednisone 5 mg daily as of 04/18/2020, and we will continu e to slowly wean off prednisone per order as of 04/23/2020. We will lower prednisone dose to 4 mg da monica for 5 days, then 3 mg daily for 5 days, then 2 mg daily for 5 days, then 1 mg daily for 5 days, t hen stop. Now, we are waiting on Social Service to help make arrangements for discharge to go to facility. DEISI/MODL Voice ID: [id number] Report ID: [id number]
[2020-04-21] MEDS: HYDROCODONE/APAP 5/325 MG TAB PO PRN (13:56)
[2020-04-21] MEDS: FLUCONAZOLE 200mg IVPB 200 MG/100 ML BAG IV SCH (16:20)
--- NOTE | 2020-04-21 18:55 | PN ---
Date of Progress Note: 04/21/2020 Subjective: The patient is status post PEG tube, started on tube feeding, tolerated well. The patient on 50%. Physical Examination: Vital Signs: When I saw the patient, blood pressure 111/56, pulse of 99, afebrile. The patient had good urine output. Chest: Clear to auscultation. Heart: S1, S2. Regular. Abdomen: Soft, nontender. Extremities: +3 edema. Neuro: Alert. No focality. Laboratory Data: H and H 8.6/25.9 sodium 145, potassium 3.8, bicarb 23, BUN 37, creatinine 0.7, calcium 7, magnesium 1.7. Current Medications: The patient on include: 1. Glucerna. 2. Zinc sulfate. 3. Breathing treatment. 4. Pantoprazole. 5. Prednisone down to 5 mg. 6. D5. 7. Mucomyst. Assessment And Plan: 1. Acute kidney injury secondary to COVID nephropathy, recovered, resolved. I am going to discontinue IV fluid and we will monitor. 2. Anasarca secondary to malnourish. The patient was started on tube feeding. We will increase free water to 150 and we will increase hydrochlorothiazide and we will follow up the patient. 3. COVID pneumonia, recovered, resolved. 4. Respiratory failure, recovered. 5. Hypernatremia. We will discontinue IV fluid. We will increase hydrochlorothiazide. We will follow up with primary. 6. Deconditioning. Continue PT and OT. Time spent discussing with the patient, examining the patient, discussing [id number], placing order, discussing with staff and other consulting include including Cardiology and Primary 45 minutes. MAUDE Voice ID: [id number] Report ID: [id number] JOY
[2020-04-22] MEDS: HYDROCODONE/APAP 5/325 MG TAB PO PRN ×2 (00:23→16:40)
[2020-04-22] MEDS ORDERED: ARFORMOTEROL TARTRATE 15 MCG/2 ML VIAL.NEB ONE (01:01)
[2020-04-22] MEDS: ARFORMOTEROL TARTRATE 15 MCG/2 ML VIAL.NEB NEB SCH ×3 (01:39→20:05)
[2020-04-22] MEDS: IPRATROPIUM BROM 0.5MG/2.5ML NEB SCH ×4 (01:39→20:05)
[2020-04-22] MEDS: INSULIN -REGULAR HUMAN 50 UNIT/0.5 ML ML SQ SCH ×4 (06:00→18:00)
[2020-04-22] MEDS: ACETYLCYST 20% 4 ML VIAL IH SCH (08:00)
[2020-04-22] MEDS ORDERED: hydroCHLOROthiazide 12.5 MG CAP PO SCH (09:00)
[2020-04-22] MEDS: GLUCERNA 1.2 CAL 1,000 ML BOT FT SCH (09:00)
[2020-04-22] MEDS: predniSONE 5 MG TAB PO SCH (09:34)
[2020-04-22] MEDS: ZINC SULFATE 220 MG CAP PO SCH (09:34)
[2020-04-22] MEDS: PANTOPRAZOLE 40 MG INJ IVP SCH (09:35)
[2020-04-22] MEDS: INSULIN GLARGINE 100 UNITS/ML SQ SCH (09:35)
[2020-04-22] MEDS: GLUCERNA 1.2 CAL 1,000 ML BOT RTH SCH (09:36)
[2020-04-22] MEDS: ENSURE HIGH PROTEIN 237 ML CAN PO SCH ×3 (09:36→20:46)
[2020-04-22 09:59] LABS: Basophils % 0.4 % (0-1.3); Hematocrit 25.7 % (39.6-49.0); Lymphocytes % 7.3 % (15.3-44.8); MPV 8.4 fL (7.6-11.3); RBC Red Blood Cell Count 2.79 M/uL (4.33-5.43)
[2020-04-22 10:08] LABS: Magnesium 1.8 mg/dL (1.8-2.4); Potassium 4.8 mmol/L (3.5-5.1)
--- NOTE | 2020-04-22 10:28 | RAD REPORT ---
EXAM DESCRIPTION: RAD - Chest Single View - 04/22/2020 10:11 am CLINICAL HISTORY: covid, dyspnea Chest pain. COMPARISON: Chest Single View dated 04/17/2020; Abdomen 1 View (KUB) dated 04/16/2020; Abdomen 1 View (KUB) dated 04/16/2020; Chest Single View dated 04/14/2020 FINDINGS: Portable technique limits examination quality. Moderate bilateral interstitial lung opacities are present, slightly improved since comparative study . The heart is normal in size. Aortic atherosclerosis. Right-sided PICC line is stable in position. IMPRESSION: Mild improvement lung aeration seen since comparative study.
[2020-04-22 10:35] LABS: Arterial Blood Carboxyhemoglob 2.5 % (0-1.5); Blood Gas Oxyhemoglobin 93.9 % (94-97); Blood O2 Saturation 97.1 % (92-98.5)
--- NOTE | 2020-04-22 11:17 | PN ---
Date of Progress Note: 04/22/2020 Subjective: Early this morning the patient became very tachypneic. He started to have rapid breathing as high as 50 times per minute. He required some oxygen replacement with nasal cannula oxygen. Did not have any other complaints. Suctioning was ordered, which did not help to relieve symptoms and patient was placed on BiPAP and he has done better since he is on BiPAP. He is on 35% FiO2 with BiPAP. When I saw him, he was more comfortable with BiPAP on. Denies any chest pain. No abdominal pain. Did not have any vomiting overnight. Objective: Vital Signs: Reviewed. HEENT: Unremarkable. Lungs: Bilateral shallow but equal air entry. No rhonchi. No rales. Heart: Sounds normal. Abdomen: Soft. Bowel sounds normal. No guarding, rigidity, tenderness, distention. Extremity: Edema of all the 4 extremities remains unchanged. Impression: 1. Acute respiratory failure with hypoxia. 2. COVID-19 infection. 3. COVID-19 pneumonia. 4. Diabetes mellitus. 5. Failure to thrive. 6. Hemorrhagic gastritis. 7. Upper GI bleeding secondary to above. Plan: Stat blood gas was ordered, results reviewed. We will continue current BiPAP therapy. Stat EKG, chest x-ray and blood work was ordered and we will follow up on those results. We need to rule out possibility of pulmonary embolism. We have not been able to get him on therapeutic dose due to UGI bleeding problem but he has been able to tolerate Heparin 5000 units every 12 hours for prophylactic dose and so far he has tolerated that very well. Details were discussed with Dr. Galicia. Nurse has informed me that the patient was accepted to go to rehab facility, but considering this acute change in his condition today, we will not be able to discharge him today until we will resolve this current issue that is going on as of this morning. DEISI/MODL Voice ID: [id number] Report ID: [id number] TOBYD
--- NOTE | 2020-04-22 11:51 | P.PN ---
Subjective Date of Service: 04/22/20 Chief Complaint: Respiratory failure An 80 y/o man , admitted with SOB , tested Positive for COVID , required intubation pt had ALEXANDR , with disproportionate bun/Cr , pt was extubated then re intubatd , he also developed Lt Psoas hematoma now saturation >95% on RA, he is on NG tube feeding Today no change in clinical status cont HCTZ Cont tube feeding now on BiPAPA F/u CT results Physical exam general: awake, alert ,on BIPAP Neck; Supple, No elevated JVD hear: RRR, normal S1,2 no murmur or rub Chest: CTAB, no rales or wheezes Abdomen: Soft , Nt Extremities +2 upper extremity edema A/P ALEXANDR likely multifactroial , including OVID19 resolved renal dose meds acute on chronic anemia due to Psoas hematoma H/H stable now transfuse to keep Hb >7.0 Edema High Protein Tube feeding cont HCTZ COVID 19 pneumonia now on BiPAPA F/u CT results prognosis guarded total time spent 25 min Physical Examination - Vital Signs Temperature: 98.8 F Blood Pressure: 91/51 Pulse: 80 Respirations: 31 Pulse Ox (%): 94
--- NOTE | 2020-04-22 11:57 | RAD REPORT ---
EXAM DESCRIPTION: CT - Chest For Pe Angio - 04/22/2020 11:50 am CLINICAL HISTORY: Chest pain. rule out pe COMPARISON: Thorax Wo Con dated 06/27/2017 TECHNIQUE: CT angiogram of the pulmonary arteries was performed with MIP. All CT scans are performed using dose optimization technique as appropriate and may include automated exposure control or mA/KV adjustment according to patient size. FINDINGS: No evidence of pulmonary thromboembolism. No acute aortic finding demonstrated. Moderate interstitial and alveolar lung opacities are present bilaterally. Small bilateral pleural effusions. No concerning bony finding. IMPRESSION: No evidence of pulmonary thromboembolism. Moderate interstitial and alveolar lung opacities bilaterally. This may be related to pneumonia or pu lmonary edema. Small bilateral pleural effusions.
[2020-04-22] MEDS ORDERED: ACETYLCYST 20% 4 ML VIAL IH PRN (12:56)
[2020-04-22] MEDS ORDERED: D5W 1,000 ML IV SCH (13:00)
--- NOTE | 2020-04-22 13:01 | P.PN ---
Subjective Date of Service: 04/22/20 Chief Complaint: Respiratory failure Patient developed respiratory distress today this still very alert requiring higher levels of oxygen CT angiogram did not show any evidence of pulmonary embolism evidence of for vogel virus becoming more hypernatremic Review of Systems is unable to be obtained Physical Examination - Vital Signs Temperature: 98.8 F Blood Pressure: 91/51 Pulse: 80 Respirations: 31 Pulse Ox (%): 94 - Physical Exam General: Alert, Moderate distress Respiratory: Clear to auscultation bilaterally, Diminished Cardiovascular: Edema Assessment & Plan - Problems (Diagnosis) (1) Acute respiratory failure due to severe acute respiratory syndrome coronavirus 2 (SARS-CoV-2) infection Current Visit: Yes Status: Acute Plan: Vogel virus is stable becoming more hypoxic today is no evidence of pulmonary embolism continue with DVT prophylaxis patient has hemorrhagic gastritis status post PEG tube under becoming more hypernatremic start on PEG tube flushes once is able to use them Dc hydrochlorothiazide who water change to Diflucan via the PEG tube labs reviewed oxygenation is stable no significant changes on chest x- ray Mucomyst p.r.n. now
--- NOTE | 2020-04-22 13:22 | RAD REPORT ---
EXAM DESCRIPTION: US - Extrem Venous W Compress Manjit - 04/22/2020 1:17 pm CLINICAL HISTORY: rule out dvt Bilateral leg edema and swelling. COMPARISON: Extrem Venous W Compress Manjit dated 04/01/2020 TECHNIQUE: Real-time sonographic interrogation of the left and right lower extremity deep venous sys tems was performed. FINDINGS: Normal compressibility, flow augmentation, phasic flow and spontaneous flow is identified in both the left and right lower extremity deep venous systems. IMPRESSION: No sonographic evidence of left or right lower extremity deep venous thrombosis.
[2020-04-22] MEDS ORDERED: Meropenem 500 MG VIAL IV SCH (17:00)
[2020-04-22] MEDS ORDERED: VANCOMYCIN/NS 1 gm 1 GM/250 ML BAG IVPB SCH (17:00)
[2020-04-22] MEDS: VANCOMYCIN/NS 1 gm 1 GM/250 ML BAG IVPB SCH (18:00)
[2020-04-22] MEDS: Meropenem 500 MG in NA CHLORIDE 0.9% 100 ML IV SCH ×2 (18:00→20:44)
[2020-04-22] MEDS: METHYLPREDNISOLONE 125 MG INJ IV SCH (18:17)
[2020-04-22 19:42] LABS: Urine Appearance TURBID; Urine Blood 3+ (NEG); Urine Color DK YELLOW; Urine Glucose NEGATIVE (NEG); Urine Protein 1+ (NEG); Urine Specific Gravity >=1.030 (1.005-1.030)
[2020-04-22 19:46] LABS: Urine Bilirubin NEGATIVE (NEG)
[2020-04-22 19:57] LABS: Urine Bacteria >50 /HPF (NONE SEEN); Urine RBC >50 /HPF (NONE SEEN)
[2020-04-22 19:58] LABS: Urine Yeast PRESENT (NONE SEEN)
[2020-04-22 21:44] LABS: Ferritin 1834.1 ng/mL (26-388)
[2020-04-22 21:47] LABS: Troponin I 0.62 ng/mL (0.0-0.045)
[2020-04-23] MEDS: IPRATROPIUM BROM 0.5MG/2.5ML NEB SCH ×4 (02:00→20:50)
[2020-04-23 04:42] LABS: Absolute Lymphocytes (CBC) 0.6 K/uL (0.7-4.9); Basophils % 0.3 % (0-1.3); Hematocrit 26.9 % (39.6-49.0); Lymphocytes % 10.2 % (15.3-44.8); RBC Red Blood Cell Count 2.88 M/uL (4.33-5.43)
[2020-04-23 05:52] LABS: Anisocytosis 1+; Blood Morphology Comment NOTED (NOT SEEN); Hypochromasia 1+; Platelet Estimate DECR
[2020-04-23] MEDS: INSULIN -REGULAR HUMAN 50 UNIT/0.5 ML ML SQ SCH ×3 (06:00→18:39)
[2020-04-23] MEDS: ARFORMOTEROL TARTRATE 15 MCG/2 ML VIAL.NEB NEB SCH ×2 (08:49→20:50)
[2020-04-23] MEDS: GLUCERNA 1.2 CAL 1,000 ML BOT FT SCH ×2 (08:50→11:28)
[2020-04-23] MEDS: ENSURE HIGH PROTEIN 237 ML CAN PO SCH ×2 (08:50→14:00)
[2020-04-23] MEDS: predniSONE 5 MG TAB PO SCH (08:51)
[2020-04-23] MEDS: ZINC SULFATE 220 MG CAP PO SCH (08:51)
[2020-04-23] MEDS: FLUCONAZOLE 100 MG TAB PO SCH (08:51)
[2020-04-23] MEDS: PANTOPRAZOLE 40 MG INJ IVP SCH (08:51)
[2020-04-23] MEDS: HYDROCODONE/APAP 5/325 MG TAB PO PRN (08:51)
[2020-04-23] MEDS: INSULIN GLARGINE 100 UNITS/ML SQ SCH (08:52)
[2020-04-23] MEDS ORDERED: HEPARIN 5000 UNIT/ML 1 ML VIAL SQ ONE (10:24)
[2020-04-23] MEDS ORDERED: NACHLORIDE 0.45% 500 ML IV SCH (11:15)
--- NOTE | 2020-04-23 11:40 | PN ---
Date of Progress Note: 04/23/2020 Subjective: The patient was seen this morning for followup. No new complaints or problems reported by nursing staff. His breathing is not as rapid as yesterday. He was on nasal cannula oxygen, sleep ing, arousable but did not communicate much with me. He is not using any accessory muscles of respir ation. Objective: HEENT: Unremarkable. Lungs: Bilateral shallow air entry. No rales. No wheezing. Heart sounds normal. Abdomen: Soft. Bowel sounds normal. No guarding, rigidity, tenderness, or distention. Extremities: Edema of all the 4 extremities present, unchanged. Laboratory Data: White count 5.8, hemoglobin 8.4, platelets 135, 19% bands. Sodium 148, potassium 5 , chloride 117, bicarb 22, BUN 63, creatinine 1.83, glucose 142, magnesium 2. Impression: 1.Acute kidney injury. 2.COVID-19 infection. 3.COVID-19 pneumonia. 4.Acute respiratory failure with hypoxia. 5.Anasarca. 6.Diabetes mellitus. 7.Anemia. 8.Thrombocytopenia. Plan: The patient's second troponin yesterday evening was 0.62 with CRP 263, ferritin 1834, and proc alcitonin was 12.29. He was started on meropenem and vancomycin yesterday thinking about possibility of sepsis. He is also on Diflucan. We will continue current insulin for diabetes management. Yest erday, there was some concern about coffee-ground liquid that was aspirated from stomach today. When I saw him, aspiration was greenish colored and the patient did not have any significant retention, t hen also we will start him on PEG tube feeding using half-strength formula. For his acute kidney inj ury, we need to worry about whether this is combination due to infection, but also we had to keep in mind about iodine contrast that the patient was given for his CAT scan of the chest per PE protocol w hich was done yesterday. We will go ahead and give IV fluid half-normal saline at 100 cc/hour for to kristie of 500 cc and I have advised nursing staff to notify surface supervisor for this acute kidney injury pr oblem and to follow up with them as well. Details were discussed with Dr. Galicia. I did call the patient's son this morning and details were discussed with him. Yesterday evening, I did talk to marshall marks's son about change in condition and all the test results that we did yesterday, explained to him his venous Doppler and CAT scan of the chest per PE protocol was negative for any blood clot since i t had shown improvement in pneumonia pattern. Details were discussed with the patient's as well and we talked about advanced directive once again with the patient's son and he informed me that fin al decision regarding that will be the patient's 's decision and then subsequently I did communic ate with the patient's regarding advance directives and she informed me that she wants everythin g done, so the patient remains full code. We will continue other current management and the patient to continue heparin 5000 units subcutaneous injection every 12 hours for DVT prophylaxis. DEISI/MODL Voice ID: [id number] Report ID: [id number]
[2020-04-23] MEDS: Meropenem 500 MG in NA CHLORIDE 0.9% 100 ML IV SCH ×2 (12:16→18:35)
[2020-04-23] MEDS: METHYLPREDNISOLONE 125 MG INJ IV SCH ×2 (12:18→18:00)
[2020-04-23] MEDS ORDERED: D5 0.45 NS 1,000 ML IV SCH (13:00)
[2020-04-23 13:04] LABS: Urine Appearance TURBID; Urine Blood 2+ (NEG); Urine Color RED; Urine Glucose NEGATIVE (NEG); Urine Protein 1+ (NEG); Urine Specific Gravity >=1.030 (1.005-1.030)
[2020-04-23 13:15] LABS: Urine Bilirubin NEGATIVE (NEG)
[2020-04-23 13:16] LABS: Urine Microscopic Reflex ORDER UMIC
[2020-04-23 13:28] LABS: Urine Bacteria 20-50 /HPF (NONE SEEN); Urine Yeast MANY (NONE SEEN)
[2020-04-23] MEDS ORDERED: D5 0.45 NS 1,000 ML IV ONE (14:00)
--- NOTE | 2020-04-23 15:43 | PN ---
Date of Progress Note: 04/23/2020 Subjective: The patient was admitted with COVID pneumonia. The patient was treated in the last 48 hours. The patient to follow up respiratory distress, to undergo CT with contrast. The patient had PEG tube, started tube feeding. Physical Examination: Vital Signs: Blood pressure 109/56, pulse of 95, afebrile. The patient had good urine output of 700. Chest: Crackles bilateral base. Heart: S1, S2, systolic murmur. Abdomen: Soft, nontender. Extremities: +3 edema. Neuro: Sleepy. Laboratory Data: For the patient; WBC 5.8, H and H 8.4/26.9, sodium 148, potassium 5, bicarb 22, BUN 63, creatinine 1.8 trending up, calcium 7.1, phos of 2. Chest x-ray done on , old interstitial infiltration. Assessment And Plan: 1. Acute kidney injury, mostly secondary to contrast-induced nephropathy. I am going to go ahead and place a Gonzáles. We will repeat renal ultrasound and send for urine eosinophil and we will follow up. 2. Hypertension, currently blood pressure on the lower side. We will keep holding all blood pressure medication. 3. Respiratory failure secondary to COVID pneumonia. PE has been ruled out. We will follow up with Pulmonary. 4. Hypernatremia with the presence of acute kidney injury and anasarca. Unfortunately, given the contrast exposure, I am going to start the patient on IV hydration to minimize kidney injury and we will follow up. 5. Anasarca secondary to malnourished. Hold metolazone for the time being and hydrochlorothiazide given the acute kidney injury. 6. Pneumonia, healthcare-associated pneumonia. Follow up with Pulmonary. Time spent discussing with the patient, examining the patient, exam [id number], placing order, discussing with staff and other consulting include Primary 45 minutes. EVERTON/DAKOTA Voice ID: [id number] Report ID: [id number] JOY
[2020-04-23] MEDS: VANCOMYCIN/NS 1 gm 1 GM/250 ML BAG IVPB SCH (18:33)
[2020-04-23] MEDS: HEPARIN 5000 UNIT/ML 1 ML VIAL SQ SCH (21:39)
[2020-04-24] MEDS: Meropenem 500 MG in NA CHLORIDE 0.9% 100 ML IV SCH (01:00)
[2020-04-24] MEDS: IPRATROPIUM BROM 0.5MG/2.5ML NEB SCH ×4 (02:30→20:05)
[2020-04-24] MEDS: INSULIN -REGULAR HUMAN 50 UNIT/0.5 ML ML SQ SCH ×5 (02:35→18:00)
[2020-04-24 06:31] LABS: Absolute Lymphocytes (CBC) 0.3 K/uL (0.7-4.9); Basophils % 0.2 % (0-1.3); Hematocrit 26.6 % (39.6-49.0); Lymphocytes % 5.7 % (15.3-44.8); MPV 8.7 fL (7.6-11.3); RBC Red Blood Cell Count 2.89 M/uL (4.33-5.43)
[2020-04-24] MEDS: METHYLPREDNISOLONE 125 MG INJ IV SCH ×2 (06:35)
[2020-04-24 07:01] LABS: Ferritin 1454.5 ng/mL (26-388); Magnesium 2.3 mg/dL (1.8-2.4); Potassium 4.6 mmol/L (3.5-5.1)
--- NOTE | 2020-04-24 07:41 | RAD REPORT ---
EXAM DESCRIPTION: RAD - Chest Single View - 04/24/2020 7:25 am CLINICAL HISTORY: covid pneumonia COMPARISON: Portable April 22 TECHNIQUE: AP portable chest image was obtained 04/24/2020 7:25 am . FINDINGS: Bilateral interstitial and airspace opacification, worse on the left, shows some improved aeration in the left base and lateral mid left lung field. No progressive disease identified. PICC line remains in place. Heart and vasculature are normal. No measurable pleural effusion and no p neumothorax. No acute bony abnormality seen. No acute aortic findings suspected. IMPRESSION: Slight improvement in the bilateral COVID-19 pneumonia pattern.
[2020-04-24] MEDS: ARFORMOTEROL TARTRATE 15 MCG/2 ML VIAL.NEB NEB SCH ×2 (08:05→20:05)
[2020-04-24] MEDS: INSULIN GLARGINE 100 UNITS/ML SQ SCH (08:49)
[2020-04-24] MEDS: HEPARIN 5000 UNIT/ML 1 ML VIAL SQ SCH ×2 (08:49→21:07)
[2020-04-24] MEDS: FLUCONAZOLE 100 MG TAB PO SCH (08:49)
[2020-04-24] MEDS: PANTOPRAZOLE 40 MG INJ IVP SCH (08:49)
[2020-04-24] MEDS: GLUCERNA 1.2 CAL 1,000 ML BOT FT SCH (08:50)
[2020-04-24] MEDS: ZINC SULFATE 220 MG CAP PO SCH (08:50)
[2020-04-24] MEDS: CEFEPIME/SWI 1gm 10 ML IV SCH ×2 (08:53→21:07)
[2020-04-24] MEDS ORDERED: CEFEPIME 1 GM/VIAL IV SCH (09:00)
[2020-04-24] MEDS: NACHLORIDE 0.45% 1,000 ML IV SCH ×2 (10:00→18:10)
[2020-04-24] MEDS ORDERED: NACHLORIDE 0.45% 1,000 ML IV SCH (10:00)
--- NOTE | 2020-04-24 11:40 | PN ---
Date of Progress Note: 04/24/2020 Subjective: The patient was seen this morning for followup. No new complaints, problems reported by patient, lying in bed, not in distress. He does try to communicate with me, but his voice is very w eak, so it is very difficult for me to understand. He is not using any accessory muscles of respirat ion and maintaining adequate oxygenation with nasal cannula oxygen. Objective: Vital signs: Reviewed. Intake, output records reviewed. HEENT: Unremarkable. Lungs: Clear to auscultation with shallow breathing, both side. Heart: Sounds normal. Abdomen: Soft, bowel sounds normal. No guarding, rigidity, tenderness, or distention. Extremities: Edema of all the 4 extremities remains unchanged. Laboratory Data: White count 5.7, hemoglobin 8.7, platelets 139. Sodium 146, potassium 4.6, chlorid e 115, bicarb 20, BUN 78, creatinine 2.2, glucose 163, CRP 329, ferritin 1450. Urine culture grew Ps eudomonas. It is sensitive to cefepime, ceftazidime, Cipro, meropenem, Zosyn, and tobramycin. Impression: 1.Acute kidney injury. 2.Urinary tract infection. 3.COVID-19 infection. 4.Acute respiratory failure with hypoxia. 5.Anasarca. 6.Diabetes mellitus. 7.Thrombocytopenia. 8.Anemia. Plan: We will go ahead and continue heparin for DVT prophylaxis 5000 units subcutaneous injection ev severino 12 hours. We will discontinue vancomycin and discontinue meropenem. Start him on cefepime 1 g q .12 hours and we will give IV fluid half normal saline at 100 cc/hour for total of 500 cc and then 75 cc/hour. We will continue that. Monitor intake, output. We will repeat blood work tomorrow augustus mcduffie and chest x-ray today shows slight improvement compared to before. I did call the patient's son an d updates were given to him and details were discussed. DEISI/MODL Voice ID: [id number] Report ID: [id number]
[2020-04-24] MEDS: METHYLPREDNISOLONE 40 MG INJ IV SCH ×2 (12:01→17:59)
--- NOTE | 2020-04-24 14:39 | RAD REPORT ---
EXAM DESCRIPTION: US - Renal Ultrasound-Complete - 04/24/2020 1:33 pm CLINICAL HISTORY: urine retention COMPARISON: CT abdomen and pelvis March 31 FINDINGS: Kidneys symmetric in size. Cortical thickness is normal. Increased parenchymal echogenicit y is present consistent medical renal disease. No hydronephrosis or suspicious renal mass. Small luna l cysts are present matching the CT study. Bladder is fully contracted around a Gonzáles catheter. IMPRESSION: Medical renal disease is evident but no hydronephrosis or suspicious mass.
[2020-04-24] MEDS: VITAL AF 1,000 ML BOT RTH SCH (20:30)
--- NOTE | 2020-04-24 23:55 | PN ---
Date of Progress Note: 04/24/2020 Subjective: The patient was admitted with COVID pneumonia, had respiratory failure, intubated, extubated, developed acute kidney injury secondary to COVID pneumonia, recovered and resolved, currently had another acute kidney injury secondary to contrast induced nephropathy. The patient start to be on a face of oliguric. We started on hydration yesterday. Physical Examination: Vital Signs: When I saw the patient, blood pressure of 123/70, pulse of 73, afebrile. The patient had urine output only 250 today in the last 4 hours. The patient had 100 so far. The patient was started on IV hydration in the last 24 hours and given again another IV fluid today. Chest: Faint rales bilateral. Heart: S1, S2. Systolic murmur. Abdomen: Soft, nontender. Extremities: +3 edema. Neurologic: Alert. No focality. Laboratory Data: WBC 5.7, H and H 8.7/25.6. Sodium 146, potassium 4.6, bicarb 20, BUN 78, creatinine 2.2, continue to rise. Current Medications: Reviewed including normal saline, meropenem, fluconazole. Assessment And Plan: 1. Acute kidney injury secondary to contrast-induced nephropathy/prerenal poor perfusion, acute tubular necrosis. I agree with current IV hydration. The patient continue to improve in the urine output. We will continue to monitor. If the patient continue to develop worsening oliguria or kidney function, the patient may need renal replacement therapy to be initiated in the next 24 hours. We will follow up. 2. Hypertension, controlled, optimal. Keep holding all the blood pressure medication. 3. Hypernatremia. We will accept marginal hypernatremia. Currently, we will keep hydration to establish better volume control intravascularly. 4. Malnourished, failure to thrive. Continue tube feeding. 5. COVID pneumonia/healthcare-associated pneumonia as by primary and Pulmonary. 6. Anasarca secondary to malnourished, hypoalbuminemia. Continue hydration. Continue tube feeding. Unfortunately, we will accept the anasarca currently to establish better intravascular volume. Time spent discussing with the patient, examining the patient, exam [id number], placing order, discussing with staff and other consulting include Primary 45 minutes. EVERTON/DAKOTA Voice ID: [id number] Report ID: [id number] MTDAlix
[2020-04-25] MEDS: METHYLPREDNISOLONE 40 MG INJ IV SCH ×4 (00:06→17:05)
[2020-04-25] MEDS: IPRATROPIUM BROM 0.5MG/2.5ML NEB SCH ×4 (01:20→20:05)
[2020-04-25] MEDS: NACHLORIDE 0.45% 1,000 ML IV SCH ×3 (05:14→19:53)
[2020-04-25] MEDS: INSULIN -REGULAR HUMAN 50 UNIT/0.5 ML ML SQ SCH ×4 (05:59→17:53)
[2020-04-25] MEDS ORDERED: GLUCAGON 1 MG/VIAL IM PRN (07:44)
[2020-04-25] MEDS: ARFORMOTEROL TARTRATE 15 MCG/2 ML VIAL.NEB NEB SCH ×2 (07:55→20:05)
[2020-04-25] MEDS: INSULIN GLARGINE 100 UNITS/ML SQ SCH (08:23)
[2020-04-25] MEDS: ZINC SULFATE 220 MG CAP PO SCH (08:23)
[2020-04-25] MEDS: PANTOPRAZOLE 40 MG INJ IVP SCH (08:23)
[2020-04-25] MEDS: CEFEPIME/SWI 1gm 10 ML IV SCH ×2 (08:23→20:18)
[2020-04-25] MEDS: FLUCONAZOLE 100 MG TAB PO SCH (08:23)
[2020-04-25] MEDS: HEPARIN 5000 UNIT/ML 1 ML VIAL SQ SCH ×2 (08:24→20:18)
[2020-04-25] MEDS: GLUCERNA 1.2 CAL 1,000 ML BOT FT SCH (08:25)
--- NOTE | 2020-04-25 09:30 | ECHO ---
HEIGHT: 5 ft 8 in WEIGHT: 179 lb 4.8 oz DATE OF STUDY: 04/22/[address]: Salo Britton MD 2-DIMENSIONAL: YES M.MODE: YES DOPPLER: YES COLOR FLOW: YES TDS: YES PORTABLE: YES DEFINITY: NO BUBBLE STUDY: NO DIAGNOSIS: ABNORMAL CARDIAC ENZYMES CARDIAC HISTORY: CATHERIZATION: SURGERY: PROSTHETIC VALVE: PACEMAKER: MEASUREMENTS (cm) DIASTOLIC (NORMALS) SYSTOLIC (NORMALS) IVSd 1.1 (0.6-1.2) LA Diam (1.9-4.0) LVEF >60% LVIDd 2.9 (3.5-5.7) LVIDs 1.3 (2.0-3.5) %FS 55% LVPWd 1.2 (0.6-1.2) Ao Diam 2.4 (2.0-3.7) 2 DIMENSIONAL ASSESSMENT: RIGHT ATRIUM: NORMAL LEFT ATRIUM: NORMAL RIGHT VENTRICLE: NORMAL LEFT VENTRICLE: NORMAL TRICUSPID VALVE: MITRAL VALVE: MITRAL ANNULAR CALCIFICATION PULMONIC VALVE: NORMAL AORTIC VALVE: CALCIFIED VALVE PERICARDIAL EFFUSION: NONE AORTIC ROOT: NORMAL LEFT VENTRICULAR WALL MOTION: HYPERDYNAMIC LEFT VENTRICLE. DOPPLER/COLOR FLOW: SEE BELOW. COMMENTS: HYPERDYNAMIC LEFT VENTRICLE WITH LEFT VENTRICULAR EJECTION >60%, NORMAL WALL MOTION. 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 MILD TRICUSPID REGURGITATION WITH RIGHT VENTRICULAR SYSTOLIC PRESSURE OF 32 mmHg PLUS RIGHT ATRIAL PRESSURE. CALCIFIED AORTIC VALVE WITH NO AORTIC STENOSIS. TECHNOLOGIST: Devan VELA
--- NOTE | 2020-04-25 17:39 | PN ---
Date of Progress Note: 04/25/2020 Reason: Sacral decubitus. History Of Present Illness: The patient is an 80-year-old gentleman [facility] with a retro[facility] hematoma. He has had COVID. He is doing better since that time. Elisa hanson developed sacral decubitus and I was asked to evaluate. He is awake and alert, however, he does no t respond to any questions. His vitals are stable. He is afebrile. Physical examination revealed a stage I and II sacral decubitus bilaterally proximally. The total area is 10 x 15 cm and there is s ome area that had dark, ecchymotic purulence in that region consistent with probable deep tissue inju ry and maybe early stage III ulcer developing, but there is no open seen. Assessment: Sacral decubitus, likely stage II with deep tissue injury. Recommendations: Nutritional optimization and vitamins as ordered, offloading, air mattress, Mouna and foam dressing. Followup in the wound healing center upon discharge. /MODL Voice ID: [id number] Report ID: [id number]
[2020-04-25] MEDS: HYDROCODONE/APAP 5/325 MG TAB PO PRN (20:17)
--- NOTE | 2020-04-26 00:30 | PN ---
Date of Progress Note: 04/25/2020 Chief Complaint: Acute kidney injury. Subjective: The patient was admitted to the hospital with COVID pneumonia, had respiratory failure, and was intubated for hypoxemic severe respiratory failure. He developed acute kidney injury seconda ry to COVID pneumonia. Renal function has subsequently improved and acute kidney injury resolved. C urrently, the patient developed second bout of acute kidney injury secondary to contrast-induced neph ropathy. The patient was on IV fluids. The patient has diminished urine output and IV fluids were s tarted to prevent renal hypoperfusion. Review of Systems: Denies PND or orthopnea. Physical Examination: Lungs: Few crackles at bases. Heart: S1, S2. Abdomen: Soft. Extremities: 3+ edema. Impression And Plan: 1.Acute kidney injury. BUN is 72, creatinine 2.2. The patient was started on IV fluid for hydratio n. Plan is to re-evaluate renal function. Sodium level was 146, potassium 4.6, chloride 116, CO2 20 , BUN 78, creatinine 2.2. There is mild metabolic acidosis. Urine output has improved somewhat from 250 to 500. Continue mild hydration. Re-evaluate electrolytes. 2.Pseudomonas aeruginosa with urinary tract infection. Continue antibiotics and avoid nephrotoxic m edication. The patient is not a candidate for gentamicin. The patient may be treated with ceftazidi me or Cipro if there is no allergy. 3.Acute kidney injury, complicated by mild metabolic acidosis. Monitor electrolytes and adjust treatment with sodium bicarbonate as needed. EB/MODL Voice ID: [id number] Report ID: [id number]
[2020-04-26] MEDS: METHYLPREDNISOLONE 40 MG INJ IV SCH ×2 (00:48→05:27)
[2020-04-26] MEDS: IPRATROPIUM BROM 0.5MG/2.5ML NEB SCH ×4 (02:05→20:00)
[2020-04-26] MEDS: VITAL AF 1,000 ML BOT RTH SCH (03:12)
[2020-04-26] MEDS: INSULIN -REGULAR HUMAN 50 UNIT/0.5 ML ML SQ SCH ×4 (05:27→18:39)
[2020-04-26 05:34] LABS: Absolute Lymphocytes (CBC) 0.2 K/uL (0.7-4.9); Basophils % 0.1 % (0-1.3); Hematocrit 24.8 % (39.6-49.0); Lymphocytes % 3.2 % (15.3-44.8); MPV 8.8 fL (7.6-11.3); RBC Red Blood Cell Count 2.73 M/uL (4.33-5.43)
[2020-04-26 05:56] LABS: Magnesium 2.5 mg/dL (1.8-2.4); Potassium 3.9 mmol/L (3.5-5.1)
[2020-04-26] MEDS ORDERED: POTASSIUM 25 MEQ EFFERV TAB PO ONE (06:01)
[2020-04-26] MEDS ORDERED: CALCIUM GLUC 10% INJ 4.65 MEQ in NA CHLORIDE 0.9% 100 ML IV ONE (07:20)
--- NOTE | 2020-04-26 07:22 | PN ---
Date of Progress Note: 04/25/2020 Subjective: The patient was seen for followup this morning. Lying in bed, not in distress, sleeping , easily arousable. Denies any complaints. No abdominal pain, nausea, vomiting. Objective: Vital Signs: Reviewed. HEENT: Unremarkable. Lungs: Bilateral equal entry. Not in any respiratory distress. Heart: Sounds normal. Abdomen: Soft. Bowel sounds normal. No guarding, rigidity, tenderness, or distention. Extremities: Edema of all the 4 extremities remains unchanged. Impression: 1.Acute respiratory failure with hypoxia. 2.Urinary tract infection, organism Pseudomonas. 3.COVID-19 infection. 4.COVID-19 pneumonia. 5.Anemia. 6.Anasarca. Plan: We will go ahead and continue current IV antibiotics for Pseudomonas urinary tract infection. We will continue to follow up with behavior specialist and network support administrator. The patient has stage II decubit us and Dr. Funk was requested to evaluate and manage this problem. We will repeat blood work tomorr ow. I will see him tomorrow for followup. DEISI/MODL Voice ID: [id number] Report ID: [id number]
[2020-04-26 07:45] LABS: Platelet Estimate ADEQ
[2020-04-26 07:46] LABS: Anisocytosis 1+; Blood Morphology Comment NOTED (NOT SEEN); Burr Cells 1+; Polychromasia SLIGHT
[2020-04-26] MEDS: ARFORMOTEROL TARTRATE 15 MCG/2 ML VIAL.NEB NEB SCH ×2 (08:13→20:00)
--- NOTE | 2020-04-26 08:25 | RAD REPORT ---
EXAM DESCRIPTION: Ludwig Single View04/26/2020 5:09 am CLINICAL HISTORY: Chest pain COMPARISON: April 24 FINDINGS: No significant change in moderate bilateral pulmonary opacities. Heart is normal size. PI CC line in place IMPRESSION: No significant change in the bilateral pneumonia
[2020-04-26] MEDS: PANTOPRAZOLE 40 MG INJ IVP SCH (08:57)
[2020-04-26] MEDS: FLUCONAZOLE 100 MG TAB PO SCH (08:57)
[2020-04-26] MEDS: HEPARIN 5000 UNIT/ML 1 ML VIAL SQ SCH ×2 (08:57→21:09)
[2020-04-26] MEDS: CEFEPIME/SWI 1gm 10 ML IV SCH ×2 (08:58→21:09)
[2020-04-26] MEDS: INSULIN GLARGINE 100 UNITS/ML SQ SCH (08:58)
[2020-04-26] MEDS: ZINC SULFATE 220 MG CAP PO SCH (08:58)
[2020-04-26] MEDS: BACITRACIN OINTMENT 15 GM TUBE TOP SCH (08:59)
[2020-04-26] MEDS ORDERED: predniSONE 20 MG TAB PO SCH (09:00)
[2020-04-26] MEDS: GLUCERNA 1.2 CAL 1,000 ML BOT FT SCH (09:00)
[2020-04-26] MEDS: NACHLORIDE 0.45% 1,000 ML IV SCH (09:05)
--- NOTE | 2020-04-26 22:58 | PN ---
Date of Progress Note: 04/26/2020 Subjective: The patient was seen this morning for followup. He was lying in bed, not in distress, s leeping, easily arousable. Denies any new complaints. Objective: Vital Signs: Reviewed. HEENT: Unremarkable. Lungs: Clear to auscultation. Heart: Sounds normal. Abdomen: Soft. Bowel sounds normal. No guarding, rigidity, tenderness, or distention. Extremities: Edema of all the 4 extremities present, unchanged from yesterday. Laboratory Data: White count 7.3, hemoglobin 8, platelets 122. Sodium 141, potassium 3.9, chloride 111, bicarb 20, BUN 86, creatinine 1.61, glucose 187, calcium 6.7, magnesium 2.5. Impression: 1.Urinary tract infection, organism pseudomonas. 2.Anemia. 3.Thrombocytopenia. 4.COVID-19 infection. 5.COVID-19 pneumonia. 6.Acute respiratory failure with hypoxia. 7.Diabetes mellitus. Plan: We will go ahead and continue current medication. Discontinue IV steroid. Start the patient on prednisone 20 mg daily. We will continue current IV antibiotic, which is cefepime, and repeat blo od work tomorrow. Give 1 dose of calcium gluconate IV per order and depending on tomorrow's blood work results, we will decide if we can possibly discharge the patient t o go to rehab facility or not. DEISI/MODL Voice ID: [id number] Report ID: [id number]
[2020-04-27] MEDS: IPRATROPIUM BROM 0.5MG/2.5ML NEB SCH ×4 (01:15→19:50)
--- NOTE | 2020-04-27 02:45 | PN ---
Date of Progress Note: 04/26/2020 Subjective: The patient was admitted with COVID pneumonia and acute kidney injury secondary to poor perfusion ATN/acute kidney injury secondary to contrast-induced nephropathy, has hypernatremia and anasarca. Physical Examination: Vital Signs: Blood pressure 122/66, pulse of 88. The patient had good urine output of 750. Chest: Decreased air entry at bilateral base. Heart: S1, S2. Systolic murmur. Abdomen: Soft, nontender. Extremities: +1 edema. Laboratory Data: WBC 7.3, H and H 8/24.8. Sodium 141, potassium 3.9, bicarb 20, BUN 86, creatinine 1.6, calcium 6.7, magnesium 2.5, albumin 1.3, corrected calcium is 9.1. Current Medications: The patient on include, 1. Cefepime. 2. Fluconazole. 3. Heparin. 4. Zinc sulfate. 5. Breathing treatment. 6. Tube feeding. 7. Prednisone 20 mg. 8. Half-normal at 75 per hour. Assessment And Plan: 1. Acute kidney injury secondary to contrast-induced nephropathy, on the recovery phase, looked to me started being normal volume. I am going to go ahead and discontinue IV fluid. We will monitor the patient closely. 2. Hypernatremia, currently acceptable level. Discontinue IV fluid. We will monitor. 3. Anasarca, secondary to malnourished. We will continue current hydration. 4. Urinary tract infection secondary to Pseudomonas. Continue current antibiotic. 5. COVID pneumonia. We will follow up with Pulmonary. 6. Ulcer stage II as by wound care. Time spent discussing with the patient, examining the patient, exam [id number], placing order, discussing with staff and other consulting include Primary 45 minutes. EVERTON/DAKOTA Voice ID: [id number] Report ID: [id number] JOY
[2020-04-27 04:20] LABS: Absolute Lymphocytes (CBC) 0.3 K/uL (0.7-4.9); Basophils % 0.1 % (0-1.3); Hematocrit 28.5 % (39.6-49.0); Lymphocytes % 2.3 % (15.3-44.8); MPV 8.7 fL (7.6-11.3); RBC Red Blood Cell Count 3.16 M/uL (4.33-5.43)
[2020-04-27 04:48] LABS: Albumin 1.2 g/dL (3.4-5.0); Bilirubin Total 0.6 mg/dL (0.2-1.0); Magnesium 2.4 mg/dL (1.8-2.4); Protein, Total 4.5 g/dL (6.4-8.2)
[2020-04-27 05:11] VITALS: BMI 27.3
[2020-04-27] MEDS: INSULIN -REGULAR HUMAN 50 UNIT/0.5 ML ML SQ SCH ×4 (06:53→18:00)
[2020-04-27] MEDS: ARFORMOTEROL TARTRATE 15 MCG/2 ML VIAL.NEB NEB SCH ×2 (08:34→19:50)
[2020-04-27] MEDS: BACITRACIN OINTMENT 15 GM TUBE TOP SCH (09:00)
[2020-04-27] MEDS ORDERED: CIPROFLOXACIN HCL 250 MG TAB FT SCH (09:00)
[2020-04-27] MEDS: GLUCERNA 1.2 CAL 1,000 ML BOT FT SCH (09:00)
[2020-04-27] MEDS: HEPARIN 5000 UNIT/ML 1 ML VIAL SQ SCH ×2 (09:50→22:00)
[2020-04-27] MEDS: PANTOPRAZOLE 40 MG INJ IVP SCH (09:50)
[2020-04-27] MEDS: FLUCONAZOLE 100 MG TAB PO SCH (09:50)
[2020-04-27] MEDS: ZINC SULFATE 220 MG CAP PO SCH (09:50)
[2020-04-27] MEDS: predniSONE 10 MG TAB PO SCH (09:50)
[2020-04-27] MEDS: INSULIN GLARGINE 100 UNITS/ML SQ SCH (09:51)
--- NOTE | 2020-04-27 17:19 | PN ---
Date of Progress Note: 04/27/2020 Subjective: The patient was admitted with COVID pneumonia, respiratory failure, intubated, extubated. Has acute kidney injury secondary to contrast use, nephropathy, COVID nephropathy, on recovery. Physical Examination: Vital Signs: Blood pressure 124/60, pulse of 87, afebrile. The patient had good urine output of 750, still positive around 2.5 L. Chest: Decreased air entry bilateral base. Heart: S1, S2. Regular. Abdomen: Soft, nontender. Extremities: +2 edema. Neurologic: Alert. No focality. Laboratory Data: WBC 13, H and H 9/28.5. Sodium 139, potassium 4, bicarb 20, BUN 87, creatinine 1.4, calcium 6.9, albumin 1.2, corrected calcium is 8.9. PTH 63. Current Medications: The patient on include ciprofloxacin, fluconazole, heparin, Glucerna, calcium gluconate, pantoprazole, insulin, Mucomyst, KCl. Assessment And Plan: 1. Acute kidney injury secondary to contrast induced nephropathy, on the recovery, still severe disproportion BUN and creatinine secondary to GI bleed. We will continue to monitor. I am going to be hesitant to add any diuresis for the time being as just recovered from the acute kidney injury. We will consider resuming gentle diuresis to control the anasarca tomorrow. 2. Anasarca secondary to malnourished as above. 3. Hypertension, controlled, optimal. 4. GI bleed. P.r.n. transfusion. Continue heparin. 5. Retroperitoneal hematoma as by primary. 6. COVID pneumonia/hospital-acquired pneumonia as by primary and Pulmonary. Continue current treatment. 7. Urinary tract infection secondary to Pseudomonas. Continue Levaquin. Continue ciprofloxacin. Kidney function has been improved. I am going to increase the dose to 400. Time spent discussing with the patient, examining the patient, exam lram-ae-anth, placing order, discussing with staff and other consulting include Primary 45 minutes. MAUDE Voice ID: [id number] Report ID: [id number] MTDD
[2020-04-27] MEDS: CIPROFLOXACIN HCL 500 MG TAB PO SCH (22:00)
[2020-04-28] MEDS: IPRATROPIUM BROM 0.5MG/2.5ML NEB SCH (02:00)
--- NOTE | 2020-04-28 05:44 | EKG ---
Test Date: 2020-04-22 Test Time: 10:59:11 [employer] Making Machine Operator: KATERINA MEASUREMENT RESULTS: Intervals: Rate: 103 WA: 238 QRSD: 88 QT: 330 QTc: 432 [place]: P: 67 WA: 238 QRS: 18 T: 174 INTERPRETIVE STATEMENTS: Sinus tachycardia with 1st degree AV block with frequent premature ventricular complexes Anterolateral infarct, age undetermined ST & T wave abnormality, consider inferior ischemia Abnormal ECG Compared to ECG 04/16/2020 14:35:01 Ventricular premature complex(es) now present ST (T wave) deviation now present Possible ischemia now present Sinus rhythm no longer present Atrial premature complex(es) no longer present Myocardial infarct finding still present Electronically Signed On 04-28-20 05:36:[address] [employer] by Quique Joyce
[2020-04-28] MEDS: INSULIN -REGULAR HUMAN 50 UNIT/0.5 ML ML SQ SCH ×2 (06:26)
--- NOTE | 2020-04-28 07:48 | PN ---
Date of Progress Note: 04/27/2020 Subjective: The patient was seen for followup this morning, lying in bed, not in distress. Denies a ny new complaints. Bilateral shallow but equal air entry. Not using any accessory muscles of respir ation and patient is not using any oxygen. Objective: Vital Signs: Reviewed. HEENT: Unremarkable. Lungs: Bilateral equal air entry. Heart: Sounds normal. Abdomen: Soft. Bowel sounds normal. No guarding, rigidity, tenderness, or distention. Extremities: Edema of all the 4 extremities present. Laboratory Data: White count 13, hemoglobin 9, platelets 164. Sodium 139, potassium 4, chloride 110 , bicarb 20, BUN 87, creatinine 1.47, glucose 198, calcium 6.9, AST 73, ALT 176, alkaline phosphatase 131, serum albumin 1.2. Impression: 1.COVID-19 infection. 2.COVID-19 pneumonia. 3.Acute respiratory failure with hypoxia. 4.Generalized weakness. 5.Debility. 6.Hypocalcemia. 7.Severe malnutrition. 8.Anasarca. 9.Diabetes mellitus. 10.Anemia. 11.Urinary tract infection, organism Pseudomonas. Plan: We will go ahead and continue current antibiotics. The patient is medically stable for discha rge to go to rehab facility. Discharge order was written, but I was notified that authorization for the patient to go to such facility that we had from insurance [employer] , so we will need to get another authorization from insurance [employer] and once social services designee is able to achieve that, then we will be able to discharge him to go to such facility. Accepting facility also has requested repeat COVID test, which was done today and it came back positive. I will see him tomorrow for followup. C ontinue current PEG tube feeding. Renal function shows improvement today compared to prior lab resul ts. DEISI/MODL Voice ID: [id number] Report ID: [id number]
[2020-04-28 08:54] VITALS: BP 145/60
[2020-04-28 09:11] VITALS: TEMP 97.9
[2020-04-28] MEDS: FLUCONAZOLE 100 MG TAB PO SCH (09:22)
[2020-04-28] MEDS: PANTOPRAZOLE 40 MG INJ IVP SCH (09:23)
[2020-04-28] MEDS: ZINC SULFATE 220 MG CAP PO SCH (09:23)
[2020-04-28] MEDS: predniSONE 10 MG TAB PO SCH (09:23)
[2020-04-28] MEDS: HEPARIN 5000 UNIT/ML 1 ML VIAL SQ SCH (09:23)
[2020-04-28] MEDS: CIPROFLOXACIN HCL 500 MG TAB PO SCH (09:23)
[2020-04-28] MEDS: INSULIN GLARGINE 100 UNITS/ML SQ SCH (09:24)
[2020-04-28] MEDS: GLUCERNA 1.2 CAL 1,000 ML BOT FT SCH (09:27)
[2020-04-28] MEDS: BACITRACIN OINTMENT 15 GM TUBE TOP SCH (09:27)
[2020-04-28 11:26] VITALS: O2SAT 92
--- NOTE | 2020-05-15 11:25 | DS ---
Date of Discharge: 04/28/2020 Disposition: Discharged to go to [facility]. Physical Examination: HEENT: Unremarkable. Lungs: Clear to auscultation. Heart: Sounds normal. Abdomen: Soft. Bowel sounds normal. No guarding, rigidity, tenderness, distention. Extremities: Edema of all the 4 extremities present, unchanged from yesterday. Discharge Medications And Instructions: See copy of discharge order for details. Final Diagnoses: 1. COVID-19 infection. 2. COVID-19 pneumonia. 3. Acute respiratory failure with hypoxia. 4. Generalized weakness. 5. Debility. 6. Hypocalcemia. 7. Severe malnutrition. 8. Anasarca. 9. Diabetes mellitus, type 2. 10. Anemia, unspecified. 11. Urinary tract infection, organism pseudomonas. 12. Hypertension. 13. Hyperlipidemia. 14. Coronary artery disease. 15. Abdominal aortic aneurysm. 16. Benign prostatic hypertrophy. Hospital Course: This is an 80-year-old male patient who came into emergency room with complaints of cough, shortness of breath on March 08, 2020 and was admitted to the hospital with COVID-19 infection and pneumonia related to go COVID-19. The patient also had acute respiratory failure with hypoxia. Along with that, his cardiac enzymes were abnormal and was noted to have volume depletion problem. He had a very prolonged hospital course related to his COVID-19 infection, COVID-19 pneumonia and respiratory failure. He required to go on the ventilator 2 different times because of his respiratory failure problem. After the second time, we extubated him. We were able to keep him extubated and in fact during the later part of the hospital course, he did not even require any supplemental oxygen most of the time. The patient has not really gotten out of bed for most of this hospital stay because of his very severe health problems, so he has developed significant generalized weakness and debility to the extent that only thing he can move is minimal movement of the hand, otherwise he is not able to move his extremities. He is able to speak, but has very soft voice which is sometimes difficult to understand. I have had multiple discussions with the patient's family member, especially the patient's son and the patient's wants everything done for him and we had him as a full code during this hospital stay. His last blood gas was on 04/22/2020; pH 7.54, pCO2 23, pO2 75, saturation 97% on 30% FiO2. His last CBC from 04/27/2020; white count 13, hemoglobin 9, platelets 164, and last chemistry from 04/27/2020; sodium 139, potassium 4, chloride 110, bicarb 20, BUN 87, creatinine 1.47, glucose 198. His calcium was 6.9. AST 73, ALT 176, alkaline phosphatase 131, and his albumin level was 1.2. The patient did develop acute renal failure during this hospital stay and Nephrology consultation was obtained and his renal function did improve. His highest creatinine was 2.9 when he first came in and his potassium was elevated at some point during this hospital stay, but last several blood draws have shown normal potassium value. His urine culture was growing pseudomonas. He was given antibiotics, IV steroids, remdesivir during this hospital stay for treatment of his infection as well as COVID-19 illness. The patient's overall long-term prognosis is guarded. DEISI/MODL Voice ID: [id number] Report ID: [id number] JOY
--- NOTE | 2020-05-25 15:17 | CON ---
Date of Consultation: 04/14/2020 Reason For Consultation: Protein-calorie malnutrition and need for alternative enteral nutrition. History Of Present Illness: The patient is an 80-year-old white male admitted to hospital with cough and shortness of breath, found to have COVID positive pneumonia. 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 Past Medical History: Significant for diabetes, diabetic neuropathy, hypertension, hyperlipidemia, c oronary artery disease, mitral regurgitation, abdominal aortic aneurysm, constipation, chronic kidney disease, benign prostatic hypertrophy, anemia of chronic disease, and insomnia. Past Surgical History: Cataract surgery, coronary artery angioplasty, and cholecystectomy. Family History: Father of coronary artery disease and myocardial infarction, had chronic kidney disease. Mother had coronary artery disease and myocardial fraction. Brother had liver cancer. Social History: No tobacco, though he quit sometime in the past. No alcohol currently. Review of Systems: The patient has failure to thrive, decreased p.o. intake and albumin of 1.3 now in hospital, needs al ternative means of enteral nutrition. Also had COVID-19 pneumonia, respiratory failure, iliopsoas he matoma and surgery it appears. He denies any denies any melena hematochezia, hematemesis, coffee-ground emesis, hematuria , dysuria, polyuria, polydipsia, chest pain, shortness of breath, seizure, syncope, lower extremity e rita, muscle aches, joint aches, backaches. He does have failure to thrive. Physical Examination: General: The patient is an elderly male, lying in bed. Vital Signs: 5 foot 8 inches, 179 pounds, BMI 27.3 kg/sq m. HEENT: Normocephalic, atraumatic. Anicteric. Pupils equal, round, and reactive to light. Extraocu lar movements are intact. Oropharynx is clear. Neck: Supple. No masses. Respirations: Clear to auscultation bilaterally. Cardiac: Regular rate and rhythm. Gastrointestinal: Positive bowel sounds. Soft, nontender, nondistended. No hepatosplenomegaly. Extremities: No clubbing, cyanosis, or edema. 2+ pulses. Neuro: Alert and oriented x2 responsive to verbal and physical stimuli. Laboratory Data: The patient has a white count of 8.8 down from 10.8 yesterday, hemoglobin of 9.0, h ematocrit 27.4, MCV of 92, platelet count of 96, neutrophils of 96%, lymphocytes 12%, monocytes 2%. The patient has a PT of 14.3, INR of 1.3, PTT of 34.2. Sodium 141, potassium 3.8, chloride 107, bica rb 29, BUN of 56, creatinine of 1.0, glucose 194, calcium 7.0, ferritin of 746. C-reactive protein e levated at 85.3. UA; 2+ blood, positive nitrites, 2+ leukocyte esterase, greater than 50 white blood cells, 5-10 rbcs, squamous epithelial cells, 20-50 bacteria 1+ total protein. Immunology: Positive KARLO 1:80 titer. Serology: Hepatitis B surface antibody less than 5. COVID testing was positive on 03/08/2020. Chest x-ray on April 11 reveals stable chest with bilateral pulmonary interstitial infiltrates, has vogel d mildly prominent, mild aortic atherosclerosis. Impression: 1.Protein-calorie malnutrition with albumin of 1.3. His failure to thrive with Dwindles in the hosp ital since also in February as well with COVID-19 pneumonia, respiratory failure. He also had psoas hematoma and some surgery had performed. 2.COVID-19 pneumonia since late February 2020. 3.History of diabetes, hypertension, hyperlipidemia, coronary artery disease, myocardial infarction cardiac stents, and laparoscopic cholecystectomy. Recommendation: 1.EGD with PEG. 2.Keep patient n.p.o. 3.Hold heparin. 4.Check pre-albumin level. TIBURCIO/DAKOTA Voice ID: [id number] Report ID: [id number]
== END 2020-04-28 11:30 | DRG 207 ==
LOC: ER 12:09 → ERHOLD 14:36 → 4TH 20:40 → 3RD-ICU 03-12 23:18 → 4TH 03-26 17:11 → 3RD-ICU 03-28 21:17 → 4TH 04-13 17:59
PROVIDERS: ADMIT Internal Medicine; ATTEND Internal Medicine
PROC: 5A1955Z Respiratory Ventilation, Greater than 96 Consecutive Hours (ICD-10-PCS; principal; 2020-03-14)
PROC: 0BH17EZ Insertion of Endotracheal Airway into Trachea, Via Natural or Artificial Opening (ICD-10-PCS; 2020-03-14)
PROC: 02HV33Z Insertion of Infusion Device into Superior Vena Cava, Percutaneous Approach (ICD-10-PCS; 2020-03-16)
PROC: 0DH63UZ Insertion of Feeding Device into Stomach, Percutaneous Approach (ICD-10-PCS; 2020-03-20)
PROC: 3E0G76Z Introduction of Nutritional Substance into Upper GI, Via Natural or Artificial Opening (ICD-10-PCS; 2020-03-20)
PROC: 0DB68ZX Excision of Stomach, Via Natural or Artificial Opening Endoscopic, Diagnostic (ICD-10-PCS; 2020-03-20)
PROC: 30233N1 Transfusion of Nonautologous Red Blood Cells into Peripheral Vein, Percutaneous Approach (ICD-10-PCS; 2020-03-20)
DX: U07.1 COVID-19 (principal); J12.82 Pneumonia due to coronavirus disease 2019; J96.01 Acute respiratory failure with hypoxia; E43 Unspecified severe protein-calorie malnutrition; K29.41 Chronic atrophic gastritis with bleeding; E87.0 Hyperosmolality and hypernatremia; N17.9 Acute kidney failure, unspecified; I10 Essential (primary) hypertension; K44.9 Diaphragmatic hernia without obstruction or gangrene; D64.9 Anemia, unspecified; E78.5 Hyperlipidemia, unspecified; I25.2 Old myocardial infarction; L89.152 Pressure ulcer of sacral region, stage 2; L89.892 Pressure ulcer of other site, stage 2; R73.9 Hyperglycemia, unspecified; Z79.82 Long term (current) use of aspirin; Z68.27 Body mass index [BMI] 27.0-27.9, adult; Z79.02 Long term (current) use of antithrombotics/antiplatelets; Z79.84 Long term (current) use of oral hypoglycemic drugs; Z79.899 Other long term (current) drug therapy; Z95.5 Presence of coronary angioplasty implant and graft
CPT/HCPCS: 0240U; 36415; 36430; 36569; 51702; 70450; 71045; 71275; 74018; 74176; 76770; 80048; 80053; 80069; 80076; 80202; 81001; 81003; 81015; 82274; 82550; 82570; 82607; 82728; 82746; 82805; 82947; 83520; 83540; 83605; 83690; 83735; 83880; 83970; 84132; 84134; 84145; 84156; 84165; 84443; 84466; 84484; 85014; 85018; 85025; 85027; 85044; 85379; 85610; 85730; 86021; 86038; 86140; 86160; 86225; 86317; 86430; 86704; 86706; 86850; 86900; 86901; 87040; 87070; 87077; 87086; 87088; 87186; 87205; 87340; 87522; 88108; 88305; 88312; 92526; 92610; 93005; 93306; 93925; 93970; 94002; 94003; 94640; 94660; 94760; 96372; 97110; 97112; 97161; 97530; 99285; C9113; J0330; J0456; J0610; J0690; J0692; J0696; J1100; J1450; J1630; J1644; J1650; J1815; J1940; J2185; J2250; J2270; J2310; J2405; J2704; J2920; J2930; J3010; J3370; J3411; J3480; J3486; J7030; J7040; J7050; J7512; J7605; J7799; P9016; P9047; U0003